=== PATIENT | female | born 1985 | race Caucasian/White ===

== ENCOUNTER 2025-04-10 15:13 | Emergency (ER) | payer BC, SELFPAY ==
--- OUTSIDE RECORDS SUMMARY | 2025-02-17 13:30 | XMS_ITS | Encounter Summary ---
Author [place] [address] Care Team Providers Care Compliance Engineer Name Role Phone Kamini Turner APRN Primary Care Provider [phone] Brayan Miles MD Unavailable [phone] Kevin Santillan MD Unavailable Jonelle Michael MD Unavailable [phone] Keyla Colorado MD Unavailable Reason for Visit * Reason Comments Medication Question Encounter Details Date Type Department Care Team (Late st Contact Info) Description 02/17/2025 2:30 PM EDT Office Visit [facility] [address] [place] [address] Kamini Turner APRN [address] [place] [address] Screening for STDs (sexually transmitted diseases) (Primary Dx); RTA (renal tubular acidosis); Type 2 diabetes mellitus without complication, without long-term current use of insulin (HCC) Social History Tobacco Use Types Packs/Day Years Used Date Smoking Tobacco: Former Cigarettes 0 11/27/1995 - 05/29/2007 Passive Smoke Exposure: Past Smokeless Tobacco: Never Tobacco Cessation:Counseling Given: Not Answered Alcohol Use Standard Drinks/Week Comments Not Currently 0 (1 standard drink = 0.6 oz pure alcohol) Used to drink occasionally but havent in over a year [facility] Utilities Answer Date Recorded In the past 12 months has [facility] [employer], or [employer] threatened to shut off services in your home? No 01/05/2024 Overall Financial Resource Strain (CARDIA) Answe r Date Recorded How hard is it for you to pa y for the very basics like food, housing, medical care, and heating? Not hard at all 01/05/2024 PHQ-2 Answer Date Recorded PHQ-2 Total Score 0 01/09/2025 [facility] - Occupational Stress Questionnaire Answer Date Recorded Do you feel stress - tense, restless, nervous, or anxious, or unable to sleep at night because your mind is troubled all the time - these days? Not at all 01/05/2024 Exercise Vital Sign Answer Date Recorde d On average, how many days pe r week do you engage in moderate to strenuous exercise (like a brisk walk)? 0 days 01/05/2024 On average, how many minutes do you engage in exercise at this level? 0 min 01/05/2024 Hunger Vital Sign Answer Date Recorded Within the past 12 months, y ou worried that your food would run out before you got the money to buy more. Never true 01/05/20 24 Within the past 12 months, t he food you bought just didn't last and you didn't have money to get more. Never true 01/05/2024 [facility]AP[facility] - Transportation Answer Date Re corded In the past 12 months, has l ack of transportation kept you from medical appointments or from getting medications? No 07/2022 In the past 12 months, has l ack of transportation kept you from meetings, work, or from getting things needed for daily living? No [facility] Transportation Answer D ate Recorded In the past 12 months, has l ack of reliable transportation kept you from medical appointments, meetings, work or from getting things needed for daily living? 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 Answer Date of Assessment Author No 08/19/2024 3:10 PM EDT Darrick Matamoros RMA * Is the person blind or does he/she have serious difficulty seeing even when wearing glasses? Answer Date of Assessment Author No 08/19/2024 3:10 PM EDT Darrick Matamoros RMA * Does this person have serious difficulty walking or climbing stairs? Answer Date of Assessment Author No 08/19/2024 3:10 PM EDT Darrick Matamoros RMA * Does this person have difficulty dressing or bathing? Answer Date of Assessment Author No 08/19/2024 3:10 PM EDT Darrick Matamoros RMA * Because of a physical, mental or emotional condition, does this person have difficulty doing errands alone such as visiting a doctor's office or shopping? Answer Date of Assessment Author No 08/19/2024 3:10 PM EDT Darrick Matamoros RMA documented as of this encounter Mental Status * Because of a physical, mental or emotional condition, does this person have serious difficulty concentrating, remembering or making decisions? Answer Entry Date Author No 08/19/2024 3:10 PM EDT Darrick Matamoros RMA documented in this encounter Progress Notes * Kamini Turner APRN - 02/17/2025 2:30 PM EDT Assessment & Plan Screening for STDs (sexually transmitted diseases) Orders: ??? CHLAMYDIA/GC; Future ??? TRICHOMONAS VAGINALIS TMA; Future ??? HIV AG/AB; Future ??? ACUTE HEPATITIS PANEL; Future ??? SYPHILIS SCREEN WITH REFLEX RPR QUANT; Future Progress Note: Vitals: 02/17/25 1437 BP: (!) 124/88 Pulse: 85 Temp: 98.1 ??F (36.7 ??C) TempSrc: Forehead SpO2: 99% Weight: 214 lb (97.1 kg) Height: 5' 2 (1.575 m) Body mass index is 39.14 kg/m??. SUBJECTIVE: Chief Complaint Patient presents with ??? Medication Question HPI: Would like std testing. States no known exposure, but wants tested. Has a little discharge, no odor or color. No sores. Review of Systems Constitutional: Negative. HENT: Negative. Respiratory: Negative. Cardiovascular: Negative. OBJECTIVE: Physical Exam Vitals and nursing note reviewed. Constitutional: Appearance: Normal appearance. HENT: Mouth/Throat: Mouth: Mucous membranes are moist. Cardiovascular: Rate and Rhythm: Normal rate and regular rhythm. Pulmonary: Effort: Pulmonary effort is normal. Skin: General: Skin is warm and dry. Neurological: Mental Status: She is alert. Psychiatric: Mood and Affect: Mood normal. documented in this encounter Plan of Treatment Upcoming Encounters Date Type Department Care Team (Late st Contact Info) Description 08/21/2025 3:00 PM EDT Office Visit [facility] Nephrology [address] [place] [address] Kaci Graham MD [address] [facility] [address] [place] [address] 10/17/2025 3:15 PM EDT Office Visit [facility] [address] [facility] [address] [place] [phone] Mike Stover MD [address] [facility] [address] [place] [address] documented as of this encounter Goals Goal Patient Goal Type Associated Problems Recent Progress Patient-Stated? Author Blood Pressure < 140/90 Blood Pressure 100/70(2024 11:31 AM EST) No Bernabe Cortez MD Maintain a healthy diet, exercise regularly and maintain an ideal body weight General No Edda Farias MA BMI (Calculated) < 30 General 40.1(04/10/20 11:31 AM EST) Kamini Hendrickson APRN Stay Tobacco Free Lifestyle No Edda Farias MA HEMOGLOBIN A1C < 7.0 Result Component 5.9( 2:57 PM EDT) No Kamini Turner APRN documented as of this encounter Procedures Procedure Name Priority Date/Time Associated Diagnosis Comments HIV AG/AB Routine 02/17/2025 3:35 PM EDT Screening for STDs (sexually transmitted diseases) TRICHOMONAS VAGINALIS TMA Routine 02/17/2025 3:35 PM EDT Screening for STDs (sexually transmitted diseases) TRICHOMONAS VAGINALIS BY TMA Routine 02/17/2025 3:35 PM EDT Screening for STDs (sexually transmitted diseases) CHLAMYDIA/GC Routine 02/17/2025 3:35 PM EDT Screening for STDs (sexually transmitted diseases) SYPHILIS SCREEN WITH REFLEX RPR QUANT Routine 02/17/2025 3:35 PM EDT Screening for STDs (sexually transmitted diseases) CHLAMYDIA/GC BY TMA Routine 02/17/2025 3 :35 PM EDT Screening for STDs (sexually transmitted diseases) ACUTE HEPATITIS PANEL Routine 02/17/2025 3:35 PM EDT Screening for STDs (sexually transmitted diseases) CBC WITH DIFF Routine 02/17/2025 3:35 PM EDT Type 2 diabetes mellitus without complication, without long-term current use of insulin (HCC) PHOSPHORUS LEVEL Routine 02/17/2025 3:35 PM EDT RTA (renal tubular acidosis) LIPID SCREEN Routine 02/17/2025 3:35 PM EDT Type 2 diabetes mellitus without complication, without long-term current use of insulin (HCC) COMPREHENSIVE METABOLIC PANEL Routine 02/17/2025 3:35 PM EDT Type 2 diabetes mellitus without complication, without long-term current use of insulin (HCC) documented in this encounter Results * PHOSPHORUS LEVEL (02/17/2025 3:35 PM EDT) Pathologist [facility] Phosphorus 3.5 2.5 - 4.5 mg/dL 02/17/2025 9:21 PM EDT [facility] [employer] Blood VENOUS BLOOD / Unknown Venipuncture / Unknown 02/17/2025 3:35 PM EDT 02/17/2025 3:35 PM EDT us Kaci Graham MD CHEMISTRY ORDERABLES Final R esult [facility] [employer] [address] [place] [address] , [place] [address] * TRICHOMONAS VAGINALIS BY TMA (02/17/2025 3:35 PM EDT) Pathologist [facility] Trichomonas vaginalis by TMA Not Detected Not Detected 02/18/2025 5:50 PM EDT [facility] [employer] Urine STRUCTURE OF URINARY TRACT PROPER / Unknown 02/17/2025 3:35 PM EDT 02/17/2025 3:35 PM EDT Narrative [facility] [employer] - 02/18/2025 5:50 PM EDT Test methodology is mill roll operator mediated amplification (TMA) using the Aptima Trichomonas vaginalis assay from [employer]. A negative result does not completely rule out a Trichomonas vaginalis infection due to potential inhibitors or levels present below the limit of detection of this assay. Results are dependent on proper collection and transport of specimen. This test is indicated for medical purposes only and should not be used for legal or forensic purposes. Kamini Turner MAINFRAME SYSTEMS PROGRAMMER MICROBIOLOGY - GENERAL OR DERABLES Final Result Performing Organization Address [facility] Co de Phone Number [facility] , [place] [address] * CHLAMYDIA/GC BY TMA (02/17/2025 3:35 PM EDT) Pathologist [facility] Chlamydia trachomatis Not Detected Not Detected 02/18/2025 5:24 PM EDT [facility], [facility] Neisseria gonorrhoeae Not Detected Not Detected 02/18/2025 5:24 PM EDT [facility], [facility] Urine STRUCTURE OF URINARY TRACT PROPER / Unknown 02/17/2025 3:35 PM EDT 02/17/2025 3:35 PM EDT Narrative [facility] [employer] [facility] - 02/18/2025 5:24 PM EDT Testing methodology is mill roll operator mediated amplification (TMA) using the Aptima Combo 2 assay from [employer]. A negative result does not completely rule out a Chlamydia trachomatis or Neisseria gonorrhoeae infection due to potential inhibitors or levels present below the limit of detection by this assay. Results are dependent on proper collection and transport of specimen. This test is indicated for medical purposes only and should not be used for legal or forensic purposes. The performance characteristics of this assay were validated by the testing laboratory. This assay is FDA cleared to test the following specimens: clinician-collected endocervical, vaginal, male urethral swab specimens, rectal swabs, and throat/pharyngeal swabs; patient collected vaginal specimens within a clinic setting; Thin Prep Specimens in [employer]; and first-stream, unpreserved male and female urine specimens. Detailed methodology is available upon request. Kamini Turner MAINFRAME SYSTEMS PROGRAMMER MICROBIOLOGY - GENERAL OR DERABLES Final Result Performing Organization Address [facility] Co de Phone Number [facility] , [place] [address] * LIPID SCREEN (02/17/2025 3:35 PM EDT) Pathologist [facility] Cholesterol 138 <200 mg/dL 02/17/2025 9:21 PM EDT [facility] [employer] Comment: < 200 Desirable 200 - 239 Borderline High >= 240 High Triglyceride 82 <150 mg/dL 02/17/2025 9:21 PM EDT [facility], [facility] Comment: < 150 Normal 150 - 199 Borderline High 200 - 499 High >= 500 Very High HDL 45 >=40 mg/dL 02/17/2025 9:21 PM EDT [facility] [employer], [facility] Comment: > 60 Optimal 40 - 60 Acceptable < 40 Low LDL Calculated 77 <100 mg/dL 02/17/2025 9:21 PM EDT [facility], [facility] Comment: < 100 Optimal 100 - 129 Near or above optimal 130 - 159 Borderline High 160 - 189 High >= 190 Very High The National Institutes of Health (NIH) equation is used for all lipid panels that report calculated LDL (LDL-C). Non-HDL-C Calculated 93 <=129 mg/dL 02/17/2025 9:21 PM EDT [facility] [employer], [facility] Comment: <130 Desirable 130-159 Above Desirable 160-189 Borderline High 190-219 High >= 220 Very High Fasting Specimen? Yes None 025 9:21 PM EDT [facility] [employer], [employer] Blood VENOUS BLOOD / Unknown Venipuncture / Unknown 02/17/2025 3:35 PM EDT 02/17/2025 3:35 PM EDT us Kamini Turner MAINFRAME SYSTEMS PROGRAMMER CHEMISTRY ORDERABLES Jackie l Result [facility], [facility] [address] [facility] [address] , [place] [address] * (ABNORMAL) COMPREHENSIVE METABOLIC PANEL (02/17/2025 3:35 PM EDT) Sodium 137 136 - 145 mmol/L 02/17/2025 9:21 PM EDT [facility], [facility] Potassium 4.0 3.5 - 5.0 mmol/L 02/17/2025 9:21 PM EDT [facility], [facility] Chloride 107 98 - 107 mmol/L 02/17/2025 9:21 PM EDT [facility], [facility] Total CO2 18(L) 22 - 29 mmol/L 02/17/2025 9:21 PM EDT [facility], [facility] Anion Gap 12 7 - 16 mmol/L 02/17/2025 9:21 PM EDT [facility], [facility] Calcium 9.6 8.6 - 10.4 mg/dL 02/17/2025 9:21 PM EDT [facility], [facility] Glucose Lvl 104(H) 70 - 99 mg/dL 02/17/2025 9:21 PM EDT [facility] BUN 16 6 - 20 mg/dL 02/17/2025 9:21 PM EDT [facility] Creatinine 0.77 0.51 - 1.30 mg/dL 02/17/2025 9:21 PM EDT [facility], [facility] Albumin 4.3 3.5 - 5.2 gm/dL 02/17/2025 9:21 PM EDT [facility], [facility] Total Protein 7.7 6.4 - 8.3 gm/dL 02/17/2025 9:21 PM EDT [facility] Bili Total 0.5 0.2 - 1.3 mg/dL 02/17/2025 9:21 PM EDT [facility] ALT 30 <=41 U/L 02/17/2025 9:21 PM EDT [facility] AST 33 <=40 U/L 02/17/2025 9:21 PM EDT [facility] Alk Phos 58 36 - 123 U/L 02/17/2025 9:21 PM EDT [facility] eGFR (CKD-EPIcr 2020) 101 >=60 mL/min/1.7 3 m2 02/17/2025 9:21 PM EDT [facility] Comment:Estimated GFR was ca lculated using the CKD-EPIcr (2020) equation refit without race. The equation is recommended by the National Kidney Foundation - [place] [employer] Nephrology Task Force. Blood VENOUS BLOOD / Unknown Venipuncture / Unknown 02/17/2025 3:35 PM EDT 02/17/2025 3:35 PM EDT us Kamini Turner APRN CHEMISTRY ORDERABLES Jackie l Result [facility] [address] [facility] , [place] [address] * (ABNORMAL) CBC WITH DIFF (02/17/2025 3:35 PM EDT) WBC 9.7 3.7 - 10.3 x10(3)/mcL 02/17/2025 8:15 PM EDT [facility] RBC 4.83 3.90 - 5.20 x10(6)/mcL 02/17/2025 8:15 PM EDT [facility] Hgb 14.7 11.2 - 15.7 g/dL 02/17/2025 8:15 PM EDT [facility] Hct 46.8(H) 34.0 - 45.0 % 02/17/2025 8:15 PM EDT [facility] MCV 96.9 80.0 - 100.0 fL 02/17/2025 8:15 PM EDT [facility] MCH 30.4 26.0 - 34.0 pg 02/17/2025 8:15 PM EDT [facility] MCHC 31.4 30.7 - 35.5 g/dL 02/17/2025 8:15 PM EDT [facility] RDW 12.3 <=14.9 % 02/17/2025 8:15 PM EDT [facility] Platelet 324 155 - 369 x10(3)/mcL 02/17/2025 8:15 PM EDT [facility] MPV 10.8 8.8 - 12.5 fL 02/17/2025 8:15 PM EDT [facility] Neut Percent 65.2 % 02/17/2025 8:15 PM EDT [facility] Comment:Neutrophils equals s egs plus bands Imm Gran% 0.3 % 02/17/2025 8:15 PM EDT [facility] Comment:Automated count of m etamyelocytes, myelocytes and promyelocytes. Lymph Percent 25.1 % 02/17/2025 8:15 PM EDT [facility] Louisa Percent 7.3 % 02/17/2025 8:15 PM EDT [facility] Eos Percent 1.5 % 02/17/2025 8:15 PM EDT [facility], [facility] Baso Percent 0.6 % 02/17/2025 8:15 PM EDT [facility], [facility] Neut # 6.3(H) 1.6 - 6.1 x10(3)/[facility] 02/17/2025 8:15 PM EDT [facility] Comment:Neutrophils equals s egs plus bands IMMGRAN# 0.0 0.0 - 0.1 x10(3)/[facility] 02/17/2025 8:15 PM EDT [facility] [employer], [facility] Comment:Automated count of m etamyelocytes, myelocytes and promyelocytes. An absolute IG <0.1 is reported as 0.0. Lymph # 2.4 1.2 - 3.9 x10(3)/[facility] 02/17/2025 8:15 PM EDT [facility], [facility] Louisa # 0.7 0.3 - 0.9 x10(3)/[facility] 02/17/2025 8:15 PM EDT [facility], [facility] Eos# 0.1 0.0 - 0.5 x10(3)/[facility] 02/17/2025 8:15 PM EDT [facility], [facility] Baso # 0.1 0.0 - 0.1 x10(3)/[facility] 02/17/2025 8:15 PM EDT [facility] Blood VENOUS BLOOD / Unknown Venipuncture / Unknown 02/17/2025 3:35 PM EDT 02/17/2025 3:35 PM EDT us Kamini Turner MAINFRAME SYSTEMS PROGRAMMER HEMATOLOGY ORDERABLES Fin al Result [facility], [facility] [address] , [place] [address] * SYPHILIS SCREEN WITH REFLEX RPR QUANT (02/17/2025 3:35 PM EDT) Trep Ab Index 0.10 <=0.99 Index Value 02/17/2025 10:59 PM EDT [facility], [facility] Comment: < 1.00 - Non-Reactive >=1.00 - Reactive NOTE: All reactive results will be reflexed to Quantitative Non-Treponemal(RPR)test. Blood VENOUS BLOOD / Unknown Venipuncture / Unknown 02/17/2025 3:35 PM EDT 02/17/2025 3:35 PM EDT Kamini Turnerdox MAINFRAME SYSTEMS PROGRAMMER CHEMISTRY ORDERABLES Jackie l Result Performing Organization Address [facility] Co de Phone Number [facility], [facility] [address] , [place] [address] * ACUTE HEPATITIS PANEL (02/17/2025 3:35 PM EDT) Hep Bs Ag Non-Reacti ve Non-React liane 02/17/2025 9:51 PM EDT [facility], [facility] Comment:HBsAg not detected. Does not exclude possibility of exposure to HBV. Hep B Core IgM Non-Reacti ve Non-React liane 02/17/2025 9:51 PM EDT [facility] Hep A IgM Non-Reacti ve Non-React liane 02/17/2025 9:51 PM EDT [facility], [facility] Hep C Ab Non-Reacti ve Non-React liane 02/17/2025 9:51 PM EDT [facility], [facility] Comment:No antibodies to HCV detected. Does not exclude possibility of exposure to HCV. Blood VENOUS BLOOD / Unknown Venipuncture / Unknown 02/17/2025 3:35 PM EDT 02/17/2025 3:35 PM EDT Narrative [facility], [facility] - 02/17/2025 9:51 PM EDT Test performed using [employer] electrochemiluminescence immunassay (ECLIA). Kamini Turnerdox MAINFRAME SYSTEMS PROGRAMMER CHEMISTRY ORDERABLES Jackie l Result Performing Organization Address [facility] Co de Phone Number [facility] [employer], [facility] [address] , [address] [place] [id number] * HIV AG/AB (02/17/2025 3:35 PM EDT) HIV Ag/AB Non-Reacti ve Non-Reacti ve 02/17/2025 9:46 PM EDT [facility] [employer] Comment:Negative for HIV-1 a ntigen and anti-HIV-1/anti-HIV-2 antibodies. Blood VENOUS BLOOD / Unknown Venipuncture / Unknown 02/17/2025 3:35 PM EDT 02/17/2025 3:35 PM EDT Narrative [facility] [employer] - 02/17/2025 9:46 PM EDT Test performed using [employer] electrochemiluminescence immunassay (ECLIA). 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 Type 2 diabetes mellitus without complication, without long-term current use of insulin (HCC) documented in this encounter Care Teams Compliance Engineer Relationship Specialty Start Date End Date Kamini Turner APRN [address] [place] [phone] PCP - General Nurse Practitioner 11/28/17 Brayan Miles MD [address] [facility] [address] [place] [address] Referring Physician Obstetrics & Gynecology 03/11/19 Kevin Santillan MD [address] [facility] [address] [place] [address] Consulting Physician Obstetrics & Gynecology-Gynecologic Oncology 03/21/19 Jonelle Michael MD [address] [facility] [address] [place] [phone] Consulting Physician Ophthalmology 03/19/20 Keyla [place] MD [address] [place] [address] Internal Medicine-Rheumatology 12/08/22 documented as of this encounter
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
--- OUTSIDE RECORDS SUMMARY | 2025-04-09 14:35 | XMS_ITS | Encounter Summary ---
Author Organization [place] [address] Care Team Providers Care Baler Operator Name Role Phone Kamini Turner APRN Primary Care Provider [phone] Brayan Miles MD Unavailable [phone] Kevin Santillan MD Unavailable Jonelle Michael MD Unavailable [phone] Keyla Colorado MD Unavailable Encounter Details Date Type Department Care Team (Latest Contact Info) Description 04/09/2025 2:35 PM EST - 04/09/2025 11:59 PM EST Hospital Encounter [facility] [address] [place] [address] Bleeding in early Discharge Disposition: Home or Self Care Social History Tobacco Use Types Packs/Day Years Used Date Smoking Tobacco: Former Cigarettes 0 11/27/1995 - 05/29/2007 Passive Smoke Exposure: Past Smokeless Tobacco: Never Alcohol Use Standard Drinks/Week Comments Not Currently 0 (1 standard drink = 0.6 oz pure alcohol) Used to drink occasionally but havent in over a year [facility] Utilities Answer Date Recorded In the past 12 months has [employer] electric, gas, oil, or water company threatened to shut off services in your home? No 01/05/2024 Overall Financial Resource Strain (CARDIA) Answe r Date Recorded How hard is it for you to pa y for the very basics like food, housing, medical care, and heating? Not hard at all 01/05/2024 PHQ-2 Answer Date Recorded PHQ-2 Total Score 0 01/09/2025 [facility] [place] of Occupat ional Health - Occupational Stress Questionnaire Answer Date Recorded [...] things needed for daily living? No 08/29/2022 [facility] IP Transportation Answer D ate Recorded In [...] on file documented as of this encounter Functional Status * Is the person deaf or does he/she have serious difficulty hearing? Answer Date of Assessment Author No 08/19/2024 3:10 PM Peyton Motta RMA * Is the person blind or does he/she have serious difficulty seeing even when wearing glasses? Answer Date of Assessment Author No 08/19/2024 3:10 PM Peyton Motta RMA * Does this person have serious difficulty walking or climbing stairs? Answer Date of Assessment Author No 08/19/2024 3:10 PM EDT Peyton Matamoros NISA * Does this person have difficulty dressing or bathing? Answer Date of Assessment Author No 08/19/2024 3:10 PM EDT Peyton Matamoros maryNISA Jauregui * Because of a physical, mental or emotional condition, does this person have difficulty doing errands alone such as visiting a doctor's office or shopping? Answer Date of Assessment Author No 08/19/2024 3:10 PM EDT Peyton Matamoros maryNISA Jauregui documented as of this encounter Mental Status * Because of a physical, mental or emotional condition, does this person have serious difficulty concentrating, remembering or making decisions? Answer Entry Date Author No 08/19/2024 3:10 PM EDT Peyton Matamoros bolivar Zunigae NISA documented in this encounter Medications at Time of Discharge ACCU-CHEK GUIDE TEST STRIPS [facility] StripIndications:Im paired glucose tolerance USE 1 STRIP BEFORE MEAL(S) AND AT BEDTIME 100 Each 5 acetaZOLAMIDE (DIAMOX) 250 mg Oral Tablet Take 375 mg by mouth 3 times daily. 4 albuterol (PROVENTIL HFA;VENTOLIN HFA) 90 mcg/actuation Inhl HFA Aerosol InhalerIndications: Mild intermittent reactive airway disease with wheezing with acute exacerbation Inhale 2 Puffs into the lungs every 4 hours as needed for Wheezing. 1 Each 2 5 albuterol-ipratropi um (DUO-NEB) 3 mg-0.5 mg(2.5 mg base)/3 mL Inhl Solution for Nebulization USE 3 ML BY NEBULIZATION AT 8 AM,12 PM, 4 PM, AND 8 PM 5 Blood-Glucose Meter [facility] KitIndications:Impa ired glucose tolerance Use before meals and at hs. Dispense insurance preference. E11.9 1 Kit 5 budesonide (PULMICORT) 0.5 mg/2 mL Inhl Suspension for NebulizationIndicat ions:Mild intermittent reactive airway disease with wheezing with acute exacerbation Take 2 mL by nebulization 2 times daily. 180 mL 5 Cholecalciferol, Vitamin D3, (VITAMIN D3) 125 mcg (5,000 unit) Oral Tablet Take 1 Tablet by mouth once a week. TAKES ON SATURDAYS ergocalciferol (DRISDOL) 1,250 mcg (50,000 unit) Oral CapsuleIndications: Vitamin D deficiency Take 1 Capsule by mouth once a week. 12 Capsule 5 gabapentin (NEURONTIN) 600 mg Oral TabletIndications:P eripheral polyneuropathy Take 1 Tablet by mouth 3 times daily. 270 Tablet 5 galcanezumab-gnlm (EMGALITY) 120 mg/mL SubQ Pen InjectorIndications :Episodic migraine Subcutaneous (Inject under the skin) One pen (120mg) every 30 days. 3 mL 5 hydrOXYzine (ATARAX) 50 mg Oral TabletIndications:P anic attack Take 1 Tablet by mouth 3 times daily as needed for Anxiety (for panic attacks). 270 Tablet 5 ibuprofen (ADVIL;MOTRIN) 800 mg Oral TabletIndications:A rthralgia, unspecified joint Take 1 Tablet by mouth every 6 hours as needed for Pain. 270 Tablet 5 Lancets (ACCU-CHEK SOFTCLIX LANCETS) Misc MiscIndications:Imp aired glucose tolerance USE 1 UNIT TO CHECK GLUCOSE BEFORE MEAL(S) AND AT BEDTIME 100 Each 5 levocetirizine (XYZAL) 5 mg Oral TabletIndications:S easonal allergic rhinitis, unspecified trigger Take 1 Tablet by mouth every evening. 100 Tablet 1 5 loratadine (CLARITIN) 10 mg Oral Tablet Take 10 mg by mouth daily. multivitamin, stress formula (ALLBEE VIT WITH C & B COMPLEX) Oral Tablet Take 1 Tablet by mouth daily. Nebulizer Accessories Misc MiscIndications:Mil d intermittent reactive airway disease with wheezing with acute exacerbation Use tubing with treatment. 10 Each 4 NURTEC ODT 75 mg Oral Tablet, Rapid DissolveIndications :Migraine without aura and without status migrainosus, not intractable TAKE 1 TABLET BY MOUTH ONCE AT ONSET OF MIGRAINE NEEDED. MAX DOSE IS 75MG/24 HOURS 8 Tablet 11 2 ondansetron (ZOFRAN-ODT) 4 mg Oral Tablet, Rapid DissolveIndications :Nausea and vomiting, unspecified vomiting type DISSOLVE 1 TABLET IN MOUTH EVERY 6 HOURS NEEDED 30 Tablet 5 pantoprazole (PROTONIX) 40 mg Oral Tablet, Delayed Release (E.C.)Indications:I neffective esophageal motility,Esophageal dysphagia Take 1 tablet by mouth twice daily 180 Tablet 2 5 polyethylene glycol (GLYCOLAX, MIRALAX) 17 gram Oral Powder in Packet Take 17 g by mouth nightly. potassium chloride (KLOR-CON M) 20 mEq Oral Tab Sust.Rel. Particle/CrystalInd ications:Fluid retention Take 2 Tablets by mouth 2 times daily. 360 Tablet 3 5 pramipexole (MIRAPEX) 1 mg Oral TabletIndications:R estless legs syndrome (RLS) Take 1 Tablet by mouth 2 times daily. 200 Tablet 1 5 semaglutide (OZEMPIC) 2 mg/dose (8 mg/3 mL) SubQ Pen InjectorIndications :Type 2 diabetes mellitus without complication, without long-term current use of insulin (HCC) Inject 2 mg under the skin once a week. 9 mL 1 5 Sodium Bicarbonate 650 mg Oral Tablet Take 1 Tablet by mouth 3 times daily. 270 Tablet 3 5 spironolactone (ALDACTONE) 50 mg Oral TabletIndications:N onintractable headache, unspecified chronicity pattern, unspecified headache type Take 1 Tablet by mouth daily. 90 Tablet 3 5 documented as of this encounter Discharge Disposition Disposition Code Departure Means Destination Home or Self Care documented in this encounter Plan of Treatment Upcoming Encounters Date Type Department Care Team (Late st Contact Info) Description 08/21/2025 3:00 PM EDT Office Visit [facility] Nephrology [facility] [address] [place] [address] Kaci Graham MD [address] [facility] [address] [place] [address] 10/17/2025 3:15 PM EDT Office Visit [facility] [address] [place] [address] Mike Stover MD [address] [facility] [address] [place] [address] documented as of this encounter Goals Goal Patient Goal Type Associated Problems Recent Progress Patient-Stated? Author Blood Pressure < 140/90 Blood Pressure 100/70(2024 11:31 AM EST) No Bernabe Cortez MD Maintain a healthy diet, exercise regularly and maintain an ideal body weight General No Edda Farias MA BMI (Calculated) < 30 General 40.1(04/10/20 11:31 AM EST) No Kamini Turner APRN Stay Tobacco Free Lifestyle No Edda Farias MA HEMOGLOBIN A1C < 7.0 Result Component 5.9( 2:57 PM EDT) No Kamini Turner APRN documented as of this encounter Procedures Procedure Name Priority Date/Time Associated Diagnosis Comments HUMAN CHORIONIC GONADOTROPIN QUANTITATIVE Routine 04/09/2025 2:51 PM EST Bleeding in early documented in this encounter Results * (ABNORMAL) HUMAN CHORIONIC GONADOTROPIN QUANTITATIVE (04/09/2025 2:51 PM EST) Hcg Quant 121(H) <5 mIU/mL 04/09/2025 8:26 PM EST PREFERRED [facility] Blood VENOUS BLOOD / Unknown Venipuncture / Unknown 04/09/2025 2:51 PM EST 04/09/2025 2:52 PM EST Narrative PREFERRED [facility] - 04/09/2025 8:26 PM EST Female (non-): 0-4.9 mIU/mL Female (postmenopausal): 0-8.1 mIU/mL Indeterminate values for (e.g., 5-25 mIU/mL) may be confirmed with a repeat test in 48-72 hours. Values in should double every 2-3 days for the first six weeks. Ingestion of nicci doses of biotin (>5 mg/day) taken within 8 hours of drawing blood sample can interfere with this immunoassay test. us Akua Reed DO CHEMISTRY ORDERABLES Fin al Result PREFERRED [facility] [address] [facility] , [address] [place], [place] [id number] documented in this encounter Visit Diagnoses Diagnosis Bleeding in early Unspecified hemorrhage in early , unspecified as to episode of care documented in this encounter Care Teams Baler Operator Relationship Specialty Start Date End Date Kamini Turner APRN [address] [place] [id number] PCP - General Nurse Practitioner 11/28/17 Brayan Miles MD [address] [facility] [address] [place] [address] Referring Physician Obstetrics & Gynecology 03/11/19 Kevin Santillan MD [address] [facility] [address] [place] [address] Consulting Physician Obstetrics & Gynecology-Gynecologic Oncology 03/21/19 Jonelle Michael MD [address] [facility] [address] [place] [address] Consulting Physician Ophthalmology 03/19/20 Keyla Colorado MD [address] [place] [address] Internal Medicine-Rheumatology 12/08/22 documented as of this encounter
--- OUTSIDE RECORDS SUMMARY | 2025-04-10 11:15 | XMS_ITS | Encounter Summary ---
Author Organization [place] [address] Care Team Providers Care Senior Chemical Engineer Name Role Phone Kamini Turner APRN Primary Care Provider [phone] Brayan Miles MD Unavailable [phone] Kevin Santillan MD Unavailable Jonelle Michael MD Unavailable [phone] Keyla Colorado MD Unavailable Reason for Referral * Consultation (Routine) - Authorization Not Needed Specialty Diagnoses / Procedures Referred By Contac t Referred To Contact Diagnoses Threatened miscarriage Positive test Vaginal bleeding Procedures OK OFFICE/OUTPATIENT NEW MODERATE MDM 45 MINUTES Kamini Turner APRN [address] [place] [address] Phone: tel: fax: Phuong Evans, DO [address] [address] Phone: tel: fax: Referral ID Status Reason Start Date Expiration Date Visits Requested Visits Authorized [id number] Authorization Not Needed 04/10/2026 99 99 Question Answer Is this for an abnormal pap? No Reason for Visit * Reason Comments Personal Problem Encounter Details Date Type Department Care Team ([facility] Contact Info) Description 04/10/2025 11:15 AM EST [facility] [address] [place] [address] Kamini Turner APRN [address] [place] [address] Threatened miscarriage (Primary Dx); Positive test; Vaginal bleeding; UTI (urinary tract infection), uncomplicated Social History Tobacco Use Types Packs/Day Years Used Date Smoking Tobacco: Former Cigarettes 0 11/27/1995 - 05/29/2007 Passive Smoke Exposure: Past Smokeless Tobacco: Never Tobacco Cessation:Counseling Given: Not Answered Alcohol Use Standard Drinks/Week Comments Not Currently 0 (1 standard drink = 0.6 oz pure alcohol) Used to drink occasionally but havent in over a year [facility] Utilities Answer Date Recorded In the [...] Date Recorded PHQ-2 Total Score 0 01/09/2025 [facility] of Occupat ional Health - Occupational Stress [...] things needed for daily living? No 08/29/2022 [facility] Transportation Answer D ate Recorded In the past 12 months, has l ack of reliable transportation kept you from medical appointments, meetings, work or from getting things needed for daily living? No 01/05/2024 Sexually Active Control Partners Comments Yes Injection, Other-see comments Male Was on control pill but neurologist stopped it katja of Comments Yes Sex and Gender Information Value Date Recorded [...] Sign Reading Time Taken Comments Blood Pressure 100/70 04/10/2025 11:31 AM EST Pulse 85 04/10/2025 11:31 AM EST Temperature 36.3 C (97.3 F) 04/10/2025 11:31 AM EST Respiratory Rate - - Oxygen Saturation 98% 04/10/2025 11:31 AM EST Inhaled Oxygen Concentration - - Weight 99.3 kg (219 lb) 04/10/2025 11:31 AM EST Height 157.5 cm (5' 2 ) 04/10/2025 11:31 AM EST Body Mass Index 40.06 04/10/2025 11:31 AM EST documented in this encounter Functional Status * Is the person deaf or does he/she have serious difficulty hearing? Answer Date of Assessment Author No 08/19/2024 3:10 PM EDPeyton Wilkinson RMA * Is the person blind or [...] 08/19/2024 3:10 PM EDT Peyton Matamoros bolivar Zunigae, NISA * Because of a physical, mental or [...] No 08/19/2024 3:10 PM EDT Peyton Matamoros marygretel Barrera, NISA documented in this encounter Ordered Prescriptions Prescription Sig Dispense Quantity Refills Last Filled Start Date End Date cephALEXin (KEFLEX) 500 mg Oral CapsuleIndications: UTI (urinary tract infection), uncomplicated Take 1 Capsule by mouth every 8 hours for 7 days. 21 Capsule 04/10/2025 documented in this encounter Progress Notes * Kamini Turner APRN - 04/10/2025 11:15 AM EST Assessment & Plan Threatened miscarriage Orders: ??? AMB REFERRAL TO [facility] Positive test Orders: ??? AMB REFERRAL TO [facility] Vaginal bleeding Orders: ??? AMB REFERRAL TO [facility] UTI (urinary tract infection), uncomplicated Orders: ??? URINE CULTURE (NO STAIN); Future ??? [facility] URINALYSIS POC ??? cephALEXin (KEFLEX) 500 mg Oral Capsule; Take 1 Capsule by mouth every 8 hours for 7 days. Due to uncertainty of rh factor, as well as pain and cramping, patient sent to ER in [place] for work up and evaluation. I cannot r/o ectopic in office, and with her hx of ectopic, this needs urgent evaluation. Referral placed to [facility] transfusion aide. Advised to hold all meds except inhaler if needed. Nothing to eat or drink until seen at ER. Progress Note: Vitals: 04/10/25 1131 BP: 100/70 Pulse: 85 Temp: 97.3 ??F (36.3 ??C) TempSrc: Forehead SpO2: 98% Weight: 219 lb (99.3 kg) Height: 5' 2 (1.575 m) Body mass index is 40.06 kg/m??. SUBJECTIVE: Chief Complaint Patient presents with ??? Personal Problem HPI: March 29 had spotting, lasted 3-4 days. Not heavy, no clots. Stopped. Started spotting with urination. Lasted off and on for a week. Yesterday morning got up and urinated blood. Took test and it was positive. Called [facility] in [place], had tubal in 2008, was concerned. Was told to get hcg level checked, but would not see her yet and told her it could be normal . Asked about her medicine, asked what medicine are you on? Despite being on epic. States told them. Was told to take tylenol for cramping, and if severe to go to hospital. Review of Systems Constitutional: Negative. HENT: Negative. Genitourinary: Positive for pelvic pain and vaginal bleeding. OBJECTIVE: Physical Exam Vitals and nursing note reviewed. Constitutional: Appearance: Normal appearance. HENT: Mouth/Throat: Mouth: Mucous membranes are moist. Cardiovascular: Rate and Rhythm: Normal rate and regular rhythm. Pulmonary: Effort: Pulmonary effort is normal. Abdominal: Palpations: Abdomen is soft. Tenderness: There is no guarding or rebound. Skin: General: Skin is warm and dry. Neurological: Mental Status: She is alert. Psychiatric: Mood and Affect: Mood normal. documented in this encounter Plan of Treatment Upcoming Encounters Date Type Department Care Team (Late st Contact Info) Description 08/21/2025 3:00 PM EDT Office Visit [facility] Nephrology [address] [place] [address] Kaci Graham MD [address] [facility] [address] [place] [address] 10/17/2025 3:15 PM EDT Office Visit [facility] [address] [facility] Anirudh [address] [place] [address] Mike Stovre MD [address] [facility] [address] [place] [phone] Pending Results Name Type Priority Associated Diagnoses Date /Time URINE CULTURE (NO STAIN) Microbiology Routine UTI (urinary tract infection), uncomplicated 04/10/2025 11:54 AM EST Scheduled Orders Name Type Priority Associated Diagnoses Orde r Schedule URINE CULTURE (NO STAIN) Microbiology Routine UTI (urinary tract infection), uncomplicated 1 Occurrences starting 04/10/2025 until 04/10/2026 Scheduled Referrals Name Type Priority Associated Diagnoses Orde r Schedule AMB REFERRAL TO [facility] Outpatient Referral Routine Threatened miscarriage Positive test Vaginal bleeding Ordered: 04/10/2025 documented as of this encounter Goals Goal [...] Procedure Name Priority Date/Time Associated Diagnosis Comments [facility]P URINALYSIS POC Routine 04/10/2025 11 :44 AM EST UTI (urinary tract infection), uncomplicated documented in this encounter Results * (ABNORMAL) [facility] URINALYSIS POC (04/10/2025 11:44 AM EST) UA Color POC Yellow Color 04/10/2025 11:48 AM EST [facility] [place] [facility] Appear POC Clear Clear 04/10/2025 11:48 AM EST [facility] [place] [facility] Gluc POC Negative Negative mg/dL 04/10/2025 11:48 AM EST [facility] [place] [facility] Bili POC Negative Negative 04/10/2025 11:48 AM EST [facility] [place] [facility]A Ketones POC Negative Negative mg/dL 04/10/2025 11:48 AM EST [facility] SG POC 1.025 1.001 - 1.035 no units 04/10/2025 11:48 AM EST [facility] Blood POC Large(A) Negative 04/10/2025 11:48 AM EST [facility] pH POC 7.0 5.0 - 8.0 pH 04/10/2025 11:48 AM EST [facility] Protein POC 30(A) Negative mg/dL 04/10/2025 11:48 AM EST [facility] Urobilinogen POC 2.0(A) 0.2, 1.0 04/10/2025 11:48 AM EST [facility] Nitrite POC Negative Negative 04/10/2025 11:48 AM EST [facility] Leuk Est POC Trace(A) Negative 11:48 AM EST [facility] Urine STRUCTURE OF URINARY TRACT PROPER / Unknown 04/10/2025 11:44 AM EST 04/10/2025 11:48 AM EST us Kamini Turner APRN POINT OF CARE TEST ORDERA BLES Final Result Performing Organization Address City/State/[facility] Co de Phone Number [facility] [address] [place] [address] documented in this encounter Visit Diagnoses Diagnosis Threatened miscarriage- Primary Threatened , unspecified as to episode of care Positive test examination or test, positive result Vaginal bleeding Other specified noninflammatory disorder of vagina UTI (urinary tract infection), uncomplicated Urinary tract infection, site not specified documented in this encounter Care Teams Senior Chemical Engineer Relationship Specialty Start Date End Date Kamini Turner APRN [address] [place] [address] PCP - General Nurse Practitioner 11/28/17 Brayan Miles MD [address] [facility] [address] [place] [address] Referring Physician Obstetrics & Gynecology 03/11/19 Kevin Santillan MD [address] [facility] [address] [place] [address] Consulting Physician Obstetrics & Gynecology-Gynecologic Oncology 03/21/19 Jonelle Michael MD [address] [facility] [address] [place] [address] Consulting Physician Ophthalmology 03/19/20 Keyla Colorado MD [address] [place] [address] Internal Medicine-Rheumatology 12/08/22 documented as of this encounter
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
--- OUTSIDE RECORDS SUMMARY | 2025-04-10 15:31 | XMS_ITS | Encounter Summary ---
Author [place] [address] Care Team Providers Care Tool Machine Setup Operator Name Role Phone Kamini Turner APRN Primary Care Provider [phone] Brayan Miles MD Unavailable [phone] Kevin Santillan MD Unavailable Jonelle Michael MD Unavailable [phone] Keyla Colorado MD Unavailable Encounter Details Date Type Department Care Team (Late st Contact Info) Description 04/03/2025 Orders Only [facility] [address] [place] [address] Kamini Turner APRN [address] [place] [address] Type 2 diabetes mellitus without complication, without long-term current use of insulin (HCC) (Primary Dx) Social History Tobacco Use Types Packs/Day Years Used Date Smoking Tobacco: Former Cigarettes 0 11/27/1995 - 05/29/2007 Passive Smoke Exposure: Past Smokeless Tobacco: Never Alcohol Use Standard Drinks/Week Comments Not Currently 0 (1 standard drink = 0.6 oz pure alcohol) Used to drink occasionally but havent in over a year [facility] Utilities Answer Date Recorded In the past 12 months has [employer] electric, gas, oil, or water [employer] threatened to shut off services in your home? No 01/05/2024 Overall Financial Resource Strain (CARDIA) Answe r Date Recorded How hard is it for you to pa y for the very basics like food, housing, medical care, and heating? Not hard at all 01/05/2024 PHQ-2 Answer Date Recorded PHQ-2 Total Score 0 01/09/2025 [facility] - Occupational Stress [...] things needed for daily living? No 08/29/2022 [facility] IP Transportation Answer D ate Recorded [...] No 08/19/2024 3:10 PM EDT Peyton Matamoros RMPeyton * Because of a physical, mental or emotional condition, does this person have difficulty doing errands alone such as visiting a doctor's office or shopping? Answer Date of Assessment Author No 08/19/2024 3:10 PM EDT Peyton Matamoros RMPeyton documented as of this encounter Mental Status * Because of a physical, mental or emotional condition, does this person have serious difficulty concentrating, remembering or making decisions? Answer Entry Date Author No 08/19/2024 3:10 PM EDT Peyton Matamoros RMPeyton documented in this encounter Ordered Prescriptions Prescription Sig Dispense Quantity Refills Last Filled Start Date End Date semaglutide (OZEMPIC) 2 mg/dose (8 mg/3 mL) SubQ Pen InjectorIndications :Type 2 diabetes mellitus without complication, without long-term current use of insulin (HCC) Inject 2 mg under the skin once a week. 9 mL 1 04/03/2025 documented in this encounter Plan of Treatment Upcoming Encounters Date Type Department Care Team (Late st Contact Info) Description 08/21/2025 3:00 PM EDT Office Visit [facility] Nephrology [address] [place] [address] Kaci Graham MD [address] [facility] [address] [place] [address] 10/17/2025 3:15 PM EDT Office Visit [facility] [address] [address] Mike Stover MD [address] [facility] [address] [place] [id number] documented as of this encounter Goals Goal [...] as of this encounter Visit Diagnoses Diagnosis Type 2 diabetes mellitus without complication, without long-term current use of insulin (HCC)- Primary documented in this encounter Discontinued Medications Medication Sig Discontinue Reason Start Date End Da te semaglutide (OZEMPIC) 1 mg/dose (4 mg/3 mL) SubQ Pen InjectorIndications: Type 2 diabetes mellitus without complication, without long-term current use of insulin (HCC) Inject 1 mg under the skin once a week. Dose adjustment 01/09/2025 04/03/2025 semaglutide 0.25 mg or 0.5 mg (2 mg/3 mL) SubQ Pen InjectorIndications: Type 2 diabetes mellitus without complication, without long-term current use of insulin (HCC) Subcutaneous (Inject under the skin) 0.25 mg once a week for 28 days, THEN 0.5 mg once a week for 28 days. Medication order 09/21/2023 11/16/2023 documented as of this encounter Care Teams Tool Machine Setup Operator Relationship Specialty Start Date End Date Kamini Turner APRN [address] [place] [address] PCP - General Nurse Practitioner 11/28/17 Brayan Miles MD [address] [facility] [address] [place] [address] Referring Physician Obstetrics & Gynecology 03/11/19 Kevin Santillan MD [address] [facility] [address] [place] [address] Consulting Physician Obstetrics & Gynecology-Gynecologic Oncology 03/21/19 Jonelle Michael MD [address] [facility] [address] [place] [address] Consulting Physician Ophthalmology 03/19/20 Keyla Colorado MD [address] [place] [address] Internal Medicine-Rheumatology 12/08/22 documented as of this encounter
--- OUTSIDE RECORDS SUMMARY | 2025-04-10 15:31 | XMS_ITS | Encounter Summary ---
Author Organization [place] [address] Care Team Providers Care Curber Name Role Phone Kamini Turner APRN Primary Care Provider [phone] Brayan Miles MD Unavailable [phone] Kevin Santillan MD Unavailable Jonelle Michael MD Unavailable [phone] Keyla Colorado MD Unavailable Reason for Visit * Reason Comments Medication Refill Encounter Details Date Type Department Care Team (Late st Contact Info) Description 03/25/2025 Refill SEP [facility] [address] [facility] [place] [address] Kamini Turner APRN [address] [place] [address] Medication Refill Social History Tobacco Use Types Packs/Day Years Used Date Smoking Tobacco: Former Cigarettes 0 11/27/1995 - 05/29/2007 Passive Smoke Exposure: Past Smokeless Tobacco: Never Alcohol Use Standard Drinks/Week Comments Not Currently 0 (1 standard drink = 0.6 oz pure alcohol) Used to drink occasionally but havent in over a year [facility] Utilities Answer Date Recorded In the past 12 months has e electric, gas, oil, or water company threatened to shut off services in your home? No 01/05/2024 Overall Financial Resource Strain (CARDIA) Answe r Date Recorded How hard is it for you to pa y for the very basics like food, housing, medical care, and heating? Not hard at all 01/05/2024 PHQ-2 Answer Date Recorded PHQ-2 Total Score 0 01/09/2025 [facility] [place] [facility] - Occupational Stress [...] things needed for daily living? No 08/29/2022 [facility] IP Transportation Answer D ate Recorded In [...] Assessment Author No 08/19/2024 3:10 PM EDT Shiloh, A shley Barrera, RMA * Is the person blind or [...] 3:10 PM EDT Peyton Matamoros RMA documented in this encounter Ordered Prescriptions Prescription Sig Dispense Quantity Refills Last Filled Start Date End Date ACCU-CHEK GUIDE TEST STRIPS Misc StripIndications:I mpaired glucose tolerance USE 1 STRIP BEFORE MEAL(S) AND AT BEDTIME 100 Each 03/25/2025 documented in this encounter Plan of Treatment Upcoming Encounters Date Type Department Care Team (Late st Contact Info) Description 08/21/2025 3:00 PM EDT Office Visit [facility] Nephrology [address] [address] [place] [address] Kaci Graham MD 0 [facility] [address] [place] [address] 10/17/2025 3:15 PM EDT Office Visit [facility] [address] [address] [place] [address] [place] [address] [place] [address] documented as of this encounter Goals Goal [...] as of this encounter Visit Diagnoses Diagnosis Impaired glucose tolerance Impaired glucose tolerance test documented in this encounter Discontinued Medications Medication Sig Discontinue Reason Start Date End Da te Blood Sugar Diagnostic (ACCU-CHEK GUIDE TEST STRIPS) Misc StripIndications:Impaire d glucose tolerance USE 1 STRIP BEFORE MEAL(S) AND AT BEDTIME 01/09/2025 03/25/2025 documented as of this encounter Care Teams Curber Relationship Specialty Start Date End Date Kamini Turner APRN [address] [place] [address] PCP - General Nurse Practitioner 11/28/17 Brayan Miles MD [address] [facility] [address] [place] [address] Referring Physician Obstetrics & Gynecology 03/11/19 Kevin Santillan MD [address] [facility] [address] [place] [address] Consulting Physician Obstetrics & Gynecology-Gynecologic Oncology 03/21/19 Jonelle Michael MD [address] [phone] Consulting Physician Ophthalmology 03/19/20 Keyla Colorado MD [address] [place] [address] Internal Medicine-Rheumatology 12/08/22 documented as of this encounter
--- OUTSIDE RECORDS SUMMARY | 2025-04-10 15:31 | XMS_ITS | Clinical Summary ---
Author Organization [facility] ([facility] Address [address] [id number] Phone Care Team Providers Care Spring Upholsterer Name Role Phone Barbara WORTHINGTON, Chuckie Unavailable Conditions or Problems Problem Name Problem Code Onset Date Status Entry Date Provider Comment Standard Description Annotate OVERWEIGHT 503170565 (SNOMED CT) Active Duyen Negron MA Overweight Medications Medication Instructions Start Date Stop Date Generic Name NDC Provider NURTEC 75 MG TBDP rimegepant [id number] Duyen Negron MA Pfizer COVID-19 Vaccine (EUA) 30 mcg/0.3 mL suspension for reconstitution covid-19 vacc,mrna([employer] )(pf) [id number] Duyen Negron MA VIIBRYD 20 MG TABS vilazodone [id number] 0 Duyen Negron MA VIIBRYD 40 MG TABS vilazodone [id number] 0 Duyen Negron MA VRAYLAR 3 MG CAPS cariprazine 9583790196 0 Duyen Negron MA PREDNISONE 20 MG TABS prednisone [id number] Duyen Negron MA PANTOPRAZOLE SODIUM 40 MG TBEC pantoprazole 12450185295 Duyen Negron MA CEFDINIR 300 MG CAPS cefdinir [id number] Duyen Negron MA HYDROXYZINE HCL 25 MG TABS hydroxyzine hcl 94272482981 Duyen hernández MA ROPINIROLE HCL 0.5 MG TABS ropinirole 74838203197 Duyen Negron MA FOLIC ACID 1 MG TABS folic acid 54936106204 Duyen Negron MA GABAPENTIN 400 MG CAPS gabapentin 49197643569 Duyen Negron MA ACETAZOLAMIDE 250 MG TABS acetazolamide 85427318752 Duyen Negron MA Medications Administered No information available. Allergies, Adverse Reactions, Alerts Allergy Name Reaction Description Start Date Severity Statu s Provider AMOXICILLIN Sarika esparza MA CIPRO Sarika Geller Jamil CHAPIN PCN Sarika Duyen Jamil CHAPIN Results No information available. Plan of Care No information available. Procedures Code Procedure Name Date Entry Date [facility]-[id number] Flu Shot Previously Received [facility]-[id number] Medications Documented Vital Signs Date Name Value Unit Description BMI (Body Mass Index) 40.05 kg/m2 Bod y Mass Index (Ratio) Height 62 [in_us] height E&M Weight Measured 219 [lb_av] weight E& M Weight Measured 219 [lb_av] weight E& M Immunizations No information available. Advance Directives No information available.
--- OUTSIDE RECORDS SUMMARY | 2025-04-10 15:31 | XMS_ITS | Clinical Summary ---
Author Organization [facility] Address [address] [place] [address] Care Team Providers Care Loan Assistant Name Role Phone Lm Turner APRN Primary Care Provider [phone] Allergies Active Allergy Reactions Criticality Noted Date Comments Aripiprazole Other (See Comments) Medium 04/11/2022 Akathesias at low dose even Brexpiprazole Other (See Comments) Low 04/11/2022 Weight gain Ciprofloxacin Nausea And Vomiting Medium 03/07/2018 Codeine Nausea And Vomiting Medium 05/04/2018 Divalproex Nausea And Vomiting Medium 05/11/2022 Lumateperone Anxiety 05/10/2023 Metformin Diarrhea 09/21/2023 Metronidazole Nausea And Vomiting Medium 05/31/2018 Penicillins Other (See Comments),Rash Medium 10/29/2013 rash Rash Phenazopyridine Other (See Comments) Low 10/29/2013 Pt doesn't rememeber Septra I.V. Other (See Comments) Low 10/29/2013 Pt doesn't remember Medications Venlafaxine 225 mg Tablet Extended Rel 24 hr (2) Take 1 Tablet by mouth daily. 02/28/20 24 Active valACYclovir (VALTREX) 1 gram tablet Take 1,000 mg by mouth 2 times daily. 10/14/19 24 Active spironolactone (ALDACTONE) 50 mg tablet Take 1 Tablet by mouth daily. 02/05/20 24 Active sodium bicarbonate 650 mg tablet Take 1 Tablet by mouth 3 times daily. 02/05/20 24 Active Ozempic 0.25 mg or 0.5 mg (2 mg/3 mL) Pen Injector INJECT 0.5 MG SUBCUTANEOUSLY ONCE A WEEK Active pramipexole (MIRAPEX) 1 mg Tablet Take 1 Tablet by mouth nightly. 09/21/19 Active potassium chloride (KLOR-CON M20) 20 mEq SR tablet Take 2 Tablets by mouth daily. 02/05/20 Active polyethylene glycol (GLYCOLAX) 17 gram packet Take 17 g by mouth. Active pantoprazole (PROTONIX) 40 mg Tablet, Delayed Release (E.C.) Take 1 Tablet by mouth daily. 09/21/19 Active ondansetron (ZOFRAN-ODT) 4 mg disintegrating tablet Dissolve 4 mg on tongue every 4 to 6 hours as needed. 09/21/19 Active OLANZapine (ZyPREXA) 10 mg Tablet Take 1 Tablet by mouth nightly. 03/05/20 Active nortriptyline (PAMELOR) 10 mg capsule TAKE 1 CAPSULE BY MOUTH EVERY DAY AT BEDTIME FOR 3 DAYS THEN 2 EVERY DAY AT BEDTIME 11/14/19 Active multivitamin, stress formula Tablet Take 1 Tablet by mouth daily. Active loratadine (CLARITIN) 10 mg tablet Take 10 mg by mouth daily. Active Levocetirizine (Xyzal) 5 mg Tablet Take 5 mg by mouth. 09/21/19 Active Albuterol-Ipratrop ium (DUONEB) 0.5 mg-3 mg(2.5 mg base)/3 mL nebulizer solution USE 1 AMPULE IN NEBULIZER EVERY 6 HOURS NEEDED FOR WHEEZING FOR SHORTNESS OF BREATH 11/17/19 Active hydrOXYzine (ATARAX) 25 mg tablet Take 25 mg by mouth 3 times daily as needed. 09/21/19 Active galcanezumab-gnlm 120 mg/mL Pen Injector 120 mg by Subcutaneous route. 09/21/19 Active gabapentin (NEURONTIN) 800 mg tablet Take 800 mg by mouth 3 times daily. Active ergocalciferol (ERGOCALCIFEROL) 1,250 mcg (50,000 unit) Capsule Take 50,000 Units by mouth once weekly. Active busPIRone (BUSPAR) 30 mg tablet Take 1 Tablet by mouth 2 times daily. 03/05/20 Active baclofen (LIORESAL) 20 mg tablet Take 20 mg by mouth 2 times daily. 02/14/20 Active Armodafinil 250 mg Tablet Take 1 Tablet by mouth daily. 01/03/20 Active Motegrity 2 mg Tablet Take 1 Tablet by mouth daily. 02/14/20 Active albuterol (VENTOLIN/PROAIR/P ROVENTIL HFA) 90 mcg/actuation HFA Aerosol Inhaler Take 2 Puffs by inhalation every 4 hours as needed. 03/27/20 Active budesonide (PULMICORT) 0.5 mg/2 mL Suspension for Nebulization Take 500 mcg by inhalation. 03/26/20 Active ibuprofen (MOTRIN) 800 mg tablet Take 800 mg by mouth every 4 to 6 hours as needed. 03/16/20 Active lidocaine (XYLOCAINE) 5 % ointment Apply topically daily. 03/21/20 Active LORazepam (ATIVAN) 1 mg tablet Take 1 mg by mouth daily as needed. 04/04/20 Active tirzepatide (Mounjaro) 5 mg/0.5 mL Pen Injector 5 mg by Subcutaneous route once weekly. 03/26/20 Active Active Problems Problem Noted Date Diagnosed Date Type 2 diabetes mellitus wit hout complication, without long-term current use of insulin 08/15/2023 Bipolar disorder with depression 04/24/2023 Overview (03/11/2024): Has tried beni, alexa, maryam, noamakote in past History of migraine headaches 06/11/2021 Family History Medical History Relation Name Comments Diabetes Brother High Blood Pressure Brother Stroke Brother Diabetes Father Diabetes Maternal Grandmother High Blood Pressure Mother Relation Name Status Comments Brother Father Maternal Grandmother Mother Social History Tobacco Use Types Packs/Day Years Used Date Smoking Tobacco: Former Cigarettes Q uit: 2007 Smokeless Tobacco: Never Tobacco Cessation:Counseling Given: Not Answered Alcohol Use Standard Drinks/Week Comments Never 0 (1 standard drink = 0.6 oz pur e alcohol) Comments No Sex and Gender Information Value Date Recorded Sex Assigned at Female 03/11/2024 9:40 AM EDT Legal Sex Female 6:36 PM EDT Gender Identity Female 03/11/2024 9:40 AM EDT Sexual Orientation Straight 03/11/2024 9: 40 AM EDT Last Filed Vital Signs Vital Sign Reading Time Taken Comments Blood Pressure - - Pulse - - Temperature - - Respiratory Rate 18 04/12/2024 10:16 AM EST Oxygen Saturation - - Inhaled Oxygen Concentration - - Weight 99.8 kg (220 lb) 04/12/2024 10:16 AM EST Height 157.5 cm (5' 2 ) 04/12/2024 10:16 AM EST Body Mass Index 40.24 04/12/2024 10:16 AM EST Plan of Treatment Health Maintenance Due Date Last Done Comments Diabetes Mellitus Foot Care (Yearly) 1987 Cervical Cancer Screening 11/14/2008 HPV Vaccine (3 - 3-dose SCDM series) 09/30/2020 07/08/2020, 05/07/2020, 11/06/2019 BMI Counseling 05/29/2024 Diabetes Mellitus Microalbum in (Yearly) 05/29/2024 Renal Monitoring 05/29/2024 04/01/2024, , 02/29/2024, Additional history exists Diabetes A1c Monitoring 07/06/2024 01/04/2024, 08/14 Lipid Monitoring 09/20/2024 09/21/2023 Diabetes Mellitus Eye Exam (Yearly) 10/08/2024 10/09/2023 COVID-19 Vaccine (3 - 2024-2 6 season) 2025 12/29/2020, 12/08/2020 Influenza Vaccination (#1) 2025 Tetanus Vaccination (Every 1 0 Years) 01/19/2031 01/19/2021 Lipid Screening Discontinued 09/21/2023 Insurance ELISHA Member Subscriber Plan / Payer (Ef fective 2021-Present) Name:LM LOPEZ Relation to Subscriber:Self Name:Lm Lopez Payer ID:[id number] (NAIC) Type:PPO Address: [address] [place] [id number] Care Teams Loan Assistant Relationship Specialty Start Date End Date Lm Turner APRN [address] [place] [address] PCP - General 03/11/24
--- OUTSIDE RECORDS SUMMARY | 2025-04-10 15:31 | XMS_ITS | Encounter Summary ---
Author Organization [place] [address] Care Team Providers Care Barge Engineer Name Role Phone Kamini Turner APRN Primary Care Provider [phone] Brayan Miles MD Unavailable [phone] Kevin Santillan MD Unavailable Jonelle Michael MD Unavailable [phone] Keyla Colorado MD Unavailable Encounter Details Date Type Department Care Team (Latest Contact Info) Description 02/20/2025 Results Follow-Up [facility] [address] [place] [address] Kamini Turner APRN [address] [place] [address] CBC WITH DIFF, COMPREHENSIVE METABOLIC PANEL, LIPID SCREEN, Additional followed-up results: 5 Social History Tobacco Use Types Packs/Day Years Used Date Smoking Tobacco: Former Cigarettes 0 11/27/1995 - 05/29/2007 Passive Smoke Exposure: Past Smokeless Tobacco: Never Alcohol Use Standard Drinks/Week Comments Not Currently 0 (1 standard drink = 0.6 oz pure alcohol) Used to drink occasionally but havent in over a year [facility] Utilities Answer Date Recorded In the past 12 months has [employer] electric, gas, oil, or water company threatened to shut off services in your home? No 01/05/2024 Overall Financial Resource Strain (CARDIA) Answe r Date Recorded How hard is it for you to pa y for the very basics like food, housing, medical care, and heating? Not hard at all 01/05/2024 PHQ-2 Answer Date Recorded PHQ-2 Total Score 0 01/09/2025 [facility] - Occupational Stress Questionnaire Answer Date Recorded [...] things needed for daily living? No 08/29/2022 [facility] IP Transportation Answer D ate Recorded In [...] 08/19/2024 3:10 PM EDT Peyton Matamoros bolivar Barrera NISA * Does this person have serious difficulty walking or climbing stairs? Answer Date of Assessment Author No 08/19/2024 3:10 PM EDT Peyton Matamoros bolivar Barrera NISA * Does this person have difficulty dressing or bathing? Answer Date of Assessment Author No 08/19/2024 3:10 PM EDT Peyton Matamoros bolivar Barrera NISA * Because of a physical, mental or emotional condition, does this person have difficulty doing errands alone such as visiting a doctor's office or shopping? Answer Date of Assessment Author No 08/19/2024 3:10 PM EDT Peyton Matamoros bolivar Barrera NISA documented as of this encounter Mental Status * Because of a physical, mental or emotional condition, does this person have serious difficulty concentrating, remembering or making decisions? Answer Entry Date Author No 08/19/2024 3:10 PM EDT Shiloh Peyton bolivar Barrera NISA documented in this encounter Plan of Treatment Upcoming Encounters Date Type Department Care Team (Late st Contact Info) Description 08/21/2025 3:00 PM EDT Office Visit [facility] Nephrology [address] [address] [place] [address] Kaci Graham MD 0 [facility] [address] [place] [address] 10/17/2025 3:15 PM EDT Office Visit [facility] [address] [facility] [address] [place] [address] Mike Stover MD [address] [facility] [address] [place] [address] documented as of this encounter Goals Goal Patient Goal Type Associated Problems Recent Progress Patient-Stated? Author Blood Pressure < 140/90 Blood Pressure 100/70(2024 11:31 AM EST) Bernabe Coronado MD Maintain a healthy diet, exercise regularly and maintain an ideal body weight General No Edda Farias MA BMI (Calculated) < 30 General 40.1(04/10/20 25 11:31 AM EST) No Kamini Turner APRN Stay Tobacco Free Lifestyle No Edda Farias MA HEMOGLOBIN A1C < 7.0 Result Component 5.9( 5 2:57 PM EDT) No Kamini Turner APRN documented as of this encounter Visit Diagnoses Not on filedocumented in this encounter Care Teams Barge Engineer Relationship Specialty Start Date End Date Kamini Turner APRN [address] [place] [phone] PCP - General Nurse Practitioner 11/28/17 [place] [address] [place] [address] [address] [place] [address] Referring Physician Obstetrics & Gynecology 03/11/19 Kevin Santillan MD [address] [place] [address] [address] [place] [address] Consulting Physician Obstetrics & Gynecology-Gynecologic Oncology 03/21/19 Jonelle Michael MD 1500 [facility] [address] [place] [address] Consulting Physician Ophthalmology 03/19/20 Keyla Colorado MD [address] [place] [address] Internal Medicine-Rheumatology 12/08/22 documented as of this encounter
--- OUTSIDE RECORDS SUMMARY | 2025-04-10 15:31 | XMS_ITS | Encounter Summary ---
Author Organization [place] [address] Care Team Providers Care Compliance Review Officer Name Role Phone Kamini Turner APRN Primary Care Provider [phone] Brayan Miles MD Unavailable [phone] Kevin Santillan MD Unavailable Jonelle Michael MD Unavailable [phone] Keyla Colorado MD Unavailable Reason for Visit * Reason Onset Date Comments Prior Authorization 04/08/2025 [place] for Ondan setron 4mg tablet Denied Encounter Details Date Type Department Care Team (Late st Contact Info) Description 04/08/2025 Telephone SEP [facility] 300 [facility] [place] [address] Kamini Turner APRN [address] [place] [address] Prior Authorization ([place] for Ondansetron 4mg tablet Denied) Social History Tobacco Use Types Packs/Day Years Used Date Smoking Tobacco: Former Cigarettes 0 11/27/1995 - 05/29/2007 Passive Smoke Exposure: Past Smokeless Tobacco: Never Alcohol Use Standard Drinks/Week Comments Not Currently 0 (1 standard drink = 0.6 oz pure alcohol) Used to drink occasionally but havent in over a year [facility] Utilities Answer Date Recorded In the past 12 months has [employer], gas, oil, or water company threatened to shut off services in your home? No 01/05/2024 Overall Financial Resource Strain (CARDIA) Answe r Date Recorded How hard is it for you to pa y for the very basics like food, housing, medical care, and heating? Not hard at all 01/05/2024 PHQ-2 Answer Date Recorded PHQ-2 Total Score 0 01/09/2025 [facility] - Occupational Stress Questionnaire Answer Date Recorded [...] things needed for daily living? No 08/29/2022 [facility] IP Transportation Answer D ate Recorded [...] EDPeyton Wilkinson RMA documented in this encounter Miscellaneous Notes * Telephone Encounter - Marcela Hutchins MA - 04/08/2025 3:30 PM EST [place] for Ondansetron 4mg tablet DENIED. Denial reason: We denied your request because we did not see what we need to approve the amount of the drug you asked for. The health plan has a limit on the amount of this drug, 48 ondansetron 4mg tablet per 30 days. We did not see why you need more that this amount (such as when you are using this drug for one of the following illnesses: for the prevention of nausea and vomiting from daily chemotherapy or radiotherapy; or for the treatment of nausea and vomiting relate to palliative care after a trial a certain other medication [dopamine receptor antagonist therapy]; or for the treatment of nausea and vomiting in [including hyperemesis gravidarum] after a trial of certain other medications [pyridoxine or pyridoxine/doxylamine and either an H1 antagonist or phenothiazine]). We cannot approve the amount requested, but you may fill up to the limit. We based this decision on your health plan'sPA clinical criteria named Ondansetron Agents Quantity Limit. PA reference #[id number] documented in this encounter Plan of Treatment Upcoming Encounters Date Type Department Care Team (Late st Contact Info) Description 08/21/2025 3:00 PM EDT Office Visit [facility] Nephrology [facility] [address] [place] [address] Kaci Graham MD [address] [facility] [address] [place] [address] 10/17/2025 3:15 PM EDT Office Visit [facility] [address] [facility] [address] [place] [address] Mike Stover MD [address] [facility] [address] [place] [address] documented as of this encounter [...] on filedocumented in this encounter Care Teams Compliance Review Officer Relationship Specialty Start Date End Date Kamini Turner APRN [address] [place] [address] PCP - General Nurse Practitioner 11/28/17 Brayan Miles MD [address] [facility] [address] [place] [address] Referring Physician Obstetrics & Gynecology 03/11/19 Kevin Santillan MD [address] [facility] [address] [place] [address] Consulting Physician Obstetrics & Gynecology-Gynecologic Oncology 03/21/19 Jonelle Michael MD 1500 [facility] 302 [place] [address] Consulting Physician Ophthalmology 03/19/20 Keyla Colorado MD [address] [place] [address] Internal Medicine-Rheumatology 12/08/22 documented as of this encounter
--- OUTSIDE RECORDS SUMMARY | 2025-04-10 15:31 | XMS_ITS | Encounter Summary ---
Author Organization [place] [address] Care Team Providers Care Cloth Finishing Range Operator Chief Name Role Phone Kamini Turner APRN Primary Care Provider [phone] Brayan Miles MD Unavailable [phone] Kevin Santillan MD Unavailable Jonelle Michael MD Unavailable [phone] Keyla Colorado MD Unavailable Reason for Visit * Reason Comments Medication Refill Encounter Details Date Type Department Care Team (Late st Contact Info) Description 03/30/2025 Refill [facility] [address] [facility] [place] [address] Kamini Turner APRN [address] [place] [address] Medication Refill Social History Tobacco Use Types Packs/Day Years Used Date Smoking Tobacco: Former Cigarettes 0 11/27/1995 - 05/29/2007 Passive Smoke Exposure: Past Smokeless Tobacco: Never Alcohol Use Standard Drinks/Week Comments Not Currently 0 (1 standard drink = 0.6 oz pure alcohol) Used to drink occasionally but havent in over a year [facility] Utilities Answer Date Recorded In [...] Date Recorded PHQ-2 Total Score 0 01/09/2025 [facility] [place] of Occupat ional [facility] - Occupational Stress Questionnaire Answer Date [...] things needed for daily living? No 08/29/2022 [facility] IP Transportation Answer D ate Recorded In [...] Assessment Author No 08/19/2024 3:10 PM EDT Phuong Matamoros RMA * Is the person blind [...] Refills Last Filled Start Date End Date ondansetron (ZOFRAN-ODT) 4 mg Oral Tablet, Rapid DissolveIndication s:Nausea and vomiting, unspecified vomiting type DISSOLVE 1 TABLET IN MOUTH EVERY 6 HOURS NEEDED 30 Tablet 03/31/2025 documented in this encounter Plan of Treatment Upcoming Encounters Date Type Department Care Team (Late st Contact Info) Description 08/21/2025 3:00 PM EDT Office Visit [facility] Nephrology [address] [place] [address] Kaci Graham MD [address] [facility] [address] [place] [address] 10/17/2025 3:15 PM EDT Office Visit [facility] Ophthalmology [place] [address] [facility] [address] [place] [phone] Mike Stover MD [address] [facility] [address] [place] [address] documented as of this encounter Goals Goal [...] as of this encounter Visit Diagnoses Diagnosis Nausea and vomiting, unspecified vomiting type documented in this encounter Discontinued Medications Medication Sig Discontinue Reason Start Date End Da te ondansetron (ZOFRAN-ODT) 4 mg Oral Tablet, Rapid DissolveIndications:Nause a and vomiting, unspecified vomiting type Take 1 Tablet by mouth every 6 hours as needed. 08/09/2024 03/31/2025 documented as of this encounter Care Teams Cloth Finishing Range Operator Chief Relationship Specialty Start Date End Date Kamini Turner APRN [address] [place] [address] PCP - General Nurse Practitioner 11/28/17 [place] [address] [place] [address] [address] [place] [address] Referring Physician Obstetrics & Gynecology 03/11/19 [place] [address] [place] [address] [address] [place] [address] Consulting Physician Obstetrics & Gynecology-Gynecologic Oncology 03/21/19 Jonelle Michael MD [address] [address] Consulting Physician Ophthalmology 03/19/20 Keyla Colorado MD [address] [facility] [address] Internal Medicine-Rheumatology 12/08/22 documented as of this encounter
--- OUTSIDE RECORDS SUMMARY | 2025-04-10 15:31 | XMS_ITS | Encounter Summary ---
Author Organization [place] [address] Care Team Providers Care Buggy Driver Name Role Phone TurnerLornaKaminiestuardo Velazquez APRN Primary Care Provider [phone] Brayan Miles MD Unavailable [phone] Kevin Santillan MD Unavailable Jonelle Michael MD Unavailable [phone] Keyla Colorado MD Unavailable Reason for Visit * Reason Onset Date Comments Threatened Miscarriage 04/09/2025 Encounter Details Date Type Department Care Team (Late st Contact Info) Description 04/09/2025 Telephone SEP [facility] [address] [place] [address] Akua Reed DO [address] [place] [address] Threatened Miscarriage Social History Tobacco Use Types Packs/Day Years Used Date Smoking Tobacco: Former Cigarettes 0 11/27/1995 - 05/29/2007 Passive Smoke Exposure: Past Smokeless Tobacco: Never Alcohol Use Standard Drinks/Week Comments Not Currently 0 (1 standard drink = 0.6 oz pure alcohol) Used to drink occasionally but havent in over a year [facility] Utilities Answer Date Recorded In the [...] Date Recorded PHQ-2 Total Score 0 01/09/2025 [facility] of Occupat ional Health - Occupational [...] things needed for daily living? No 08/29/2022 [facility] IP Transportation Answer D ate Recorded In the past 12 months, has l ack of reliable transportation kept you from medical appointments, meetings, work or from getting things needed for daily living? No 01/05/2024 Sexually Active Control Partners Comments Yes Injection, Other-see comments Male Was on control pill but neurologist stopped it ktaja of Comments No Sex and Gender Information [...] 08/19/2024 3:10 PM EDT Peyton Matamoros marygretel Barrera NISA * Does this person have serious difficulty walking or climbing stairs? Answer Date of Assessment Author No 08/19/2024 3:10 PM EDT Peyton Matamoros maryNISA Jauregui * Does this person have difficulty dressing [...] EDT Peyton Matamoros bolivar Barrera NISA documented in this encounter Miscellaneous Notes * Telephone Encounter - Prudence Marroquin RN - 04/09/2025 8:30 AM EST LMP 03/29? +UPT Pt c/o VB and mild cramping, denies heavy VB HCG levels ordered If +, pt aware to return in 48 hours for 2nd HCG level 2 HCG orders palced documented in this encounter Plan of Treatment Upcoming Encounters Date Type Department Care Team (Late st Contact Info) Description 08/21/2025 3:00 PM EDT Office Visit [facility] Nephrology [address] [place] [address] Kaci Graham MD [address] [facility] [address] [place] [address] 10/17/2025 3:15 PM EDT Office Visit [facility] Op[facility] [place] [address] [facility] [address] [place] [address] Mike Stover MD [address] [facility] [address] [place] [address] Scheduled Orders Name Type Priority Associated Diagnoses Orde r Schedule HUMAN CHORIONIC GONADOTROPIN QUANTITATIVE Lab Routine Bleeding in early Every 48 Hours for 2 Occurrences starting 04/09/2025 until 05/09/2025, 1 completed documented as of this encounter Goals Goal [...] APRN Stay Tobacco Free Lifestyle No Edda Farisa MA HEMOGLOBIN A1C < 7.0 Result Component 5.9( 2:57 PM EDT) No Kamini Turner APRN documented as of this encounter Results * (ABNORMAL) HUMAN CHORIONIC GONADOTROPIN QUANTITATIVE (04/09/2025 2:51 PM EST) Hcg Quant 121(H) <5 mIU/mL 04/09/2025 8:26 PM EST [facility] Blood VENOUS BLOOD / Unknown Venipuncture / Unknown 04/09/2025 2:51 PM EST 04/09/2025 2:52 PM EST Narrative [facility] - 04/09/2025 8:26 PM EST Female (non-): [...] DO CHEMISTRY ORDERABLES Fin al Result [facility] [address] [facility] [place] [address] documented in this encounter Visit Diagnoses Diagnosis Bleeding in early - Primary Unspecified hemorrhage in early , unspecified as to episode of care documented in this encounter Care Teams Buggy Driver Relationship Specialty Start Date End Date Kamini Turner APRN [address] [place] [phone] PCP - General Nurse Practitioner 11/28/17 Brayan Miles MD [address] [facility] [address] [place] [address] Referring Physician Obstetrics & Gynecology 03/11/19 Kevin Santillan MD [address] [facility] [address] [place] [address] Consulting Physician Obstetrics & Gynecology-Gynecologic Oncology 03/21/19 Jonelle Michael MD [address] [facility] [address] [place] [phone] Consulting Physician Ophthalmology 03/19/20 Keyla Colorado MD [address] [place] [address] Internal Medicine-Rheumatology 12/08/22 documented as of this encounter
--- OUTSIDE RECORDS SUMMARY | 2025-04-10 15:33 | XMS_ITS | Continuity of Care Document ---
Author Organization [facility] Address [address] [place] [address] Phone Care Team Providers Care Cdc Associate Name Role Phone Kamini Turner APRN Primary Care Provider [phone] Brayan Miles MD Unavailable [phone] Kevin Santillan MD Unavailable Jonelle Michael MD Unavailable [phone] Keyla Colorado MD Unavailable Encounters Date Type Department Care Team Description 04/10/20 11:15 AM EST Office Visit [facility] [address] [address] Kamini Turner APRN Threatened miscarriage (Primary Dx); Positive test; Vaginal bleeding; UTI (urinary tract infection), uncomplicated 04/09/20 2:35 PM EST - 04/09/20 11:59 PM EST Hospital Encounter [facility] [address] [address] Bleeding in early Discharge Disposition: Home or Self Care 04/09/20 Telephone [facility] [place] [address] [address] [facility] [place] [address] Akua Reed, DO Threatened Miscarriage 04/08/20 Telephone [facility] [address] [address] Kamini Turner APRN Prior Authorization (PA for Ondansetron 4mg tablet Denied) 04/03/20 25 Orders Only [facility] [address] [address] Kamini Turner APRN Type 2 diabetes mellitus without complication, without long-term current use of insulin (HCC) (Primary Dx) 03/30/20 Refill [facility] [address] [place] [address] Kamini Turner APRN Medication Refill 03/25/20 Refill [facility] [address] [address] Kamini Turner APRN Medication Refill 02/21/20 Results Follow-Up [facility] [address] [place] [address] Kamini Turner APRN CBC WITH DIFF, COMPREHENSIVE METABOLIC PANEL, LIPID SCREEN, Additional followed-up results: 5 02/21/20 3:[address] [facility] Ne[facility] Alissa [address] [place] [address] Kaci Graham MD Hypokalemia (Primary Dx); Papilledema; Type 2 diabetes mellitus without complication, without long-term current use of insulin (HCC); RTA (renal tubular acidosis); Nonintractable headache, unspecified chronicity pattern, unspecified headache type; Fluid retention 02/18/20 2:30 PM EDT Office Visit [facility] [address] [place] [address] Kamini Turner APRN Screening for STDs (sexually transmitted diseases) (Primary Dx); RTA (renal tubular acidosis); Type 2 diabetes mellitus without complication, without long-term current use of insulin (HCC) 01/10/20 25 Telephone [facility] [address] [place] [address] Kamini Turner APRN Prior Authorization (PA submitted for Emgality 120mg pen) 01/10/20 25 Refill [facility] [address] [place] [address] Kamini Turner APRN Medication Refill 01/10/20 25 2:30 PM EDT Office Visit [facility] [address] [place] [address] Kamini Turner APRN Type 2 diabetes mellitus without complication, without long-term current use of insulin (HCC) (Primary Dx); Mild intermittent reactive airway disease with wheezing with acute exacerbation; Impaired glucose tolerance; Vitamin D deficiency; Peripheral polyneuropathy; Episodic migraine; Panic attack; Arthralgia, unspecified joint; Seasonal allergic rhinitis, unspecified trigger; Restless legs syndrome (RLS) 12/29/19 25 Refill [facility] [address] [address] Kamini Turner APRN Medication Refill 12/11/19 25 Refill [facility] [address] [place] [address] Jarrod Gonsalves MD Medication Refill 12/10/19 25 Telephone [facility] [place] [phone] Kamini Turner APRN Prior Authorization (PA submitted for Ozempic 1mg pen) 11/25/19 25 Refill [facility] [address] [address] Kamini Turner APRN Medication Refill 11/14/19 25 6:42 AM EDT - 11/14/19 25 11:59 PM EDT Hospital Encounter [facility] [address] [place] [address] Tyshawn Hernandez, DPM Stress fracture of right foot, initial encounter; Pain in toe of right foot; Difficulty walking Discharge Disposition: Home or Self Care 10/17/19 25 3:00 PM EDT Office Visit [facility] [address] [phone] Mike Stover MD Type 2 diabetes mellitus without complication, without long-term current use of insulin (HCC) (Primary Dx); Floppy eyelid syndrome of both eyes; Pseudotumor; Refractive error 10/15/19 25 3:00 [address] EDT Office [address] [facility] Neph[facility] [place] [address] [place] [address] Kaci Graham MD Type 2 diabetes mellitus without complication, without long-term current use of insulin (HCC) (Primary Dx); RTA (renal tubular acidosis); Nonintractable headache, unspecified chronicity pattern, unspecified headache type; Fluid retention 10/11/19 25 2:28 PM EDT - 10/11/19 11:59 PM EDT Hospital Encounter [facility] [address] [place] [address] RTA (renal tubular acidosis) Discharge Disposition: Home or Self Care 10/11/19 25 Refill [facility] [address] [place] [address] Kamini Turner APRN Medication Refill 10/11/19 25 3:30 PM EDT Office Visit [facility] [address] [place] [address] Kamini Turner APRN Peripheral polyneuropathy 10/10/19 25 Refill [facility] [address] [place] [address] Kamini Turner APRN Medication Refill 10/02/19 25 2:28 PM EDT - 10/02/19 25 11:59 PM EDT Hospital Encounter [facility] [address] [place] [address] Avitaminosis D (Primary Dx) Discharge Disposition: Home or Self Care 09/25/19 25 Telephone [facility] [address] [place] [address] Kamini Turner APRN Prior Authorization (PA for Ozempic 1mg pen Approved) 09/20/19 Orders Only [facility] [address] [place] [address] Kamini Turner APRN Type 2 diabetes mellitus without complication, without long-term current use of insulin (HCC) (Primary Dx) 08/28/19 Telephone [facility] [address], [address]RD [place] [address] Keysha Spears LPN Prior Authorization 08/27/19 25 Refill [facility] [address] [address] Jarrod Gonsalves MD Medication Refill 08/27/19 25 Refill [facility] [address] [address] Jarrod Gonsalves MD Medication Refill 08/21/19 25 Refill [facility] [address] [place] [address] Kamini Turner APRN Medication Refill 08/20/19 Travel 08/20/19 3:15 PM EDT Office Visit [facility] [address] [place] [address] Kamini Turner APRN Diarrhea, unspecified type (Primary Dx); Right upper quadrant abdominal tenderness without rebound tenderness 08/10/19 Telephone [facility] [address] [place] [address] Kamini Turner APRN Prior Authorization (PA submitted for Ondansetron 4mg tablet Denied) 08/10/19 Travel 08/10/19 10:30 AM EDT Office Visit [facility] [address] [place] [address] Kamini Turner APRN Acute cough (Primary Dx); Viral illness; Nausea and vomiting, unspecified vomiting type 07/31/19 Telephone [facility] [address] [place] [address] Kamini Turner APRN Prior Authorization (PA submitted for AccuChek Guide test strips Denied) 07/26/19 Telephone [facility] [address] [place] [address] Kamini Turner APRN Results (Labs 07/25- Ordered by Kamini Turner APRN / Resulted by Marlena Pereyra MD // Results given ) 07/25/19 8:00 AM EST - 07/25/19 11:59 PM EST Hospital Encounter [facility] [address] [place] [address] Type 2 diabetes mellitus without complication, without long-term current use of insulin (HCC); Vitamin D deficiency Discharge Disposition: Home or Self Care 07/23/19 25 Telephone [facility] [address] [place] [address] Prudence Marroquin RN Amenorrhea 07/09/19 25 Orders Only [facility] Sleep Medicine [facility] [address] [facility] [address] [place] [address] Todd Lau APRN Obstructive sleep apnea (Primary Dx) 07/09/19 10:30 AM EST Office Visit [facility] [address] [place] [address] Kamini Turner APRN Type 2 diabetes mellitus without complication, without long-term current use of insulin (HCC) (Primary Dx); Impaired glucose tolerance; Mild intermittent reactive airway disease with wheezing with acute exacerbation; Peripheral polyneuropathy; Episodic migraine; Panic attack; Arthralgia, unspecified joint; Seasonal allergic rhinitis, unspecified trigger; Vaginal irritation; Vaginal pain; Restless legs syndrome (RLS); Dry mouth; Vitamin D deficiency 07/08/19 3:45 PM EST Office Visit [facility] [address] [facility] [address] [place] [address] Todd Lau APRN Obstructive sleep apnea (Primary Dx); Tiredness; Excessive daytime sleepiness; Major depressive disorder, recurrent episode, mild; Bipolar depression (HCC); Type 2 diabetes mellitus without complication, without long-term current use of insulin (HCC) 06/18/19 Travel 06/16/19 Refill [facility] [address] [place] [address] Kamini Turner APRN Medication Refill 06/13/19 3:45 PM EST Office Visit [facility] Neph[facility] [place]issa [address] [place] [address] Kaci Graham MD RTA (renal tubular acidosis) (Primary Dx); Fluid retention 06/06/19 11:55 AM EST - 06/06/19 11:59 PM EST Hospital Encounter [facility] [address] [facility] [place] [address] Hypokalemia Discharge Disposition: Home or Self Care 05/28/20 Telephone [facility] [address] [place] [address] Keysha Spears LPN Prior Authorization 05/28/20 Travel 05/27/20 Refill [facility] [address] [address] Kamini Turner APRN Medication Refill 05/14/20 Travel 05/14/20 7:45 AM EST Office Visit [address] [address] Kamini Turner APRN Acute bacterial sinusitis (Primary Dx); History of migraine headaches; Sinus congestion 05/13/20 24 Orders Only [facility] [address] [address] Kamini Turner APRN Type 2 diabetes mellitus without complication, without long-term current use of insulin ([facility]) 05/08/20 24 Refill [facility] [address] [place] [address] Kamini Turner APRN Medication Refill 04/30/20 24 Travel 04/12/20 24 9:05 AM EST - 04/12/20 24 11:59 PM EST Hospital Encounter [facility] [address] [place] [address] Vitamin D deficiency (Primar y Dx); Hypokalemia Discharge Disposition: Home or Self Care 04/09/20 24 Orders Only [facility] [address] [place] [address] Kamini Turner APRN Thrush 04/04/20 24 Travel 04/04/20 24 10:30 AM EST Office Visit [facility] [address] [place] [address] Kamini Turner APRN Panic attack 04/04/20 24 2:30 PM EST - 04/04/20 24 2:31 PM EST Hospital Encounter [facility] [address] [place] [address] Kamini Turner APRN Sinus congestion; Recurrent sinusitis Discharge Disposition: Home or Self Care 04/04/20 24 2:32 PM EST - 04/04/20 24 11:59 PM EST Hospital Encounter [facility] [address] [place] [address] Tyshawn Hernandez, DPM Osteoporosis with pathological fracture of ankle and foot, right, initial encounter Discharge Disposition: Home or Self Care 04/03/[address] [facility] NEPHROLOG[facility] [place] [address] [place] [address] [address] Kaci Graham MD Results 04/02/20 24 Travel 04/01/20 24 2:10 PM EST - 04/01/20 24 11:59 PM EST Hospital Encounter [facility] [address] [place] [address] Hypokalemia Discharge Disposition: Home or Self Care 04/01/20 Telephone [facility] [address] [place] [address] Kamini Turner APRN Prior Authorization (PA for Moujaro 5mg pen Approved) 04/01/20 3:00 PM EST Office Visit [address] [place] [address] Kamini Turner APRN Sinus congestion (Primary Dx); Recurrent sinusitis 03/26/20 10:30 AM EDT Office Visit [address] [place] [address] Kamini Turner APRN Type 2 diabetes mellitus without complication, without long-term current use of insulin (HCC) (Primary Dx); Mild intermittent reactive airway disease with wheezing with acute exacerbation 03/21/20 Travel 03/21/20 7:30 AM EDT Telemedicine [address] [place] [address] Kamini Turner APRN Vaginal irritation (Primary Dx); Vaginal pain; Nasal dryness 03/20/20 Telephone [facility] [address] ENTR[address], 3RD [place] [address] Jarrod Gonsalves MD Other 03/17/20 24 Refill [facility] [address] [place] [address] Kamini uTrner APRN Medication Refill 03/16/20 24 Refill [facility] [address] [place] [address] Kamini Turner APRN Medication Refill 03/15/20 [address] [place] [address] Tory Garg, Preforms Laminator New Patient 03/14/20 2:35 PM EDT - 03/14/20 11:59 PM EDT Hospital Encounter [facility] [address] [place] [address] Hypokalemia Discharge Disposition: Home or Self Care 03/11/[address] [facility] [place] [address] [facility] [address] [place] [phone] Celine Cotter RMA Results (02/29/2024) 03/05/20 Travel 03/01/20 Telephone [facility] [address] [place] [address] Jarrod Gonsalves MD Other 02/29/20 3:15 PM EDT - 02/29/20 11:59 PM EDT Hospital Encounter [facility] [address] [place] [address] Hypokalemia Discharge Disposition: Home or Self Care 02/29/20 3:00 PM EDT Office Visit [facility] [address] [place] [address] Kamini Turner APRN Sore throat (Primary Dx) 02/26/20 3:45 PM EDT Office Visit [address] [address] Jessica Steele MD Pharyngitis, unspecified etiology (Primary Dx) 02/24/20 Telephone [facility] Now [address] [place] [phone] Julia Díaz RN Patient Question 02/23/20 Travel 02/23/20 2:45 PM EDT - 02/23/20 11:59 PM EDT Hospital Encounter [facility] [address] [place] [address] Hypokalemia; Acidosis Discharge Disposition: Home or Self Care 02/22/20 1:30 PM EDT Office Visit [facility] [address] [facility] [place] [address] Kamini Turner APRN Anxiety (Primary Dx) 02/19/20 24 Orders Only [facility] [address] [place] [address] Kamini Turner APRN 02/07/20 24 11:59 PM EDT Anesthesia Event [facility] SURGERY [facility] [place] [address] Record, Megha Fritz APRN 02/06/[address] [facility] [place] [address] [facility] [address] [place] [address] Kaci Graham MD Other 02/06/20 Telephone [facility] [address] [place] [address] Akua Reed, DO Surgery (CANCELLING SURGERY/) 02/05/20 2:30 PM EDT Office Visit [facility] [address] [address] Kamini Turner APRN Pre-op examination (Primary Dx); Endometriosis; Dysmenorrhea; 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; Impaired glucose tolerance 02/05/20 3:45 PM EDT Office Visit [facility] Neph[facility] Al[place] [address] [place] [address] Kaci Graham MD Hypokalemia (Primary Dx); Type 2 diabetes mellitus without complication, without long-term current use of insulin (HCC); Acidosis; Nonintractable headache, unspecified chronicity pattern, unspecified headache type; Fluid retention 01/30/20 3:05 PM EDT - 01/30/20 11:59 PM EDT Hospital Encounter [facility] [address] [place] [address] Hypokalemia Discharge Disposition: Home or Self Care 01/26/20 10:00 AM EDT Office Visit [facility] [address] [place] [address] Kamini Turner APRN Sjogren's syndrome, with unspecified organ involvement (Primary Dx); Malaise and fatigue 01/23/20 11:30 AM EDT Telemedicine [facility] [address] [place] [address] Kamini Turner APRN COVID-19 virus infection (Primary Dx) 01/23/20 Telephone [facility] [address] [place] [address] Kamini Turner APRN Symptoms (Only Use If Pt Pushes Back On Scheduling A Visit) (headache, sore throat ) 01/22/20 Travel 01/22/20 2:00 PM EDT Office Visit [facility] [address] [place] [address] Kamini Turner APRN Thrush (Primary Dx) 01/17/20 10:00 AM EDT Office Visit [facility] Crit [address] [place] [address] Tatyana Acuna MD Encounter for surveillance of other contraceptive (Primary Dx); Medication management 01/16/20 11:20 AM EDT - 01/16/20 11:59 PM EDT Hospital Encounter [facility] [address] [place] [address] Obstructive sleep apnea; Tiredness; Excessive daytime sleepiness Discharge Disposition: Home or Self Care 01/15/20 24 Refill [facility] [address] [place] [address] Kamini Turner APRN Medication Refill 01/15/20 Telephone [facility] Sleep Medicine [facility] [address] [place] [address] [address] [place] [address] Blanche Haro MA Patient Question 01/12/20 Travel 08/15/20 24 Patient Outreach [facility] Care Managment [facility] Emily Pat[address] [place] [address] Meli Hudson, RN Care Management - Chart Review 01/11/20 24 Telephone [facility] Crit [address] [place] [address] Akua Reed, Appointment Needed 01/11/20 24 2:30 PM EDT Office Visit [facility] [address] [place] [address] Kamini Turner APRN Hospital discharge follow-up (Primary Dx); Sjogren's syndrome, with unspecified organ involvement; Small fiber neuropathy; Seasonal allergic rhinitis, unspecified trigger 01/09/20 Orders Only [facility] [address] [place] [address] Hortencia Mack, RT Spinal headache (Primary Dx) 01/09/20 24 Telephone [facility] [address] [place] [address] Kamini Turner APRN Other 01/08/20 Patient Outreach [facility] Care Managment [facility] Emily Patel [address] [place] [address] Meli Hudson, RN Hospital Follow Up 01/08/20 24 Telephone [facility] [address] [place] [address] Hortencia Mack, RT Follow-up 01/08/20 24 Telephone [facility] [address] [place] [address] Kamini Turner APRN Other 01/04/20 24 4:27 PM EDT - 01/07/20 24 11:39 AM EDT Hospital Encounter [facility] [facility] [place] [address] Mar Nava MD Vitamin D deficiency Discharge Disposition: Home or Self Care 01/05/20 24 Telephone [facility] [address] [place] [address] Kamini Turner APRN Other (std pw ) 01/04/20 Travel 01/04/20 9:00 AM EDT Office Visit [facility] [address] [place] [address] Bernabe Cortez MD Idiopathic progressive neuropathy (Primary Dx) 01/03/20 24 Orders Only [facility] [address] [address] Todd Lau APRN Primary snoring (Primary Dx); Obstructive sleep apnea 01/03/20 Travel 01/03/20 9:00 AM EDT Office Visit [facility] Sleep [facility] [address] [address] Todd Lau APRN Obstructive sleep apnea (Primary Dx); Tiredness; Class 2 severe obesity with serious comorbidity in adult, unspecified BMI, unspecified obesity type (HCC); Bipolar depression ([facility]); Mood disorder; Major depressive disorder, recurrent episode, mild; Type 2 diabetes mellitus without complication, without long-term current use of insulin ([facility]); Excessive daytime sleepiness 01/03/20 10:30 AM EDT Office Visit [facility] [address] [facility] [address] [place] [address] Tony Jackson MD Sacroiliitis (Primary Dx) 01/02/20 Travel 01/02/20 24 11:15 AM EDT Office Visit [facility] [address] [facility] [place] [address] Bernabe Cortez MD Peripheral polyneuropathy (Primary Dx) 01/01/20 6:15 PM EDT Office Visit [address] [address] Sp Juan APRN Neuropathy (Primary Dx); Numbness in both legs 01/01/20 24 Travel 01/01/20 3:00 PM EDT Office Visit [facility] [place] [address] Nate Anguiano, [facility] (generalized anxiety disorder) (Primary Dx); Mood disorder; Complex posttraumatic stress disorder 12/19/19 10:35 AM EDT - 12/19/19 11:59 PM EDT Hospital Encounter [facility] [address] [place] [address] Hypokalemia Discharge Disposition: Home or Self Care 12/19/19 Orders Only [facility] [address] [place] [address] Kamini Turner APRN Mild intermittent reactive airway disease with wheezing with acute exacerbation (Primary Dx) 12/18/19 2:45 PM EDT Office Visit [facility] [address] [place] [address] Kamini Turner APRN Right foot pain (Primary Dx); Generalized anxiety disorder 12/14/19 Telephone [facility] [address] [place] [address] Kamini Turner APRN Appointment Needed (pt has some questions / pt did not elaborate) 12/06/19 24 Telephone [facility] Sleep Medicine [address] [address] Rosic, Todd, GLUELINE WORKER Sleep Apnea (SLEEP) 12/06/19 9:00 AM EDT Telemedicine [facility] [address] [facility] [address] [place] [phone] Tony Jackson MD Sacroiliitis (Primary Dx) 12/05/19 24 Orders Only [facility] Sleep Medicine [address] [address] Rosic, Todd, GLUELINE WORKER Obstructive sleep apnea (Primary Dx) 12/05/19 12:30 PM EDT Office Visit [facility] Sleep Medicine [address] [place] [address] Todd Lau APRN Obstructive sleep apnea (Primary Dx); Tiredness; Class 2 severe obesity with serious comorbidity in adult, unspecified BMI, unspecified obesity type (HCC); Mood disorder; Bipolar depression (HCC); Type 2 diabetes mellitus without complication, without long-term current use of insulin (HCC); Major depressive disorder, recurrent episode, mild 11/24/19 2:20 PM EDT - 11/24/19 11:59 PM EDT Hospital Encounter [facility] [address] [place] [address] Hypokalemia Discharge Disposition: Home or Self Care 11/24/19 Telephone [facility] [address] [place], [place] [phone] Danya Faye, Clerical Staff Schedule Appointment 11/21/19 Travel 11/21/19 1:00 PM EDT Telemedicine [facility] [address] [place] [address] Kamini Turner APRN Dry mouth (Primary Dx) 11/18/19 10:45 AM EDT Office Visit [facility] [address] [address] Bernabe Cortez MD Type 2 diabetes mellitus without complication, without long-term current use of insulin (HCC) (Primary Dx); Nausea and vomiting, unspecified vomiting type 11/18/19 Telephone [facility] [address] [place] [address] Kamini Turner APRN Medication Management (semaglutide) 11/18/19 Nurse Triage [facility] [address] [place] [address] Marquita Buck RN 11/16/19 Travel 11/16/19 Telephone [facility] [address], 3RD [place] [address] Jarrod Gonsalves MD Constipation 11/16/19 24 Refill [facility] [address] [place] [address] Kamini Turner APRN Medication Refill 11/08/19 24 2:45 PM EDT - 11/08/19 11:59 PM EDT Hospital Encounter [facility] [address] [place] [address] Hypokalemia Discharge Disposition: Home or Self Care 11/08/19 24 2:00 PM EDT Office Visit [facility] [address] [place] [address] Cyrus Lakhani MD High ankle sprain of left lower extremity, initial encounter (Primary Dx); Acute left ankle pain 11/06/19 10:30 AM EDT Office Visit [facility] [address] [place] [address] Kamini Turner APRN Chills (Primary Dx); Sinus congestion; Nausea and vomiting, unspecified vomiting type 11/02/19 24 6:35 AM EDT - 11/02/19 24 11:59 PM EDT Hospital Encounter [address] [address] Cyrus Lakhani MD Lumbar pain; Lumbar radiculopathy; DDD (degenerative disc disease), lumbar; Right lumbar radiculopathy; Lumbar spondylosis; Radiculopathy of lumbar region Discharge Disposition: Home or Self Care 11/02/19 24 6:35 AM EDT - 11/02/19 24 11:59 PM EDT Hospital Encounter [address] [address] Cyrus Lakhani MD Lumbar pain; Lumbar radiculopathy; DDD (degenerative disc disease), lumbar; Right lumbar radiculopathy; Lumbar spondylosis; Radiculopathy of lumbar region Discharge Disposition: Home or Self Care 10/24/19 24 Telephone [facility] [address] [place] [address] Kamini Turner APRN Refill (gabapentin (NEURONTIN) 600 mg Oral Tablet 270 Tablet 0 09/21/2023 - /Sig - Route: Take 1 Tablet by mouth 3 times daily. - Oral /Sent to pharmacy as: gabapentin 600 mg tablet (NEURONTIN) /E-Prescribing Status: Receipt confirmed by pharmacy (09/21/2023 8:33 AM EDT) //) 10/20/19 24 10:15 AM EDT - 10/20/19 11:59 PM EDT Hospital Encounter [facility] [address] [facility] [place] [address] Contusion of right foot, initial encounter Discharge Disposition: Home or Self Care 10/19/19 24 Travel 10/19/[address] [address] Cyrus Lakhani MD 10/18/19 2:25 PM EDT - 10/18/19 11:59 PM EDT Hospital Encounter [facility] [address] [facility] [place] [id number] Hypokalemia Discharge Disposition: Home or Self Care 10/18/19 24 2:10 PM EDT - 10/18/19 24 2:24 PM EDT Hospital Encounter [facility] [address] [facility] [place] [address] Acute left ankle pain Discharge Disposition: Home or Self Care 10/18/19 2:00 PM EDT Office Visit [address] [address] Cyrus Lakhani MD Acute left ankle pain (Primary Dx); High ankle sprain of left lower extremity, initial encounter; Sprain of other ligament of left ankle, initial encounter 10/12/[address] [address] Cyrus Lakhani MD Other 10/11/19 24 3:10 PM EDT - 10/11/19 24 11:59 PM EDT Hospital Encounter [facility] [address] [facility] [place] [address] Benign intracranial hypertension (Primary Dx); Memory loss; Encounter for long-term (current) use of medications Discharge Disposition: Home or Self Care 10/11/19 2:30 PM EDT Office Visit [facility] Gagn[facility] [address] [place] [address] Cyrus Lakhani MD Lumbar pain (Primary Dx); Lumbar radiculopathy; DDD (degenerative disc disease), lumbar; Right lumbar radiculopathy; Lumbar spondylosis; Radiculopathy of lumbar region 10/11/19 2:40 PM EDT - 10/11/19 3:09 PM EDT Hospital Encounter [facility] [address] [place] [address] Lumbar pain Discharge Disposition: Home or Self Care 10/09/19 Telephone [facility] [address] [place] [address] Boogie Noyola, RT Schedule Appointment 10/09/19 1:30 PM EDT Office Visit [facility] [address] [facility] [address] [place] [address] Mike Stover MD Type 2 diabetes mellitus without complication, without long-term current use of insulin (HCC) (Primary Dx); Floppy eyelid syndrome of both eyes; Empty sella; Pseudotumor; MGD (meibomian gland disease), right; MGD (meibomian gland disease), left 10/08/19 Travel 10/07/19 24 10:00 AM EDT - 10/07/19 11:59 PM EDT Hospital Encounter [facility] [address] [place] [address] Hypokalemia; RTA (renal tubular acidosis) Discharge Disposition: Home or Self Care 10/06/19 Telephone [facility] [address], 3RD [place] [address] Jarrod Gonsalves MD Other (Capsules are stuck) 10/05/19 3:00 PM EDT Office [facility] Nephrology [address] [address] Kaci Graham MD Hypokalemia (Primary Dx); RTA (renal tubular acidosis) 10/04/19 24 Telephone [facility] [address] [place], [place] [id number] Cyrus Lakhani MD Other 10/04/19 10:30 AM EDT Office Visit [place] [id number] Cyrus Lakhani MD Sprain of other ligament of left ankle, initial encounter (Primary Dx); High ankle sprain of left lower extremity, initial encounter 10/03/19 3:10 PM EDT - 10/03/19 11:59 PM EDT Hospital Encounter [facility] [address] [place] [address] Injury of left ankle, initia l encounter Discharge Disposition: Home or Self Care 10/03/19 24 3:00 PM EDT Office Visit [facility] [address] [place] [address] Kamini Turner GLUELINE WORKER Injury of left ankle, initial encounter (Primary Dx) 10/02/19 24 4:24 PM EDT - 10/02/19 24 11:59 PM EDT Hospital Encounter [facility] [address] [place] [address] Kamini Turner S, GLUELINE WORKER Abdominal pain, RLQ (right lower quadrant); Right flank pain Discharge Disposition: Home or Self Care 10/02/19 24 3:45 PM EDT Office Visit [facility] [address] [place] [address] Kamini Turner S, GLUELINE WORKER Abdominal pain, RLQ (right lower quadrant) (Primary Dx); Right flank pain; UTI (urinary tract infection), uncomplicated 09/28/19 24 2:55 PM EDT - 09/28/19 24 11:59 PM EDT Hospital Encounter [facility] [address] [place] [address] Hypokalemia Discharge Disposition: Home or Self Care 09/25/19 24 3:00 PM EDT Clinical Support [facility] [address] [place] [address] Janay Hsu LPN Dysuria 09/25/19 Orders Only [facility] [address] [place] [address] Kamini Turner APRN 09/25/19 24 Telephone [facility] [address] [place] [address] Kamini Turner APRN Results (Urine culture ) 09/21/19 24 7:45 AM EDT Office Visit [facility] [address] [place] [address] Kamini Turner APRN Mild intermittent reactive airway disease with wheezing with acute exacerbation (Primary Dx); Ineffective esophageal motility; Metabolic dysfunction-associated steatotic liver disease (MASLD); Vitamin D deficiency; Mood disorder; Fibromyalgia; Bulging lumbar disc; Bilateral lumbar radiculopathy; Panic attack; Seasonal allergic rhinitis, unspecified trigger; Nausea and vomiting, unspecified vomiting type; Gastroesophageal reflux disease with esophagitis without hemorrhage; Restless legs syndrome (RLS); Type 2 diabetes mellitus without complication, without long-term current use of insulin (HCC); Nonintractable headache, unspecified chronicity pattern, unspecified headache type; Fluid retention; Psoriasis; Major depressive disorder, recurrent episode, mild; Urinary frequency; Episodic migraine 09/18/19 24 Travel 09/13/19 24 Refill [facility] [address] [place] [address] Kamini Turner APRN Medication Refill 09/12/19 24 9:54 AM EDT - 09/12/19 24 11:59 PM EDT Hospital Encounter [facility] [address] [place] [address] Hypokalemia Discharge Disposition: Home or Self Care 09/11/19 24 Refill [facility] [address] [place] [address] Kamini Turner APRN Medication Refill 09/05/19 24 2:40 PM EDT Office Visit [facility] [address] [place] [phone] Jarrod Gonsalves MD Ineffective esophageal motility (Primary Dx); Abnormal LFTs; Chronic idiopathic constipation; Metabolic dysfunction-associated steatohepatitis (MASH) 09/04/19 24 Orders Only [facility] [address] [address] Rosic, Todd, GLUELINE WORKER Obstructive sleep apnea (Primary Dx) 09/04/19 24 12:15 PM EDT Office Visit [facility] [address] [address] Rosic, Todd, GLUELINE WORKER Obstructive sleep apnea (Primary Dx); Tiredness; Morbid obesity (HCC); Mood disorder; Essential hypertension; Type 2 diabetes mellitus without complication, without long-term current use of insulin (HCC); Bipolar depression (HCC) 09/04/19 24 10:44 AM EDT - 09/04/19 24 11:59 PM EDT Hospital Encounter [facility] [address] [place] [address] Hypokalemia Discharge Disposition: Home or Self Care 09/04/19 24 11:00 AM EDT Office Visit [address] [address] Kamini Turner APRN Sinobronchitis (Primary Dx); Mild intermittent reactive airway disease with wheezing with acute exacerbation 08/31/19 24 Refill [facility] [address] [place] [address] Kamini Turner APRN Medication Refill 08/22/19 24 Telephone [facility] [address] [place] [address] Kamini Turner APRN Prior Authorization (PA for Ozempic 0.25mg pen Denied) 08/18/19 24 Telephone [facility] [address] [place] [address] Akua Reed, Surgery (SURGERY INFORMATION (HYSTERECTOMY)) 08/18/19 24 8:30 AM EDT [facility] [address] [address] Akua Reed, Endometriosis (Primary Dx); Abnormal uterine bleeding (AUB); Chronic pelvic pain in female; Severe dysmenorrhea 08/17/19 24 Telephone [facility] [address] [address] Kamini Turner APRN Prior Authorization (Semaglutide ) 08/16/19 24 Travel 08/16/19 24 Telephone [facility] [address] [place] [address] Malorie Calvillo, Clerical Staff Follow-up 08/15/19 24 Orders Only [facility] [address] [place] [address] Kamini Turner APRN Type 2 diabetes mellitus without complication, without long-term current use of insulin (HCC) (Primary Dx) 08/15/19 24 7:45 AM EDT Office Visit [facility] [address] [address] Kamini Turner APRN Tired (Primary Dx); Elevated glucose; Mood disorder; Fibromyalgia; Bulging lumbar disc; Bilateral lumbar radiculopathy; Type 2 diabetes mellitus without complication, without long-term current use of insulin (HCC) 08/14/19 24 Refill [facility] [address] [place] [address] Kamini Turner APRN Medication Refill 08/10/19 24 Travel 08/10/19 24 10:30 AM EDT Telemedicine [facility] [address] [place] [address] Kamini Turner APRN Neuropathic pain, leg (Primary Dx) 08/09/19 24 2:00 PM EDT Office Visit [facility] [address] [place] [address] Marcelo Spence MD Acute right-sided low back pain with sciatica, sciatica laterality unspecified (Primary Dx) 08/08/19 24 Orders Only [facility] [address] [place] [address] Kamini Turner APRN Arthralgia, unspecified joint 08/07/19 24 Telephone [facility] [address] [place] [address] Hortencia Mack, Follow-up 08/07/19 24 1:30 PM EDT - 08/07/19 24 11:59 PM EDT Hospital Encounter [facility] [address] [place] [address] Caitlin August MD Iron deficiency (Primary Dx); RLS (restless legs syndrome) Discharge Disposition: Home or Self Care 08/05/19 24 Refill [facility] [address] [place] [address] Kamini Turner APRN Medication Refill 08/04/19 24 8:05 AM EST - 08/04/19 24 11:59 PM EST Hospital Encounter [facility] [address] [place] [address] Tony Jackson MD Discharge Disposition: Home or Self Care 08/04/19 24 8:04 AM EST Hospital Encounter [facility] [address] [place] [address] Tony Jackson MD Low back pain potentially associated with radiculopathy Discharge Disposition: Home or Self Care 08/02/19 24 Orders Only [facility] [address] [place] [address] Hortencia Mack RT Low back pain potentially associated with radiculopathy (Primary Dx) 08/02/19 24 Telephone [facility] [place] [address] Caitlin August MD Patient Question (Question about scheduling an appointment) 08/02/19 24 9:00 AM EST Office Visit [facility] [address] [place] [address] Tony Jackson MD Low back pain potentially associated with radiculopathy (Primary Dx) 08/01/19 24 3:09 PM EST - 08/01/19 24 11:59 PM EST Hospital Encounter [facility] [address] [place] [address] Hypokalemia; Iron deficiency Discharge Disposition: Home or Self Care 08/01/19 24 2:30 PM EST Office Visit [facility] [address] [place] [address] Aliya Mg DO Abnormal uterine bleeding (Primary Dx); Vaginal itching 07/30/19 24 Refill [facility] [address] [place], [place] [phone] Jarrod Gonsalves MD Medication Refill 07/27/19 24 Travel 07/26/19 24 3:07 PM EST - 07/26/19 24 11:59 PM EST Hospital Encounter [facility] [address] [facility] [place] [address] Tatyana Acuna MD Irregular uterine bleeding Discharge Disposition: Home or Self Care 07/26/19 24 2:30 PM EST Office Visit [facility] [address] [place] [address] Tatyana Acuna MD Irregular uterine bleeding (Primary Dx); Endometriosis; Encounter for surveillance of other contraceptive; 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 07/21/19 24 9:21 AM EST - 07/21/19 24 11:59 PM EST Hospital Encounter [facility] [place] [address] Prudence Tony MD Avitaminosis D (Primary Dx); Hypokalemia Discharge Disposition: Home or Self Care 07/21/19 24 9:15 AM EST - 07/21/19 24 9:20 AM EST Hospital Encounter [place] [address] Prudence Tony MD Imaging abnormality; Right foot pain Discharge Disposition: Home or Self Care 07/19/19 24 Telephone [facility] [address] [address] Kamini Turner APRN Prior Authorization (PA submitted for AccuChek Guide strips Denied) 07/14/19 24 2:35 PM EST - 07/14/19 24 11:59 PM EST Hospital Encounter [facility] [address] [address] Hypokalemia Discharge Disposition: Home or Self Care 07/13/19 24 8:10 AM EST - 07/13/19 24 11:59 PM EST Hospital Encounter [facility] [address] [place] [address] Prudence Tony MD Discharge Disposition: Home or Self Care 07/13/19 24 8:10 AM EST - 07/13/19 24 11:59 PM EST Hospital Encounter [facility] [address] [place] [address] Prudence Tony MD Myalgia Discharge Disposition: Home or Self Care 07/11/19 24 2:13 PM EST - 07/11/19 24 11:59 PM EST Hospital Encounter [facility] [address] [place] [address] Strain of right ankle, initi al encounter Discharge Disposition: Home or Self Care 07/11/19 24 12:18 PM EST - 07/11/19 24 2:12 PM EST Hospital Encounter [facility] [address] [facility] [address] [place], [place] [id number] Emg, Guy Edg Paresthesia (Primary Dx); Neuropathy Discharge Disposition: Home or Self Care 07/10/19 24 Orders Only [facility] [address] [facility] [address] [place] [address] Prudence Tony MD Neuropathy (Primary Dx) 07/10/19 24 Orders Only [facility] [address] [place] [address] Priti Mosley RMA Tonsillitis 07/10/19 24 Orders Only [facility] [address] [place] [address] Kamini Turner APRN Abrasion of knee, unspecified laterality, initial encounter (Primary Dx) 07/07/19 11:10 AM EST - 07/07/19 11:59 PM EST Hospital Encounter [facility] [address] [place] [address] Hypokalemia; Iron deficiency Discharge Disposition: Home or Self Care 07/06/19 24 3:00 PM EST Office Visit [facility] [address] [place] [address] Kamini Turner APRN Person under investigation for COVID-19 (Primary Dx); Sinobronchitis; History of cold sores 07/05/19 24 Telephone [facility] [address], 3[address] [place] [address] Jarrod Gonsalves MD Other 07/04/19 24 Telephone [facility] [address] [place] [address] Tatyana Acuna MD Prior Authorization (IUD) 07/04/19 24 2:40 PM EST Office Visit [facility] [address] [place] [address] Jarrod Gonsalves MD Constipation, unspecified constipation type (Primary Dx); Ineffective esophageal motility; Metabolic dysfunction-associated steatotic liver disease (MASLD) 06/30/19 24 2:45 PM EST - 06/30/19 24 11:59 PM EST Hospital Encounter [facility] [address] [place] [address] Hypokalemia Discharge Disposition: Home or Self Care 06/29/19 24 Orders Only [facility] [address] [place] [address] Kamini Turner APRN Impaired glucose tolerance (Primary Dx); Restless legs syndrome (RLS) 06/27/19 24 6:56 AM EST - 06/27/19 24 11:59 PM EST Hospital Encounter [facility] [address] [place] [id number] Jarrod Gonsalves MD Nausea and vomiting, unspecified vomiting type Discharge Disposition: Home or Self Care 06/26/19 24 3:10 PM EST - 06/26/19 24 11:59 PM EST Hospital Encounter [facility] [address] [place] [address] Hypokalemia Discharge Disposition: Home or Self Care 06/26/19 24 Telephone [facility] [address], 3[address] [place] [address] Keysha Spears LPN Prior Authorization (Zofrcarter) 06/26/19 24 2:30 PM EST Office Visit [facility] Nephrology [place] [address] [place] [phone] Kaci Graham MD Hypokalemia (Primary Dx); Papilledema 06/21/19 24 8:55 AM EST - 06/21/19 24 11:59 PM EST Hospital Encounter [facility] [address] [place] [address] Screen for STD (sexually transmitted disease) Discharge Disposition: Home or Self Care 06/21/19 24 8:00 AM EST Office Visit [facility] [address] [place] [address] Tatyana Acuna MD Well female exam with routine gynecological exam (Primary Dx); Screen for STD (sexually transmitted disease); UTI symptoms; Acute cystitis without hematuria; Chronic vaginitis; Screening examination for STD (sexually transmitted disease); Counseling for HPV (human papillomavirus) vaccination; Endometriosis; Irregular uterine bleeding 06/20/19 Telephone [facility] [address] [facility] [address], 3RD [place] [address] Jarrod Gonsalves MD Results 06/20/19 Telephone [facility] [address] [place] [address] Hannah Daigle MD Results 06/20/19 Travel 06/20/19 8:43 AM EST Hospital Encounter [facility] [address] [place] [address] Hannah Daigle MD Babcock, Kirsten Lenore, PA-C Oropharyngeal dysphagia Discharge Disposition: Home or Self Care 06/20/19 8:44 AM EST - 06/20/19 11:59 PM EST Hospital Encounter [facility] [address] [place] [address] Hannah Daigle MD Oropharyngeal dysphagia Discharge Disposition: Home or Self Care 06/16/19 3:05 PM EST - 06/16/19 11:59 PM EST Hospital Encounter [facility] [address] [place] [address] Common migraine with intractable migraine (Primary Dx); Benign intracranial hypertension; Need for prophylactic chemotherapy Discharge Disposition: Home or Self Care 06/16/19 3:45 PM EST Office Visit [facility] [address] [place] [address] Kamini Turner, GLUELINE WORKER Encounter for completion of form with patient (Primary Dx); Nonintractable headache, unspecified chronicity pattern, unspecified headache type; Generalized anxiety disorder 06/16/[address] [facility] Nephrology [place] [address] [place] [address] Kaci Graham MD Medication Question (Acetazolamide 250 mg) 06/14/19 24 1:49 PM EST - 06/14/19 24 11:59 PM EST Hospital Encounter [facility] [place] [address] Myalgia; Need for prophylactic chemotherapy; Benign intracranial hypertension; Abnormal immunological finding in serum; Scapulohumeral fibrositis Discharge Disposition: Home or Self Care 06/10/19 24 Refill [facility] [address] [facility] [place] [address] Kamini Turner APRN Medication Refill 06/09/19 24 Telephone [facility] [address] [place] [address] Caitlin August MD Schedule Appointment (Move apt time) 06/08/19 24 3:00 PM EST Office Visit [facility] [address] [address] Hannah Daigle MD Oropharyngeal dysphagia (Primary Dx) 06/07/19 24 12:46 PM EST - 06/07/19 24 11:59 PM EST Hospital Encounter [facility] [address] [place] [address] Diarrhea, unspecified type Discharge Disposition: Home or Self Care 06/07/19 24 11:45 AM EST Office Visit [facility] [address] [place] [address] Clarita Perez DO Diarrhea, unspecified type (Primary Dx); Viral gastroenteritis; Nausea and vomiting, unspecified vomiting type 06/06/19 24 Telephone [facility] [address] [place] [address] Jarrod Gonsalves MD Letter for School/Work (TO RETURN TO WORK) 06/05/19 24 Telephone [facility] [place] [address] Caitlin August MD Reschedule (labs and follow up) 05/30/19 24 Telephone [facility] [address] [place] [address] Jarrod Gonsalves MD Other 05/30/19 4:30 PM EST Office Visit [facility] [address] [place] [address] Kamini Turner S GLUELINE WORKER Sore throat (Primary Dx); Tonsillitis; Viral illness 05/30/19 2:40 PM EST Office Visit [facility] [address] [place] [address] Jarrod Gonsalves MD Ineffective esophageal motility (Primary Dx); Metabolic dysfunction-associated steatotic liver disease (MASLD) 05/23/20 Orders Only [address] [place] [address] Kamini Turner S, GLUELINE WORKER Otalgia of both ears (Primary Dx) 05/19/20 Orders Only [facility] Sleep [facility] [address] [address] Rosic, Todd, GLUELINE WORKER Obstructive sleep apnea (Primary Dx) 05/19/20 3:00 PM EST Office Visit [facility] Medicine [address] [address] Rosic, Todd, GLUELINE WORKER Obstructive sleep apnea (Primary Dx); Tiredness; Morbid obesity (HCC); Mood disorder; Essential hypertension 05/18/20 3:20 PM EST - 05/18/20 11:59 PM EST Hospital Encounter [facility] [address] [place] [address] Therapeutic drug monitoring Discharge Disposition: Home or Self Care 05/18/20 Orders Only [facility] [address] [facility] [place] [address] TurnerKamini pendleton S, GLUELINE WORKER Acute cough (Primary Dx) 05/15/20 3:30 PM EST Office Visit [facility] [address] [facility] [place] [address] Kamini Turner APRN Restless legs syndrome (RLS) (Primary Dx); URI with cough and congestion; Acute bacterial sinusitis 05/10/20 4:45 PM EST Telemedicine [facility] [address] [place] [address] Bernabe Cortez MD Acute bacterial sinusitis (Primary Dx); Adverse effect of drug, initial encounter; Mood disorder 05/10/20 8:34 AM EST - 05/10/20 11:59 PM EST Hospital Encounter [facility] [address] [place] [address] Jarrod Gonsalves MD Ansari, Camron R, CRNA Preop testing (Primary Dx); Premenopausal patient; Rectal bleeding; Iron deficiency Discharge Disposition: Home or Self Care 05/10/20 9:27 AM EST Anesthesia Event [facility] [address] [place] [address] Rolf Morales FUNERAL DIRECTOR/EMBALMER/OWNER RecordMegha APRN 05/05/20 Telephone [facility] [address] ENTRANCE, 3RD [place] [address] Jarrod Gonsalves MD Results 05/03/20 Travel 05/01/20 Orders Only [facility] Cancer [facility] [address] [place] [address] Kamini Garcia RN 04/28/20 Telephone [facility] [address] ENTRANCE, 3RD [place] [address] Jarrod Gonsalves MD Reschedule 04/25/20 3:00 PM EST Office Visit [facility] [address] [place] [address] Kamini Turner APRN Nonintractable headache, unspecified chronicity pattern, unspecified headache type (Primary Dx); Tired; Myalgia; Arthralgia, unspecified joint; Mood disorder; Fibromyalgia; Bulging lumbar disc; Bilateral lumbar radiculopathy; Panic attack; Seasonal allergic rhinitis, unspecified trigger; Bipolar depression (HCC); Obesity, Class II, BMI 35-39.9; Fluid retention; Major depressive disorder, recurrent episode, mild 04/24/20 Refill [facility] [address] [address] Kamini Turner APRN Medication Refill 04/24/20 4:30 PM EST Telemedicine [facility] [address] [facility] [place] [address] Bernabe Cortez MD Bipolar depression (HCC) (Primary Dx); Acute bacterial sinusitis 04/19/20 2:34 PM EST - 04/19/20 2:36 PM EST Hospital Encounter [facility] [address] [place] [address] Hypokalemia; Tired Discharge Disposition: Home or Self Care 04/19/20 2:37 PM EST - 04/19/20 11:59 PM EST Hospital Encounter [address] [address] Iron deficiency (Primary Dx) ; RLS (restless legs syndrome) Discharge Disposition: Home or Self Care 04/17/20 Telephone [facility] [address]D ENTRANCE, 3RD [place] [address] Jarrod Gonsalves MD Results 04/14/20 Telephone SEP [address] [place] [address] Kamini Turner APRN Other 04/12/20 2:57 PM EST - 04/12/20 11:59 PM EST Hospital Encounter [address] [place] [address] Iron deficiency (Primary Dx) ; RLS (restless legs syndrome) Discharge Disposition: Home or Self Care 04/11/20 Orders Only SEP [address] [place] [address] Kamini Turner APRN Tired; Myalgia; Arthralgia, unspecified joint 04/10/20 2:35 PM EST - 04/10/20 11:59 PM EST Hospital Encounter [facility] [address] [place] [address] Intractable migraine without aura and without status migrainosus (Primary Dx); Pseudotumor cerebri; Encounter for long-term (current) use of medications Discharge Disposition: Home or Self Care 04/06/20 10:30 AM EST Office Visit [facility] [address] [place] [address] Kamini Turner APRN Tired (Primary Dx); Myalgia; Arthralgia, unspecified joint 04/06/20 3:15 PM EST - 04/06/20 11:59 PM EST Hospital Encounter [facility] [address] [place] [address] Iron deficiency (Primary Dx) ; RLS (restless legs syndrome) Discharge Disposition: Home or Self Care 04/04/20 9:20 AM EST - 04/04/20 11:59 PM EST Hospital Encounter [facility] [place] [address] Jarrod Gonsalves MD Chennubhotla, Suma, MD Rectal bleeding; Iron deficiency Discharge Disposition: Home or Self Care 03/30/20 Telephone [facility] [address] ENTRANCE, 3RD [place] [address] Keysha Spears LPN Other (ESOPHAGEAL MANOMETRY) 03/30/20 Telephone [facility] [address] [facility] [address] [place] [address] Hortencia Mack RT Follow-up 03/29/20 8:45 AM EDT Office Visit [facility] [address] [place] [address] Bernabe Cortez MD Fluid retention (Primary Dx) 03/29/20 3:02 PM EDT - 03/29/20 11:59 PM EDT Hospital Encounter [facility] Cancer Care Center [facility] [address] [place] [address] Iron deficiency (Primary Dx) ; RLS (restless legs syndrome) Discharge Disposition: Home or Self Care 03/28/20 Telephone [facility] [address] [place] [address] Brayan Davidson MD 03/28/20 3:40 PM EDT [facility] [address] [place] [address] Jarrod Gonsalves MD Rectal bleeding (Primary Dx); Iron deficiency 03/27/20 11:00 AM EDT Office Visit [facility] [address] [facility] [address] [place] [address] Macrina Iglesias, ARUN Cubital tunnel syndrome on left (Primary Dx) 03/24/20 Orders Only [facility] [address] [facility] [place] [address] Priti Mosley, NISA Mild intermittent reactive airway disease with wheezing with acute exacerbation; Vitamin D deficiency; Panic attack; Arthralgia, unspecified joint; Gastroesophageal reflux disease with esophagitis without hemorrhage; Restless legs syndrome (RLS) 03/23/20 Telephone [facility] [place] [address] Caitlin August MD Reschedule (Venofer #1 of 5 ,-Schedule #2,3,4,5 /) 03/22/20 7:31 AM EDT - 03/22/20 11:59 PM EDT Hospital Encounter [facility] LAB[facility] [place] [address] Radha Ley APRN II (idiopathic intracranial hypertension) Discharge Disposition: Home or Self Care 03/22/20 7:20 AM EDT - 03/22/20 7:30 AM EDT Hospital Encounter [facility] X[facility] [place] [address] Radha Ley, GLUELINE WORKER Alannah Marte PA-C IIH (idiopathic intracranial hypertension) Discharge Disposition: Home or Self Care 03/21/20 Telephone [facility] Neurology [facility] [address] [place] [address] Radha Ley, GLUELINE WORKER Other 03/21/20 Telephone [facility] [address] [place] [address] Kamini Turner APRN Other 03/21/20 Telephone [facility] [place] [address] Caitlin August MD Symptom Call (Leg pain in both legs started a week ago ) 03/21/20 Orders Only [facility] [address] [place] [address] Kamini Turner APRN Pain in both lower extremities (Primary Dx) 03/20/20 4:00 PM EDT Office Visit [facility] [address] [place] [address] Kamini Turner APRN Leg cramps (Primary Dx); Pain in both lower extremities 03/16/20 Orders Only [facility] [address] [place] [address] Hortencia Mack RT IIH (idiopathic intracranial hypertension) (Primary Dx) 03/15/20 Telephone [facility] [address] [place] [address] Heather Ziegler RMA Procedure (Lumbar puncture) 03/15/20 8:25 AM EDT - 03/15/20 9:30 AM EDT Surgery [facility] [address] [place] [address] Brayan Davidson MD CUBITAL TUNNEL RELEASE / NERVE TRANSPOSITION / DECOMPRESSION 03/15/20 9:10 AM EDT Anesthesia Event [facility] [address] [place] [address] Alvarez Bhatt MD Jones, Benjamin R, MD 03/15/20 7:08 AM EDT - 03/15/20 11:01 AM EDT Hospital Encounter [facility] [place] [id number] [facility] [address] [place] [address] Brayan Davidson MD Discharge Disposition: Home or Self Care 03/13/20 Telephone [facility] [address] [place] [address] Hannah Daigle MD Symptom Call 03/11/20 7:41 AM EDT - 03/11/20 11:59 PM EDT Hospital Encounter [facility] [address] [place] [id number] Radha Ley APRN IIH (idiopathic intracranial hypertension) Discharge Disposition: Home or Self Care 03/10/20 Specialty Pharmacy [facility] [address] [place] [id number] Yessy Dukes [facility] Pharmacy Initial Assessment (Emgality) 03/10/20 Orders Only [facility] [place] [address] [place] [address] [address] [place] [id number] Sp Gutiérrez MD Obstructive sleep apnea (Primary Dx) 03/10/20 Specialty Pharmacy [facility] [address] [place] [address] [place] Cortez [facility] Pharmacy Migraine Medication Management (Emgality) 03/10/20 Travel 03/10/20 8:00 AM EDT Office Visit [facility] Neurology [facility] [address] [facility] [address] [place] [address] Radha Ley APRN IIH (idiopathic intracranial hypertension) (Primary Dx) 03/09/20 1:45 PM EDT Office Visit [facility]P Sleep Medicine [facility] [address] [facility] [address] [place] [address] Sp Gutiérrez MD Excessive sleepiness (Primary Dx); Snores; CORRINE (obstructive sleep apnea) 03/09/20 Orders Only [facility] [address] [place] [address] Brayan Davidson MD Cubital tunnel syndrome on left (Primary Dx) 03/07/20 Telephone [facility] [address] [place] [address] Nidia Hung Prior Authorization (AUTH DENIED ) 03/03/20 Orders Only [facility] [address] [place], [place] [id number] Brayan Davidson MD Cubital tunnel syndrome on left (Primary Dx) 03/02/20 Travel 03/02/20 [facility]phone [facility] [address] [address] Brayan Davidson MD Schedule Appointment 03/02/20 12:45 PM EDT Telemedicine [facility] [address] [facility] [place] [address] Bernabe Cortez MD Adverse effect of drug, initial encounter (Primary Dx); Dizziness; Malaise and fatigue; Paresthesias; Balance problem; Hyperacusis of both ears; Tinnitus aurium, bilateral 03/01/20 4:00 PM EDT Office Visit [facility] [address] [address] Hannah Daigle MD Ear pain, bilateral (Primary Dx); Abnormal auditory perception, bilateral; Facial pain 02/29/20 3:00 PM EDT Office Visit [facility] [address] [facility] [place] [address] Kamini Turner APRN Sore throat (Primary Dx); Nonintractable headache, unspecified chronicity pattern, unspecified headache type; BPV (benign positional vertigo), unspecified laterality 02/29/20 [facility]phone [facility] [place] [address] [place] [address] Brayan Davidson MD Other 02/28/20 Telephone [facility] [address] [place] [address] Malorie Calvillo, Clerical Staff Insurance Question 02/25/20 Orders Only [facility] [address] [place] [address] Kamini Turner APRN Seasonal allergic rhinitis, unspecified trigger (Primary Dx) 02/24/20 3:00 PM EDT Office Visit [facility] [address] [place] [address] Kamini Turner APRN Sjogren's syndrome, with unspecified organ involvement (Primary Dx); Encounter for contraceptive management, unspecified type; Vitamin D deficiency; Sore in nose 02/24/20 8:00 AM EDT Office Visit [place] [phone] Brayan Davidson MD Cubital tunnel syndrome on left (Primary Dx); Left elbow pain 02/23/20 6:45 AM EDT - 02/23/20 7:32 AM EDT Hospital Encounter [facility] [place] [address] Cyrus Lakhani MD Encounter for long-term (current) use of medications (Primary Dx); Diagnostic skin and sensitization tests; Screening examination for venereal disease; Screening examination for poliomyelitis; Sicca, unspecified type; Scapulohumeral fibrositis; Vitamin D deficiency Discharge Disposition: Home or Self Care 02/23/20 9:00 AM EDT Clinical Support [facility] Neurology [facility] [address] [place] [address] Wendy Blum RMA Intractable migraine without aura and without status migrainosus (Primary Dx) 02/23/20 6:42 AM EDT - 02/23/20 6:44 AM EDT Hospital Encounter [place] [address] Cyrus Lakhani MD Left elbow pain; Ulnar neuropathy of left upper extremity; Cubital tunnel syndrome on left Discharge Disposition: Home or Self Care 02/23/20 7:33 AM EDT - 02/23/20 11:59 PM EDT Hospital Encounter [facility] Sleep Disorder [address] [place] [address] Uss, Ovidio Sleep Obstructive sleep apnea Discharge Disposition: Home or Self Care 02/22/20 Telephone [facility] [place] [address] [facility] [address] [place] [address] Hortencia Mack, RT Follow-up 02/22/20 Telephone [facility] Neurology [facility] [address] [place] [address] Radha Ley APRN Headache 02/22/20 1:59 PM EDT - 02/22/20 11:59 PM EDT Hospital Encounter [facility] Sleep Disorder [address] [place] [address] Uss, Ovidio Sleep Obstructive sleep apnea (Primary Dx) Discharge Disposition: Home or Self Care 02/21/20 7:01 AM EDT - 02/21/20 11:59 PM EDT Hospital Encounter [facility] [address] [place] [address] Kamini Turner APRN Acute intractable headache, unspecified headache type; Vision changes; Memory loss; Staggering Discharge Disposition: Home or Self Care 02/16/20 1:00 PM EDT Office Visit [facility] [address] [facility] [place] [phone] Marcelo Spence MD Protrusion of lumbar intervertebral disc (Primary Dx) 02/16/20 11:00 AM EDT [facility] [address] [place] [address] Cyrus Lakhani MD Left elbow pain (Primary Dx); Ulnar neuropathy of left upper extremity; Cubital tunnel syndrome on left 02/15/20 Orders Only [facility] [place] [address] [place] [address] Priti Mosley RMA Vision changes (Primary Dx); Memory loss; Acute intractable headache, unspecified headache type 02/14/20 2:30 PM EDT Office Visit [facility] [address] [place] [address] Kamini Turner APRN Acute intractable headache, unspecified headache type (Primary Dx); Vision changes; Memory loss; Staggering 02/12/20 9:00 AM EDT Clinical Support [facility] [address] [place] [address] Ally Gonzalez RMA Acute intractable headache, unspecified headache type (Primary Dx) 02/11/20 Travel 02/11/20 4:30 PM EDT Telemedicine [facility] [address] [place] [address] Kamini Turner APRN Acute intractable headache, unspecified headache type (Primary Dx); Psoriasis 02/08/20 2:56 PM EDT - 02/08/20 11:59 PM EDT Hospital Encounter [facility] [address] [place] [address] Sore throat; Myalgia; Malaise and fatigue; Nausea and vomiting, unspecified vomiting type; Diarrhea, unspecified type Discharge Disposition: Home or Self Care 02/08/20 2:45 PM EDT Telemedicine [address] [place] [address] Fartun Nicole APRN Sore throat (Primary Dx); Myalgia; Malaise and fatigue; Nausea and vomiting, unspecified vomiting type; Diarrhea, unspecified type 02/03/20 Telephone [facility] [address] [place] [address] Hortencia Mack RT Follow-up 02/03/20 Orders Only [facility] Sleep Medicine [facility] [address] [facility] [address] [place] [address] Sp Gutiérrez MD Obstructive sleep apnea (Primary Dx) 02/03/20 3:30 PM EDT Office Visit [facility] Sleep Medicine [address] [place] [address] Sp Gutiérrez MD Snores (Primary Dx); Tired; Elevated BP without diagnosis of hypertension; Obesity, Class II, BMI 35-39.9; History of migraine headaches 02/01/20 Travel 01/28/20 Telephone [facility] Cancer Care Center [address] [address] Mary Tamayo MA Schedule Appointment (Iron infusion) 01/27/20 Refill [facility] [address] [facility] [place] [address] Kamini Turner APRN Medication Refill 01/27/20 3:00 PM EDT Clinical Support [address] [place] [address] Janay Hsu LPN Hypokalemia 01/27/20 Orders Only [address] [place] [address] Joyce Milton LPN Hypokalemia (Primary Dx) 01/27/20 3:30 PM EDT Office Visit [facility] Nephrology [address] [address] Kaci Graham MD Hypokalemia (Primary Dx) 01/25/[address] [place] [address] Kamini Turner APRN Medication Management 01/20/20 Telephone [facility] [address] [place] [address] Cyrus Lakhani MD Patient Question 01/19/20 2:30 PM EDT Office Visit [facility] [address] [place] [address] Cyrus Lakhani MD Left elbow pain (Primary Dx); Ulnar neuropathy of left upper extremity 01/18/20 Telephone [facility] [place] [phone] Caitlin August MD Results 01/18/20 3:00 PM EDT Office Visit [facility] [address] [address] Bernabe Cortez MD ETD (Eustachian tube dysfunction), bilateral (Primary Dx); Elevated BP without diagnosis of hypertension 01/17/20 3:45 PM EDT - 01/17/20 11:59 [place] [address] Easy bruising; Iron deficiency; RLS (restless legs syndrome) Discharge Disposition: Home or Self Care 01/17/20 3:00 PM EDT - 01/17/20 3:44 [place] [address] Caitlin August MD Iron deficiency (Primary Dx); RLS (restless legs syndrome); Easy bruising Discharge Disposition: Home or Self Care 01/14/20 2:57 PM EDT - 01/14/20 11:59 [place] [address] Kamini Turner APRN Hypokalemia Discharge Disposition: Home or Self Care 01/14/20 2:33 PM EDT - 01/14/20 2:56 PM [place] [address] Kamini Turner APRN Protrusion of lumbar intervertebral disc Discharge Disposition: Home or Self Care 01/13/20 Telephone [facility] [address] [address] Kamini Turner APRN Paperwork/forms (EMG ) 01/13/20 Telephone [facility] Neurology [facility] [address] [place] [address] Radha Ley APRN Other (records/) 01/13/20 Telephone [facility] [address] [place] [address] Kamini Turner APRN Other (h pylori) 01/13/20 Telephone [facility] Cancer Care Center [address] [place] [address] Mary Tamayo MA Confirmation (Appt) 01/10/20 Travel 01/10/20 7:30 AM EDT - 01/10/20 11:59 PM EDT Hospital Encounter [facility] [address] [place] [address] Tyshawn Hernandez, DPM Lesion of right plantar nerve; Right foot pain; Cannot walk Discharge Disposition: Home or Self Care 01/06/20 Orders Only [facility] [address] [facility] [place] [address] Joyce Milton LPN Low iron (Primary Dx) 01/05/20 Telephone [facility] [address] [facility] [place] [address] Kamini Turner APRN Results (Lab & EMG ) 01/05/20 Travel 01/05/20 7:20 AM EDT - 01/05/20 11:59 PM EDT Hospital Encounter [facility] [address] [facility] [place] [address] Emg, Manuel Ovidio Numbness and tingling (Primary Dx) Discharge Disposition: Home or Self Care 01/04/20 3:00 PM EDT Office Visit [facility] [address] [facility] [place] [address] Kamini Turner APRN Numbness and tingling (Primary Dx); Family history of diabetes mellitus 01/03/20 12:45 PM EDT Office Visit [facility] Urgent Care [address] [address] Milena Asencio MD Pain of midfoot, right (Primary Dx) 01/03/20 3:15 PM EDT Office Visit [facility] Neurology [place] [address] [place] [address] Radha Ley APRN Intractable migraine without aura and without status migrainosus (Primary Dx); Pseudotumor 12/30/19 Orders Only [facility] [address] [place] [address] Kamini Turner APRN Major depressive disorder, recurrent episode, mild 12/24/19 Travel 12/24/19 2:30 PM EDT - 12/24/19 11:59 PM EDT Hospital Encounter [facility] [address] [place] [address] Hypokalemia Discharge Disposition: Home or Self Care 12/23/19 Telephone [facility] [address] [place] [address] Tyshawn Hernandez, BAYLEE Prior Authorization (Denied) 12/23/19 Telephone [facility] Neurology [place] [address] [place] [address] Radha Ley APRN Other (Requesting additional BW) 12/23/[address] [place] [address] Kamini Turner APRN Other 12/23/[address] [facility] Nephrology [place] [address] [facility] [address] [place] [address] Kaci Graham MD Results (GFR 72) 12/23/19 Orders Only [facility] Neurology [place] [address] [place] [address] Radha Ley APRN Therapeutic drug monitoring (Primary Dx) 12/22/19 Travel 12/22/19 2:38 PM EDT - 12/22/19 11:59 PM EDT Hospital Encounter [facility] [address] [place] [address] Therapeutic drug monitoring Discharge Disposition: Home or Self Care 12/21/19 Telephone [facility] [address] [place] [address] Kamini Turner APRN Other (Interventional radiology ) 12/21/19 Orders Only [facility] [address] [place] [address] Kmaini Turner APRN 12/16/19 Telephone [facility] [address] [place] [address] Mike Alejandro MD Patient Question 12/16/19 3:30 PM EDT Office Visit [facility] [address] [place] [address] Kamini Turner APRN Eustachian tube dysfunction, left (Primary Dx); Mood disorder; Fibromyalgia; Bulging lumbar disc; Bilateral lumbar radiculopathy 12/15/19 Abstract [facility] [address] [place] [id number] Jose A Michael, PharmD CYP2B6 intermediate metabolizer (HCC) (Primary Dx) 12/15/19 4:00 PM EDT Office Visit [facility] [address] [place] [address] Mike Alejandro MD Lumbar radiculopathy (Primary Dx); DDD (degenerative disc disease), lumbar 12/13/19 3:20 PM EDT Office Visit [email or web address] [address] [place] [phone] Keyla Colorado MD Fibromyalgia (Primary Dx); Dry mouth; Undifferentiated connective tissue disease; Encounter for long-term (current) use of high-risk medication; Raised antibody titer; 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 [address] Malrena Pereyra MD Mood disorder (Primary Dx); Major depressive disorder, recurrent episode, mild; Mood swings 11/26/19 Travel 11/26/19 9:27 AM EDT - 11/26/19 11:59 PM EDT Hospital Encounter [facility] X[facility] [address] [place] [address] Stress fracture of right piyush t, initial encounter Discharge Disposition: Home or Self Care 11/23/[address] [place] [address] Hannah Daigle MD Results 11/19/19 10:30 AM EDT Office Visit [facility] [address] [place] [address] Kamini Turner APRN Mild intermittent reactive airway disease with wheezing with acute exacerbation; Vitamin D deficiency; Mood disorder; Fibromyalgia; Bulging lumbar disc; Bilateral lumbar radiculopathy; Arthralgia, unspecified joint; Nausea 11/18/19 Telephone [address] [place] [address] Hannah Daigle MD Post-op Call 11/17/19 2:30 PM EDT Procedure visit [address] [place] [address] Hannah Daigle MD Dry mouth 11/11/19 8:16 AM EDT - 11/11/19 11:59 PM EDT Hospital Encounter [facility] [address] [place] [address] Right foot pain Discharge Disposition: Home or Self Care 11/11/19 7:45 AM EDT Office Visit [facility] [address] [place] [address] Kamini Turner APRN Right foot pain (Primary Dx); Toenail fungus 11/09/19 1:20 PM EDT - 11/09/19 11:59 PM EDT Hospital Encounter [facility] [address] [place] [address] Dori Buchanan MD Esophageal dysphagia; Right upper quadrant abdominal pain Discharge Disposition: Home or Self Care 11/05/19 3:30 PM EDT Clinical Support [facility] [address] [place] [address] Rosi Mendez RMA Low iron (Primary Dx) 10/27/19 Telephone [facility] [address] [place] [address] Kamini Turner APRN Results 10/27/19 1:40 PM EDT Office Visit [facility] [address] Hannah Daigle MD Dry mouth (Primary Dx) 10/26/19 3:00 PM EDT Clinical Support [facility] [address] [place] [address] Ronald Freedman MA Hematuria, microscopic (Primary Dx) 10/18/19 3:00 PM EDT Office Visit [facility] [address] [place] [address] Kamini Turner APRN Fibromyalgia (Primary Dx) 10/18/19 11:00 AM EDT Office Visit [facility] [address] [place] [address] Keyla Colorado MD Dry mouth (Primary Dx); Undifferentiated connective tissue disease; Encounter for long-term (current) use of high-risk medication 10/14/19 9:30 AM EDT Office Visit [facility] [address] [place] [phone] Kamini Turner APRN Nausea (Primary Dx); Iron deficiency anemia, unspecified iron deficiency anemia type 10/11/19 Travel 10/11/19 2:55 PM EDT - 10/11/19 11:59 PM EDT Hospital Encounter [facility] [address] [place] [address] Abnormal LFTs; Right upper quadrant abdominal pain Discharge Disposition: Home or Self Care 10/11/19 1:30 PM EDT Office Visit [facility] [address] [place] [address] Dori Buchanan MD Abnormal LFTs (Primary Dx); Fatty liver; Constipation, unspecified constipation type; Esophageal dysphagia; Right upper quadrant abdominal pain 10/11/19 8:00 AM EDT Office Visit [facility] [address] [place] [address] Keyla Colorado MD Fatty liver (Primary Dx); BOBBY positive; Other fatigue; Arthralgia, unspecified joint; Vitamin D deficiency 10/10/19 Abstract [email or web address] [address] [place] [address] Keyla Colorado MD 10/08/19 Telephone [facility] [place] [address] Mabel William, Clerical Staff Other 10/08/19 Telephone [facility] [address] [address] Mamta Mercado, Clerical Staff 10/08/19 7:00 PM EDT Ancillary Procedure [facility] [address] [address] Marcelo Cristobal APRN Lumbar pain 10/08/19 6:30 PM EDT Office Visit [facility] [address] [address] Marcelo Cristobal APRN Right lumbar radiculopathy (Primary Dx); Lumbar pain 10/08/19 Telephone [facility] [address] [place], [place] [id number] Mike Alejandro MD 10/07/19 3:30 PM EDT Office Visit [address] [address] Mike Alejandro MD Lumbar spondylosis (Primary Dx) 09/27/19 10:00 AM EDT Office Visit [facility] [address] [place] [address] Kamini Turner APRN Positive BOBBY (antinuclear antibody) (Primary Dx); Arthralgia, unspecified joint; Tired 09/27/19 2:45 PM EDT Office Visit [facility] [address] [place] [address] Radha Ley APRN Therapeutic drug monitoring (Primary Dx) 09/24/19 10:30 AM EDT Office Visit [facility] [address] [place] [address] Kamini Turner APRN Elevated LFTs (Primary Dx); Right sided abdominal pain; Obesity, Class II, BMI 35-39.9 09/23/19 2:00 PM EDT Office [facility] [address] [place] [address] Kaci Graham MD Hypokalemia (Primary Dx); Essential hypertension 09/21/19 7:37 AM EDT - 09/21/19 11:59 PM EDT Hospital Encounter [facility] [address] [address] Kamini Turner APRN Right upper quadrant abdominal tenderness, rebound tenderness presence not specified Discharge Disposition: Home or Self Care 09/20/19 10:00 AM EDT Office Visit [facility] [address] [place] [address] Kamini Turner APRN Dysuria (Primary Dx); Right upper quadrant abdominal tenderness, rebound tenderness presence not specified 09/15/19 Travel 09/15/19 2:35 PM EDT - 09/15/19 11:59 PM EDT Hospital Encounter [facility] [address] [place] [phone] Essential hypertension Discharge Disposition: Home or Self Care 09/14/19 Orders Only [facility] [address] [place] [address] Priti Mosley, RMA Vitamin D deficiency; Restless legs syndrome (RLS); Hypokalemia; Essential hypertension; Leg swelling 09/13/19 Orders Only [facility] [address] [place] [address] Priti Mosley, RMA Acute bronchitis, unspecified organism; Mild intermittent reactive airway disease with wheezing with acute exacerbation; Tinea corporis; Major depressive disorder, recurrent episode, mild; Panic attack; Arthralgia, unspecified joint; Gastroesophageal reflux disease with esophagitis without hemorrhage; Restless legs syndrome (RLS); Hypokalemia; Essential hypertension; Leg swelling 09/13/19 Refill [facility] [address] [place] [address] Kamini Turner APRN Medication Refill (Gabapentin, pantoprazole, mirapex ) 09/13/19 9:30 AM EDT Office Visit [facility] [address] [place] [address] Kamini Turner APRN Right upper quadrant abdominal tenderness, rebound tenderness presence not specified (Primary Dx); Acute bacterial sinusitis 09/10/[address] [facility] Nephrology [place] [address] [place] [address] Kaci Graham MD Essential hypertension (Primary Dx) 09/09/19 Telephone [place] [phone] Kyara Steele CCMA Follow-up 09/08/[address], [place] [address] Nakia Bernal MD Other (Transpiration issues, switching doctors. ) 09/07/19 10:30 AM EDT Office Visit [facility] [address] [place] [address] Kamini Turner APRN Hospital discharge follow-up (Primary Dx); Hypokalemia; Essential hypertension; Leg swelling; Yeast infection 09/06/19 3:45 PM EDT Office Visit [facility] [address] [place] [address] Mike Alejandro MD Lumbar spondylosis (Primary Dx) 09/03/19 2:15 PM EDT Telemedicine [facility] [address] [place] [address] Bernabe Cortez MD Tinea corporis (Primary Dx); Hypokalemia; Essential hypertension; Leg swelling 09/03/19 Patient Outreach [place] [address] [place] [address] Taylor Carrizales, RN Hospital Follow Up; Care Transition; CM - Medication Reconciliation 08/28/19 11:31 AM EDT - 09/02/19 3:53 PM EDT Hospital Encounter [facility] [address] [address] [place] [address] Cyrus Ferraro MD Vitamin D deficiency (Primary Dx) Discharge Disposition: Home or Self Care 08/31/19 [facility] [address] [place] [address] Mike Alejandro MD 08/30/19 Travel 08/27/19 9:39 PM EDT - 08/28/19 10:48 AM EDT [facility] [address] [place] [address] Cyrus Vera DO Conner, James C, MD Chest pain, unspecified type (Primary Dx); Hypokalemia Discharge Disposition: Still a Patient 08/27/19 Travel 08/27/19 2:30 PM EDT - 08/27/19 9:38 PM EDT Hospital Encounter [facility] [address] [place] [address] Numbness and tingling Discharge Disposition: Home or Self Care 08/23/19 2:15 PM EDT Office Visit [facility] [address] [place] [address] Kamini Turner APRN Essential hypertension (Primary Dx); Bilateral swelling of feet and ankles 08/21/19 12:45 PM EDT Office Visit [facility]gent [address] [address] Lydia Wade PA-C Elevated blood pressure reading (Primary Dx); Acute nonintractable headache, unspecified headache type 08/21/19 Telephone [facility] [address] [place] [address] Bernabe Cortez MD Advice Only (mychart message ) 08/20/19 3:30 PM EDT Clinical Support [facility] [address] [place] [address] Janay Hsu LPN Nonintractable headache, unspecified chronicity pattern, unspecified headache type (Primary Dx) 08/19/19 4:40 PM EDT - 08/19/19 11:59 PM EDT Hospital Encounter [facility] [address] [place] [address] Sp Mejias MD Worst headache of life Discharge Disposition: Home or Self Care 08/19/19 3:45 PM EDT Office Visit [facility] [address] [place] [address] Sp Mejias MD Worst headache of life (Primary Dx) 08/18/19 23 Travel 08/18/19 3:40 PM EDT - 08/18/19 4:00 PM EDT Surgery [facility] [address] [place] [address] Jarrod Gonsalves MD ESOPHAGOGASTRODUODENOSCOPY (ANESTHESIA) 08/18/19 3:05 PM EDT Anesthesia Event [facility] [address] [place] [address] Nima Gay MD Braxton-Brown, Jennifer, APRN 08/18/19 2:39 PM EDT - 08/18/19 3:53 PM EDT Hospital Encounter [facility] [address] [place] [address] Jarrod Gonsalves MD Preop testing (Primary Dx); Dysphagia, unspecified type Discharge Disposition: Home or Self Care 08/17/19 Telephone [facility] [address] [place] [address] Keysha Spears LPN Medication Reaction 08/10/19 2:40 PM EDT [facility] [address] [place] [address] Jarrod Gonsalves MD Esophageal dysphagia (Primary Dx); Fatty liver; Constipation, unspecified constipation type 08/09/19 Refill [facility] [address] [place] [address] Radha Ley APRN Medication Refill (pharmacy change ) 08/09/19 Orders Only [facility] [address] [place] [address] Ronald Freedman MA Major depressive disorder, recurrent episode, mild 08/09/19 Refill [facility] [address] [place] [address] Kamini Turner APRN Medication Refill 08/09/19 Orders Only [facility] [address] [place] [address] Ronald Freedman MA 08/06/[address] [address] Mike Alejandro MD Other (Schedule procedure) 08/06/19 [place] [address] Mike Alejandro MD Radiculopathy of lumbar region (Primary Dx); Lumbar spondylosis; DDD (degenerative disc disease), lumbar 08/03/19 3:30 PM EST Office Visit [address] [address] Mike Alejandro MD Radiculopathy of lumbar region (Primary Dx); Spasm 07/26/19 5:04 PM EST - 07/26/19 11:59 PM EST Hospital Encounter [place] [address] [place] [address] Bernabe Cortez MD Abdominal pain, RLQ (right lower quadrant) Discharge Disposition: Home or Self Care 07/26/19 4:00 PM EST Office Visit [facility] [address] [place] [address] Bernabe Cortez MD Abdominal pain, RLQ (right lower quadrant) (Primary Dx) 07/23/19 Telephone [facility] [address] [place] [address] Sp Mejias MD Other (mychart ) 07/21/19 Telephone [facility] [address] [place] [address] Malia Eng, RN Results 07/18/19 3:45 PM EST Office Visit [facility] [address] [place] [address] Kamini Turner APRN Bacterial vaginosis (Primary Dx); Yeast vaginitis; Urinary frequency 07/13/19 Travel 07/13/19 6:37 AM EST - 07/13/19 11:59 PM EST Hospital Encounter [facility] Ultrasound [address] [place] [address] Kamini Turner APRN Elevated liver function tests Discharge Disposition: Home or Self Care 07/12/[address] [address] Mike Alejandro MD Medication Refill 07/12/19 Orders Only [facility] [address] [place] [address] Kamini Turner APRN Elevated liver function tests (Primary Dx) 07/11/19 Orders Only [facility] [address] [place] [address] Kamini Turner APRN 07/11/19 8:30 AM EST Office Visit [facility] [address] [place] [address] aKmini Turner APRN Chest tightness (Primary Dx); Well adult exam; Tired; Elevated glucose; Sinobronchitis; Nausea; Other complicated headache syndrome; Elevated liver function tests 07/01/19 Travel 07/01/19 12:20 PM EST - 07/01/19 4:33 PM EST Hospital Encounter [facility] [address] [place] [phone] Allergic rhinitis, unspecifi ed seasonality, unspecified trigger; Subacute cough Discharge Disposition: Home or Self Care 07/01/19 4:43 PM EST - 07/01/19 11:59 PM EST Hospital Encounter [facility] [address] [place] [address] Florentino Rivero MD Discharge Disposition: Home or Self Care 07/01/19 11:48 AM EST - 07/01/19 12:19 PM EST Hospital Encounter [facility] [address] [place] [address] Shortness of breath Discharge Disposition: Home or Self Care 06/27/19 12:30 PM EST Office Visit [facility] [address] [place] [address] Florentino Rivero MD Shortness of breath (Primary Dx); Subacute cough; Allergic rhinitis, unspecified seasonality, unspecified trigger; Gastroesophageal reflux disease without esophagitis; Former smoker; BMI 40.0-44.9, adult ([facility]) 06/24/19 3:00 PM EST Office Visit [facility] [address] [place] [address] Bernabe Cortez MD Mild intermittent reactive airway disease with wheezing with acute exacerbation (Primary Dx); Acute bronchitis, unspecified organism 06/20/19 Travel 06/20/19 4:12 PM EST - 06/20/19 5:43 PM EST [facility] [address] [place] [address] Anh Dickinson MD Subacute cough (Primary Dx); Dyspnea, unspecified type Discharge Disposition: Home or Self Care 06/17/19 3:00 PM EST Office [address] [place] [address] Bernabe Cortez MD Mild intermittent reactive airway disease with wheezing with acute exacerbation (Primary Dx) 06/14/[address] [place] [address] Kamini Turner APRN Paperwork/forms (fmla) 06/14/19 9:45 AM EST Office Visit [address] [place] [address] Kamini Turner APRN Acute bronchitis, unspecified organism (Primary Dx); Major depressive disorder, recurrent episode, mild 06/09/19 Travel 06/09/19 10:50 AM EST - 06/09/19 12:01 PM EST [facility] [address] [place] [address] Kishor Evans MD Dyspnea, unspecified type (Primary Dx); Gastroesophageal reflux disease, unspecified whether esophagitis present Discharge Disposition: Home or Self Care 06/09/19 Telephone [facility] [address] [place] [address], [place] [address] Faraz Doty, Clerical Staff Referral (referral) 06/08/19 Orders Only [facility] [address] [place] [address] TurnerKamini APRN Vomiting, unspecified vomiting type, unspecified whether nausea present (Primary Dx); Epigastric abdominal pain 06/03/19 Refill [facility] [address] 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 [address] TurnerKamini APRN Sore throat (Primary Dx); Viral illness; Nausea and vomiting, unspecified vomiting type; Diarrhea, unspecified type; Nonintractable headache, unspecified chronicity pattern, unspecified headache type 06/02/19 3:30 [place] [address] Mike Alejandro MD Sacroiliitis (Primary Dx) 05/16/20 Travel 05/16/20 10:25 AM EST - 05/16/20 11:59 PM EST Hospital Encounter [facility] [address] [address] Therapeutic drug monitoring Discharge Disposition: Home or Self Care 05/11/20 Travel 05/11/20 2:45 PM EST Telemedicine [facility] [address] [place] [address] Bernabe Cortez MD Major depressive disorder, recurrent episode, mild (Primary Dx); Mood disorder; Bulging lumbar disc; Bilateral lumbar radiculopathy; Fibromyalgia 04/25/20 2:45 PM EST Office Visit [facility] [address] [place] [address] Radha Ley APRN Therapeutic drug monitoring (Primary Dx); IIH (idiopathic intracranial hypertension) 04/20/20 Orders Only [address] [address] Mike Alejandro MD Sacroiliitis (Primary Dx); Radiculopathy of lumbar region 04/20/20 9:15 AM EST [facility] [address] [place] [address] Mike Alejandro MD Sacroiliitis (Primary Dx) 04/12/[address] [address] Mike Alejandro MD Medication Refill; Medication Question 04/11/20 2:30 PM EST Office Visit [facility] [address] [address] Bernabe Cortez MD Mood disorder (Primary Dx); Panic attack; Chronic constipation; Gastroesophageal reflux disease with esophagitis without hemorrhage; Restless legs syndrome (RLS); Major depressive disorder, recurrent episode, mild 03/25/20 3:30 PM EDT Clinical Support [facility] [address] [address] Joyce Milton LPN UTI (urinary tract infection), uncomplicated (Primary Dx) 03/25/20 3:45 PM EDT Telemedicine [facility] [address] [place] [address] Marlena Pereyra MD UTI (urinary tract infection), uncomplicated (Primary Dx) 03/25/20 Telephone [facility] [address] [place] [address] Kamini Turner APRN Symptom Call (possible uti) 03/18/20 22 Orders Only [facility] [address] [place] [address] Kamini Turner APRN Yeast vaginitis (Primary Dx) 03/07/20 22 Orders Only [address] [place] [address] Kamini Turner APRN Acute bronchitis, unspecified organism (Primary Dx) 03/01/20 22 8:15 AM EDT Office Visit [address] [place] [address] Kamini Turner APRN Influenza B (Primary Dx); Sore throat; Acute cough 02/09/20 1:30 PM EDT Office Visit [address] [place] [address] Bernabe Cortez MD Mood disorder (Primary Dx); Weight gain, abnormal; IGT (impaired glucose tolerance); History of migraine headaches; Restless legs syndrome (RLS) 01/21/20 22 Refill [facility] [address] [place] [address] Kamini Turner APRN Medication Refill 01/19/[address] [place] [address] Kamini Turner APRN Prior Authorization (liraglutide, weight loss, 3 mg/0.5 mL (18 mg/3 mL) SubQ Pen Injector was denied) 01/19/[address] [place] [address] Kamini Turner APRN Other 01/19/[address] [place] [address] Damaris Wang [facility] Prior Authorization (Litzy BANKS) 01/19/20 10:15 AM EDT Clinical Support [facility] [address] [place] [address] Duyen Govea, CCMA Body aches; Tired 01/19/20 9:30 AM EDT Telemedicine [address] [place] [address] Kamini Turner APRN Body aches (Primary Dx); Tired; Obesity, Class III, BMI 40-49.9 (morbid obesity) (HCC) 01/16/20 8:15 AM EDT Clinical Support [address] [place] [address] Duyen Govea, CCMA Elevated glucose (Primary Dx) 12/15/[address] [place] [address] Kamini Turner APRN Medication Refill 12/11/19 9:00 AM EDT Office Visit [address] [place] [address] Kamini Turner APRN Constipation, unspecified constipation type (Primary Dx); Bulging lumbar disc; Bilateral lumbar radiculopathy; History of burning pain in leg; Fibromyalgia; Fissure of genital labia 12/03/19 22 Telephone [facility] Neurology [place] [id number] [employer] [place] [address] Radha Ley APRN Other (AVS) 12/03/19 22 10:30 AM EDT Telemedicine [facility] Neurology [place] [id number] [place] [address] Radha Ley APRN IIH (idiopathic intracranial hypertension) (Primary Dx) 11/03/19 [address] [place] [address] Kamini Turner APRN Medication Refill 10/07/19 22 Travel 10/07/19 8:55 AM EDT - 10/07/19 11:59 PM EDT Hospital Encounter [facility] [address] [place] [address] Obesity, Class II, BMI 35-39 .9 Discharge Disposition: Home or Self Care 10/06/19 2:30 PM EDT Office Visit [facility] [address] [place] [address] Kamini Turner APRN Obesity, Class II, BMI 35-39.9 (Primary Dx); Mood swings; Major depressive disorder, recurrent episode, mild; Gastroesophageal reflux disease with esophagitis without hemorrhage; Plantar fasciitis 09/25/[address] [address] Mike Aleajndro MD Other 09/17/19 22 12:45 PM EDT Telemedicine [facility] [address] [place] [address] Bernabe Cortez MD Acute bacterial sinusitis (Primary Dx) 09/08/19 22 3:00 PM EDT Office Visit [address] [id number] Mike Alejandro MD Radiculopathy of lumbar region (Primary Dx) 09/01/[address] [address] Mike Alejandro MD Other (Confirmed appointment) 09/01/[address] [address] Mike Alejandro MD Other (Schedule Lt., RFA) 08/26/19 22 Orders Only [facility] [address] [place] [address] Mike Alejandro MD Radiculopathy of lumbar region (Primary Dx); Lumbar spondylosis; DDD (degenerative disc disease), lumbar 08/25/19 Travel 08/25/19 11:15 AM EDT Office Visit [facility] [address] [place] [address] Bernabe Cortez MD Vaginal yeast infection (Primary Dx) 08/25/19 8:30 AM EDT Office Visit [address] [place] [address] Mike Alejandro MD Lumbar spondylosis (Primary Dx); Radiculopathy of lumbar region; DDD (degenerative disc disease), lumbar 08/14/19 22 Refill [facility] [address] [place] [address] Radha Ley APRN [facility] 08/06/19 8:45 AM EST Office Visit [facility] [address] [place] [address] Mike Alejandro MD Lumbar spondylosis (Primary Dx); Lumbar pain; Sacroiliitis; DDD (degenerative disc disease), lumbar 07/31/[address] [address] Mike Alejandro MD Other (Pain Increased, Scheduled) 07/23/19 10:30 AM EST Office Visit [facility] Neu[facility] [address] [place] [address] Radha Ley APRN IIH (idiopathic intracranial hypertension) (Primary Dx) 07/22/19 22 Travel 07/14/[address] [address] Mike Alejandro MD Other (FOLLOW UP CALL) 07/14/19 Orders Only [address] [address] Mike Alejandro MD Radiculopathy of lumbar region (Primary Dx) 07/13/19 22 10:00 AM EST Office Visit [address] [place] [id number] Mike Alejandro MD Lumbar pain (Primary Dx) 06/25/19 22 Refill [facility] [address] [place] [address] Kamini Turner APRN Medication Refill 06/16/19 Telephone [facility] [address] [place] [address] Kamini Turner APRN Paperwork/forms (fax fmla paperwork ) 06/11/19 Travel 06/11/19 2:00 PM EST Office Visit [address] [place] [address] Kamini Turner APRN Radiculopathy of lumbar region (Primary Dx); Panic attack; DDD (degenerative disc disease), lumbar; History of migraine headaches 06/01/[address] [address] Mike Alejandro MD Other (RESCHEDULE INJECTION) 05/31/19 2:30 PM EST Office Visit [place] [id number] [employer] [place] [address] Mike Alejandro MD Lumbar spondylosis (Primary Dx); Lumbar pain; Sacroiliitis; DDD (degenerative disc disease), lumbar; Sacroiliac joint pain 05/11/20 Travel 05/11/20 8:00 AM EST Office Visit [address] [place] [address] Kamini Turner APRN Well woman exam with routine gynecological exam (Primary Dx); Bulging lumbar disc; Bilateral lumbar radiculopathy; History of burning pain in leg; Fibromyalgia 05/04/20 8:30 AM EST Office Visit [address] [address] Mike Alejandro MD Radiculopathy of lumbar region; Lumbar pain 05/03/[address] [address] Mike Alejandro MD Other (Called to schedule VLADIMIR injection) 05/03/20 21 Orders Only [facility] [address] [place] [address] Kamini Turner APRN Restless legs syndrome (RLS) 04/28/20 [address] [address] Mike Alejandro MD Other (TO SCHEDULE INJECTION) 04/28/20 21 Orders Only [address] [address] Mike Alejandro MD Radiculopathy of lumbar region (Primary Dx); Sacroiliitis; Lumbar pain 04/26/20 21 9:15 AM EST Office Visit [address] [address] Mike Alejandro MD Radiculopathy of lumbar region (Primary Dx); DDD (degenerative disc disease), lumbar; Sacroiliitis 04/20/20 21 Orders Only [facility] [address] [place] [address] Kamini Turner APRN Restless legs syndrome (RLS) (Primary Dx) 04/19/20 21 3:45 PM EST Clinical Support [facility] [address] [place] [address] Henrik Philip RMA Leg cramps 04/19/20 21 Orders Only [facility] [address] [place] [address] Kamini Turner APRN Leg cramps (Primary Dx) 04/16/20 21 Orders Only [facility] [address] [place] [address] Kamini Turner APRN Restless legs syndrome (RLS) 04/13/20 21 Travel 04/13/20 21 8:30 AM EST Office Visit [facility] [address] [place] [address] Kamini Turner APRN Restless legs syndrome (RLS); Mood swings; Major depressive disorder, recurrent episode, mild 04/06/20 11:15 [place] [address] Mike Alejandro MD Lumbar pain (Primary Dx); Sacroiliac joint pain 03/25/20 9:35 [place] [address] Sp Keller MD Lumbar pain 03/25/20 9:15 [place] [address] Sp Keller MD Lumbar pain (Primary Dx); Sacroiliac joint pain; DDD (degenerative disc disease), cervical; Obesity, unspecified classification, unspecified obesity type, unspecified whether serious comorbidity present; SI (sacroiliac) joint dysfunction 03/15/20 Refill [facility] [address] [place] [address] Kamini Turner APRN Medication Refill 03/09/20 Telephone [facility] [address] [place] [address] Hortencia Mack, Follow-up 03/04/20 8:43 AM EDT - 03/04/20 11:59 PM EDT Hospital Encounter [facility] MRI [address] [place] [address] Bernabe Cortez MD Bulging lumbar disc; Bilateral lumbar radiculopathy Discharge Disposition: Home or Self Care 03/03/20 Travel 03/03/20 9:30 AM EDT Office Visit [facility] [address] [place] [address] Marcelo Spence MD Low back pain with sciatica, sciatica laterality unspecified, unspecified back pain laterality, unspecified chronicity (Primary Dx) 02/18/20 21 Travel 02/18/20 21 2:30 PM EDT Office Visit [facility] [address] [place] [address] Bernabe Cortez MD Bulging lumbar disc (Primary Dx); Bilateral lumbar radiculopathy 02/05/20 21 Orders Only [facility] [address] [place] [address] Kamini Turner APRN Cough (Primary Dx) 02/03/20 21 1:15 PM EDT Clinical Support [facility] [address] [place] [address] Phuong Lee RMA Sore throat (Primary Dx) 02/03/20 21 Travel 02/03/20 9:45 AM EDT Telemedicine [facility] [address] [place] [address] Kamini Turner APRN Body aches (Primary Dx); Cough; Sore throat; Acute bacterial sinusitis; Nausea 01/28/20 21 Telephone [facility] [address] [place] [address] Duyen Orozco, Clerical Staff Procedure (VLADIMIR ) 01/26/20 21 Orders Only [facility] [address] [facility] [place] [address] Prudence Marroquin RN Dysuria (Primary Dx) 01/23/20 21 Travel 01/23/20 21 5:41 PM EDT - 01/23/20 11:59 PM EDT Hospital Encounter [facility] [address] [place] [address] Urinary tract infection without hematuria, site unspecified Discharge Disposition: Home or Self Care 01/23/20 21 Telephone [facility] [address] [place] [address] Hannah, Heidi, RN Patient Question (yeast infection) 01/20/20 Travel 01/20/20 7:45 AM EDT Office Visit [facility] [address] [place] [address] Kamini Turner APRN Yeast vaginitis (Primary Dx); Need for cefpycnrdv-koltrdy-qvukjytyo (Tdap) vaccine; Restless legs syndrome (RLS) 01/13/20 9:30 AM EDT Office Visit [facility] Neurology [facility] [address] [place] [address] Radha Ley APRN Snoring (Primary Dx); Obesity with serious comorbidity, unspecified classification, unspecified obesity type 01/12/20 Travel 12/30/19 21 Refill [facility] [address] [place] [address] Kamini Turner APRN Medication Refill 12/30/19 21 Orders Only [facility] [address] [place] [address] Kamini Turner APRN 12/23/19 21 Orders Only [address] [place] [address] Kamini Turner APRN Mood swings; Major depressive disorder, recurrent episode, mild 12/11/19 Orders Only [facility] [address] [place] [address] Kamini Turner APRN Folate deficiency (Primary Dx) 12/11/19 Travel 12/11/19 9:45 AM EDT Office Visit [facility] [address] [place] [address] Kamini Turner APRN Lipid screening (Primary Dx); Generalized anxiety disorder; Nonintractable headache, unspecified chronicity pattern, unspecified headache type; Leg cramps 12/10/19 21 Telephone [facility] [place], [place] [id number] Hortencia Mack, RT Follow-up 12/04/19 Travel 12/04/19 8:15 AM EDT Office Visit [address] [place] [address] Kamini Turner APRN Midline low back pain without sciatica, unspecified chronicity (Primary Dx) 11/21/19 21 Telephone [address] [place] [address] Kamini Turner APRN Medication Management (pharmacy does not have until monday ) 11/20/19 Telephone [address] [place] [address] Damaris Wang CMA Prior Authorization (viibyrd 20 mg 1 1/2 qd needs a PA) 11/19/19 21 Telephone [address] [place] [address] Kamini Turner APRN Medication Reaction (vilazodone (VIIBRYD) 40 mg Oral Tablet) 11/13/19 21 Orders Only [address] [place] [address] Kamini Turner APRN Mood swings; Major depressive disorder, recurrent episode, mild 11/11/19 21 Orders Only [address] [place] [address] Kamini Turner APRN Seasonal allergic rhinitis, unspecified trigger (Primary Dx) 11/05/19 21 2:30 PM EDT Clinical Support [address] [place] [address] Priti Mosley RMA Acute bacterial sinusitis (Primary Dx) 11/04/[address] [place] [address] Kamini Turner APRN Advice Only (still not felling well) 10/28/19 4:30 PM EDT Telemedicine [facility] [address] [place] [address] Kamini Turner APRN Acute bacterial sinusitis (Primary Dx); Mood swings; Major depressive disorder, recurrent episode, mild; Gastroesophageal reflux disease with esophagitis without hemorrhage; Panic attack 10/28/19 Travel 10/28/19 Refill [facility] [address] [place] [address] Kamini Turner APRN Medication Refill 10/28/19 Telephone [facility] [place] [address] [place] [address] Hortencia Mack, RT Follow-up 10/23/19 Telephone [facility] [place] [address] [address] [employer] [place] [address] Radha Ley APRN Prior Authorization ([facility]) 10/22/19 Travel 10/22/19 8:30 AM EDT Office Visit [facility] [place] [address] [place] [address] Marcelo Spence MD Low back pain with sciatica, sciatica laterality unspecified, unspecified back pain laterality, unspecified chronicity (Primary Dx) 10/14/19 Telephone [facility] [place] [address] [place] [address] Hortencia Mack, RT Follow-up 10/08/19 Travel 10/08/19 21 10:30 AM EDT Office Visit [facility] [address] [place] [address] Marcelo Spence MD Acute left-sided low back pain with left-sided sciatica (Primary Dx) 10/03/19 21 2:45 PM EDT Office Visit [facility] [address] [place] [address] Bernabe Cortez MD Lumbosacral radiculopathy at L5 (Primary Dx); Lumbar radiculopathy 10/03/19 Travel 10/02/19 11:45 AM EDT Ancillary Procedure [facility] [address] [address] Pain in left foot; Difficulty walking 10/02/19 Travel 10/02/19 10:15 AM EDT Office Visit [facility] Podiatry [address] [address] Dallas Portillo DPM Pain in left foot (Primary Dx); Difficulty walking 09/23/19 Telephone [facility] [address] [facility] [place] [address] Kamini Turner APRN Letter for School/Work (needs letter statting pt is COVID negative) 09/19/19 21 Orders Only [address] [place] [address] Kamini Turner APRN Acute bacterial sinusitis (Primary Dx) 09/18/19 2:30 PM EDT Clinical Support [address] [place] [address] Luke Mosleya, RMA Cough (Primary Dx) 09/16/[address] [place] [address] Luke Mosleya, RMA Results 09/16/19 3:00 PM EDT Clinical Support [address] [place] [address] DimitriLuke kulkarnia, RMA Cough (Primary Dx) 09/16/19 21 2:45 PM EDT Telemedicine [address] [place] [address] Kamini Turner APRN Close exposure to COVID-19 virus (Primary Dx); Cough; Chest congestion 09/16/19 21 Travel 09/16/19 Telephone [facility] [address] [place] [address] Kamini Turner APRN Appointment Needed 09/09/19 Telephone [facility] [address] [place] [address] Len, August NISA Magallon Other (ins verification ) 09/09/19 10:30 AM EDT Office Visit [facility] [address] [place] [address] Sandeep Ireland MD Morbid obesity with BMI of 40.0-44.9, adult (HCC) (Primary Dx); Gastroesophageal reflux disease, unspecified whether esophagitis present; CORRINE (obstructive sleep apnea) 09/05/19 Orders Only [facility] [address] [place] [address] Kamini Turner APRN Arthralgia, unspecified joint (Primary Dx) 09/01/19 9:29 AM EDT - 09/01/19 11:59 PM EDT Hospital Encounter [facility] [address] [place] [address] Therapeutic drug monitoring Discharge Disposition: Home or Self Care 09/01/19 Travel 09/01/19 Orders Only [facility] [address] [place] [address] Kamini Turner APRN Pain of foot, unspecified laterality (Primary Dx) 08/27/19 Telephone [facility] [address] [place] [address] Jazlyn Toussaint RN Other (weight management) 08/27/19 21 Travel 08/27/19 10:30 AM EDT Office Visit [facility] [place] [id number] [place] [address] Radha Ley APRN Class 3 severe obesity with serious comorbidity and body mass index (BMI) of 40.0 to 44.9 in adult, unspecified obesity type (HCC) (Primary Dx); Therapeutic drug monitoring 08/22/19 Travel 08/22/19 8:30 AM EDT Office Visit [address] [place] [address] Kamini Turner APRN Lumbar radiculopathy 08/20/19 Travel 08/20/19 3:12 PM EDT - 08/20/19 11:59 PM EDT Hospital Encounter [facility] Physical [address] [place] [address] Pita Raymundo, PT Discharge Disposition: Home or Self Care 08/13/19 Travel 08/13/19 3:15 PM EDT - 08/13/19 11:59 PM EDT Hospital Encounter [address] [place] [address] Pita Raymundo, PT Discharge Disposition: Home or Self Care 08/06/19 4:00 PM EST Clinical Support [facility] Neurology [place] [address] [place] [address] Page Hernández MA Migraine without aura and without status migrainosus, not intractable (Primary Dx) 08/06/19 Travel 07/31/19 Telephone [facility] Physical Therapy [address] [place] [address] Pita Raymundo, PT Other 07/31/19 Travel 07/31/19 8:46 AM EST - 07/31/19 11:59 PM EST Hospital Encounter [facility] Physical [address] [place] [address] Pita Raymundo, PT Discharge Disposition: Home or Self Care 07/28/19 3:00 PM EST Office Visit [facility] [address] [address] Bernabe Cortez MD Lumbar radiculopathy (Primary Dx); Acute left-sided low back pain, unspecified whether sciatica present 07/28/19 Travel 07/20/19 Travel 07/20/19 10:00 AM EST Office Visit [facility] [address] [address] Bernabe Cortez MD Bulging of lumbar intervertebral disc (Primary Dx) 07/08/19 Travel 07/08/19 10:00 AM EST Clinical Support [facility] [address] [place] [address] Dori Brown, [facility] Need for HPV vaccination (Primary Dx) 06/24/19 Telephone [facility] Neurology [place] [address] [place] [address] Radha Ley APRN Prior Authorization ([facility]) 06/19/19 3:00 PM EST Office Visit [facility] [address] [place] [address] Kamini Turner APRN Gastroesophageal reflux disease with esophagitis without hemorrhage (Primary Dx) 06/19/19 Travel 06/11/19 11:00 AM EST Office Visit [facility] [address] [place] [address] Kamini Turner APRN Generalized anxiety disorder (Primary Dx); Hx of headache 06/11/19 Travel 05/18/20 Travel 05/18/20 11:00 AM EST Office Visit [facility] Neurology [place] [id number] Net [employer] Support Specialist [place] [address] Radha Ley APRN Migraine without aura and without status migrainosus, not intractable (Primary Dx); IIH (idiopathic intracranial hypertension) 05/07/20 Travel 05/07/20 1:50 PM EST Office Visit [facility] [address] [place] [address] Carlee Whittaker CNM HPV in female (Primary Dx); HGSIL (high grade squamous intraepithelial lesion) on Pap smear of cervix; HPV (human papilloma virus) infection 04/27/20 Telephone [facility] [address] [place] [address] Kamini Turner APRN Other 04/20/20 10:45 AM EST Office Visit [facility] [address] [place] [address] Kamini Turner APRN Mood swings (Primary Dx); Major depressive disorder, recurrent episode, mild 04/20/20 Travel 04/20/20 7:47 AM EST - 04/20/20 11:59 PM EST Hospital Encounter [address] [place] [address] Radha Ley APRN IIH (idiopathic intracranial hypertension) Discharge Disposition: Home or Self Care 04/17/20 3:45 PM EST Office Visit [address] [place] [address] Bernabe Cortez MD Left lumbar radiculopathy (Primary Dx) 04/16/20 3:00 PM EST - 04/16/20 11:59 PM EST Hospital Encounter [facility] [address] [place] [address] Manisha Lopez PA-C Acute left-sided low back pain with left-sided sciatica Discharge Disposition: Home or Self Care 04/16/20 Travel 04/16/20 12:30 PM EST Office Visit [facility] [address] [place] [address] Manisha Lopez PA-C Acute left-sided low back pain with left-sided sciatica (Primary Dx) 04/15/20 Telephone [facility] [address] [place] [address] Annie George, PABLO Other 04/09/20 Travel 04/09/20 12:30 PM EST - 04/09/20 11:59 PM EST Hospital Encounter [facility] [address] [place] [address] Rubens Wiley MD Spinal headache Discharge Disposition: Home or Self Care 04/09/20 Orders Only [facility] [place] [address] [place] [address] Annie George, PABLO Spinal headache (Primary Dx) 04/08/20 Telephone [facility] [place] [address] [place] [address] Danya Cardenas, Clerical Staff Follow-up 04/07/20 Travel 04/07/20 Telephone [facility] [address] [place] [address] Radha Ley APRN Orders 04/07/20 Orders Only [facility] [address] [place] [address] Radha Ley APRN IIH (idiopathic intracranial hypertension) (Primary Dx) 04/06/20 Travel 04/06/20 7:17 AM EST - 04/06/20 11:59 PM EST Hospital Encounter [facility] [place] [address] Radha Ley, Clarita Mason PA-C Papilledema Discharge Disposition: Home or Self Care 04/03/20 Travel 04/01/20 Telephone [facility] [place] [address] [place] [address] Malorie Calvillo, Clerical Staff Procedure (LP ) 04/01/20 Travel 04/01/20 8:20 AM EST Office Visit [facility] [address] [place] [address] Jonelle Michael MD Nonintractable headache, unspecified chronicity pattern, unspecified headache type (Primary Dx); Unspecified visual field defects 03/31/20 Telephone [facility] [address] [employer] [address] [address] Jonelle Michael MD Other 03/31/20 Telephone [facility] [address] [place] [address] Radha Ley APRN Appointment Needed (Ophthalmology) 03/30/20 Telephone [facility] [address] [place] [address] Radha Ley APRN Results (MRI Brain) 03/27/20 Travel 03/27/20 2:36 PM EDT - 03/27/20 11:59 PM EDT Hospital Encounter [facility] MRI [address] [place] [address] Radha Ley APRN Papilledema Discharge Disposition: Home or Self Care 03/23/20 Travel 03/23/20 8:30 AM EDT Office Visit [facility] [address] [address] Jonelle Michael MD Unspecified visual field defects (Primary Dx); Nonintractable headache, unspecified chronicity pattern, unspecified headache type 03/19/20 Travel 03/19/20 1:20 PM EDT Office Visit [facility] [address] [address] Jonelle Michael MD Nonintractable headache, unspecified chronicity pattern, unspecified headache type (Primary Dx); Subconjunctival hemorrhage of right eye 03/18/20 Telephone [facility] [address] [place] [address] Radha Ley APRN Prior Authorization ([facility]) 03/17/20 Telephone [facility] [address] [place] [address] Radha Ley APRN Letter for School/Work 03/17/20 2:00 PM EDT Office Visit [facility] [address] [place] [address] Kamini Turner APRN Intractable headache, unspecified chronicity pattern, unspecified headache type (Primary Dx) 03/17/20 Travel 03/17/20 10:00 AM EDT Office Visit [facility] Neurology [facility] [address] [place] [address] Rahda Ley APRN Papilledema (Primary Dx) 03/13/20 Telephone [facility] [address] [address] Kamini Turner APRN Other 03/12/20 Travel 03/12/20 1:45 PM EDT Office Visit [facility] [address] [place] [address] Kamini Turner APRN Intractable headache, unspecified chronicity pattern, unspecified headache type (Primary Dx); Moderate episode of recurrent major depressive disorder (HCC); Panic attack 02/24/20 4:15 PM EDT Office Visit [facility] [address] [place] [address] Kamini Turner APRN Injury of right foot, subsequent encounter (Primary Dx) 02/24/20 Travel 02/18/20 10:00 AM EDT - 02/18/20 11:59 PM EDT Hospital Encounter [facility] [address] [place] [address] Right foot injury, initial encounter; Right ankle injury, initial encounter Discharge Disposition: Home or Self Care 02/18/20 9:30 AM EDT Office Visit [facility] [address] [place] [address] Bernabe Cortez MD Right foot injury, initial encounter (Primary Dx); Right ankle injury, initial encounter 02/18/20 Travel 02/10/20 9:45 AM EDT Office Visit [facility] [address] [place] [address] Kamini Turner APRN Nonintractable headache, unspecified chronicity pattern, unspecified headache type (Primary Dx); Acute bacterial sinusitis; Yeast vaginitis; Well adult exam; Tired 02/10/20 Travel 02/06/20 4:15 PM EDT Office Visit [facility] [address] [place] [address] Kamini Turner APRN Other migraine without status migrainosus, not intractable (Primary Dx); Shaky 02/06/20 Travel 01/31/20 9:15 AM EDT Office Visit [facility] [address] [place] [address] Kamini Turner APRN Acute diffuse otitis externa of left ear (Primary Dx); Acute WAYNE (middle ear effusion), bilateral; Screening for STDs (sexually transmitted diseases) 01/30/20 Travel 01/09/20 Telephone [facility] [address] [place] [address] Priti Mosley [employer] Insurance Verification 01/08/[address] [place] [address] Kamini Turner APRN Other 01/01/20 3:45 PM EDT Office Visit [facility] [address] [place] [address] Bernabe Cortez MD Intractable chronic migraine without aura and without status migrainosus (Primary Dx) 01/01/20 Travel 12/31/19 Orders Only [facility] [address] [place] [address] Kamini Turner APRN Acute bacterial sinusitis (Primary Dx) 12/19/19 2:45 PM EDT Office Visit [facility] [address] [place] [address] Marlena Pereyra MD Leg cramps (Primary Dx) 12/19/19 Travel 12/06/19 Travel 12/06/19 11:25 AM EDT - 12/06/19 11:59 PM EDT Hospital Encounter [facility] [address] [place] [address] Kamini Turner APRN Chronic mixed headache syndrome Discharge Disposition: Home or Self Care 12/05/19 Travel 12/05/19 10:15 AM EDT Office Visit [facility] [address] [place] [place] [address] Kamini Turner APRN Chronic mixed headache syndrome; Migraine without aura and without status migrainosus, not intractable; Moderate episode of recurrent major depressive disorder (HCC); Mood swings 12/04/19 Travel 11/22/19 Telephone [facility] [address] [place] [address] Damaris Wang, [facility] Visit Follow Up 11/19/19 3:40 PM EDT - 11/19/19 11:59 PM EDT Hospital Encounter [facility] [address] [place] [address] Acute midline low back pain with left-sided sciatica Discharge Disposition: Home or Self Care 11/19/19 3:15 PM EDT Office Visit [facility] [address] [place] [address] Kamini Turner APRN Acute midline low back pain with left-sided sciatica (Primary Dx); Moderate episode of recurrent major depressive disorder (HCC); Mood swings 11/19/19 Travel 11/06/19 Travel 11/06/19 9:20 AM EDT Office Visit [facility]'s [address] [place] [id number] Summer Hutchins APRN Encounter for repeat Papanicolaou smear of cervix (Primary Dx); HGSIL (high grade squamous intraepithelial lesion) on Pap smear of cervix; History of cervical dysplasia; HPV in female; Need for HPV vaccination 06/13/19 10:45 AM EST Office Visit [facility] [address] [facility] [place] [address] Kamini Turner APRN Migraine without aura and without status migrainosus, not intractable (Primary Dx); Moderate episode of recurrent major depressive disorder (HCC); Mood swings; Restless legs syndrome (RLS) 04/29/20 9:26 AM EST - 04/29/20 11:59 PM EST Hospital Encounter [facility] [place] [address] Kevin Santillan MD 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 (Primary Dx) Discharge Disposition: Home or Self Care 03/25/20 9:47 AM EDT - 03/25/20 11:59 PM EDT Hospital Encounter [facility] [place] [address] Kevin Santillan MD 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 (Primary Dx) Discharge Disposition: Home or Self Care 03/19/20 7:30 AM EDT - 03/19/20 8:45 AM EDT Surgery [facility] [place] [address] Kevin Santillan MD CERVICAL CONIZATION/COLD KNIFE/BIOPSY DILATION AND CURETTAGE 03/19/20 7:26 AM EDT [facility] [place] [address] Tiffani Mae MD Merkle Serey, Jennifer L, ANDER 03/19/20 5:24 AM EDT - 03/19/20 10:25 AM EDT Hospital Encounter [facility] SAME DAY SURGERY [facility] [place] [address] Kevin Santillan MD ELLIE III with severe dysplasia; HSIL on Pap smear of cervix Discharge Disposition: Home or Self Care 03/18/20 Orders Only [facility] [address] [place] [phone] Kamini Turner APRN Moderate episode of recurrent major depressive disorder (HCC) (Primary Dx) 03/14/20 Orders Only [facility] [place] [address] Marlena Arita APRN 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 (Primary Dx) 03/14/20 9:10 AM EDT - 03/14/20 9:14 AM EDT Hospital Encounter [facility] [address] [address] Discharge Disposition: Home or Self Care 03/14/20 9:15 AM EDT - 03/14/20 4:22 PM EDT Hospital Encounter [facility] EKG [address] [place] [address] 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 Discharge Disposition: Home or Self Care 03/11/20 Social Work [facility] [address] [place] [address] [place] [address] Aundrea Mclaughlin MSW 03/11/20 10:45 AM EDT - 03/11/20 11:59 PM EDT Hospital Encounter [facility] [place] [address] Kevin Santillan MD 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 (Primary Dx); HGSIL (high grade squamous intraepithelial lesion) on Pap smear of cervix Discharge Disposition: Home or Self Care 03/08/20 19 Telephone [facility] [place] [address] Dolores Jeong RN Other 03/05/20 9:50 AM EDT Office Visit [facility]'s [address] [place] [address] Brayan Miles MD Vaginal lesion (Primary Dx) 03/04/20 Telephone [facility] [address] [place] [address] Kamini Turner APRN Other 03/01/20 Orders Only [facility] [address] [place] [address] Kamini Turner APRN HSV infection (Primary Dx) 02/29/20 9:00 AM EDT Office Visit [facility] [address] [place] [address] Kamini Turner APRN Moderate episode of recurrent major depressive disorder (HCC) (Primary Dx); Well adult exam; Tired; Lesion of labia 02/19/20 8:50 AM EDT Procedure visit [address] [place] [phone] Brayan Miles MD Procedure, test, or exam not indicated (Primary Dx); High grade squamous intraepithelial lesion (HGSIL) on cytologic smear of cervix; HPV in female; History of cervical dysplasia 02/16/20 8:15 AM EDT Office Visit [facility] [address] [place] [address] Bernabe Cortez MD Acute bronchitis, unspecified organism (Primary Dx); Pleuritic chest pain 01/15/20 11:00 AM EDT Office Visit [address] [place] [address] Kamini Turner APRN Moderate episode of recurrent major depressive disorder (HCC) (Primary Dx); Mood swings; Restless legs syndrome (RLS) 01/15/20 8:50 AM EDT Office Visit [address] [place] [address] Alannah Giron CNM High grade squamous intraepithelial lesion (HGSIL) on cytologic smear of cervix (Primary Dx) 01/12/20 Refill [facility] [address] [place] [address] Kamini Turner APRN Medication Refill 12/14/19 8:34 AM EDT - 12/14/19 11:59 PM EDT Hospital Encounter [facility] Ultrasound [address] [place] [address] Brayan Miles MD Infertility, female; History of endometriosis Discharge Disposition: Home or Self Care 11/22/19 10:20 AM EDT Office Visit [facility]urel[employer] [facility] [address] [place] [phone] Brayan Miles MD Infertility, female (Primary Dx); History of endometriosis; History of salpingectomy 09/28/19 11:30 AM EDT Office Visit [facility] [address] [place] [address] Kamini Turner APRN Obesity, Class II, BMI 35-39.9 (Primary Dx) 09/19/19 Telephone [facility] [employer] Ovidio Maciel [address] [place] [address] [place] [phone] Brayan Miles MD Results 09/12/19 8:40 AM EDT Procedure visit [facility] [employer] Susanf [address] [place] [address] [place] [phone] Brayan Miles MD Procedure, test, or exam not indicated (Primary Dx); History of cervical dysplasia; History of loop electrical excision procedure (LEEP); High grade squamous intraepithelial lesion (HGSIL) on cytologic smear of cervix 08/24/19 Telephone [facility] [employer] Susanf [address] [place] [address] Road [address] [place] [phone] Brayan Miles MD Results (pap); Visit Follow Up 08/21/19 9:20 AM EDT Office Visit [facility] Women's [address] [place] [phone] Brayan Miles MD History of loop electrical excision procedure (LEEP) (Primary Dx); History of cervical dysplasia 07/31/19 4:15 PM EST Office Visit [facility] [address] [facility] [place] [address] Sp Mejias MD Acute mastoiditis of both sides (Primary Dx); Acute bronchitis, unspecified organism 07/16/19 Telephone [facility] [address] [facility] [place] [address] Kamini Turner APRN Other 07/16/19 11:30 AM EST Office Visit [facility] [address] [facility] [place] [address] Kamini Turner APRN Restless legs syndrome (RLS) (Primary Dx); Moderate episode of recurrent major depressive disorder (HCC); Acute bacterial sinusitis 06/25/19 Telephone [facility] [address] [facility] [place] [address] Phuong Lee RMA Medication Problem 05/31/19 9:15 AM EST Office Visit [facility] [address] [facility] [place] [address] Kamini Turner APRN Restless legs syndrome (RLS) (Primary Dx); Moderate episode of recurrent major depressive disorder (HCC); Mood swings 05/17/20 Telephone [facility] [address] [place] [address] Brayan Miles MD Other 05/04/20 11:45 AM EST - 05/04/20 12:30 PM EST Surgery [facility] [address] [facility] [place] [address] Brayan Miles MD LOOP ELECTROSURGICAL EXCISION PROCEDURE (LEEP) 05/04/20 11:51 AM EST Anesthesia Event [facility] [address] [place] [address] Nima Gay MD Powell, Jeanne, APRN 05/04/20 9:38 AM EST - 05/04/20 2:03 PM EST Hospital Encounter [facility] SAME DAY SURGERY [address] [place] [address] Brayan Miles MD Preop testing (Primary Dx); HGSIL (high grade squamous intraepithelial lesion) on Pap smear of cervix; ELLIE III with severe dysplasia Discharge Disposition: Home or Self Care 04/30/20 Telephone [facility] [address] [place] [address] Kamini Turner APRN Other 04/24/20 10:00 AM EST Office Visit [facility] [address] [place] [address] Kamini Turner APRN Moderate episode of recurrent major depressive disorder (HCC); Mood swings 04/02/[address] [place] [address] Brayan Miles MD Results; Visit Follow Up; Procedure (Surgery information ) 03/26/20 8:40 AM EDT Procedure visit [facility] [address] [place] [address] Road [address] [place] [address] Brayan Miles MD Encounter for test, result unknown (Primary Dx); HGSIL (high grade squamous intraepithelial lesion) on Pap smear of cervix 03/21/20 Telephone [facility] [address] [place] [address] Brayan Miles MD Medication Problem (FLAGYL) 03/20/20 10:45 AM EDT Office Visit [facility] [address] [place] [address] Kamini Turner APRN Moderate episode of recurrent major depressive disorder (HCC) (Primary Dx); Mood swings 03/16/20 [address] [facility] [place] [address] [place] [address] Brayan Miles MD Results 03/09/20 10:30 AM EDT Office Visit [facility] [address] [place] [address] Kamini Turner APRN UTI (urinary tract infection), uncomplicated (Primary Dx); Dysuria 03/07/20 9:00 AM EDT Office Visit [facility] [place] [address] [place] [address] Brayan Miles MD Trichimoniasis (Primary Dx); History of trichomonal vaginitis; HGSIL (high grade squamous intraepithelial lesion) on Pap smear of cervix; Vaginal lesion 02/10/20 Telephone [facility] [address] [place] [address] Phuong Lee RMA Other 02/10/20 18 Orders Only [facility] [address] [place] [address] Rosi Mendez, Peyton High grade squamous intraepithelial lesion (HGSIL) on cytologic smear of cervix (Primary Dx) 02/07/20 18 Orders Only [facility] [address] [place] [address] Kamini Turner APRN Trichomonas infection (Primary Dx) 02/06/20 10:00 AM EDT Office Visit [facility] [address] [place] [address] Kamini Turner APRN Visit for gynecologic examination (Primary Dx); Possible exposure to STD 11/29/19 10:30 AM EDT Office Visit [facility] [address] [place] [address] Turner, Kamini S, GLUELINE WORKER Nail fungus (Primary Dx) 10/30/19 14 2:00 PM EDT Office Visit [facility] Kathy [address] [place] [address] Arslan Bains MD Warts (Primary Dx) 01/05/20 09 10:12 PM EDT - 01/10/20 09 4:35 PM EDT Hospital Encounter [facility] W4SE Kevin Gonzalez MD Hollis, Robert E., MD 07/10/19 09 5:35 PM EST - 07/10/19 09 9:47 PM EST Emergency [facility]ST EPIC CON UNK GRT Pedro Leonard MD 07/01/19 09 1:24 AM EST - 07/02/19 09 3:00 PM EST Hospital Encounter [facility] 3CS Gama Richmond MD 06/30/19 09 9:24 PM EST - 07/01/19 09 1:32 AM EST Emergency HST EPIC CON UNK GRT Tan Kaur DO 01/18/20 07 3:56 PM EDT - 01/18/20 07 5:13 PM EDT Emergency HST EMERGENCY FTT Generic, Historical Provider 05/16/20 06 5:48 PM EST - 05/16/20 06 6:10 PM EST Emergency HST EPIC CON UNK GRT Serge Grover MD 12/01/19 05 10:30 AM EDT - 12/01/19 05 11:48 AM EDT Emergency HST EPIC CON UNK GRT Zachary Rivera MD 12/09/19 04 8:43 PM EDT - 12/09/19 04 9:30 PM EDT Emergency HST EPIC CON UNK GRT Tyshawn Wagner MD 01/18/20 03 8:19 PM EDT - 01/18/20 03 9:35 PM EDT Emergency [facility]ST [facility] ER Zachary Solis MD 09/17/19 02 5:00 PM EDT - 09/17/19 02 5:32 PM EDT Emergency HST EPIC CON UNK GRT [place] Ordonez MD Allergies Active Allergy Reactions Criticality Noted Date Comments Septra I.V. Other (See Comments) Low 10/29/2013 Pt doesn't remember Penicillins Other (See Comments) Medium 10/29/2013 rash Amoxicillin Rash Medium 10/29/2013 Rash Phenazopyridine Other (See Comments) Low 10/29/2013 Pt doesn't rememeber Ciprofloxacin Nausea And Vomiting Medium 03/07/2018 Codeine Nausea And Vomiting Medium 05/04/2018 Metronidazole Nausea And Vomiting Medium 05/31/2018 Aripiprazole Other (See Comments) Medium 04/11/2022 Akathesias at low dose even Brexpiprazole Other (See Comments) Low 04/11/2022 Weight gain Divalproex Nausea And Vomiting Medium 05/11/2022 Lumateperone Anxiety 05/10/2023 Metformin Diarrhea 09/21/2023 Medications NURTEC ODT 75 mg Oral Tablet, Rapid DissolveIndicatio ns:Migraine without aura and without status migrainosus, not intractable TAKE 1 TABLET BY MOUTH ONCE AT ONSET OF MIGRAINE NEEDED. MAX DOSE IS 75MG/24 HOURS 8 Tablet 11 022 Active multivitamin, stress formula (ALLBEE VIT WITH C & B COMPLEX) Oral Tablet Take 1 Tablet by mouth daily. Active acetaZOLAMIDE (DIAMOX) 250 mg Oral Tablet Take 375 mg by mouth 3 times daily. 024 Active Cholecalciferol, Vitamin D3, (VITAMIN D3) 125 mcg (5,000 unit) Oral Tablet Take 1 Tablet by mouth once a week. TAKES ON SATURDAYS Active loratadine (CLARITIN) 10 mg Oral Tablet Take 10 mg by mouth daily. Active polyethylene glycol (GLYCOLAX, MIRALAX) 17 gram Oral Powder in Packet Take 17 g by mouth nightly. Active Nebulizer Accessories Misc MiscIndications:M ild intermittent reactive airway disease with wheezing with acute exacerbation Use tubing with treatment. 10 Each 1 024 Active albuterol-ipratro pium (DUO-NEB) 3 mg-0.5 mg(2.5 mg base)/3 mL Inhl Solution for Nebulization USE 3 ML BY NEBULIZATION AT 8 AM,12 PM, 4 PM, AND 8 PM 025 Active Lancets (ACCU-CHEK SOFTCLIX LANCETS) Misc MiscIndications:I mpaired glucose tolerance USE 1 UNIT TO CHECK GLUCOSE BEFORE MEAL(S) AND AT BEDTIME 100 Each 5 025 Active pantoprazole (PROTONIX) 40 mg Oral Tablet, Delayed Release (E.C.)Indications :Ineffective esophageal motility,Esophage al dysphagia Take 1 tablet by mouth twice daily 180 Tablet 2 025 Active albuterol (PROVENTIL HFA;VENTOLIN HFA) 90 mcg/actuation Inhl HFA Aerosol InhalerIndication s:Mild intermittent reactive airway disease with wheezing with acute exacerbation Inhale 2 Puffs into the lungs every 4 hours as needed for Wheezing. 1 Each 2 025 Active budesonide (PULMICORT) 0.5 mg/2 mL Inhl Suspension for NebulizationIndic ations:Mild intermittent reactive airway disease with wheezing with acute exacerbation Take 2 mL by nebulization 2 times daily. 180 mL 025 Active ergocalciferol (DRISDOL) 1,250 mcg (50,000 unit) Oral CapsuleIndication s:Vitamin D deficiency Take 1 Capsule by mouth once a week. 12 Capsule 025 Active gabapentin (NEURONTIN) 600 mg Oral TabletIndications :Peripheral polyneuropathy Take 1 Tablet by mouth 3 times daily. 270 Tablet 025 Active galcanezumab-gnlm (EMGALITY) 120 mg/mL SubQ Pen InjectorIndicatio ns:Episodic migraine Subcutaneous (Inject under the skin) One pen (120mg) every 30 days. 3 mL 025 Active hydrOXYzine (ATARAX) 50 mg Oral TabletIndications :Panic attack Take 1 Tablet by mouth 3 times daily as needed for Anxiety (for panic attacks). 270 Tablet 1 025 Active ibuprofen (ADVIL;MOTRIN) 800 mg Oral TabletIndications :Arthralgia, unspecified joint Take 1 Tablet by mouth every 6 hours as needed for Pain. 270 Tablet 025 Active levocetirizine (XYZAL) 5 mg Oral TabletIndications :Seasonal allergic rhinitis, unspecified trigger Take 1 Tablet by mouth every evening. 100 Tablet 025 Active pramipexole (MIRAPEX) 1 mg Oral TabletIndications :Restless legs syndrome (RLS) Take 1 Tablet by mouth 2 times daily. 200 Tablet 025 Active Blood-Glucose Meter Misc KitIndications:Im paired glucose tolerance Use before meals and at hs. Dispense insurance preference. E11.9 1 Kit Active Sodium Bicarbonate 650 mg Oral Tablet Take 1 Tablet by mouth 3 times daily. 270 Tablet 3 Active spironolactone (ALDACTONE) 50 mg Oral TabletIndications :Nonintractable headache, unspecified chronicity pattern, unspecified headache type Take 1 Tablet by mouth daily. 90 Tablet 3 Active potassium chloride (KLOR-CON M) 20 mEq Oral Tab Sust.Rel. Particle/CrystalI ndications:Fluid retention Take 2 Tablets by mouth 2 times daily. 360 Tablet 3 Active ACCU-CHEK GUIDE TEST STRIPS Misc StripIndications: Impaired glucose tolerance USE 1 STRIP BEFORE MEAL(S) AND AT BEDTIME 100 Each Active ondansetron (ZOFRAN-ODT) 4 mg Oral Tablet, Rapid DissolveIndicatio ns:Nausea and vomiting, unspecified vomiting type DISSOLVE 1 TABLET IN MOUTH EVERY 6 HOURS NEEDED 30 Tablet Active semaglutide (OZEMPIC) 2 mg/dose (8 mg/3 mL) SubQ Pen InjectorIndicatio ns:Type 2 diabetes mellitus without complication, without long-term current use of insulin (HCC) Inject 2 mg under the skin once a week. 9 mL 1 Active cephALEXin (KEFLEX) 500 mg Oral CapsuleIndication s:UTI (urinary tract infection), uncomplicated Take 1 Capsule by mouth every 8 hours for 7 days. 21 Capsule 025 2024 Active ondansetron (ZOFRAN-ODT) 4 mg Oral Tablet, Rapid DissolveIndicatio ns:Nausea and vomiting, unspecified vomiting type Take 1 Tablet by mouth every 6 hours as needed. 30 Tablet 025 2024 Discontinued Blood Sugar Diagnostic (ACCU-CHEK GUIDE TEST STRIPS) Misc StripIndications: Impaired glucose tolerance USE 1 STRIP BEFORE MEAL(S) AND AT BEDTIME 100 Each 1 025 2024 Discontinued semaglutide (OZEMPIC) 1 mg/dose (4 mg/3 mL) SubQ Pen InjectorIndicatio ns:Type 2 diabetes mellitus without complication, without long-term current use of insulin (HCC) Inject 1 mg under the skin once a week. 9 mL 1 025 2024 Discontinued(D ose adjustment) Active Problems Patient Care Coordination No te Formatting of this note migh t be different from the original. Albert ENTAS Controlled report completed 11/16/2022 Informed consent signed 11/16/2022 Request # [id number] Problem Noted Date Diagnosed Date Pharyngitis 02/26/2024 [...] and TIR >70% - Last A1c - - 01/04/2024 - at goal Compliance: - [...] nuclear, speckled, ssA >7, neg ssB, neg Abrams, normal C3, C4, ds DNA by crithidia negative, negative systemic sclerosis panel - lip biopsy negative for [facility] current use of systemic steroids 12/12 Overview (12/12/2022): - Discussed risks and benefits of steroids (prednisone, methylprednisolone). Risks including but not limited to cardiovascular effects (hypertension, edema), electrolyte disturbances, arrhythmias (bradycardia, atrial fibrillation), TRIAGE ASSISTANT and psychiatric behavioral reactions (apathy, irritability, psychosis), [...] (08/09/2022): Added automatically from request for surgery [id number] Bulging lumbar disc 05/11/2022 Major depressive disorder, [...] evidence of intraocular damage. Monitor. Comments Yes Resolved Problems Problem Noted Date Diagnosed Date Resolved Date Undifferentiated connective tissue disease 10/14/2022 12/12/2022 Overview (10/14/2022): - BOBBY 1:80, 1:160, nuclear, speckled, ssA >7, neg ssB, neg Abrams, normal C3, C4, ds DNA by crithidia [...] previously ordered and will obtain baseline HVF. Immunizations Immunization Administration Dates Next Due DTaP, Unspecified Formulation 12/24/1991 ,06/25/1991,11/28/1988,02/07,1987 HPV 9 Valent 07/08/2020,05/07/2020,11/06/2019 01/06/2020 Hepatitis A, Adult 02/13/2024,07/05/2023 Hepatitis B, Adolescent/High Risk Infant 12/17/1998,11/16/1998 Hepatitis B, Ped/Adol 01/01/2002 HiB, Unspecified Formulation 11/30/1989 MMR 11/16/1998,11/30/1989 Pfizer SARS-CoV-2 Vaccine 12 + Yrs (Purple Cap) 12/29/2020,12/08/2020 Polio, Unspecified Formulation 2,06/25/1991,02/08/1988,12/27 Td (Adult), Absorbed 03/26/2002 Tdap 01/19/2021 Family History Medical History Relation Name Comments High Blood Pressure Brother 1 Depression Brother 2 Tyshawn abrams Diabetes Brother 2 Tyshawn abrams High Blood Pressure Brother 2 Tyshawn abrams Diabetes Brother 5 Dallas abrams High sugar High Blood Pressure Brother 5 Dallas abrams Hypertension Brother 5 Dallas abrams Substance Abuse Brother 5 Dallas abrams motorcycle wreck Brother 5 Dallas abrams Back Problems Brother 6 Tyshawn abrams Bulging disc at L5S1 compressed on nerve Cataracts Brother 6 Tyshawn abrams Had it done anurag th eyes Depression Brother 6 Tyshawn abrams Developmental Disability Brother 6 Tyshawn abrams Diabetes Brother 6 Tyshawn abrams High Blood Pressure Brother 6 Tyshawn abrams Hypertension Brother 6 Tyshawn abrams Vascular Disease Brother 6 Tyshawn abrams Vascular n eocrosis of hip Hypertension Brother 7 Kevin hannah Hypertension Brother 8 Tyshawn Abrams Cirrhosis Father Kevin abrams Diabetes Father Kevin abrams High sugar Heart Failure Maternal Grandfather Pedro Cancer Maternal Grandmother Yee meyer Pancreo tic cancer Celiac Disease Maternal Grandmother Yee meyer Diabetes Maternal Grandmother Yee meyer Both hi gh and low sugar Heart Failure Maternal Grandmother Yee meyer Lung Cancer Maternal Grandmother Yee meyer Diabetes Maternal Uncle 1 Héctor young Diabetes Maternal Uncle 2 Roman young Great uncle Heart Failure Maternal Uncle 3 Dallas Abrams COPD Mother Aditi abrams Cataracts Mother Aditi abrams High Blood Pressure Mother Aditi abrams Hypertension Mother Aditi abrams Migraines Mother Aditi abrams Varicose Veins Mother Aditi abrams In her legs Osteoporosis Paternal Aunt Lidia Barriosry Aneurysm Paternal Grandfather Pedro Diabetes Paternal Grandfather Pedro Uncle s aid he had sugar Hypertension Paternal Grandfather Pedro Arthritis Paternal Grandmother Annie logan Cancer Paternal Grandmother Annie logan typ e unknown Celiac Disease Paternal Grandmother Annie logan Dementia Paternal Grandmother Annie logan Diabetes Paternal Grandmother Annie logan Osteoporosis Paternal Grandmother Annie logan Prostate Cancer Paternal Grandmother Annie logan Rheum Arthritis Paternal Grandmother Annie logan Heart Disease Paternal Uncle Dallas abrams Congestive h eart failure Back Problems Sister 1 Tara lonaker Spine stimula tor in back Depression Sister 1 Tara lonaker High Cholesterol Sister 1 Tara lonaker Not quiet real high but got her watching it Varicose Veins Sister 1 Tara lonaker Legs and had them on her utris chiari Sister 1 Tara lonaker lichen planus Sister 1 Tara lonaker Osteoporosis Sister 2 July Lonaker Glaucoma Neg Hx Macular Degen Neg Hx Relation Name Status Comments Brother 1 Alive Brother 2 Tyshawn abrams Alive Brother 3 Alive Brother 4 Alive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 1. Stable MRI lumbar spine. There are mildnoncompressive degenerative changes at the L4-L5 level. TPO ab- negative Thyroglob ab- negative Lyme, ANCA vasculitis, LINDA (02/18)- negative Cabot light chains, IgA, M, G, RF, DNA Ab (10/18)-negative SPEP (10/18) - alpha 1 mildly increased otherwise negative Sjogren's abs/BOBBY (10/18)- positive Vit D (09/19) normal CSF (03/20)- benign, OP 25 Impression and Plan # Worsened hypoesthesia and paresthesias # Possible Sjogren syndrome # IIH Young patient with multiple chronic conditions as above. 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 Now has had this occasional full bodyunusual sensation and now has had progressive paresthesias in astocking/glove distribution in the extremities symmetrically. She does nothave consistent, reproducible sensory deficits though. Her strength isquite variable with a possible functional component to testing. Herreflexes are also intact. I have a low suspicion of AIDP and there is no central cause of hersymptoms on imaging. Will need to rule out AIDP and other inflammatoryconditions with CSF first. However, this may represent a small fiberneuropathy and I would encourage ongoing workup for the possibility ofSjogren syndrome as previously considered. Plan: LP through IR to r/o AIDP Vit B1, HIV, Lyme, heavy metals pending per primary team Will repeat SSB/SSA and CCP Continue gabapentin 800 mg 3 times daily. Takes Baclofen PRN monthly PT/OT Continue Nortriptyline 20 mg nightly for migraine Leukocytosis workup per primary team Diamox on hold per primary due to acidosis. On aldactone for IIH. She hasno disc edema today. Follows without outside neurologist and surface grinder already. May needto consider biopsy for small fiber neuropathy if workup here unremarkable. Thank you for the opportunity to participate in the care of Kamini Watts. Please do not hesitate to call with further questions orconcerns. Dorothy Houser, GLUELINE WORKER Neurology I saw and evaluated this patient with the GLUELINE WORKER. I personally performed anddocumented the physical exam. I personally authored the assessment andplan as documented. Rodolfo White MD Neurology VITAMIN B12/ FOLIC ACID Routine 01/02/20 11:51 AM EDT Peripheral polyneuropathy CBC WITH DIFF Routine 01/02/2024 11:51 AM EDT Peripheral polyneuropathy THYROID STIMULATING HORMONE Routine 01/02/2024 11:51 AM EDT Peripheral polyneuropathy COMPREHENSIVE METABOLIC PANEL Routine 01/02/2024 11:51 AM EDT Peripheral polyneuropathy POCT GLUCOSE Routine 01/01/2024 6:27 PM EDT Numbness in both legs RENAL FUNCTION PANEL Routine 12/19/2023 10:35 AM EDT Hypokalemia RENAL FUNCTION PANEL Routine 11/24/2023 2:20 PM EDT Hypokalemia RENAL FUNCTION PANEL Routine 11/08/2023 2:47 PM EDT Hypokalemia [id number] Routine 11/06/2023 11:01 AM EDT Chills Sinus congestion Nausea and vomiting, unspecified vomiting type MRI LUMBAR SPINE WO CONTRAST Routine 11/02/2023 7:43 AM EDT Lumbar pain Lumbar radiculopathy DDD (degenerative disc disease), lumbar Right lumbar radiculopathy Lumbar spondylosis Radiculopathy of lumbar region MRI SACRUM WO CONTRAST Routine 7:42 AM EDT Lumbar pain Lumbar radiculopathy DDD (degenerative disc disease), lumbar Right lumbar radiculopathy Lumbar spondylosis Radiculopathy of lumbar region XR FOOT RIGHT AP LATERAL AND OBLIQUE Routine 10/20/2023 10:44 AM EDT Contusion of right foot, initial encounter XR ANKLE LEFT AP LATERAL AND OBLIQUE INCLUDING STANDING Routine 10/18/2023 2:36 PM EDT Acute left ankle pain RENAL FUNCTION PANEL Routine 10/18/2023 2:21 PM EDT Hypokalemia THYROGLOBULIN ANTIBODY -REF LAB Callback 10/11/2023 3:16 PM EDT Benign intracranial hypertension Memory loss Encounter for long-term (current) use of medications THYROID PEROXIDASE (TPO) ANTIBODY Callback 10/11/2023 3:16 PM EDT Benign intracranial hypertension Memory loss Encounter for long-term (current) use of medications T4, FREE (THYROXINE) Callback 10/11/2023 3:16 PM EDT Benign intracranial hypertension Memory loss Encounter for long-term (current) use of medications THYROID STIMULATING HORMONE Callback 10/11/2023 3:16 PM EDT Benign intracranial hypertension Memory loss Encounter for long-term (current) use of medications FOLATE LEVEL Callback 10/11/2023 3:16 PM EDT Benign intracranial hypertension Memory loss Encounter for long-term (current) use of medications VITAMIN B12 LEVEL Callback 10/11/2023 3:16 PM EDT Benign intracranial hypertension Memory loss Encounter for long-term (current) use of medications CBC WITH DIFF Callback 10/11/2023 3:16 PM EDT Benign intracranial hypertension Memory loss Encounter for long-term (current) use of medications BASIC METABOLIC PANEL Callback 10/11/2023 3:16 PM EDT Benign intracranial hypertension Memory loss Encounter for long-term (current) use of medications XR LUMBAR SPINE AP AND LATERAL Routine 10/11/2023 2:51 PM EDT Lumbar pain OCT, OPTIC NERVE - OU - BOTH EYES Routine 10/09/2023 3:24 PM EDT Empty sella Pseudotumor DUNBAR VISUAL FIELD - OU - BOTH EYES Routine 10/09/2023 3:22 PM EDT Empty sella Pseudotumor MAGNESIUM LEVEL Routine 10/07/2023 10:02 AM EDT Hypokalemia RTA (renal tubular acidosis) RENAL FUNCTION PANEL Routine 10/07/2023 10:02 AM EDT Hypokalemia RTA (renal tubular acidosis) XR ANKLE LEFT AP LATERAL AND OBLIQUE Routine 10/03/2023 3:26 PM EDT Injury of left ankle, initial encounter CT ABDOMEN PELVIS WO ORAL OR IV CONTRAST STAT 10/02/2023 4:34 PM EDT Abdominal pain, RLQ (right lower quadrant) Right flank pain URINE CULTURE (NO STAIN) Routine 024 3:48 PM EDT Abdominal pain, RLQ (right lower quadrant) SEP URINALYSIS POC Routine 10/02/2023 3:44 PM EDT Abdominal pain, RLQ (right lower quadrant) Right flank pain RENAL FUNCTION PANEL Routine 09/28/2023 2:57 PM EDT Hypokalemia URINE CULTURE (NO STAIN) Routine 024 3:06 PM EDT Dysuria VITAMIN D 25 HYDROXY Routine 09/21/2023 8:58 AM EDT Vitamin D deficiency LIPID SCREEN Routine 09/21/2023 8:58 AM EDT Type 2 diabetes mellitus without complication, without long-term current use of insulin (HCC) COMPREHENSIVE METABOLIC PANEL Routine 09/21/2023 8:58 AM EDT Type 2 diabetes mellitus without complication, without long-term current use of insulin (HCC) CBC WITH DIFF Routine 09/21/2023 8:58 AM EDT Type 2 diabetes mellitus without complication, without long-term current use of insulin (HCC) URINE CULTURE (NO STAIN) Routine 024 8:58 AM EDT Urinary frequency IRIS DIABETIC RETINOPATHY EXAM Routine 09/21/2023 8:44 AM EDT Type 2 diabetes mellitus without complication, without long-term current use of insulin (HCC) SEP URINALYSIS POC Routine 09/21/2023 8:21 AM EDT Urinary frequency POCT URINE ALBUMIN:CREATININE RATIO Routine 09/21/2023 8:09 AM EDT Type 2 diabetes mellitus without complication, without long-term current use of insulin (HCC) RENAL FUNCTION PANEL Routine 09/12/2023 9:53 AM EDT Hypokalemia RENAL FUNCTION PANEL Routine 09/04/2023 10:44 AM EDT Hypokalemia EBV VIRAL CAPSID ANTIBODIES Routine 08/15/2023 8:40 AM EDT Tired Elevated glucose CMV IGG/IGM Routine 08/15/2023 8:40 AM EDT Tired Elevated glucose MONONUCLEOSIS SCREEN Routine 08/15/2023 8:40 AM EDT Tired Elevated glucose COMPREHENSIVE METABOLIC PANEL Routine 08/15/2023 8:40 AM EDT Tired Elevated glucose HEMOGLOBIN A1C Routine 08/15/2023 8:40 AM EDT Tired Elevated glucose NM BONE SCAN 3 PHASE Routine 08/04/2023 11:53 AM EST Low back pain potentially associated with radiculopathy FERRITIN Routine 08/01/2023 3:10 PM EST Iron deficiency IRON+TIBC Routine 08/01/2023 3:10 PM EST Iron deficiency CBC WITH DIFF Routine 08/01/2023 3:10 PM EST Iron deficiency RENAL FUNCTION PANEL Routine 08/01/2023 3:10 PM EST Hypokalemia PATHOLOGY TISSUE REQUEST Routine 024 3:03 PM EST Abnormal uterine bleeding MOLECULAR VAGINITIS PANEL (MVP) Routine 08/01/2023 3:03 PM EST Vaginal itching POCT URINE TELCOR Routine 08/01/2023 2:51 PM EST Abnormal uterine bleeding SEP URINALYSIS POC Routine 08/01/2023 2:49 PM EST Vaginal itching US PELVIS AND TRANSVAGINAL NON OB COMPLETE Routine 07/26/2023 3:43 PM EST Irregular uterine bleeding RENAL FUNCTION PANEL Routine 07/21/2023 10:29 AM EST Hypokalemia VITAMIN D 25 HYDROXY Callback 07/21/2023 10:29 AM EST Avitaminosis D MRI FOOT RIGHT WO CONTRAST Routine 07/21/2023 10:22 AM EST Imaging abnormality Right foot pain RENAL FUNCTION PANEL Routine 07/14/2023 2:38 PM EST Hypokalemia NM BONE SCAN WHOLE BODY Routine 07/13/19 12:10 PM EST Myalgia XR FOOT RIGHT AP LATERAL AND OBLIQUE STANDING Routine 07/11/2023 2:23 PM EST Strain of right ankle, initial encounter EMG Routine 07/11/2023 Neuropathy IRON+TIBC Routine 07/07/2023 11:11 AM EST Iron deficiency RENAL FUNCTION PANEL Routine 07/07/2023 11:11 AM EST Hypokalemia [id number] Routine 07/06/2023 3:07 PM EST Person under investigation for COVID-19 RENAL FUNCTION PANEL Routine 06/30/2023 2:46 PM EST Hypokalemia NM GASTRIC EMPTYING Routine 06/27/2023 10:43 AM EST Nausea and vomiting, unspecified vomiting type RENAL FUNCTION PANEL Routine 06/26/2023 3:11 PM EST Hypokalemia HCV ANTIBODY SCREEN W/ REFLEX Routine 06/21/2023 8:56 AM EST Screen for STD (sexually transmitted disease) HEPATITIS B SURFACE ANTIGEN Routine 06/21/2023 8:56 AM EST Screen for STD (sexually transmitted disease) SYPHILIS SCREEN WITH REFLEX RPR QUANT Routine 06/21/2023 8:56 AM EST Screen for STD (sexually transmitted disease) HIV AG/AB Routine 06/21/2023 8:56 AM EST Screen for STD (sexually transmitted disease) 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 CYTOLOGY REQUEST (PAP ONLY) Routine 06/21/2023 8:54 AM EST Well female exam with routine gynecological exam [facility] 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 CYTOLOGY ORDER Routine 8:54 AM EST Well female exam with routine gynecological exam TRICHOMONAS VAGINALIS BY TMA (PAP PANEL) Routine 06/21/2023 8:54 AM EST Well female exam with routine gynecological exam GC CHLAMYDIA THIN PREP Routine 8:54 AM EST Well female exam with routine gynecological exam HPV HIGH RISK WITH REFLEX TO GENOTYPE Routine 06/21/2023 8:54 AM EST Well female exam with routine gynecological exam MOLECULAR VAGINITIS PANEL (MVP) Routine 06/21/2023 8:54 AM EST Well female exam with routine gynecological exam UTI symptoms URINE CULTURE (NO STAIN) Routine 024 8:54 AM EST UTI symptoms SEP URINALYSIS POC Routine 06/21/2023 8:22 AM EST UTI symptoms FL BARIUM SWALLOW Routine 06/20/2023 11:12 AM EST Oropharyngeal dysphagia FL MODIFIED BARIUM SWALLOW Routine 06/20/2023 10:08 AM EST Oropharyngeal dysphagia BASIC METABOLIC PANEL Routine 06/16/2023 3:13 PM EST Common migraine with intractable migraine Benign intracranial hypertension Need for prophylactic chemotherapy XR HAND BILATERAL PA LATERAL AND OBLIQUE Routine 06/14/2023 2:05 PM EST Myalgia Need for prophylactic chemotherapy Benign intracranial hypertension Abnormal immunological finding in serum Scapulohumeral fibrositis POCT SARS-COV-2 RNA SEP Routine 06/07/19 24 1:12 PM EST Diarrhea, unspecified type POCT STREP A DNA Routine 06/07/2023 1:05 PM EST Diarrhea, unspecified type COMPREHENSIVE METABOLIC PANEL Routine 06/07/2023 12:47 PM EST Diarrhea, unspecified type CBC WITH DIFF Routine 06/07/2023 12:47 PM EST Diarrhea, unspecified type POCT INFLUENZA A/B Routine 06/07/2023 12:09 PM EST Diarrhea, unspecified type POCT RAPID STREP A Routine 05/30/2023 3:29 PM EST Sore throat BASIC METABOLIC PANEL Routine 05/18/2023 3:25 PM EST Therapeutic drug monitoring POCT INFLUENZA A/B Routine 05/15/2023 3:42 PM EST URI with cough and congestion POCT LIAT SARS ANTIGEN Routine 05/15/20 3:42 PM EST URI with cough and congestion POCT RESPIRATORY SYNCYTIAL VIRUS Routine 05/15/2023 3:41 PM EST URI with cough and congestion COLONOSCOPY Routine 05/10/2023 9:45 AM EST Rectal bleeding Iron deficiency INTRAOP AIRWAY PLACEMENT Routine 9:24 AM EST POCT URINE Routine 05/10/2023 9:04 AM EST Preop testing Premenopausal patient EBV VIRAL CAPSID ANTIBODIES Routine 04/19/2023 2:33 PM EST Tired BASIC METABOLIC PANEL Routine 04/19/2023 2:33 PM EST Hypokalemia BASIC METABOLIC PANEL Callback 04/10/2023 2:39 PM EST Intractable migraine without aura and without status migrainosus Pseudotumor cerebri Encounter for long-term (current) use of medications CMV IGG/IGM Routine 04/06/2023 10:58 AM EST Tired Myalgia Arthralgia, unspecified joint COMPREHENSIVE METABOLIC PANEL Routine 04/06/2023 10:58 AM EST Tired Myalgia Arthralgia, unspecified joint CBC WITH DIFF Routine 04/06/2023 10:58 AM EST Tired Myalgia Arthralgia, unspecified joint EBV VIRAL CAPSID ANTIBODIES Routine 04/06/2023 10:58 AM EST Tired Myalgia Arthralgia, unspecified joint MONONUCLEOSIS SCREEN Routine 04/06/2023 10:58 AM EST Tired Myalgia Arthralgia, unspecified joint ESOPHAGEAL MOTILITY/MANOMETRY Routine 04/04/2023 10:39 AM EST Rectal bleeding Iron deficiency FL GUIDED LUMBAR PUNCTURE DIAGNOSTIC Routine 03/22/2023 9:07 AM EDT IIH (idiopathic intracranial hypertension) PROTEIN CEREBROSPINAL FLUID Routine 03/22/2023 8:47 AM EDT IIH (idiopathic intracranial hypertension) GLUCOSE CEREBROSPINAL FLUID Routine 03/22/2023 8:47 AM EDT IIH (idiopathic intracranial hypertension) CSF CELL COUNT WITH DIFF Routine 023 8:47 AM EDT IIH (idiopathic intracranial hypertension) MENINGITIS/ENCEPH PANEL Routine 03/22/20 8:47 AM EDT IIH (idiopathic intracranial hypertension) CSF ANALYSIS: CELL COUNT W/REFLEX, GLUCOSE AND PROTEIN Routine 03/22/2023 8:47 AM EDT IIH (idiopathic intracranial hypertension) CEREBROSPINAL FLUID CULTURE (STAIN INCLUDED) Routine 03/22/2023 8:47 AM EDT IIH (idiopathic intracranial hypertension) CBC WITH DIFF STAT 03/22/2023 7:34 AM EDT IIH (idiopathic intracranial hypertension) PT / INR STAT 03/22/2023 7:34 AM EDT IIH (idiopathic intracranial hypertension) IRON+TIBC Routine 03/20/2023 4:34 PM EDT Pain in both lower extremities COMPREHENSIVE METABOLIC PANEL Routine 03/20/2023 4:34 PM EDT Leg cramps SCANNED RHYTHM STRIPS 03/16/2023 5:12 PM EDT INTRAOP AIRWAY PLACEMENT Routine 023 9:14 AM EDT CUBITAL TUNNEL RELEASE / NERVE TRANSPOSITION / DECOMPRESSION 03/15/2023 9:10 AM EDT Cubital tunnel syndrome on left Special Needs sk POCT URINE Routine 03/15/2023 7:25 AM EDT MRI BRAIN ATTN ORBITS W CONTRAST SALLY 03/11/2023 9:06 AM EDT IIH (idiopathic intracranial hypertension) POCT LIAT SARS ANTIGEN Routine 02/29/20 3:34 PM EDT Sore throat Nonintractable headache, unspecified chronicity pattern, unspecified headache type POCT INFLUENZA A/B Routine 02/28/2023 3:33 PM EDT Sore throat Nonintractable headache, unspecified chronicity pattern, unspecified headache type POCT RAPID STREP A Routine 02/28/2023 3:27 PM EDT Sore throat POCT URINE Routine 02/23/2023 2:58 PM EDT Encounter for contraceptive management, unspecified type UNATTENDED SLEEP STUDY Routine 9:03 AM EDT Obstructive sleep apnea VITAMIN D 25 HYDROXY Routine 02/22/2023 8:05 AM EDT Vitamin D deficiency COMPLEMENT ACTIVITY, TOTAL -REF LAB Callback 02/22/2023 8:05 AM EDT Encounter for long-term (current) use of medications Diagnostic skin and sensitization tests Screening examination for venereal disease Screening examination for poliomyelitis [place], unspecified type Scapulohumeral fibrositis SERUM PROTEIN ELECTROPHORESIS WITH REFLEX Callback 02/22/2023 8:05 AM EDT Encounter for long-term (current) use of medications Diagnostic skin and sensitization tests Screening examination for venereal disease Screening examination for poliomyelitis Sic[place], unspecified type Scapulohumeral fibrositis 14-3-3 ETA PROTEIN-REF LAB Callback 02/22/2023 8:05 AM EDT Encounter for long-term (current) use of medications Diagnostic skin and sensitization tests Screening examination for venereal disease Screening examination for poliomyelitis [place]ca, unspecified type Scapulohumeral fibrositis [id number] DEHYDROGENASE -REF LAB Callback 02/22/2023 8:05 AM EDT Encounter for long-term (current) use of medications Diagnostic skin and sensitization tests Screening examination for venereal disease Screening examination for poliomyelitis Sicca, unspecified type Scapulohumeral fibrositis MISCELLANEOUS LAB Callback 02/22/2023 7:55 AM EDT Encounter for long-term (current) use of medications Diagnostic skin and sensitization tests Screening examination for venereal disease Screening examination for poliomyelitis Sicca, unspecified type Scapulohumeral fibrositis LYME ABS, IGG AND IGM BY IMMUNOBLOT-REF LAB Callback 02/22/2023 7:55 AM EDT Encounter for long-term (current) use of medications Diagnostic skin and sensitization tests Screening examination for venereal disease Screening examination for poliomyelitis Sicca, unspecified type Scapulohumeral fibrositis COMPLEMENT PANEL Callback 02/22/2023 7:55 AM EDT Encounter for long-term (current) use of medications Diagnostic skin and sensitization tests Screening examination for venereal disease Screening examination for poliomyelitis Sicca, unspecified type Scapulohumeral fibrositis ANCA VASCULITIS PROFILE - REF LAB Callback 02/22/2023 7:55 AM EDT Encounter for long-term (current) use of medications Diagnostic skin and sensitization tests Screening examination for venereal disease Screening examination for poliomyelitis Sicca, unspecified type Scapulohumeral fibrositis ANGIOTENSIN CONVERTING ENZYME -REF LAB Callback 02/22/2023 7:55 AM EDT Encounter for long-term (current) use of medications Diagnostic skin and sensitization tests Screening examination for venereal disease Screening examination for poliomyelitis [place]ca, unspecified type Scapulohumeral fibrositis MRI ELBOW LEFT WO CONTRAST Routine 02/22/2023 7:28 AM EDT Left elbow pain Ulnar neuropathy of left upper extremity Cubital tunnel syndrome on left MRI ANGIOGRAM INTRACRANIAL WO CONTRAST Routine 02/20/2023 7:44 AM EDT Acute intractable headache, unspecified headache type Vision changes Memory loss Staggering VITAMIN B12/ FOLIC ACID Routine 02/14/20 2:53 PM EDT Acute intractable headache, unspecified headache type COMPREHENSIVE METABOLIC PANEL Routine 02/13/2023 2:53 PM EDT Acute intractable headache, unspecified headache type CBC WITH DIFF Routine 02/13/2023 2:53 PM EDT Acute intractable headache, unspecified headache type IRON+TIBC Routine 02/13/2023 2:53 PM EDT Acute intractable headache, unspecified headache type STREP A DNA Routine 02/07/2023 2:55 PM EDT Sore throat Myalgia Malaise and fatigue RSV-FLU A/B Routine 02/07/2023 2:55 PM EDT Sore throat Myalgia Malaise and fatigue Nausea and vomiting, unspecified vomiting type Diarrhea, unspecified type CORONAVIRUS 2019 Routine 02/07/2023 2:55 PM EDT Sore throat Myalgia Malaise and fatigue Nausea and vomiting, unspecified vomiting type Diarrhea, unspecified type BASIC METABOLIC PANEL Routine 01/26/2023 2:44 PM EDT Hypokalemia CBC WITH DIFF Routine 01/16/2023 4:49 PM EDT Iron deficiency IRON+TIBC Routine 01/16/2023 4:49 PM EDT Iron deficiency RLS (restless legs syndrome) FERRITIN Routine 01/16/2023 4:49 PM EDT Iron deficiency RLS (restless legs syndrome) PARTIAL THROMBOPLASTIN TIME Routine 01/16/2023 4:49 PM EDT Easy bruising PT / INR Routine 01/16/2023 4:49 PM EDT Easy bruising MRI LUMBAR SPINE WO CONTRAST Routine 01/13/2023 3:29 PM EDT Protrusion of lumbar intervertebral disc URIC ACID Routine 01/13/2023 2:57 PM EDT Hypokalemia CBC Routine 01/13/2023 2:57 PM EDT Hypokalemia MAGNESIUM LEVEL Routine 01/13/2023 2:57 PM EDT Hypokalemia RENAL FUNCTION PANEL Routine 01/13/2023 2:57 PM EDT Hypokalemia MRI FOOT RIGHT W WO CONTRAST Routine 01/09/2023 9:13 AM EDT Lesion of right plantar nerve Right foot pain Cannot walk EMG Routine 01/04/2023 7:46 AM EDT Numbness and tingling HEMOGLOBIN A1C Routine 01/03/2023 3:23 PM EDT Numbness and tingling Family history of diabetes mellitus IRON+TIBC Routine 12/23/2022 2:39 PM EDT Hypokalemia VITAMIN D 25 HYDROXY Routine 12/23/2022 2:39 PM EDT Hypokalemia BASIC METABOLIC PANEL Routine 12/21/2022 2:38 PM EDT Therapeutic drug monitoring PHARMACOGENOMIC PANEL Routine 12/14/2022 5:07 PM EDT Mood disorder Major depressive disorder, recurrent episode, mild XR FOOT RIGHT AP LATERAL AND OBLIQUE Routine 11/25/2022 9:53 AM EDT Stress fracture of right foot, initial encounter PATHOLOGY TISSUE REQUEST Routine 023 3:23 PM EDT Dry mouth XR FOOT RIGHT AP LATERAL AND OBLIQUE Routine 11/10/2022 8:28 AM EDT Right foot pain ESOPHAGOGASTRODUODENOSCOP Y (EGD) Routine 11/08/2022 2:18 PM EDT Esophageal dysphagia Right upper quadrant abdominal pain TSG PATHOLOGY ORDER Routine 11/08/2022 2:17 PM EDT Esophageal dysphagia Right upper quadrant abdominal pain POCT URINE Routine 11/08/2022 1:36 PM EDT IRON+TIBC Routine 11/04/2022 2:54 PM EDT Low iron URINE CULTURE (NO STAIN) Routine 023 3:05 PM EDT Hematuria, microscopic SEP URINALYSIS POC Routine 10/25/2022 2:41 PM EDT Hematuria, microscopic QUANTIFERON(R)-TB GOLD PLUS, 1-QUEST Routine 10/17/2022 11:32 AM EDT REFLEXIVE URINE CULTURE NO CULI-QUEST Routine 10/17/2022 11:32 AM EDT IMMUNOGLOBULINS-QUEST Routine 10/17/2022 11:32 AM EDT IMMUNOFIXATION, SERUM-QUEST Routine 10/17/2022 11:32 AM EDT KAPPA/LAMBDA LIGHT CHAIN, TOTAL, SERUM-QUEST Routine 10/17/2022 11:32 AM EDT PROTEIN ELECTROPHORESIS, SERUM-QUEST Routine 10/17/2022 11:32 AM EDT PROTEIN TOTAL-QUEST Routine 10/17/2022 11:32 AM EDT PROTEIN, TOTAL WITH CREATININE, RANDOM URINE-QUEST Routine 10/17/2022 11:32 AM EDT Undifferentiated connective tissue disease CYCLIC CITULLINATED PEPTIDE (CCP) AB (IGG)-QUEST Routine 10/17/2022 11:32 AM EDT Encounter for long-term (current) use of high-risk medication RHEUMATOID FACTOR QUANTITATIVE-QUEST Routine 10/17/2022 11:32 AM EDT Encounter for long-term (current) use of high-risk medication URINALYSIS, COMPLETE WITH REFLEX TO CULTURE-QUEST Routine 10/17/2022 11:32 AM EDT Undifferentiated connective tissue disease ANTINUCLEAR ANTIBODIES (BOBBY), HEP-2 SUBSTRATE, BY IFA Routine 10/10/2022 3:03 PM EDT Abnormal LFTs IRON+TIBC Routine 10/10/2022 3:03 PM EDT Abnormal LFTs MITOCHONDRIAL M2 ANTIBODY, IGG -REF LAB Routine 10/10/2022 3:03 PM EDT Abnormal LFTs FERRITIN Routine 10/10/2022 3:03 PM EDT Abnormal LFTs F-ACTIN (SMOOTH MUSCLE) AB, IGG W/RFLX -REF LAB Routine 10/10/2022 3:03 PM EDT Abnormal LFTs CERULOPLASMIN -REF LAB Routine 3:03 PM EDT Abnormal LFTs ANTINUCLEAR ANTIBODIES (BOBBY) SCREEN BY LETTY W/ REFLEX TO IFA Routine 10/10/2022 3:03 PM EDT Abnormal LFTs [id number] -REF LAB Routine 10/10/2022 3:03 PM EDT Abnormal LFTs THYROID STIMULATING HORMONE Routine 10/10/2022 3:03 PM EDT Abnormal LFTs TISSUE TRANSGLUTAMINASE ANTIBODY, IGA -REF LAB Routine 10/10/2022 3:03 PM EDT Abnormal LFTs IGA Routine 10/10/2022 3:03 PM EDT Abnormal LFTs LIPASE LEVEL Routine 10/10/2022 3:03 PM EDT Abnormal LFTs Right upper quadrant abdominal pain AMYLASE LEVEL Routine 10/10/2022 3:03 PM EDT Abnormal LFTs Right upper quadrant abdominal pain VITAMIN D 25 HYDROXY-QUEST Routine 10/10/2022 8:20 AM EDT Vitamin D deficiency ANTINUCLEAR ANTIBODIES TITER AND PATTERN-QUEST Routine 10/10/2022 8:18 AM EDT DNA (DS) ANTIBODY, CRITHIDIA, IFA W/REFL-QUEST Routine 10/10/2022 8:18 AM EDT COMPLEMENT COMPONENT [id number] Routine 10/10/2022 8:18 AM EDT COMPLEMENT COMPONENT [id number] Routine 10/10/2022 8:18 AM EDT SYSTEMIC SCLEROSIS 12 AB PANEL-QUEST Routine 10/10/2022 8:18 AM EDT BOBBY positive Other fatigue Arthralgia, unspecified joint C REACTIVE PROTEIN-QUEST Routine 023 8:18 AM EDT Fatty liver BOBBY positive Other fatigue Arthralgia, unspecified joint SEDIMENTATION RATE AUTOMATED-QUEST Routine 10/10/2022 8:18 AM EDT Fatty liver BOBBY positive Other fatigue Arthralgia, unspecified joint CBC WITH AUTO DIFF-QUEST Routine 023 8:18 AM EDT Fatty liver BOBBY positive Other fatigue Arthralgia, unspecified joint COMPREHENSIVE METABOLIC PANEL-QUEST Routine 10/10/2022 8:18 AM EDT Fatty liver BOBBY positive Other fatigue Arthralgia, unspecified joint SJOGREN'S ANTIBODIES (SS A, SS B)-QUEST Routine 10/10/2022 8:18 AM EDT Fatty liver BOBBY positive Other fatigue Arthralgia, unspecified joint BOBBY IFA SCREEN WITH REFLEX TO TITER AND PATTERN-QUEST Routine 10/10/2022 8:18 AM EDT Fatty liver BOBBY positive Other fatigue Arthralgia, unspecified joint SM ANTIBODY-QUEST Routine 10/10/2022 8:18 AM EDT XR LUMBAR SPINE AP AND LATERAL Routine 10/07/2022 7:09 PM EDT Lumbar pain ANTINUCLEAR ANTIBODIES (BOBBY), HEP-2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 FLEXION AND EXTENSION Routine 03/25/2021 9:48 AM EDT Lumbar pain MRI LUMBAR SPINE WO CONTRAST Routine 03/04/2021 9:25 AM EDT Bulging lumbar disc Bilateral lumbar radiculopathy POCT RAPID STREP A Routine 02/02/2021 11:48 AM EDT Sore throat POCT LIAT SARS ANTIGEN Routine 02/03/20 11:48 AM EDT Body aches Cough POCT INFLUENZA A/B Routine 02/02/2021 11:47 AM EDT Body aches Cough Sore throat URINALYSIS Routine 01/22/2021 5:47 PM EDT Urinary tract infection without hematuria, site unspecified URINE CULTURE (NO STAIN) Routine 021 5:47 PM EDT Urinary tract infection without hematuria, site unspecified VITAMIN B12/ FOLIC ACID Routine 12/11/19 11:33 AM EDT Leg cramps LIPID SCREEN Routine 12/10/2020 11:33 AM EDT Lipid screening CBC WITH DIFF Routine 12/10/2020 11:33 AM EDT Generalized anxiety disorder Nonintractable headache, unspecified chronicity pattern, unspecified headache type Leg cramps COMPREHENSIVE METABOLIC PANEL Routine 12/10/2020 11:33 AM EDT Generalized anxiety disorder Nonintractable headache, unspecified chronicity pattern, unspecified headache type Leg cramps XR FOOT LEFT AP LATERAL AND OBLIQUE STANDING Routine 10/01/2020 11:55 AM EDT Pain in left foot Difficulty walking CORONAVIRUS 2019 Routine 09/17/2020 3:16 PM EDT Cough POCT LIAT SARS ANTIGEN Routine 09/18/19 3:10 PM EDT Cough POCT LIAT SARS ANTIGEN Routine 09/16/19 3:40 PM EDT Close exposure to COVID-19 virus Cough Chest congestion BASIC METABOLIC PANEL Routine 08/31/2020 9:29 AM EDT Therapeutic drug monitoring SEP URINALYSIS POC Routine 07/27/2020 3:09 PM EST Acute left-sided low back pain, unspecified whether sciatica present 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 CYTOLOGY REQUEST (PAP ONLY) Routine 05/07/2020 2:22 PM EST HGSIL (high grade squamous intraepithelial lesion) on Pap smear of cervix HPV (human papilloma virus) infection [facility] 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 CYTOLOGY ORDER Routine 0 2:22 PM EST HGSIL (high grade squamous intraepithelial lesion) on Pap smear of cervix HPV (human papilloma virus) infection HPV HIGH RISK WITH REFLEX TO GENOTYPE Routine 05/07/2020 2:22 PM EST HGSIL (high grade squamous intraepithelial lesion) on Pap smear of cervix HPV (human papilloma virus) infection MRI VENOGRAM INTRACRANIAL WO CONTRAST Routine 04/20/2020 8:32 AM EST IIH (idiopathic intracranial hypertension) MRI LUMBAR SPINE W WO CONTRAST STAT 04/16/2020 4:18 PM EST Acute left-sided low back pain with left-sided sciatica IR FLUOROSCOPY GUIDED BLOOD PATCH INJECTION Routine 04/09/2020 3:14 PM EST Spinal headache FL GUIDED LUMBAR PUNCTURE DIAGNOSTIC Routine 04/06/2020 9:08 AM EST [facility] PROTEIN CEREBROSPINAL FLUID Routine 04/06/2020 8:48 AM EST [facility] GLUCOSE CEREBROSPINAL FLUID Routine 04/06/2020 8:48 AM EST [facility] CSF CELL COUNT WITH DIFF Routine 020 8:48 AM EST [facility] MENINGITIS/ENCEPH PANEL Routine 04/06/20 20 8:48 AM EST [facility] CELL COUNT W/ DIFF CEREBROSPINAL FLUID ADDITIONAL Routine 04/06/2020 8:48 AM EST [facility] CSF ANALYSIS: CELL COUNT W/REFLEX, GLUCOSE AND PROTEIN Routine 04/06/2020 8:48 AM EST [facility] CEREBROSPINAL FLUID CULTURE (STAIN INCLUDED) Routine 04/06/2020 8:48 AM EST [facility] OCT, OPTIC NERVE - OU - BOTH EYES Routine 04/01/2020 9:09 AM EST Unspecified visual field defects MRI BRAIN W WO CONTRAST Routine 03/27/20 20 3:20 PM EDT [facility] DUNBAR VISUAL FIELD - OU - BOTH EYES Routine 03/23/2020 3:11 PM EDT Unspecified visual field defects OCT, OPTIC NERVE - OU - BOTH EYES Routine 03/19/2020 2:06 PM EDT Nonintractable headache, unspecified chronicity pattern, unspecified headache type XR ANKLE RIGHT AP LATERAL AND OBLIQUE Routine 02/18/2020 10:20 AM EDT Right ankle injury, initial encounter XR FOOT RIGHT AP LATERAL AND OBLIQUE Routine 02/18/2020 10:20 AM EDT Right foot injury, initial encounter CORONAVIRUS 2019 (COVID-19) - REF LAB Routine 02/10/2020 5:03 PM EDT Nonintractable headache, unspecified chronicity pattern, unspecified headache type VITAMIN D 25 HYDROXY Routine 02/10/2020 4:57 PM EDT Well adult exam Tired THYROID STIMULATING HORMONE Routine 02/10/2020 4:57 PM EDT Well adult exam Tired LIPID SCREEN Routine 02/10/2020 4:57 PM EDT Well adult exam Tired COMPREHENSIVE METABOLIC PANEL Routine 02/10/2020 4:57 PM EDT Well adult exam Tired CBC WITH DIFF Routine 02/10/2020 4:57 PM EDT Well adult exam Tired VITAMIN B12/ FOLIC ACID Routine 02/10/20 20 11:53 AM EDT Well adult exam Tired POCT GLUCOSE Routine 02/06/2020 4:33 PM EDT Shaky CHLAMYDIA/GC TMA-REF LAB Routine 020 9:45 AM EDT Screening for STDs (sexually transmitted diseases) ACUTE HEPATITIS PANEL Routine 01/31/2020 9:45 AM EDT Screening for STDs (sexually transmitted diseases) SYPHILIS SCREEN WITH REFLEX RPR QUANT Routine 01/31/2020 9:45 AM EDT Screening for STDs (sexually transmitted diseases) HIV AG/AB Routine 01/31/2020 9:45 AM EDT Screening for STDs (sexually transmitted diseases) TRICHOMONAS VAGINALIS BY TMA-REF LAB Routine 01/31/2020 9:45 AM EDT Screening for STDs (sexually transmitted diseases) TRICHOMONAS VAGINALIS TMA Routine 2019 9:45 AM EDT Screening for STDs (sexually transmitted diseases) CHLAMYDIA/GC Routine 01/31/2020 9:45 AM EDT Screening for STDs (sexually transmitted diseases) CREATINE KINASE Routine 12/19/2019 3:25 PM EDT Leg cramps MAGNESIUM LEVEL Routine 12/19/2019 3:25 PM EDT Leg cramps CBC Routine 12/19/2019 3:25 PM EDT Leg cramps COMPREHENSIVE METABOLIC PANEL Routine 12/19/2019 3:25 PM EDT Leg cramps CT HEAD WO CONTRAST Routine 12/06/2019 11:44 AM EDT Chronic mixed headache syndrome XR LUMBAR SPINE AP AND LATERAL Routine 11/19/2019 4:04 PM EDT Acute midline low back pain with left-sided sciatica SEP URINALYSIS POC Routine 11/19/2019 3:18 PM EDT Acute midline low back pain with left-sided sciatica 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 CYTOLOGY REQUEST (PAP ONLY) Routine 11/06/2019 10:28 AM EDT Encounter for repeat Papanicolaou smear of cervix HGSIL (high grade squamous intraepithelial lesion) on Pap smear of cervix 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 [facility] 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 CYTOLOGY ORDER Routine 0 10:28 AM EDT Encounter for repeat Papanicolaou smear of cervix HGSIL (high grade squamous intraepithelial lesion) on Pap smear of cervix 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 HPV HIGH RISK WITH REFLEX TO GENOTYPE Routine 11/06/2019 10:28 AM EDT Encounter for repeat Papanicolaou smear of cervix HGSIL (high grade squamous intraepithelial lesion) on Pap smear of cervix 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 SCANNED RHYTHM STRIPS 03/21/2019 11:58 AM EDT PATHOLOGY TISSUE REQUEST Routine 8:04 AM EDT ELLIE III with severe dysplasia HSIL on Pap smear of cervix INTRAOP AIRWAY PLACEMENT Routine 7:39 AM EDT CERVICAL CONIZATION/COLD KNIFE/BIOPSY DILATION AND CURETTAGE 03/19/2019 7:26 AM EDT ELLIE III with severe dysplasia HSIL on Pap smear of cervix Special Needs AC POCT URINE Routine 03/19/2019 6:16 AM EDT EK EKG 12 LEAD Routine 03/14/2019 9:45 AM EDT 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 CBC Routine 03/14/2019 9:15 AM EDT BASIC METABOLIC PANEL Routine 03/14/2019 9:15 AM EDT HSV DNA LESION Routine 02/28/2019 1:21 PM EDT Lesion of labia TSH REFLEX TO FT4 Routine 02/28/2019 9:51 AM EDT Moderate episode of recurrent major depressive disorder (HCC) Well adult exam Tired VITAMIN B12/ FOLIC ACID Routine 02/29/20 19 9:51 AM EDT Moderate episode of recurrent major depressive disorder (HCC) Well adult exam Tired VITAMIN D 25 HYDROXY Routine 02/28/2019 9:51 AM EDT Moderate episode of recurrent major depressive disorder (HCC) Well adult exam Tired LIPID SCREEN Routine 02/28/2019 9:51 AM EDT Moderate episode of recurrent major depressive disorder (HCC) Well adult exam Tired COMPREHENSIVE METABOLIC PANEL Routine 02/28/2019 9:51 AM EDT Moderate episode of recurrent major depressive disorder (HCC) Well adult exam Tired CBC WITH DIFF Routine 02/28/2019 9:51 AM EDT Moderate episode of recurrent major depressive disorder (HCC) Well adult exam Tired PATHOLOGY TISSUE REQUEST Routine 019 9:34 AM EDT High grade squamous intraepithelial lesion (HGSIL) on cytologic smear of cervix HPV in female POCT URINE Routine 02/18/2019 8:58 AM EDT Procedure, test, or exam not indicated 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 CYTOLOGY REQUEST (PAP ONLY) Routine 01/14/2019 9:23 AM EDT High grade squamous intraepithelial lesion (HGSIL) on cytologic smear of cervix [facility] 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 CYTOLOGY ORDER Routine 9 9:23 AM EDT High grade squamous intraepithelial lesion (HGSIL) on cytologic smear of cervix HPV GENOTYPE Routine 01/14/2019 9:23 AM EDT High grade squamous intraepithelial lesion (HGSIL) on cytologic smear of cervix HPV HIGH RISK WITH REFLEX TO GENOTYPE Routine 01/14/2019 9:23 AM EDT High grade squamous intraepithelial lesion (HGSIL) on cytologic smear of cervix US PELVIS AND TRANSVAGINAL NON OB COMPLETE Routine 12/13/2018 9:02 AM EDT Infertility, female History of endometriosis PATHOLOGY TISSUE REQUEST Routine 019 9:29 AM EDT History of cervical dysplasia History of loop electrical excision procedure (LEEP) High grade squamous intraepithelial lesion (HGSIL) on cytologic smear of cervix POCT URINE Routine 09/11/2018 8:43 AM EDT Procedure, test, or exam not indicated 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 CYTOLOGY REQUEST (PAP ONLY) Routine 08/20/2018 9:46 AM EDT History of loop electrical excision procedure (LEEP) History of cervical dysplasia [facility] 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 CYTOLOGY ORDER Routine 9 9:46 AM EDT History of loop electrical excision procedure (LEEP) History of cervical dysplasia HPV GENOTYPE Routine 08/20/2018 9:46 AM EDT History of loop electrical excision procedure (LEEP) History of cervical dysplasia HPV HIGH RISK WITH REFLEX TO GENOTYPE Routine 08/20/2018 9:46 AM EDT History of loop electrical excision procedure (LEEP) History of cervical dysplasia SCANNED RHYTHM STRIPS 05/08/2018 9:30 AM EST PATHOLOGY TISSUE REQUEST Routine 12:28 PM EST ELLIE III with severe dysplasia INTRAOP AIRWAY PLACEMENT Routine 12:17 PM EST LOOP ELECTROSURGICAL EXCISION PROCEDURE (LEEP) 05/04/2018 11:51 AM EST ELLIE III with severe dysplasia POCT URINE Routine 05/04/2018 10:05 AM EST Preop testing HGSIL (high grade squamous intraepithelial lesion) on Pap smear of cervix PATHOLOGY TISSUE REQUEST Routine 9:29 AM EDT HGSIL (high grade squamous intraepithelial lesion) on Pap smear of cervix POCT URINE Routine 03/26/2018 8:44 AM EDT Encounter for test, result unknown THYROID STIMULATING HORMONE Routine 03/20/2018 11:16 AM EDT Moderate episode of recurrent major depressive disorder (HCC) Mood swings VITAMIN B12/ FOLIC ACID Routine 03/20/20 18 11:16 AM EDT Moderate episode of recurrent major depressive disorder (HCC) Mood swings VITAMIN D 25 HYDROXY Routine 03/20/2018 11:16 AM EDT Moderate episode of recurrent major depressive disorder (HCC) Mood swings COMPREHENSIVE METABOLIC PANEL Routine 03/20/2018 11:16 AM EDT Moderate episode of recurrent major depressive disorder (HCC) Mood swings CBC WITH DIFF Routine 03/20/2018 11:16 AM EDT Moderate episode of recurrent major depressive disorder (HCC) Mood swings URINE CULTURE (NO STAIN) Routine 018 10:48 AM EDT Dysuria POCT URINALYSIS DIPSTICK Routine 018 10:46 AM EDT Dysuria VAGINAL PANEL Routine 03/07/2018 9:41 AM EDT Trichimoniasis 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 CYTOLOGY REQUEST (PAP ONLY) Routine 02/05/2018 11:54 AM EDT Visit for gynecologic examination [facility] 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 CYTOLOGY ORDER Routine 8 11:54 AM EDT Visit for gynecologic examination TRICHOMONAS VAGINALIS BY TMA Routine 02/05/2018 11:54 AM EDT Visit for gynecologic examination GC CHLAMYDIA THIN PREP Routine 8 11:54 AM EDT Visit for gynecologic examination CHLAMYDIA/GC BY TMA Routine 02/05/2018 11:54 AM EDT Possible exposure to STD CHLAMYDIA/GC Routine 02/05/2018 11:54 AM EDT Possible exposure to STD HIV AG/AB Routine 02/05/2018 11:53 AM EDT Possible exposure to STD ACUTE HEPATITIS PANEL Routine 02/05/2018 11:53 AM EDT Possible exposure to STD SYPHILIS SCREEN WITH REFLEX RPR QUANT Routine 02/05/2018 11:53 AM EDT Possible exposure to STD COMPREHENSIVE METABOLIC PANEL Routine 11/28/2017 10:43 AM EDT Nail fungus SCANNED OR REPORT 12/19/2009 12:00 AM EDT MRI LOWER EXT JOINT W/WO LT Routine 01/06/2009 12:00 AM EDT BETA HCG QUALITATIVE KIT TEST, URINE Routine 01/04/2009 10:50 PM EDT DIAG FOOT MIN 3 VIEWS LT Routine 009 12:[address] ABD/PELVIS METAL BOX MAKER Routine 07/10/2008 8:45 PM EST PN TRANSVAGINAL (PREG) Routine 9 12:23 AM EST XX CHEST PA & LATERAL Routine 11/30/2004 11:04 AM EDT Results * (ABNORMAL) SEP URINALYSIS POC (04/10/2025 11:44 AM EST) Only the most recent of12 resultswithin the time period is included. UA Color POC Yellow Color 04/10/2025 11:48 AM EST [facility] [place] [facility] Appear POC Clear Clear 04/10/2025 11:48 AM EST [facility] [place] [facility] Gluc POC Negative Negative mg/dL 04/10/2025 11:48 AM EST [facility] [place] [facility] Bili POC Negative Negative 04/10/2025 11:48 AM EST [facility] [place] [facility]A Ketones POC Negative Negative mg/dL 04/10/2025 11:48 AM EST [facility] [place] UA SG POC 1.025 1.001 - 1.035 no units 04/10/2025 11:48 AM EST [facility] [place] UA Blood POC Large(A) Negative 04/10/2025 11:48 AM EST [facility] [place] UA pH POC 7.0 5.0 - 8.0 pH 04/10/2025 11:48 AM EST [facility] [place] UA Protein POC 30(A) Negative mg/dL 04/10/2025 11:48 AM EST [facility] [place] [facility]A Urobilinogen POC 2.0(A) 0.2, 1.0 04/10/2025 11:48 AM EST [facility] UA Nitrite POC Negative Negative 04/10/2025 11:48 AM EST [facility] UA Leuk Est POC Trace(A) Negative 11:48 AM EST [facility] Urine STRUCTURE OF URINARY TRACT PROPER / Unknown 04/10/2025 11:44 AM EST 04/10/2025 11:48 AM EST Kamini Turner GLUELINE WORKER POINT OF CARE TEST ORDERA BLES Final Result Performing Organization Address [facility] Co de Phone Number [facility] [address] [place] [address] * (ABNORMAL) HUMAN CHORIONIC GONADOTROPIN QUANTITATIVE (04/09/2025 2:51 PM EST) Only the most recent of2 resultswithin the time period is included. Hcg Quant 121(H) <5 mIU/mL 04/09/2025 8:26 PM EST [facility] Blood VENOUS BLOOD / Unknown Venipuncture / Unknown 04/09/2025 2:51 PM EST 04/09/2025 2:52 PM EST Narrative [facility] - 04/09/2025 8:26 PM EST Female (non-): 0-4.9 mIU/mL Female (postmenopausal): 0-8.1 mIU/mL Indeterminate values for (e.g., 5-25 mIU/mL) may be confirmed with a repeat test in 48-72 hours. Values in should double every 2-3 days for the first six weeks. Ingestion of nicci doses of biotin (>5 mg/day) taken within 8 hours of drawing blood sample can interfere with this immunoassay test. Akua Reed DO CHEMISTRY ORDERABLES Fin al Result Performing Organization Address City/[facility]/ZIP Co de Phone Number [facility] [address] [facility] , [place] [address] * HIV AG/AB (02/17/2025 3:35 PM EDT) Only the most recent of5 resultswithin the time period is included. Pathologist [facility] HIV Ag/AB Non-Reacti ve Non-Reacti ve 02/17/2025 9:46 PM EDT [facility] Comment:Negative for HIV-1 a ntigen and anti-HIV-1/anti-HIV-2 antibodies. Blood VENOUS BLOOD / Unknown Venipuncture / Unknown 02/17/2025 3:35 PM EDT 02/17/2025 3:35 PM EDT Narrative [facility] - 02/17/2025 9:46 PM EDT Test performed using [employer] electrochemiluminescence immunassay (ECLIA). Kamini Turner APRN IMMUNOLOGY ORDERABLES Fin al Result Performing Organization Address [facility]/ZIP Co de Phone Number [facility] [address] [facility] , [place] [address] * TRICHOMONAS VAGINALIS BY TMA (02/17/2025 3:35 PM EDT) Only the most recent of2 resultswithin the time period is included. [facility] Trichomonas vaginalis by TMA Not Detected Not Detected 02/18/2025 5:50 PM EDT [facility] Urine STRUCTURE OF URINARY TRACT PROPER / Unknown 02/17/2025 3:35 PM EDT 02/17/2025 3:35 PM EDT [facility] - 02/18/2025 5:50 PM EDT Test methodology is housekeeping and laundry team leader mediated amplification (TMA) using the Aptima Trichomonas vaginalis assay from [employer]. A negative result does not completely rule out a Trichomonas vaginalis infection due to potential inhibitors or levels present below the limit of detection of this assay. Results are dependent on proper collection and transport of specimen. This test is indicated for medical purposes only and should not be used for legal or forensic purposes. Kamini Turner APRN MICROBIOLOGY - GENERAL OR DERABLES Final Result Performing Organization Address [facility]/ZIP Co de Phone Number [facility] [address] [place] [address] * SYPHILIS SCREEN WITH REFLEX RPR QUANT (02/17/2025 3:35 PM EDT) Only the most recent of4 resultswithin the time period is included. [facility] Trep Ab Index 0.10 <=0.99 Index Value 02/17/2025 10:59 PM EDT [facility] Comment: < 1.00 - Non-Reactive >=1.00 - Reactive NOTE: All reactive results will be reflexed to Quantitative Non-Treponemal(RPR)test. Blood VENOUS BLOOD / Unknown Venipuncture / Unknown 02/17/2025 3:35 PM EDT 02/17/2025 3:35 PM EDT us Kamini Turner GLUELINE WORKER CHEMISTRY ORDERABLES Jackie l Result [facility] [employer] , [place] [address] * CHLAMYDIA/GC BY TMA (02/17/2025 3:35 PM EDT) Only the most recent of2 resultswithin the time period is included. [facility] Chlamydia trachomatis Not Detected Not Detected 02/18/2025 5:24 PM EDT [facility] Neisseria gonorrhoeae Not Detected Not Detected 02/18/2025 5:24 PM EDT [facility] Urine STRUCTURE OF URINARY TRACT PROPER / Unknown 02/17/2025 3:35 PM EDT 02/17/2025 3:35 PM EDT Narrative [facility] - 02/18/2025 5:24 PM EDT Testing methodology is housekeeping and laundry team leader mediated amplification (TMA) using the Aptima Combo 2 assay from [employer]. A negative result does not completely rule [...] methodology is available upon request. Kamini Turner GLUELINE WORKER MICROBIOLOGY - GENERAL OR DERABLES Final Result Performing Organization Address [facility]/ZIP Co de Phone Number [facility] [employer], [address] , [place] [address] * ACUTE HEPATITIS PANEL (02/17/2025 3:35 PM EDT) Only the most recent of4 resultswithin the time period is included. Hep Bs Ag Non-Reacti ve Non-React liane 02/17/2025 9:51 PM EDT [facility] [employer], [facility] Comment:HBsAg not detected. Does not exclude possibility of exposure to HBV. Hep B Core IgM Non-Reacti ve Non-React liane 02/17/2025 9:51 PM EDT [facility] [employer], [facility] Hep A IgM Non-Reacti ve Non-React liane 02/17/2025 9:51 PM EDT [facility] [employer], [facility] Hep C Ab Non-Reacti ve Non-React liane 02/17/2025 9:51 PM EDT [facility] [employer], [facility] Comment:No antibodies to HCV detected. Does not exclude possibility of exposure to HCV. Blood VENOUS BLOOD / Unknown Venipuncture / Unknown 02/17/2025 3:35 PM EDT 02/17/2025 3:35 PM EDT Narrative [facility] [employer], [facility] - 02/17/2025 9:51 PM EDT Test performed using [employer] electrochemiluminescence immunassay (ECLIA). Kamini Caroline Turner GLUELINE WORKER CHEMISTRY ORDERABLES Jackie l Result Performing Organization Address [facility]/ZIP Co de Phone Number [facility] [employer], [facility] [address] [facility] , [place] [address] * (ABNORMAL) CBC WITH DIFF (02/17/2025 3:35 PM EDT) Only the most recent of26 resultswithin the time period is included. WBC 9.7 3.7 - 10.3 x10(3)/mcL 02/17/2025 [...] 8:15 PM EDT [facility] [place] Percent 7.3 % 02/17/2025 8:15 PM EDT [facility] Eos Percent 1.5 % 02/17/2025 8:15 PM EDT [facility] Baso Percent 0.6 % 02/17/2025 8:15 PM EDT [facility] [employer], [facility] Neut # 6.3(H) 1.6 - 6.1 x10(3)/[facility] 02/17/2025 8:15 PM EDT [facility] [employer], [facility] Comment:Neutrophils equals s egs plus bands IMMGRAN# 0.0 0.0 - 0.1 x10(3)/[facility] 02/17/2025 8:15 PM EDT [facility] [employer], [facility] Comment:Automated count of m etamyelocytes, myelocytes and promyelocytes. An absolute IG <0.1 is reported as 0.0. Lymph # 2.4 1.2 - 3.9 x10(3)/[facility] 02/17/2025 8:15 PM EDT [facility] [employer], [facility] [place] # 0.7 0.3 - 0.9 x10(3)/[facility] 02/17/2025 8:15 PM EDT [facility] [employer], [facility] Eos# 0.1 0.0 - 0.5 x10(3)/[facility] 02/17/2025 8:15 PM EDT [facility] [employer], [facility] Baso # 0.1 0.0 - 0.1 x10(3)/[facility] 02/17/2025 8:15 PM EDT [facility] [employer], [facility] Blood VENOUS BLOOD / Unknown Venipuncture / Unknown 02/17/2025 3:35 PM EDT 02/17/2025 3:35 PM EDT Kamini Turner APRN HEMATOLOGY ORDERABLES Fin al Result [facility] [employer], [facility] [address] [facility] , [address] [place] [id number] * PHOSPHORUS LEVEL (02/17/2025 3:35 PM EDT) Only the most recent of6 resultswithin the time period is included. Phosphorus 3.5 2.5 - 4.5 mg/dL 02/17/2025 9:21 PM EDT [facility] [employer], [facility] Blood VENOUS BLOOD / Unknown Venipuncture / Unknown 02/17/2025 3:35 PM EDT 02/17/2025 3:35 PM EDT us Kaci Graham MD CHEMISTRY ORDERABLES Final R esult Performing Organization Address City/[facility]/ZIP Co de Phone Number [facility] [address] [facility] , [place] [address] * LIPID SCREEN (02/17/2025 3:35 PM EDT) Only the most recent of7 resultswithin the time period is included. [facility] Cholesterol 138 <200 mg/dL 02/17/2025 9:21 PM EDT [facility] Comment: < 200 Desirable 200 - 239 Borderline High >= 240 High Triglyceride 82 <150 mg/dL 02/17/2025 9:21 PM EDT [facility] Comment: < 150 Normal 150 - 199 Borderline High 200 - 499 High >= 500 Very High HDL 45 >=40 mg/dL 02/17/2025 9:21 PM EDT [facility] Comment: > 60 Optimal 40 - 60 Acceptable < 40 Low LDL Calculated 77 <100 mg/dL 02/17/2025 9:21 PM EDT [facility] Comment: < 100 Optimal 100 - 129 Near or above optimal 130 - 159 Borderline High 160 - 189 High >= 190 Very High The National Institutes of Health (NIH) equation is used for all lipid panels that report calculated LDL (LDL-C). Non-HDL-C Calculated 93 <=129 mg/dL 02/17/2025 9:21 PM EDT [facility] Comment: <130 Desirable 130-159 Above Desirable 160-189 Borderline High 190-219 High >= 220 Very High Fasting Specimen? Yes None 025 9:21 PM EDT [facility] Blood VENOUS BLOOD / Unknown Venipuncture / Unknown 02/17/2025 3:35 PM EDT 02/17/2025 3:35 PM EDT us Kamini Caroline Turner APRN CHEMISTRY ORDERABLES Jackie l Result Performing Organization Address City/[facility]/ZIP Co de Phone Number [employer] 1 [facility] , [place] [address] * (ABNORMAL) COMPREHENSIVE METABOLIC PANEL (02/17/2025 3:35 PM EDT) Only the most recent of21 resultswithin the time period is included. Sodium 137 136 - 145 mmol/L 02/17/2025 9:21 PM EDT [facility] Potassium 4.0 3.5 - 5.0 mmol/L 02/17/2025 9:21 PM EDT [facility] Chloride 107 98 - 107 mmol/L 02/17/2025 9:21 PM EDT [facility] Total CO2 18(L) 22 - 29 mmol/L 02/17/2025 9:21 PM EDT [facility] Anion Gap 12 7 - 16 mmol/L 02/17/2025 9:21 PM EDT [facility] Calcium 9.6 8.6 - 10.4 mg/dL 02/17/2025 9:21 PM EDT [facility] Glucose Lvl 104(H) 70 - 99 mg/dL 02/17/2025 9:21 PM EDT [facility] BUN 16 6 - 20 mg/dL 02/17/2025 9:21 PM EDT [facility] Creatinine 0.77 0.51 - 1.30 mg/dL 02/17/2025 9:21 PM EDT [facility] Albumin 4.3 3.5 - 5.2 gm/dL 02/17/2025 9:21 PM EDT [facility] Total Protein 7.7 6.4 - 8.3 gm/dL 02/17/2025 9:21 PM EDT [facility] Bili Total 0.5 0.2 - 1.3 mg/dL 02/17/2025 9:21 PM EDT [facility] ALT 30 <=41 U/L 02/17/2025 9:21 PM EDT [facility] AST 33 <=40 U/L 02/17/2025 9:21 PM EDT [facility] Alk Phos 58 36 - 123 U/L 02/17/2025 9:21 PM EDT [facility] eGFR (CKD-EPIcr 2020) 101 >=60 mL/min/1.7 3 m2 02/17/2025 9:21 PM EDT [facility] [facility] Comment:Estimated GFR was ca lculated using the CKD-EPIcr (2020) equation refit without race. The equation is recommended by the National Kidney Foundation - [place] [employer] Nephrology Task Force. Blood VENOUS BLOOD / Unknown Venipuncture / Unknown 02/17/2025 3:35 PM EDT 02/17/2025 3:35 PM EDT us Kamini Turnerdox GLUELINE WORKER CHEMISTRY ORDERABLES Jackie l Result Performing Organization Address [facility]/ZIP Co de Phone Number [employer] [facility] 1 [facility] , [place] [address] * MICROALBUMIN/CREATININE RATIO URINE (01/09/2025 2:57 PM EDT) Urine Albumin <12.0 mg/L 01/09/2025 7:58 PM EDT [facility] [employer] [facility] Urine Creatinine 150.0 mg/dL 01/10/20 7:58 PM EDT [facility] [employer] [facility] Ur Albumin/Creat Ratio 01/09/2025 7:58 PM EDT [facility] Comment: Because the albumin level is below the level of detection in this urine specimen, the laboratory is unable to calculate a reliable albumin/creatinine ratio. Microalbuminuria is unlikely if the urine albumin concentration is less than 20- 30 mg/L in a random specimen. Urine STRUCTURE OF URINARY TRACT PROPER / Unknown 01/09/2025 2:57 PM EDT 01/09/2025 2:57 PM EDT Kamini Turnerdox GLUELINE WORKER URINE ORDERABLES Final Re sult Performing Organization Address [facility] Co de Phone Number [facility] [employer] [facility] 1 [facility] , [place] [address] [facility] 1 [place] [address] * POCT GLYCATED HEMOGLOBIN, TOTAL (01/09/2025 2:57 PM EDT) Only the most recent of3 resultswithin the time period is included. Hemoglobin A1C 5.9 4 - 6 % SEP OFFICE Lot Number [id number] SEP OFFICE Expiration Date 09/11/2026 SEP OFFICE SeriAl # SEP OFFICE 01/09/2025 2:57 PM EDT us Kamini Turner GLUELINE WORKER POINT OF CARE TEST ORDERA BLES Final Result SEP OFFICE * MRI FOOT RIGHT WO CONTRAST (11/13/2024 7:28 AM EDT) Only the most recent of2 resultswithin the time period is included. Anatomical Region Laterality Modality Foot, Toes, Calcaneus, Tarsal Joint Magnetic Resonance 11/13/2024 7:28 AM EDT Impressions 11/13/2024 10:05 AM EDT 1. Healed cuboid fracture. No clinically recent fracture. 2. Mild hallux MTP joint capsulitis with frayed/torn appearance of the hallux MTP plantar plate. 3. Mild first webspace intermetatarsal bursitis. 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 - Note: Radiology results need to be interpreted within a comprehensive clinical context. If you have questions about the radiology report, please contact the office of the ordering clinician. Narrative 11/13/2024 10:05 AM EDT MRI FOOT RIGHT WO CONTRAST 11/13/2024 7:28 AM CLINICAL HISTORY: M84.374A-Stress fracture, right foot, initial encounter for [id number]-WRY-30-CM M79.674-Pain in right toe(s)-ICD-10-CM R26.2-Difficulty in walking, not elsewhere [id number] COMPARISON: Right foot radiographs 10/20/2023; MRI 07/21/2023. TECHNIQUE: Multiplanar, multisequence MR images of the right foot were obtained without the use of contrast. FINDINGS: BONES & JOINTS: The previously noted cuboid fracture has healed. No clinically recent fracture or evidence of active osseous stress reaction edema. Alignment maintained. No worrisome replacing process. No AVN. Mild hallux MTP joint capsulitis noted. Frayed/torn appearance of the hallux MTP plantar plate. No hallux MTP cartilage defect. Other joint spaces are maintained. SOFT TISSUES: Mild first intermetatarsal bursitis. Dumbbell shaped focus in the second intermetatarsal webspace compatible with perineural scarring/Catalan's neuroma lesion. Remote sprain changes of the Lisfranc ligament again noted. No acute appearing injury or high-grade defect. Intact tibialis anterior and visualized forefoot extensor tendons. Intact visualized forefoot flexor tendons. Intact visualized peroneus longus tendon. Intrinsic musculature signals maintained. Intact plantar fascia. --- Procedure Note Callum Wu MD - 11/13/2024 MRI FOOT RIGHT WO CONTRAST 11/13/2024 7:28 AM CLINICAL HISTORY: M84.374A-Stress fracture, right foot, initial encounterfor [id number]-[id number]-29-CM M79.674-Pain in right toe(s)-ICD-10-CM R26.2-Difficulty in walking, not elsewhere [id number]-[id number] COMPARISON: Right foot radiographs 10/20/2023; MRI 07/21/2023. TECHNIQUE: Multiplanar, multisequence MR images of the right foot wereobtained without the use of contrast. FINDINGS: BONES & JOINTS: The previously noted cuboid fracture has healed. Noclinically recent fracture or evidence of active osseous stress reaction edema.Alignment maintained. No worrisome replacing process. No AVN. Mild hallux MTPjoint capsulitis noted. Frayed/torn appearance of the hallux MTP plantar plate.No hallux MTP cartilage defect. Other joint spaces are maintained. SOFT TISSUES: Mild first intermetatarsal bursitis. Dumbbell shaped focusin the second intermetatarsal webspace compatible with perineuralscarring/Catalan's neuroma lesion. Remote sprain changes of the Lisfranc ligament again noted. No acuteappearing injury or high-grade defect. Intact tibialis anterior and visualizedforefoot extensor tendons. Intact visualized forefoot flexor tendons. Intactvisualized peroneus longus tendon. Intrinsic musculature signals maintained. Intactplantar fascia. --- IMPRESSION: 1. Healed cuboid fracture. No clinically recent fracture. 2. Mild hallux MTP joint capsulitis with frayed/torn appearance of thehallux MTP plantar plate. 3. Mild first webspace intermetatarsal bursitis. Perineuralscarring/small Catalan's neuroma lesion in the second intermetatarsal webspace. - Note: Radiology results need to be interpreted within a comprehensiveclinical context. If you have questions about the radiology report, please contactthe office of the ordering clinician. Tyshawn Hernandez DPM IMG MRI ORDERABLES Final R esult * DUNBAR VISUAL FIELD - OU - BOTH EYES (10/16/2024 4:19 PM EDT) Narrative SEP OFFICE - 10/16/2024 4:19 PM EDT Patient is here for follow up imaging. Right Eye Reliability was borderline. Progression has been stable. Foveal threshold was normal. Findings include non-specific defects. Left Eye Reliability was good. Progression has been stable. Foveal threshold was normal. Findings include non-specific defects. Mike Stover MD OPHTHALMOLOGY SERVICES O RDERABLES Final Result Performing Organization Address [facility] Co de Phone Number SEP OFFICE * OCT, OPTIC NERVE - OU - BOTH EYES (10/16/2024 4:19 PM EDT) Narrative SEP OFFICE - 10/16/2024 4:19 PM EDT Patient is here for follow up imaging. Right Eye Reliability was good. Superior thickness was showing abnormal thinning. Nasal thickness was showing abnormal thinning. Inferior thickness was showing abnormal thinning. Left Eye Reliability was good. Temporal thickness was showing abnormal thinning. Nasal thickness was showing abnormal thinning. Inferior thickness was showing abnormal thinning. Mike Stover MD OPHTHALMOLOGY SERVICES O RDERABLES Final Result Performing Organization Address [facility] Co de Phone Number SEP OFFICE * (ABNORMAL) RENAL FUNCTION PANEL (10/10/2024 2:31 PM EDT) Only the most recent of23 resultswithin the time period is included. Sodium 139 136 - 145 mmol/L 10/10/2024 9:17 PM EDT [facility] Potassium 3.6 3.5 - 5.0 mmol/L 10/10/2024 9:17 PM EDT [facility] Chloride 108(H) 98 - 107 mmol/L 10/10/2024 9:17 PM EDT [facility], [facility] Total CO2 18(L) 22 - 29 mmol/L 10/10/2024 9:17 PM EDT [facility] Anion Gap 13 7 - 16 mmol/L 10/10/2024 9:17 PM EDT [facility] Calcium 10.0 8.6 - 10.4 mg/dL 10/10/2024 9:17 PM EDT [facility], [facility] Glucose Lvl 109(H) 70 - 99 mg/dL 10/10/2024 9:17 PM EDT [facility], [facility] BUN 14 6 - 20 mg/dL 10/10/2024 9:17 PM EDT [facility] Creatinine 0.89 0.51 - 1.30 mg/dL 10/10/2024 9:17 PM EDT [facility] Albumin 4.6 3.5 - 5.2 gm/dL 10/10/2024 9:17 PM EDT [facility], [facility] Phosphorus 4.3 2.5 - 4.5 mg/dL 10/10/2024 9:17 PM EDT [facility], [facility] eGFR (CKD-EPIcr 2020) 86 >=60 mL/min/1.7 3 m2 10/10/2024 9:17 PM EDT [facility] Comment:Estimated GFR was ca lculated using the CKD-EPIcr (2020) equation refit without race. The equation is recommended by the National Kidney Foundation - [place] [employer] of Nephrology Task Force. Blood VENOUS BLOOD / Unknown Venipuncture / Unknown 10/10/2024 2:31 PM EDT 10/10/2024 2:31 PM EDT us Kaci Graham MD CHEMISTRY ORDERABLES Final R esult [facility], [facility] 1 [facility] , [address] [place] [phone] * VITAMIN D 25 HYDROXY (10/01/2024 2:30 PM EDT) Only the most recent of11 resultswithin the time period is included. Pathologist [facility] Vit D 25 OH 70.2 30.0 - 150.0 ng/mL 10/01/2024 9:13 PM EDT [facility] [employer] Comment: Preferred: >= 30 ng/mL Insufficient: 21-29 ng/mL Deficient <= 20 ng/mL Possible Toxicity: >150 ng/mL Samples should not be taken from patients receiving therapy with high biotin doses (i.e. > 5 mg/day) until at least 8 hours following the last biotin administration. Blood VENOUS BLOOD / Unknown Venipuncture / Unknown 10/01/2024 2:30 PM EDT 10/01/2024 2:30 PM EDT Tyshawn Hernandez DP CHEMISTRY ORDERABLES Final Result [facility] [employer] [facility] 1 [facility] , [place] [address] * PARATHYROID HORMONE INTACT (10/01/2024 2:30 PM EDT) [facility] PTH Intact 26.50 15.00 - 65.00 pg/mL 10/01/2024 8:47 PM EDT [facility] [employer] [facility] Blood VENOUS BLOOD / Unknown Venipuncture / Unknown 10/01/2024 2:30 PM EDT 10/01/2024 2:30 PM EDT Narrative [facility] [employer] - 10/01/2024 8:47 PM EDT Intact PTH Calcium Interpretation ------- 15 - 65 8.6 - 10.2 Normal > 65 > 10.2 Primary Hyperparathyroidism < 20 > 10.2 Non-Parathyroid hypercalcemia < 15 < 8.6 Hypoparathyroidism Consider the above as guidelines only. PTH results should be interpreted in conjunction with the total or ionized calcium level. The finding of a persistently high-normal calcium accompanied by a high-normal PTH (or a low-normal calcium accompanied by a low-normal PTH) warrants further investigation. Although the PTH may itself be within normal limits, it may be inappropriately high (or low) relative to the circulating calcium level. Ingestion of nicci doses of biotin (>5 mg/day) taken within 8 hours of drawing blood sample can interfere with this immunoassay test. Tyshawn Hernandez DP CHEMISTRY ORDERABLES Final Result Performing Organization Address City/[facility]/ZIP Co de Phone Number [facility] [employer] [address] , [address] [place] [phone] * POCT CEPHEID SARS COV-2 RNA + FLU A/B + RSV (08/09/2024 11:16 AM EDT) [facility] SARS COV-2 RNA Negative Negative, Invalid SEP OFFICE INFLUENZA A Negative Negative, Invalid SEP OFFICE INFLUENZA B Negative Negative, Invalid SEP OFFICE RSV Negative Negative, Invalid SEP OFFICE Lot Number [id number] SEP OFFICE Expiration Date 02/09/2025 SEP OFFICE SeriAl # SEP OFFICE Control Line Yes YES/NO SEP OFFICE 08/09/2024 11:1 6 AM EDT Kamini Turner APRN POINT OF CARE TEST ORDERA BLES Final Result Performing Organization Address [facility] de Phone Number SEP OFFICE * (ABNORMAL) POCT URINE MICROALBUMIN (07/09/2024 11:06 AM EST) Only the most recent of2 resultswithin the time period is included. Pathologist [facility] Albumin, Ur 80 mg/L 07/09/2024 11:08 AM EST [facility] [place] Creatinine Urine 300 mg/dL 07/09/2024 11:08 AM EST [facility] [place] Albumin/Creat Ratio 30 - 300(A) <30 mg/g 07/09/2024 11:08 AM EST [facility] [place] Urine URINE SPECIMEN COLLECTION / Unknown 07/09/2024 11:06 AM EST 07/09/2024 11:08 AM EST Kamini Turner APRN POINT OF CARE TEST ORDERA ALICIA Final Result [facility] [address] [place] [id number] * DX BONE DENSITY AXIAL SKELETON (04/04/2024 3:23 PM EST) Anatomical Region Laterality Modality Dexa Scan 04/04/2024 Impressions 04/08/2024 1:04 PM EST Indication: This is a pre-menopausal patient with history of multiple fractures that requires a DXA scan Study was performed on [place] 5. Bone Density: Region BMD T-score Z-score AP Spine (L1, L3, L4) 0.997 -0.5 -0.4 Femoral Neck (Left) 0.761 -0.8 -0.6 Total Hip (Left) 1.037 0.8 0.9 Femoral Neck (Right) 0.856 0.1 0.3 Total Hip (Right) 1.012 0.6 0.7 1/3 Radius (Left) 0.685 -0.1 0.1 World Health Organization criteria for BMD interpretation classify patients as: Normal (T-score at or above -1.0), Low Bone Density (T-score between -1.0 and -2.5), or Osteoporotic (T-score at or below -2.5). T Scores are reported in Postmenopausal women and in men age 50 and older. Z-scores are reported in females prior to menopause and in males younger than age 50. 10-year Fracture Risk: FRAX not reported because: All T-scores for Spine Total, Hip Total, Femoral Neck at or above -1.0 Clinical Information Provided by Patient: Has had a low trauma fracture Has used or is currently using the following medications: Vitamin D, Chemotherapy drugs, Diuretic, Depo-medrixyprogesterone Has had or currently has the following medical conditions: Diabetes Mellitus, Back pain, Hip pain, Liver disease, Depression, SJOGREN'S SYNDR Patient maximum height was 62.0 Patient is PREMENOPAUSAL RT ANKLE FX LT FOOT FX Interpretation: --Z-scores are used for females prior to menopause.-- Bone mineral density is within expected range for age. Reported by: Dorothy Aguirre PA-C, ZAY on 04/04/2024 4:11:00 PM. Tyshawn P David DPM IMG DEXA ORDERABLES Final Result * CT SINUS WO CONTRAST (04/04/2024 2:45 PM EST) Anatomical Region Laterality Modality Head Computed Tomogra phy 04/04/2024 2:45 PM EST Impressions 04/04/2024 10:38 PM EST No acute sinus inflammatory changes. - Note: Radiology results need to be interpreted within a comprehensive clinical context. If you have questions about the radiology report, please contact the office of the ordering clinician. Narrative 04/04/2024 10:[address] SINUS WO CONTRAST 04/04/2024 2:45 PM CLINICAL HISTORY: R09.81-Nasal vxtgzpndqj-MTK-16-CM J32.9-Chronic sinusitis, [id number]-[id number]-52-CM. COMPARISON: CT brain January 04, 2024 PROCEDURE COMMENTS: Volumetric helical scanning of the paranasal sinuses. Multiplanar reconstructions at bone and soft tissue algorithm. Dose 1 : CT DLP Total : 334.37 mGycm DLP Spiral Max : 324.02 mGycm Maximum CTDI Vol : 21.57 mGy FINDINGS: Nasal cavity: There is no septal perforation. There is small left-sided septal spur with minimal leftward septal drift. Frontal sinuses: Frontal sinuses clear. Nasofrontal ducts patent. Ethmoid sinuses: Ethmoid sinuses overall clear. Maxillary sinuses: Maxillary sinuses clear. Ostiomeatal units patent. Sphenoid sinuses: Sphenoid sinuses clear. Sphenoethmoidal recesses clear. Other: Visible orbital contents unremarkable. Procedure Note Quique Swan MD - 04/04/2024 CT SINUS WO CONTRAST 04/04/2024 2:45 PM CLINICAL HISTORY: R09.81-Nasal ylxquyqdnn-JFF-83-CM J32.9-Chronic sinusitis, quzfgukpzfy-BNH-69-CM. COMPARISON: CT brain January 04, 2024 PROCEDURE COMMENTS: Volumetric helical scanning of the paranasalsinuses. Multiplanar reconstructions at bone and soft tissue algorithm. Dose 1 : CT DLP Total : 334.37 mGycm DLP Spiral Max : 324.02 mGycm Maximum CTDI Vol : 21.57 mGy FINDINGS: Nasal cavity: There is no septal perforation. There is small left-sidedseptal spur with minimal leftward septal drift. Frontal sinuses: Frontal sinuses clear. Nasofrontal ducts patent. Ethmoid sinuses: Ethmoid sinuses overall clear. Maxillary sinuses: Maxillary sinuses clear. Ostiomeatal units patent. Sphenoid sinuses: Sphenoid sinuses clear. Sphenoethmoidal recessesclear. Other: Visible orbital contents unremarkable. IMPRESSION: No acute sinus inflammatory changes. - Note: Radiology results need to be interpreted within a comprehensiveclinical context. If you have questions about the radiology report, please contactthe office of the ordering clinician. Kamini S Johnny GLUELINE WORKER IMG CT ORDERABLES Final R esult * (ABNORMAL) BASIC METABOLIC PANEL (02/29/2024 3:14 PM EDT) Only the most recent of20 resultswithin the time period is included. Sodium 140 136 - 145 mmol/L 02/29/2024 8:07 PM EDT [facility] Potassium 3.8 3.5 - 5.0 mmol/L 02/29/2024 8:07 PM EDT [facility] Chloride 110(H) 98 - 107 mmol/L 02/29/2024 8:07 PM EDT [facility] Total CO2 19(L) 22 - 29 mmol/L 02/29/2024 8:07 PM EDT [facility] Anion Gap 11 7 - 16 mmol/L 02/29/2024 8:07 PM EDT [facility] Calcium 9.2 8.6 - 10.4 mg/dL 02/29/2024 8:07 PM EDT [facility] Glucose Lvl 123(H) 70 - 99 mg/dL 02/29/2024 8:07 PM EDT [facility] BUN 7 6 - 20 mg/dL 02/29/2024 8:07 PM EDT [facility] Creatinine 0.85 0.51 - 1.30 mg/dL 02/29/2024 8:07 PM EDT [facility] eGFR (CKD-EPIcr 2020) 91 >=60 mL/min/1.7 3 m2 02/29/2024 8:07 PM EDT [facility] Comment:Estimated GFR was ca lculated using the CKD-EPIcr (2020) equation refit without race. The equation is recommended by the National Kidney Foundation - [place] [employer] of Nephrology Task Force. Blood VENOUS BLOOD / Unknown Venipuncture / Unknown 02/29/2024 3:14 PM EDT 02/29/2024 3:14 PM EDT us Kaci Graham MD CHEMISTRY ORDERABLES Final R esult Performing Organization Address City/[facility]/ZIP Co de Phone Number [facility] [employer], [place] [address] [facility], [place] [address] [facility] 1 [place] [address] * POCT EKG (02/05/2024 3:08 PM EDT) Only the most recent of2 resultswithin the time period is included. 02/05/2024 3:08 PM EDT Impressions SEP OFFICE - 02/05/2024 3:08 PM EDT Sinus tachycardia. No change from previous. us Kamini Turner APRN POINT OF CARE CARDIOLOGY Final Result Performing Organization Address [facility] Co de Phone Number SEP OFFICE * POCT URINE TELCOR (01/17/2024 10:44 AM EDT) Only the most recent of2 resultswithin the time period is included. Preg Test, Ur Negative 01/17/2024 10:50 AM EDT [facility] Urine URINE SPECIMEN COLLECTION / Unknown 01/17/2024 10:44 AM EDT 01/17/2024 10:50 AM EDT us Tatyana Acuna MD POINT OF CARE TEST ORDERA BLES Final Result Performing Organization Address City/[facility] [place] [address], [facility] [phone] * DRUGS OF ABUSE WITH REFLEX TO CONFIRMATION, URINE (01/16/2024 11:22 AM EDT) 6 AM (Heroin) Absent Cutoff 10 ng/mL 01/16/2024 5:38 PM EDT [facility] Amphetamines Absent Cutoff 500 ng/mL 01/16/2024 5:38 PM EDT [facility] Barbiturates Absent Cutoff 200 ng/mL 01/16/2024 5:38 PM EDT [facility] Benzodiazepines Absent Cutoff 200 ng/mL 01/16/2024 5:38 PM EDT [facility] Buprenorphine Absent Cutoff 5 ng/mL 01/16/2024 5:38 PM EDT [facility] Cannabinoid Metabolite Absent Cutoff 50 ng/mL 01/16/2024 5:38 PM EDT [facility] Cocaine Metabolite Absent Cutoff 150 ng/mL 01/16/2024 5:38 PM EDT [facility] Fentanyl Absent Cutoff 2 ng/mL 01/16/2024 5:38 PM EDT [facility] Methadone and Metabolite Absent Cutoff 300 ng/mL 01/16/2024 5:38 PM EDT [facility] Opiate Absent Cutoff 300 ng/mL 01/16/2024 5:38 PM EDT [facility] Oxycodone Lvl Absent Cutoff 100 ng/mL 01/16/2024 5:38 PM EDT [facility] Urine Creatinine 218.0 mg/dL 01/16/20 5:38 PM EDT [facility] [employer] Comment: Greater than 20: Consistent with valid sample Greater than 2 but less than 20: Possible dilution Less than 2: Questionable valid sample Urine URINE SPECIMEN COLLECTION / Unknown 01/16/2024 11:22 AM EDT 01/16/2024 11:22 AM EDT Narrative [employer] - 01/16/2024 5:38 PM EDT These drug classes have been qualitatively screened by immunoassay and are for medical purposes only. Results should not be used for non-medical purposes. Results reported as presumptive positive will be sent for confirmation. Due to possible factors, such as, dilute/adulterated urine, concentration of drug/metabolite being below the cut-off, or antibody specificity of test reagent, a negative result does not rule out drug use. These results are only valid for urine specimens. Any contamination with vaginal pool/amniotic fluid could cause erroneous results. us Todd Lau APRN URINE ORDERABLES Final Result Performing Organization Address City/[facility]/ZIP Co de Phone Number [facility] [employer], [place] [address] [facility], [address] [place] [phone] [facility] [address] [place] [phone] * (ABNORMAL) GLUCOSE METER POC (01/07/2024 8:08 AM EDT) Only the most recent of10 resultswithin the time period is included. Glucose Meter POC 107(H) 70 - 100 mg/dL 01/07/2024 8:10 AM EDT [facility] Sample Type Capillary 01/07/2024 8:10 AM EDT [facility] Patient Status Non-Critical Patient 01/07/2024 8:10 AM EDT [facility] Blood BLOOD SPECIMEN / Unknown 01/07/2024 8:08 AM EDT 01/07/2024 8:10 AM EDT Mar Nava MD POINT OF CARE TEST ORDERABLES Final Result Performing Organization Address [facility] Co de Phone Number [place] [phone] * (ABNORMAL) HEAVY METALS PANEL 6, URINE W/ RFLX - REF LAB (01/06/2024 1:37 PM EDT) Total Volume 1825 mL 01/11/2024 12:52 AM EDT [facility] Hrs Arnaud 24 hr 01/11/2024 12:52 AM EDT [facility] Comment: Per 24h calculations are provided to aid interpretation for collections with a duration of 24 hours and an average daily urine volume. For specimens with notable deviations in collection time or volume, ratios of analytes to a corresponding urine creatinine concentration may assist in result interpretation. U Creatinine 61 mg/dL 01/11/2024 12:52 AM EDT [facility] U24 Creat 1113 700 - 1600 mg/d 01/11/2024 12:52 AM EDT [facility] Comment: Performed By: [facility] [address] [place] [address] Tariff Compiling Clerk: Brayan Garrido MD, PhD CLIA Number: [id number] U Arsenic <10.0 0.0 - 34.9 ug/L 01/11/2024 12:52 AM EDT [facility] Comment: INTERPRETIVE INFORMATION: Arsenic, Urine w/ Reflex to Fractionated The ACGIH Biological Exposure Index (JERMAINE) for arsenic in urine is 35 ug/L. The ACGIH JERMAINE is based on the sum of inorganic and methylated species. For specimens with elevated total arsenic results, fractionation is automatically performed to determine the proportions of inorganic, methylated and organic species. This test was developed and its performance characteristics determined by [facility]. It has not been cleared or approved by the US Food and Drug Administration. This test was performed in a CLIA certified laboratory and is intended for clinical purposes. U24 Arsenic Not Applicable 0.0 - 49.9 ug/d 01/11/2024 12:52 AM EDT [facility] U Arsenic ug/g Creat Not Applicable 0.0 - 29.9 ug/g [employer]Y LICENSEE 01/11/2024 12:52 AM EDT [facility] Comment: Unable to accurately calculate the creatinine normalized result due to a low per volume result. U24 Lead Not Applicable 0.0 - 8.1 ug/d 01/11/2024 12:52 AM EDT [facility] U Lead ug/g Creat Not Applicable 0.0 - 5.0 ug/g [employer] AG[employer]Y LICENSEE 01/11/2024 12:52 AM EDT [facility] Comment: Unable to accurately calculate the creatinine normalized result due to a low per volume result. U Mercury <2.5 0.0 - 5.0 ug/L 01/11/2024 12:52 AM EDT [facility] Comment: INTERPRETIVE INFORMATION: Mercury, Urine Urinary mercury levels predominantly reflect acute or chronic elemental or inorganic mercury exposure. Urine concentrations in unexposed individuals are typically less than 10 ug/L. 24 hour urine concentrations of 30 to 100 ug/L may be associated with subclinical neuropsychiatric symptoms and tremors. Concentrations greater than 100 ug/L can be associated with overt neuropsychiatric disturbances and tremors. Urine mercury levels may be useful in monitoring chelation therapy. This test was developed and its performance characteristics determined by [facility]. It has not been cleared or approved by the US Food and Drug Administration. This test was performed in a CLIA certified laboratory and is intended for clinical purposes. U24 Mercury Not Applicable 0.0 - 20.0 ug/d 01/11/2024 12:52 AM EDT [facility] U Merc ug/g Creat Not Applicable 0.0 - 20.0 ug/g [employer]Y LICENSEE 01/11/2024 12:52 AM EDT [facility] Comment: Unable to accurately calculate the creatinine normalized result due to a low per volume result. Urine 24 H Cadmium Not Applicable 0.0 - 3.2 ug/d 01/11/2024 12:52 AM EDT [facility] Urine Cadmium per Creat Not Applicable 0.0 - 3.2 ug/g [employer]Y LICENSEE 01/11/2024 12:52 AM EDT [facility] Comment: Unable to accurately calculate the creatinine normalized result due to a low per volume result. U Cadmium <1.0 0.0 - 1.0 ug/L 01/11/2024 12:52 AM EDT [facility] Comment: INTERPRETATION INFORMATION: Cadmium, Urine Urine cadmium levels can be used to assess cadmium body burden. In chronic exposures, the kidneys are the primary target organ. Symptoms associated with cadmium toxicity vary based upon route of exposure and may include tubular proteinuria, fever, headache, dyspnea, chest pain, conjunctivitis, rhinitis, sore throat and cough. Ingestion of cadmium in high concentration may cause vomiting, diarrhea, salivation, cramps, and abdominal pain. This test was developed and its performance characteristics determined by [facility]. It has not been cleared or approved by the US Food and Drug Administration. This test was performed in a CLIA certified laboratory and is intended for clinical purposes. Urine Copper <1.0 <=3.2 ug/dL 01/11/2024 12:52 AM EDT [facility] Comment: INTERPRETIVE INFORMATION: Copper, Urine Individuals with symptomatic Jean-Paul disease usually excrete more than 100 ug copper per day. Other conditions associated with elevated urine copper include cholestatic liver disease, proteinuria, some medications, and contaminated specimens. Although random specimens may contain diagnostic information, a 24-hour collection is a more consistent indicator of urine copper. This test was developed and its performance characteristics determined by [facility]. It has not been cleared or approved by the US Food and Drug Administration. This test was performed in a CLIA certified laboratory and is intended for clinical purposes. Urine 24H Copper Not Applicable 3.0 - 45.0 ug/d 01/11/2024 12:52 AM EDT [facility] Urine Copper per Creat Not Applicable 10.0 - 45.0 ug/g [employer]Y LICENSEE 01/11/2024 12:52 AM EDT [facility] Comment: Unable to accurately calculate the creatinine normalized result due to a low per volume result. Urine Zinc <10.0(L) 15.0 - 120.0 ug/dL 01/11/2024 12:52 AM EDT [facility] Urine 24H Zinc Not Applicable 150.0 - 1200.0 ug/d 01/11/2024 12:52 AM EDT [facility] Urine Zinc per Creat Not Applicable 110.0 - 750.0 ug/g [employer]Y LICENSEE 01/11/2024 12:52 AM EDT [facility] Comment: Unable to accurately calculate the creatinine normalized result due to a low per volume result. INTERPRETIVE INFORMATION: Zinc, Urine Zinc is predominantly eliminated in the feces. Elevated urine zinc may suggest excessive zinc supplementation but should be interpreted with a corresponding serum zinc concentration. This test was developed and its performance characteristics determined by [facility]. It has not been cleared or approved by the US Food and Drug Administration. This test was performed in a CLIA certified laboratory and is intended for clinical purposes. U Lead <5.0 0.0 - 5.0 ug/L 01/11/2024 12:52 AM EDT [facility] Comment: INTERPRETIVE INFORMATION: Lead, Urine Quantification of urine excretion rates before or after chelation therapy has been used as an indicator of lead exposure. Urinary excretion of >125 mg of lead per 24 hours is usually associated with related evidence of lead toxicity. This test was developed and its performance characteristics determined by [facility]. It has not been cleared or approved by the US Food and Drug Administration. This test was performed in a CLIA certified laboratory and is intended for clinical purposes. Urine 24 HOUR URINE SPECIMEN / Unknown 01/06/2024 1:37 PM EDT 01/06/2024 1:42 PM EDT us Kamran Larsen MD URINE ORDERABLES Final Result [email or web address] [address] [place] [address] * SSB (LA) IGG (01/06/2024 9:06 AM EDT) SSB (LA) IgG (AAU/mL) 24 <=180 01/08/2024 10:46 AM EDT [facility] Blood VENOUS BLOOD / Unknown Venipuncture / Unknown 01/06/2024 9:06 AM EDT 01/06/2024 9:18 AM EDT Narrative [facility] - 01/08/2024 10:46 AM EDT Interpretive Information: <150 AAU/mL ............. Negative 150-180 AAU/mL .......... Equivocal >180 AAU/mL ............. Positive This test is a semi-quantitative LETTY for the detection of IgG antibodies to SSB in human sera. Results are reported in 'autoantibody units' (AAU/mL), which are a relative measurement of antibodies present. Tests are not traceable to an international standard, so varying platforms/methodologies should not be considered equivalent. us Rodolfo White MD IMMUNOLOGY ORDERABLES Final Resu lt [facility] [address] [facility] , [address] [place] [id number] * SSA (RO) IGG (01/06/2024 9:06 AM EDT) SSA (RO) IgG (AAU/mL) 127 <=180 AAU/mL 01/10/2024 1:10 PM EDT [facility] Blood VENOUS BLOOD / Unknown Venipuncture / Unknown 01/06/2024 9:06 AM EDT 01/06/2024 9:18 AM EDT Narrative [facility] - 01/10/2024 1:10 PM EDT Interpretive Information: <150 AAU/mL ............. Negative 150-180 AAU/mL .......... Equivocal >180 AAU/mL ............. Positive This test is a semi-quantitative LETTY for the detection of IgG antibodies to SSA in human sera. Results are reported in 'autoantibody units' (AAU/mL), which are a relative measurement of antibodies present. Tests are not traceable to an international standard, so varying platforms/methodologies should not be considered equivalent. For Equivocal results, it is recommended to re-evaluate by drawing another specimen one to three weeks later. us Rodolfo White MD IMMUNOLOGY ORDERABLES Final Resu lt [facility] [address] [facility] , [place] [address] * PROCALCITONIN (01/06/2024 9:06 AM EDT) Procalcitonin 0.06 <=0.49 ng/mL 01/06/2024 10:09 AM EDT [facility] Blood VENOUS BLOOD / Unknown Venipuncture / Unknown 01/06/2024 9:06 AM EDT 01/06/2024 9:18 AM EDT Narrative [facility] - 01/06/2024 10:09 AM EDT Procalcitonin <0.50 ng/mL: Procalcitonin levels below 0.50 ng/mL on the first day of ICU admission represent a low risk for progression to severe sepsis and/or septic shock Procalcitonin >=0.50 ng/mL and <=2.00 ng/mL: If the procalcitonin measurement is performed shortly after the systemic infection process has started (usually less than 6 hours), this value may still be low. As various non-infectious conditions are known to induce procalcitonin as well, procalcitonin levels between 0.50 ng/mL and 2.00 ng/mL should be reviewed carefully to take into account the specific clinical background and condition(s) of the patient. Procalcitonin >2.00 ng/mL: Procalcitonin levels above 2.00 ng/mL on the first day of ICU admission represent a high risk for progression to severe sepsis and/or septic shock. Kamran Larsen MD CHEMISTRY ORDERABLES Final Re sult Performing Organization Address [facility] de Phone Number [facility], [address] , [place] [address] * HEPATIC FUNCTION PANEL (01/06/2024 9:06 AM EDT) [facility] Total Protein 7.0 6.4 - 8.3 gm/dL 01/06/2024 9:55 AM EDT [facility] Albumin 4.1 3.5 - 5.2 gm/dL 01/06/2024 9:55 AM EDT [facility] Bili Direct <0.2 0.0 - 0.3 mg/dL 01/06/2024 9:55 AM EDT [facility] Bili Total 0.3 0.2 - 1.3 mg/dL 01/06/2024 9:55 AM EDT [facility] AST 22 <=40 U/L 01/06/2024 9:55 AM EDT [facility] ALT 22 <=41 U/L 01/06/2024 9:55 AM EDT [facility] Alk Phos 52 36 - 123 U/L 01/06/2024 9:55 AM EDT [facility] Blood VENOUS BLOOD / Unknown Venipuncture / Unknown 01/06/2024 9:06 AM EDT 01/06/2024 9:18 AM EDT us Kamran Larsen MD CHEMISTRY ORDERABLES Final Re sult Performing Organization Address [facility] Co de Phone Number [facility], [facility] [address] [facility] , [place] [address] * CSF CELL COUNT WITH DIFF (01/05/2024 3:30 PM EDT) Only the most recent of3 resultswithin the time period is included. Pathologist [facility] CSF Tube Num 4 number 01/05/2024 4:14 PM EDT [facility] CSF Color Colorless Colorless color 01/05/2024 4:14 PM EDT [facility] CSF Appear Clear Clear appearance 01/05/2024 4:14 PM EDT [facility] CSF RBC 0 <=0 /mcL 01/05/2024 4:14 PM EDT [facility] CSF Total Nucleated Cells 2 0 - 5 /mcL 01/05/2024 4:14 PM EDT [facility] Cerebrospinal Fluid LUMBAR PUNCTURE / Unknown 01/05/2024 3:30 PM EDT 01/05/2024 3:41 PM EDT Dorothy Houser GLUELINE WORKER BODY FLUIDS AND STOOL S ORDERABLES Final Result [facility], [facility] [address] [facility], [place] [address] * MENINGITIS/ENCEPH PANEL (01/05/2024 3:30 PM EDT) Only the most recent of3 resultswithin the time period is included. E. coli K1 Not Detected Not Detected 01/05/2024 5:43 PM EDT [facility] Haemophilus influenzae Not Detected Not Detected 01/05/2024 5:43 PM EDT [facility] Listeria monocytogenes Not Detected Not Detected 01/05/2024 5:43 PM EDT [facility] Neisseria meningitidis Not Detected Not Detected 01/05/2024 5:43 PM EDT [facility] Streptococcus agalactiae Not Detected Not Detected 01/05/2024 5:43 PM EDT [facility] Streptococcus pneumoniae Not Detected Not Detected 01/05/2024 5:43 PM EDT [facility] (CMV) Cytomegalovirus Not Detected Not Detected 01/05/2024 5:43 PM EDT [facility] Comment:The Film Array ME pa amarjit does not distinguish between latent and active CMV infection. Detection of this virus may indicate primary infection, secondary reactivation, or the presence of latent virus. Results should always be interpreted in conjunction with other clinical, laboratory and epidemiological information. (EV) Enterovirus Not Detected Not Detected 01/05/2024 5:43 PM EDT [facility] (HSV-1) Herpes simplex virus 1 Not Detected Not Detected 01/05/2024 5:43 PM EDT [facility], [facility] (HSV-2) Herpes simplex virus 2 Not Detected Not Detected 01/05/2024 5:43 PM EDT [facility], [facility] (HHV-6) Human herpesvirus 6 Not Detected Not Detected 01/05/2024 5:43 PM EDT [facility], [facility] Comment:The Film Array ME pa amarjit does not distinguish between latent and active HHV-6 infection. Detection of this virus may indicate primary infection, secondary reactivation, or the presence of latent virus. Results should always be interpreted in conjunction with other clinical, laboratory and epidemiological information. (HPeV) Human parechovirus Not Detected Not Detected 01/05/2024 5:43 PM EDT [facility], [facility] (VZV) Varicella zoster virus Not Detected Not Detected 01/05/2024 5:43 PM EDT [facility], [facility] Cryptococcus neoformans/aleks Not Detected Not Detected 01/05/2024 5:43 PM EDT [facility], [facility] Cerebrospinal Fluid LUMBAR PUNCTURE / Unknown 01/05/2024 3:30 PM EDT 01/05/2024 3:41 PM EDT Dorothy Houser APRN BODY FLUIDS AND STOOL S ORDERABLES Final Result [facility], [facility] [address] [facility] , [place] [address] * PROTEIN CEREBROSPINAL FLUID (01/05/2024 3:30 PM EDT) Only the most recent of3 resultswithin the time period is included. Protein CSF 25 15 - 45 mg/dL 01/05/2024 4:30 PM EDT [facility], [facility] Cerebrospinal Fluid LUMBAR PUNCTURE / Unknown 01/05/2024 3:30 PM EDT 01/05/2024 3:41 PM EDT Dorothy Houser APRN BODY FLUIDS AND STOOL S ORDERABLES Final Result Performing Organization Address [facility] Co de Phone Number [address] , [place] [address] * GLUCOSE CEREBROSPINAL FLUID (01/05/2024 3:30 PM EDT) Only the most recent of3 resultswithin the time period is included. Glucose CSF 63 40 - 70 mg/dL 01/05/2024 4:30 PM EDT [facility] Cerebrospinal Fluid LUMBAR PUNCTURE / Unknown 01/05/2024 3:30 PM EDT 01/05/2024 3:41 PM EDT Dorothy Houser GLUELINE WORKER BODY FLUIDS AND STOOL S ORDERABLES Final Result Performing Organization Address [facility] de Phone Number [facility] [employer] , [place] [address] * ANGIOTENSIN CONVERTING ENZYME CSF - REF LAB (01/05/2024 3:30 PM EDT) [facility] CSF 2.1 0.0 - 2.5 U/L 01/09/2024 12:03 AM EDT [email or web address] Comment: This test was developed and its performance characteristics determined by [facility]. It has not been cleared or approved by the US Food and Drug Administration. This test was performed in a CLIA certified laboratory and is intended for clinical purposes. Performed By: [facility] [address] [place] [id number] Tariff Compiling Clerk: Brayan Garrido MD, PhD CLIA Number: [id number] Cerebrospinal Fluid LUMBAR PUNCTURE / Unknown 01/05/2024 3:30 PM EDT 01/05/2024 3:41 PM EDT Dorothy Houser GLUELINE WORKER BODY FLUIDS AND STOOL S ORDERABLES Final Result Performing Organization Address [facility] Co de Phone Number [email or web address] [address] [place] [id number] * FL GUIDED LUMBAR PUNCTURE DIAGNOSTIC (01/05/2024 3:20 PM EDT) Only the most recent of3 resultswithin the time period is included. Anatomical Region Laterality Modality Radio Fluoroscop y 01/05/2024 3:20 PM EDT Impressions 01/05/2024 4:38 PM EDT Impression: Fluoroscopic-guided lumbar puncture without immediate complications. Fluoroscopy time: 0.1 minutes Number of images: 3 Manisha Lopez PA-C/ Marcelo Luciano M.D. Narrative 01/05/2024 4:38 PM EDT Lumbar puncture with fluoroscopy DATE: 01/05/2024 3:20 PM Clinical indications: -r/o AIDP PROCEDURE: 1. Procedure performed by Manisha Lopez PA-C, supervised by Marcelo Luciano M.D. 2. Informed written consent was obtained from the patient. 3. Patient was placed prone on the x-ray table with a pillow underneath the abdomen for support. The L2-L3 interspace was localized with fluoroscopy and a skin tan was made with a permanent marker. Lumbar region was prepped and draped in usual sterile fashion using all elements of maximal sterile barrier technique. A left paramedian approach was taken. Local anesthesia was achieved with 1% plain lidocaine. A 22 gauge 3.5 inch spinal needle was advanced under fluoroscopy until CSF was noted in the hub of the needle. Stylet was removed and a pressure measurement was performed in the prone position with quiet breathing. Opening pressures were 28 cm H2O. 8.5 milliliters of clear CSF was collected and sent to the laboratory for evaluation. A fluoroscopic image was obtained for our records. Stylet was replaced and needle was removed. A sterile bandage was applied. Patient tolerated the procedure well without immediate complications. 4. Post procedure instructions were reviewed with the patient and family. The patient is to force fluids and caffeine today and is to remain supine for the next 24 hours except for the bathroom privileges. Procedure Note Marcelo Luciano MD - 01/05/2024 Lumbar puncture with fluoroscopy DATE: 01/05/2024 3:20 PM Clinical indications: -r/o AIDP PROCEDURE: 1. Procedure performed by Manisha Lopez PA-C, supervised by Gilbert Muñoz 2. Informed written consent was obtained from the patient. 3. Patient was placed prone on the x-ray table with a pillow underneaththe abdomen for support. The L2-L3 interspace was localized with fluoroscopyand a skin tan was made with a permanent marker. Lumbar region was prepped anddraped in usual sterile fashion using all elements of maximal sterile barrier technique. A left paramedian approach was taken. Local anesthesia wasachieved with 1% plain lidocaine. A 22 gauge 3.5 inch spinal needle was advancedunder fluoroscopy until CSF was noted in the hub of the needle. Stylet wasremoved and a pressure measurement was performed in the prone position with quietbreathing. Opening pressures were 28 cm H2O. 8.5 milliliters of clear CSF wascollected and sent to the laboratory for evaluation. A fluoroscopic image wasobtained for our records. Stylet was replaced and needle was removed. A sterile bandagewas applied. Patient tolerated the procedure well without immediatecomplications. 4. Post procedure instructions were reviewed with the patient and family.The patient is to force fluids and caffeine today and is to remain supine forthe next 24 hours except for the bathroom privileges. IMPRESSION: Impression: Fluoroscopic-guided lumbar puncture without immediatecomplications. Fluoroscopy time: 0.1 minutes Number of images: 3 Manisha Lopez PA-C/ Marcelo Luciano M.D. Dorothy Houser GLUELINE WORKER IMG FLUOROSCOPY ORDER LADY Final Result * [id number] (01/05/2024 2:20 PM EDT) Only the most recent of3 resultswithin the time period is included. CORONAVIRUS [id number] Not Detected Not Detected 01/05/2024 3:59 PM EDT [facility] Influenza A DNA Not Detected Not Detected 01/04 3:59 PM EDT [facility] Influenza B DNA Not Detected Not Detected 01/04 3:59 PM EDT [facility] RSV DNA Not Detected Not Detected 01/05/2024 3:59 PM EDT [facility] Swab BOTH ANTERIOR NARES / Unknown 01/05/2024 2:20 PM EDT 01/05/2024 2:25 PM EDT Narrative [facility], [facility] - 01/05/2024 3:59 PM EDT This test is a real-time RT-PCR test intended for the qualitative detection of nucleic acid from the SARS-CoV-2, Influenza A/B, and RSV in upper respiratory samples collected from individuals suspected of COVID-19, Influenza A/B or RSV. Not Detected results do not preclude COVID-19, influenza virus or RSV infection or other respiratory viruses and should not be used as the sole basis for treatment or other patient management decisions. Test is performed on the [employer] GeneXpert platform under the FDA's Emergency Use Authorization (EUA). Cepheid Fact Sheet for Providers and Patients: Cepheid Fact Sheet for Providers: https://www.fda.gov/media/515876/download Cepheid Fact Sheet for Patients: https://www.fda.gov/media/654910/download Kamran Larsen MD MICROBIOLOGY - GENERAL ORDERA BLES Final Result [facility] [address] [facility] , [place] [address] * URINALYSIS REFLEX (01/05/2024 12:50 PM EDT) UA Color Colorless 01/05/2024 1:00 PM EDT [facility] UA Appear Clear Clear 01/05/2024 1:00 PM EDT [facility] UA Glucose Negative Negative mg/dL 01/05/2024 1:00 PM EDT [facility] UA Ketones Negative Negative mg/dL 01/05/2024 1:00 PM EDT [facility] UA Blood Negative Negative 01/05/2024 1:00 PM EDT [facility] UA pH 6.0 5.0 - 8.0 pH 01/05/2024 1:00 PM EDT [facility] UA Protein Negative Negative mg/dL 01/05/2024 1:00 PM EDT [facility] UA Urobilinogen Normal <=1 mg/dL 1:00 PM EDT [facility] UA Bili Negative Negative 01/05/2024 1:00 PM EDT [facility] UA Nitrite Negative Negative 01/05/2024 1:00 PM EDT [facility] [facility] UA Leuk Est Negative Negative 01/05/2024 1:00 PM EDT [facility] UA Spec Grav 1.009 1.001 - 1.035 no units 01/05/2024 1:00 PM EDT [facility] Comment:Reference range dieter d for random specimens only. Urine URINE SPECIMEN COLLECTION, CLEAN CATCH / Unknown 01/05/2024 12:50 PM EDT 01/05/2024 12:57 PM EDT Dorothy Houser APRN URINE ORDERABLES Jackie l Result Performing Organization Address [facility] Co de Phone Number [facility] [employer], [address], [place] [address] * EXTRA HUIZAR URINE CX (01/05/2024 12:50 PM EDT) Urine URINE SPECIMEN COLLECTION, CLEAN CATCH / Unknown 01/05/2024 12:50 PM EDT 01/05/2024 12:57 PM EDT Dorothy Houser APRN MICROBIOLOGY - GENERA L ORDERABLES Final Result Performing Organization Address [facility] [place] [address] * CYCLIC CITRULLINATED PEPTIDE ANTIBODY, IGG (01/05/2024 6:10 AM EDT) CCP Ab, IgG 1.5 <5.0 U/mL 01/05/2024 9:48 PM EDT [facility] Comment: Negative: < 5.0 U/mL Positive: > or = 5.0 U/mL Blood VENOUS BLOOD / Unknown Venipuncture / Unknown 01/05/2024 6:10 AM EDT 01/05/2024 6:23 AM EDT Rodolfo White MD IMMUNOLOGY ORDERABLES Final Resu lt [facility] , [place] [address] * VITAMIN B1 (THIAMINE) WHOLE BLOOD -REF LAB (01/05/2024 6:10 AM EDT) Vit B1 WB 152 70 - 180 nmol/L 01/11/2024 8:50 AM EDT [facility] Comment: INTERPRETIVE INFORMATION: Vitamin B1, Whole Blood This assay measures the concentration of thiamine diphosphate (TDP), the primary active form of vitamin B1. Approximately 90 percent of vitamin B1 present in whole blood is TDP. Thiamine and thiamine monophosphate, which comprise the remaining 10 percent, are not measured. This test was developed and its performance characteristics determined by [facility]. It has not been cleared or approved by the [place] Food and Drug Administration. This test was performed in a CLIA certified laboratory and is intended for clinical purposes. Performed By: [facility] [address] [place] [address] [employer] Compiling Clerk: Brayan Garrido MD, PhD CLIA Number: [id number] Blood VENOUS BLOOD / Unknown Venipuncture / Unknown 01/05/2024 6:10 AM EDT 01/05/2024 6:23 AM EDT us Kirti Lynn MD CHEMISTRY ORDERABLES Jackie l Result Performing Organization Address [facility]/ZIP Co de Phone Number [email or web address] [address] [place] [address] * (ABNORMAL) CREATINE KINASE (01/05/2024 6:10 AM EDT) Only the most recent of3 resultswithin the time period is included. CK 24(L) 26 - 192 U/L 01/05/2024 8:09 AM EDT [facility] Blood VENOUS BLOOD / Unknown Venipuncture / Unknown 01/05/2024 6:10 AM EDT 01/05/2024 6:24 AM EDT us Kirti Lynn MD CHEMISTRY ORDERABLES Jackie l Result [facility] [employer] [address] , [place] [address] * MRI CERVICAL SPINE W WO CONTRAST (01/04/2024 9:41 PM EDT) Anatomical Region Laterality Modality Spine, C-spine Magnetic Resonan ce 01/04/2024 9:41 PM EDT Impressions 01/04/2024 10:27 PM EDT * No evidence of abnormal cord signal or enhancement. - Note: Radiology results need to be interpreted within a comprehensive clinical context. If you have questions about the radiology report, please contact the office of the ordering clinician. 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 COMPARISON: None. PROCEDURE COMMENTS: Multiplanar multiecho MR imaging of the cervical spine. Gadolinium contrast given as recorded in Epic. FINDINGS: Moderate to severe motion degradation of the examination is noted. Allowing for the presence of significant motion degradation, there is no evidence of any abnormal cord signal. There is no evidence of abnormal cord enhancement. There is no evidence of an acute C-spine fracture. There is mild minimal shallow dorsal disc bulging at C4-C5, C5-C6, C6-C7 levels which is noncompressive. Paraspinous soft tissues are unremarkable to the extent seen. 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 COMPARISON: None. PROCEDURE COMMENTS: Multiplanar multiecho MR imaging of the cervicalspine. Gadolinium contrast given as recorded in Epic. FINDINGS: Moderate to severe motion degradation of the examination isnoted. Allowing for the presence of significant motion degradation, there is no evidence of any abnormal cord signal. There is no evidence of abnormalcord enhancement. There is no evidence of an acute C-spine fracture. There ismild minimal shallow dorsal disc bulging at C4-C5, C5-C6, C6-C7 levels whichis noncompressive. Paraspinous soft tissues are unremarkable to the extentseen. IMPRESSION: * No evidence of abnormal cord signal or enhancement. - Note: Radiology results need to be interpreted within a comprehensiveclinical context. If you have questions about the radiology report, please contactthe office of the ordering clinician. Kirti Lynn MD IMG MRI ORDERABLES Final Result * MRI BRAIN W WO CONTRAST (01/04/2024 9:36 PM EDT) Only the most recent of2 resultswithin the time period is included. Anatomical Region Laterality Modality Head Magnetic Resonan ce 01/04/2024 9:36 PM EDT Impressions 01/04/2024 10:25 PM EDT * No acute intracranial abnormality. * Partially empty sella turcica noted. - Note: Radiology results need to be interpreted within a comprehensive clinical context. If you have questions about the radiology report, please contact the office of the ordering clinician. 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 COMPARISON: Head CT January 04, 2024 PROCEDURE COMMENTS: Multiplanar multiecho MR imaging of the brain per protocol before and following IV contrast administration. Gadolinium contrast given as recorded in Epic. FINDINGS: Moderate motion degradation of the examination is noted. Midline structures normally formed. Ventricles normal. No evidence of acute stroke, mass, or hemorrhage. Diffusion imaging normal. No abnormal enhancement. Major vascular flow voids preserved, suggesting patency. Partially empty sella turcica. This can be seen as normal variation but can also be associated with pseudotumor cerebri and pituitary hypofunction. Mild sinus mucosal thickening is present. Orbital contents unremarkable. 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 COMPARISON: Head CT January 04, 2024 PROCEDURE COMMENTS: Multiplanar multiecho MR imaging of the brain perprotocol before and following IV contrast administration. Gadolinium contrast givenas recorded in Epic. FINDINGS: Moderate motion degradation of the examination is noted. Midline structures normally formed. Ventricles normal. No evidence ofacute stroke, mass, or hemorrhage. Diffusion imaging normal. No abnormal enhancement. Major vascular flow voids preserved, suggesting patency. Partially empty sella turcica. This can be seen as normal variation butcan also be associated with pseudotumor cerebri and pituitary hypofunction. Mild sinus mucosal thickening is present. Orbital contents unremarkable. IMPRESSION: * No acute intracranial abnormality. * Partially empty sella turcica noted. - Note: Radiology results need to be interpreted within a comprehensiveclinical context. If you have questions about the radiology report, please contactthe office of the ordering clinician. Mar Nava MD IMG MRI ORDERABLES Final Resu lt * CT HEAD WO CONTRAST (01/04/2024 6:07 PM EDT) Only the most recent of3 resultswithin the time period is included. Anatomical Region Laterality Modality Head Computed Tomogra phy 01/04/2024 6:07 PM EDT Impressions 01/04/2024 6:17 PM EDT No acute intracranial abnormality. - Note: Radiology results need to be interpreted within a comprehensive clinical context. If you have questions about the radiology report, please contact the office of the ordering clinician. Narrative 01/04/2024 6:[address] HEAD WO CONTRAST 01/04/2024 6:07 PM CLINICAL HISTORY: -rapidly progressive neuropathy. COMPARISON: None. PROCEDURE COMMENTS: Routine noncontrast head CT with multiplanar reconstructions. Dose 1 : CT DLP Total : 982.19 mGycm DLP Spiral Max : 979.56 mGycm Maximum CTDI Vol : 54.36 mGy FINDINGS: Ventricular size and configuration normal. No evidence of acute stroke, mass, or hemorrhage. No evidence of fracture or extra-axial collection. Partially empty sella turcica. This can be seen as normal variation but can also be associated with pseudotumor cerebri and pituitary hypofunction. Included paranasal sinuses, mastoids, and orbits unremarkable. Procedure Note Dallas Power MD - 01/04/2024 CT HEAD WO CONTRAST 01/04/2024 6:07 PM CLINICAL HISTORY: -rapidly progressive neuropathy. COMPARISON: None. PROCEDURE COMMENTS: Routine noncontrast head CT with multiplanar reconstructions. Dose 1 : CT DLP Total : 982.19 mGycm DLP Spiral Max : 979.56 mGycm Maximum CTDI Vol : 54.36 mGy FINDINGS: Ventricular size and configuration normal. No evidence of acute stroke,mass, or hemorrhage. No evidence of fracture or extra-axial collection. Partially empty sella turcica. This can be seen as normal variation butcan also be associated with pseudotumor cerebri and pituitary hypofunction. Included paranasal sinuses, mastoids, and orbits unremarkable. IMPRESSION: No acute intracranial abnormality. - Note: Radiology results need to be interpreted within a comprehensiveclinical context. If you have questions about the radiology report, please contactthe office of the ordering clinician. Mar Nava MD IMG CT ORDERABLES Final Resul t * VITAMIN B12/ FOLIC ACID (01/04/2024 5:26 PM EDT) Only the most recent of7 resultswithin the time period is included. Vitamin B12 433 232 - 1,245 pg/mL 01/04/2024 6:18 PM EDT [facility] F[facility] 9.59 >=4.80 ng/mL 01/04/2024 6:18 PM EDT [facility] Blood VENOUS BLOOD / Unknown Venipuncture / Unknown 01/04/2024 5:26 PM EDT 01/04/2024 5:30 PM EDT Narrative [facility] - 01/04/2024 6:18 PM EDT Ingestion of nicci doses of biotin (>5 mg/day) taken within 8 hours of drawing blood sample can interfere with this immunoassay test. Mar Nava MD CHEMISTRY ORDERABLES Final Re sult [facility] [address] [facility] , [place] [address] * TSH REFLEX (01/04/2024 5:26 PM EDT) Only the most recent of2 resultswithin the time period is included. TSH Reflex 0.538 0.270 - 4.200 mcIU/mL 01/04/2024 7:12 PM EDT [facility] [employer] [facility] Blood VENOUS BLOOD / Unknown Venipuncture / Unknown 01/04/2024 5:26 PM EDT 01/04/2024 5:30 PM EDT Narrative [facility] [employer] [facility] - 01/04/2024 7:12 PM EDT Ingestion of nicci doses of biotin (>5 mg/day) taken within 8 hours of drawing blood sample can interfere with this immunoassay test. Mar Nava MD CHEMISTRY ORDERABLES Final Re sult Performing Organization Address [facility] Co de Phone Number [facility] [employer] [address] , [place] [address] * PT / INR (01/04/2024 5:26 PM EDT) Only the most recent of3 resultswithin the time period is included. PT 11.0 10.5 - 13.6 second(s) 01/04/2024 5:41 PM EDT [facility] [employer] [facility] INR 0.93 0.89 - 1.16 (ratio) 01/04/2024 5:41 PM EDT [facility] [employer] [facility] Comment: Level of Therapy Indications Target INR Range Standard Dose Treatment and prophylaxis of venous 2.0 - 3.0 thrombosis, pulmonary embolism High Dose High risk patients with mechanical 2.5 - 3.5 heart valves Blood VENOUS BLOOD / Unknown Venipuncture / Unknown 01/04/2024 5:26 PM EDT 01/04/2024 5:30 PM EDT Mar Nava MD HEMATOLOGY ORDERABLES Final R esult Performing Organization Address [facility] Co de Phone Number [facility] [employer] , [place] [address] * (ABNORMAL) HEMOGLOBIN A1C (01/04/2024 5:26 PM EDT) Only the most recent of5 resultswithin the time period is included. Hgb A1C 6.0(H) 4.2 - 5.6 % 01/04/2024 6:37 PM EDT [facility] [employer] [facility] Est. Avg Glucose 126 mg/dL 01/04/2024 6:37 PM EDT [facility] Blood VENOUS BLOOD / Unknown Venipuncture / Unknown 01/04/2024 5:26 PM EDT 01/04/2024 5:30 PM EDT Narrative [facility] 01/04/2024 6:37 PM EDT REFERENCE RANGE: Normal: 4.0-5.6% Pre-diabetes: 5.7-6.4% Provisional diagnosis of diabetes: >6.4% Hgb F>10% and anything which shortens red cell survival, such as hemolytic anemia, or unstable hemoglobin variants such as HbSS, HbSC, or HbCC, will lower the HbA1c value associated with a given level of glycemic control. Kirti Lynn MD CHEMISTRY ORDERABLES Jackie l Result Performing Organization Address [facility] de Phone Number [facility] [employer] , [place] [address] [facility] [address] [place] [address] * THYROID STIMULATING HORMONE (01/02/2024 11:51 AM EDT) Only the most recent of7 resultswithin the time period is included. TSH 0.631 0.270 - 4.200 mcIU/mL 01/03/2024 2:37 AM EDT [facility] [employer] [facility] Blood VENOUS BLOOD / Unknown Venipuncture / Unknown 01/02/2024 11:51 AM EDT 01/02/2024 11:51 AM EDT Narrative [facility] [employer] [facility] - 01/03/2024 2:37 AM EDT Ingestion of nicci doses of biotin (>5 mg/day) taken within 8 hours of drawing blood sample can interfere with this immunoassay test. Bernabe Cortez MD CHEMISTRY ORDERABLES Final Re sult Performing Organization Address [facility] de Phone Number [facility] [employer] [address] , [address] [place], [place] [id number] * POCT GLUCOSE (01/01/2024 6:27 PM EDT) Only the most recent of2 resultswithin the time period is included. Glucose 82 60 - 200 MG/DL SEP OFFICE Lot Number SEP OFFICE Expiration Date SEP OFFICE SeriAl # SEP OFFICE Meter SEP OFFICE 01/01/2024 6:27 PM EDT [facility] [employer] POINT OF CARE TEST ORD ERABLES Final Result SEP OFFICE * MRI LUMBAR SPINE WO CONTRAST (11/02/2023 7:43 AM EDT) Only the most recent of3 resultswithin the time period is included. Anatomical Region Laterality Modality Spine, L-spine Magnetic Resonan ce 11/02/2023 7:43 AM EDT Impressions 11/02/2023 8:08 AM EDT 1. Stable MRI lumbar spine. There are mild noncompressive degenerative changes at the L4-L5 level. - Note: Radiology results need to be interpreted within a comprehensive clinical context. If you have questions about the radiology report, please contact the office of the ordering clinician. Narrative 11/02/2023 8:08 AM EDT MRI LUMBAR SPINE WITHOUT CONTRAST, 11/02/2023 7:43 AM CLINICAL HISTORY: M54.50-Low back pain, mszqyyeikfq-BWX-85-CM M54.16-Radiculopathy, lumbar guuduw-SPT-59-CM M51.36-Other intervertebral disc degeneration, lumbar mzqmww-LOV-00-CM M54.16-Radiculopathy, lumbar xookfi-PUN-96-CM M47.816-Spondylosis without myelopathy or radiculopathy, lumbar aejryv-CBM-06-CM M54.16-Radiculopathy, lumbar gucgif-VSA-66-CM. COMPARISON: January 13, 2023 PROCEDURE COMMENTS: Multiplanar multiecho MR imaging of the lumbar spine without contrast. FINDINGS: No acute spine fracture. Normal conus position and signal. Marrow signal: No significant marrow signal alteration or replacement. Level by level analysis: L1-L2: Unremarkable. L2-L3: Unremarkable. L3-L4: Unremarkable. L4-L5: There is disc desiccation with stable mild shallow disc bulge. There is mild facet hypertrophy. No neural encroachment. Appearance is stable from prior study. L5-S1: Unremarkable. Procedure Note Quique Swan MD - 11/02/2023 MRI LUMBAR SPINE WITHOUT CONTRAST, 11/02/2023 7:43 AM CLINICAL HISTORY: M54.50-Low back pain, lbcvnrrecvo-GTA-86-CM M54.16-Radiculopathy, lumbar pnhpjs-NGO-18-CM M51.36-Other intervertebral disc degeneration, lumbar zcyiiv-NIF-01-CM M54.16-Radiculopathy, lumbar tmpyuj-DJN-02-CM M47.816-Spondylosis without myelopathy or radiculopathy, umjoqbgoohcj-XVP-58-CM M54.16-Radiculopathy, lumbar crxyuy-QWH-53-CM. COMPARISON: January 13, 2023 PROCEDURE COMMENTS: Multiplanar multiecho MR imaging of the lumbar spinewithout contrast. FINDINGS: No acute spine fracture. Normal conus position and signal. Marrow signal: No significant marrow signal alteration or replacement. Level by level analysis: L1-L2: Unremarkable. L2-L3: Unremarkable. L3-L4: Unremarkable. L4-L5: There is disc desiccation with stable mild shallow disc bulge.There is mild facet hypertrophy. No neural encroachment. Appearance is stable fromprior study. L5-S1: Unremarkable. IMPRESSION: 1. Stable MRI lumbar spine. There are mild noncompressive degenerativechanges at the L4-L5 level. - Note: Radiology results need to be interpreted within a comprehensiveclinical context. If you have questions about the radiology report, please contactthe office of the ordering clinician. us Cyrus Lakhani MD IM MRI ORDERABLES Final Result * MRI SACRUM WO CONTRAST (11/02/2023 7:42 AM EDT) Anatomical Region Laterality Modality Spine, T-spine Magnetic Resonan ce 11/02/2023 7:42 AM EDT Impressions 11/02/2023 8:06 AM EDT 1. Normal MRI of the sacrum. - Note: Radiology results need to be interpreted within a comprehensive clinical context. If you have questions about the radiology report, please contact the office of the ordering clinician. Narrative 11/02/2023 8:06 AM EDT MRI SACRUM WO CONTRAST, 11/02/2023 7:42 AM CLINICAL HISTORY: M54.50-Low back pain, khqdtfbrkak-FWN-07-CM M54.16-Radiculopathy, lumbar qexaeb-EPD-78-CM M51.36-Other intervertebral disc degeneration, lumbar bkwnhb-XBC-30-CM M54.16-Radiculopathy, lumbar eezcet-XTJ-51-CM M47.816-Spondylosis without myelopathy or radiculopathy, lumbar vxszfv-ZAC-67-CM M54.16-Radiculopathy, lumbar wyzixq-FIX-60-CM. COMPARISON: None. PROCEDURE COMMENTS: Multiplanar, multiecho MR performed per protocol. FINDINGS: There is no bone marrow edema of the sacral ala or body. Sacroiliac joints are intact. There is no presacral edema or fluid. Intrapelvic structures are unremarkable in appearance. Procedure Note Quique Swan MD - 11/02/2023 MRI SACRUM WO CONTRAST, 11/02/2023 7:42 AM CLINICAL HISTORY: M54.50-Low back pain, klydkwwhwmc-MTJ-90-CM M54.16-Radiculopathy, lumbar jbcfnw-KJU-55-CM M51.36-Other intervertebral disc degeneration, lumbar dqpezs-FNH-25-CM M54.16-Radiculopathy, lumbar qazoxb-CKR-64-CM M47.816-Spondylosis without myelopathy or radiculopathy, nvuhjlwctmcz-QWU-77-CM M54.16-Radiculopathy, lumbar dngshk-ENM-68-CM. COMPARISON: None. PROCEDURE COMMENTS: Multiplanar, multiecho MR performed per protocol. FINDINGS: There is no bone marrow edema of the sacral ala or body. Sacroiliac jointsare intact. There is no presacral edema or fluid. Intrapelvic structures areunremarkable in appearance. IMPRESSION: 1. Normal MRI of the sacrum. - Note: Radiology results need to be interpreted within a comprehensiveclinical context. If you have questions about the radiology report, please contactthe office of the ordering clinician. Cyrus Lakhani MD IMG MRI ORDERABLES Final Result * XR FOOT RIGHT AP LATERAL AND OBLIQUE (10/20/2023 10:44 AM EDT) Only the most recent of4 resultswithin the time period is included. Anatomical Region Laterality Modality Foot Radiographic Alicia ging 10/20/2023 10:4 4 AM EDT Impressions 10/20/2023 12:45 PM EDT No acute bony abnormality of the foot. - Note: Radiology results need to be interpreted within a comprehensive clinical context. If you have questions about the radiology report, please contact the office of the ordering clinician. Narrative 10/20/2023 12:45 PM EDT XR FOOT RIGHT AP LATERAL AND OBLIQUE, 10/20/2023 10:44 AM CLINICAL HISTORY: S90.31XA-Contusion of right foot, initial uobhrzryj-ESK-19-CM COMPARISON: 07/11/2023 PROCEDURE COMMENTS: XR FOOT RIGHT AP LATERAL AND OBLIQUE FINDINGS: There is no fracture or traumatic malalignment. Joint spaces overall well-maintained for age. No periostitis. Procedure Note Annie Abreu MD - 10/20/2023 XR FOOT RIGHT AP LATERAL AND OBLIQUE, 10/20/2023 10:44 AM CLINICAL HISTORY: S90.31XA-Contusion of right foot, dvjxcupophcsugpf-FRU-83-CM COMPARISON: 07/11/2023 PROCEDURE COMMENTS: XR FOOT RIGHT AP LATERAL AND OBLIQUE FINDINGS: There is no fracture or traumatic malalignment. Joint spaces overall well-maintained for age. No periostitis. IMPRESSION: No acute bony abnormality of the foot. - Note: Radiology results need to be interpreted within a comprehensiveclinical context. If you have questions about the radiology report, please contactthe office of the ordering clinician. Tyshawn Hernandez DPM IMG DIAGNOSTIC IMAGING ORD ERABLES Final Result * XR ANKLE LEFT AP LATERAL AND OBLIQUE INCLUDING STANDING (10/18/2023 2:36 PM EDT) Anatomical Region Laterality Modality Ankle Radiographic Alicia ging 10/18/2023 2:36 PM EDT Impressions 10/18/2023 3:01 PM EDT No acute osseous abnormality of the ankle. - Note: Radiology results need to be interpreted within a comprehensive clinical context. If you have questions about the radiology report, please contact the office of the ordering clinician. Narrative 10/18/2023 3:01 PM EDT XR ANKLE LEFT AP LATERAL AND OBLIQUE INCLUDING STANDING, 10/18/2023 2:36 PM CLINICAL HISTORY: M25.572-Pain in left ankle and joints of left espt-LXT-63-CM COMPARISON: None. PROCEDURE COMMENTS: XR ANKLE LEFT AP LATERAL AND OBLIQUE INCLUDING STANDING FINDINGS: The ankle mortise is congruent and there is no fracture. There is no joint effusion. Joint spaces overall well-maintained. No periostitis. Procedure Note Yaz Pennington MD - 10/18/2023 XR ANKLE LEFT AP LATERAL AND OBLIQUE INCLUDING STANDING, 10/18/2023 2:36PM CLINICAL HISTORY: M25.572-Pain in left ankle and joints of qqrdhnft-TDI-48-CM COMPARISON: None. PROCEDURE COMMENTS: XR ANKLE LEFT AP LATERAL AND OBLIQUE INCLUDINGSTANDING FINDINGS: The ankle mortise is congruent and there is no fracture. Thereis no joint effusion. Joint spaces overall well-maintained. No periostitis. IMPRESSION: No acute osseous abnormality of the ankle. - Note: Radiology results need to be interpreted within a comprehensiveclinical context. If you have questions about the radiology report, please contactthe office of the ordering clinician. Cyrus Lakhani MD [facility] DIAGNOSTIC IMAGING O RDERABLES Final Result * THYROID PEROXIDASE (TPO) ANTIBODY (10/11/2023 3:16 PM EDT) TPO Ab <3.00 <=5.59 IU/mL 10/11/2023 10:43 PM EDT [facility] Blood VENOUS BLOOD / Unknown Venipuncture / Unknown 10/11/2023 3:16 PM EDT 10/11/2023 3:16 PM EDT Eric Lopez MD IMMUNOLOGY ORDERABLES Final R esult [facility], [place] [address] * THYROGLOBULIN ANTIBODY -REF LAB (10/11/2023 3:16 PM EDT) Thyroglob Ab <0.9 0.0 - 4.0 IU/mL 10/13/2023 2:16 AM EDT [email or web address] Comment: INTERPRETIVE INFORMATION: Thyroglobulin Antibody A value of 4.0 IU/mL or less indicates a negative result for thyroglobulin antibodies. The Thyroglobulin Antibody assay is being performed using the [employer] Access DxI method. Performed By: [facility] [address] [place] [address] Tariff Compiling Clerk: Brayan Garrido MD, PhD CLIA Number: [id number] Blood VENOUS BLOOD / Unknown Venipuncture / Unknown 10/11/2023 3:16 PM EDT 10/11/2023 3:16 PM EDT Result [facility] Eric Lopez MD IMMUNOLOGY ORDERABLES Final R [facility] Performing Organization Address [facility] Co de Phone Number [email or web address] [address] [place], [place] [phone] * T4, FREE (THYROXINE) (10/11/2023 3:16 PM EDT) Only the most recent of3 resultswithin the time period is included. Free T4 1.25 0.80 - 1.80 ng/dL 10/11/2023 10:16 PM EDT [facility] Blood VENOUS BLOOD / Unknown Venipuncture / Unknown 10/11/2023 3:16 PM EDT 10/11/2023 3:16 PM EDT Narrative [facility] - 10/11/2023 10:16 PM EDT Ingestion of nicci doses of biotin (>5 mg/day) taken within 8 hours of drawing blood sample can interfere with this immunoassay test. us Eric Lopez MD CHEMISTRY ORDERABLES Final Re sult Performing Organization Address [facility] Co de Phone Number [employer] [facility] [address] [facility] , [place] [address] * FOLATE LEVEL (10/11/2023 3:16 PM EDT) Folate 11.10 >=4.80 ng/mL 10/11/2023 8:52 PM EDT [facility] Blood VENOUS BLOOD / Unknown Venipuncture / Unknown 10/11/2023 3:16 PM EDT 10/11/2023 3:16 PM EDT Narrative [facility] - 10/11/2023 8:52 PM EDT Ingestion of nicci doses of biotin (>5 mg/day) taken within 8 hours of drawing blood sample can interfere with this immunoassay test. us Eric Lopez MD CHEMISTRY ORDERABLES Final Re sult Performing Organization Address [facility] de Phone Number [facility] DVS [employer] [facility] [address] [facility] , [place] [address] * VITAMIN B12 LEVEL (10/11/2023 3:16 PM EDT) Vitamin B12 613 232 - 1,245 pg/mL 10/11/2023 8:52 PM EDT [facility] Blood VENOUS BLOOD / Unknown Venipuncture / Unknown 10/11/2023 3:16 PM EDT 10/11/2023 3:16 PM EDT Narrative [facility] - 10/11/2023 8:52 PM EDT Ingestion of nicci doses of biotin (>5 mg/day) taken within 8 hours of drawing blood sample can interfere with this immunoassay test. us Eric Lopez MD CHEMISTRY ORDERABLES Final Re sult Performing Organization Address [facility] Co de Phone Number [facility] [employer] [facility] [address] [facility] , [place] [address] * XR LUMBAR SPINE AP AND LATERAL (10/11/2023 2:51 PM EDT) Only the most recent of3 resultswithin the time period is included. Anatomical Region Laterality Modality L-spine Radiographic Alicia ging 10/11/2023 2:51 PM EDT Impressions 10/11/2023 2:56 PM EDT Unremarkable lumbosacral spine series. - Note: Radiology results need to be interpreted within a comprehensive clinical context. If you have questions about the radiology report, please contact the office of the ordering clinician. Narrative 10/11/2023 2:56 PM EDT AP AND LATERAL LUMBAR SPINE, 10/11/2023 2:51 PM CLINICAL HISTORY: M54.50-Low back pain, [id number]-[id number] COMPARISON: Lumbar MRI 01/13/2023 PROCEDURE COMMENTS: Minimum of 3 views lumbar spine per protocol. FINDINGS: Vertebral body height and alignment anatomic. No acute fracture deformity. No destructive lesion. Intervertebral spaces relatively well maintained for age. Procedure Note Donavan Perez MD - 10/11/2023 AP AND LATERAL LUMBAR SPINE, 10/11/2023 2:51 PM CLINICAL HISTORY: M54.50-Low back pain, [id number]-[id number] COMPARISON: Lumbar MRI 01/13/2023 PROCEDURE COMMENTS: Minimum of 3 views lumbar spine per protocol. FINDINGS: Vertebral body height and alignment anatomic. No acutefracture deformity. No destructive lesion. Intervertebral spaces relatively well maintained for age. IMPRESSION: Unremarkable lumbosacral spine series. - Note: Radiology results need to be interpreted within a comprehensiveclinical context. If you have questions about the radiology report, please contactthe office of the ordering clinician. us Cyrus Lakhani MD IMG DIAGNOSTIC IMAGING O RDERABLES Final Result * OCT, OPTIC NERVE - OU - BOTH EYES (10/09/2023 3:24 PM EDT) Narrative SEP OFFICE - 10/09/2023 3:24 PM EDT Patient is here for follow up imaging. Right Eye Reliability was good. Superior thickness was showing abnormal thinning. Nasal thickness was showing abnormal thinning. Inferior thickness was showing abnormal thinning. Left Eye Reliability was good. Temporal thickness was showing abnormal thinning. Nasal thickness was showing abnormal thinning. Inferior thickness was showing abnormal thinning. Mike Stover MD OPHTHALMOLOGY SERVICES O RDERABLES Final Result Performing Organization Address [facility] de Phone Number SEP OFFICE * DUNBAR VISUAL FIELD - OU - BOTH EYES (10/09/2023 3:22 PM EDT) Narrative SEP OFFICE - 10/09/2023 3:22 PM EDT Patient is here for follow up imaging. Right Eye Reliability was borderline. Progression has been stable. Foveal threshold was normal. Findings include non-specific defects. Left Eye Reliability was good. Progression has been stable. Foveal threshold was normal. Findings include non-specific defects. Mike Stover MD OPHTHALMOLOGY SERVICES O RDERABLES Final Result Performing Organization Address [facility] Phone Number SEP OFFICE * MAGNESIUM LEVEL (10/07/2023 10:02 AM EDT) Only the most recent of10 resultswithin the time period is included. Magnesium 2.4 1.6 - 2.4 mg/dL 10/07/2023 3:24 PM EDT [facility] Blood VENOUS BLOOD / Unknown Venipuncture / Unknown 10/07/2023 10:02 AM EDT 10/07/2023 10:02 AM EDT Kaci Graham MD CHEMISTRY ORDERABLES Final R esult Performing Organization Address [facility] de Phone Number [facility] [address] [place] [address] , [place] [address] * XR ANKLE LEFT AP LATERAL AND OBLIQUE (10/03/2023 3:26 PM EDT) Anatomical Region Laterality Modality Ankle Radiographic Alicia ging 10/03/2023 3:26 PM EDT Impressions 10/03/2023 3:43 PM EDT No acute osseous findings. Narrative 10/03/2023 3:43 PM EDT XR ANKLE LEFT AP LATERAL AND OBLIQUE, 10/03/2023 3:26 PM CLINICAL HISTORY: Left ankle pain after injury. COMPARISON: None. PROCEDURE COMMENTS: Routine views per the ordered protocol. FINDINGS: There is lateral soft tissue swelling. No fracture, malalignment, or ankle joint effusion is noted. The joint spaces are maintained. Procedure Note Mark Anthony Wells MD - 10/03/2023 XR ANKLE LEFT AP LATERAL AND OBLIQUE, 10/03/2023 3:26 PM CLINICAL HISTORY: Left ankle pain after injury. COMPARISON: None. PROCEDURE COMMENTS: Routine views per the ordered protocol. FINDINGS: There is lateral soft tissue swelling. No fracture, malalignment, or anklejoint effusion is noted. The joint spaces are maintained. IMPRESSION: No acute osseous findings. Kamini Turner APRN IMG DIAGNOSTIC IMAGING OR DERABLES Final Result * CT ABDOMEN PELVIS WO ORAL OR IV CONTRAST (10/02/2023 4:34 PM EDT) Anatomical Region Laterality Modality Abdomen, Pelvis Computed Tomogra phy 10/02/2023 4:34 PM EDT Impressions 10/02/2023 4:47 PM EDT No acute abnormality of the unenhanced abdomen or pelvis. - Note: Radiology results need to be interpreted within a comprehensive clinical context. If you have questions about the radiology report, please contact the office of the ordering clinician. Narrative 10/02/2023 4:[address] ABDOMEN AND PELVIS WITHOUT IV OR ORAL CONTRAST, 10/02/2023 4:34 PM CLINICAL HISTORY: R10.31-Right lower quadrant [id number]-CM R10.9-Unspecified abdominal [id number]-CM. COMPARISON: CT abdomen/pelvis dated 07/26/2022 PROCEDURE COMMENTS: Multidetector CT examination of the abdomen and pelvis without IV or oral contrast per protocol. Multiplanar reconstructions. Dose 1 : CT DLP Total : 1181.38 mGycm DLP Spiral Max : 1176.9 mGycm Maximum CTDI Vol : 22.92 mGy SSDE : 16.9608 mGy SSDE Diameter : 43.8 cm SSDE Source : Lat FINDINGS: LOWER THORAX: Lung bases unremarkable. ABDOMEN AND PELVIS: Evaluation of the visceral organs is limited in the absence of intravenous contrast. Liver: Noncirrhotic in morphology. No focal liver lesions within the limitations of a noncontrast exam. Biliary Tree: No intra or extra-hepatic biliary ductal dilatation. The gallbladder is unremarkable. Spleen: Not enlarged. Pancreas: Unremarkable. Adrenal Glands: Unremarkable. Kidneys/Ureter: Subcentimeter low-density lesion in the upper pole the right kidney, too small to characterize but possibly a small cyst or angiomyolipoma. No hydronephrosis or hydroureter. The urinary bladder is unremarkable. Gastrointestinal Tract: Visualized bowel caliber and wall thickness are within normal limits. The appendix is normal. Lymphatics: No abdominal lymph nodes are enlarged by size criteria. Vasculature: Unremarkable Peritoneum/Retroperitoneum: No free fluid, free air, or loculated fluid collections. Abdominal Wall/Soft Tissues: Unremarkable. Osseous Structures: No acute osseous abnormalities or suspicious osseous lesions. Procedure Note Bennie Shelton DO - 10/02/2023 CT ABDOMEN AND PELVIS WITHOUT IV OR ORAL CONTRAST, 10/02/2023 4:34 PM CLINICAL HISTORY: R10.31-Right lower quadrant [id number]-CM R10.9-Unspecified abdominal [id number]-05-CM. COMPARISON: CT abdomen/pelvis dated 07/26/2022 PROCEDURE COMMENTS: Multidetector CT examination of the abdomen andpelvis without IV or oral contrast per protocol. Multiplanar reconstructions. Dose 1 : CT DLP Total : 1181.38 mGycm DLP Spiral Max : 1176.9 mGycm Maximum CTDI Vol : 22.92 mGy SSDE : 16.9608 mGy SSDE Diameter : 43.8 cm SSDE Source : Lat FINDINGS: LOWER THORAX: Lung bases unremarkable. ABDOMEN AND PELVIS: Evaluation of the visceral organs is limited in the absence ofintravenous contrast. Liver: Noncirrhotic in morphology. No focal liver lesions within the limitations of a noncontrast exam. Biliary Tree: No intra or extra-hepatic biliary ductal dilatation. The gallbladder is unremarkable. Spleen: Not enlarged. Pancreas: Unremarkable. Adrenal Glands: Unremarkable. Kidneys/Ureter: Subcentimeter low-density lesion in the upper pole theright kidney, too small to characterize but possibly a small cyst orangiomyolipoma. No hydronephrosis or hydroureter. The urinary bladder is unremarkable. Gastrointestinal Tract: Visualized bowel caliber and wall thickness arewithin normal limits. The appendix is normal. Lymphatics: No abdominal lymph nodes are enlarged by size criteria. Vasculature: Unremarkable Peritoneum/Retroperitoneum: No free fluid, free air, or loculated fluid collections. Abdominal Wall/Soft Tissues: Unremarkable. Osseous Structures: No acute osseous abnormalities or suspicious osseous lesions. IMPRESSION: No acute abnormality of the unenhanced abdomen or pelvis. - Note: Radiology results need to be interpreted within a comprehensiveclinical context. If you have questions about the radiology report, please contactthe office of the ordering clinician. Kamini Turner APRN IMG CT ORDERABLES Final R esult * (ABNORMAL) URINE CULTURE (NO STAIN) (10/02/2023 3:48 PM EDT) Only the most recent of8 resultswithin the time period is included. [facility] Culture Positive Growth(A) 10/05/2023 2:16 PM EDT PREFERRED [facility] Culture 30,000 CFU/mL Streptococcus mitis/oralis gp SUSCEPTIB ILITY RESULT 10/05/2023 2:16 PM EDT [facility] Comment:No further workup. Urine URINE SPECIMEN COLLECTION, CLEAN CATCH / Unknown 10/02/2023 3:48 PM EDT 10/02/2023 3:48 PM EDT Kamini Turner APRN MICROBIOLOGY - GENERAL OR DERABLES Final Result [facility] [address] [facility] , [place] [address] * IRIS DIABETIC RETINOPATHY EXAM (09/21/2023 8:44 AM EDT) Pathologist [facility] Retinopathy Exam Severity NORMAL [facility] Right Diabetic Retinopathy None [facility] Right Macular Edema None [facility] Right Other Retina None [facility] Right Eye Image Quality Gradable Image [facility] Left Diabetic Retinopathy None [facility] Left Macular Edema None [facility] Left Other Retina None [facility] Left Eye Image Quality Gradable Image [facility] 09/21/2023 8:44 AM EDT 09/21/2023 8:44 AM EDT Impressions [facility] - 09/22/2023 2:10 PM EDT Retinal Study Result for KAMINI ABRAMS, a 37 y/o, F (: 1985, ) presented to [facility] on 09-21-2023 for a retinal imaging study of the left and right eyes. Based on the findings of the study, the following is recommended for KAMINI ABRAMS Normal Study: Return for follow up exam in 12 months or next calendar year. Interpreting Provider's Comments: No comments provided Diagnoses Present: E119 - Type 2 diabetes mellitus without complications Right eye findings: Negative for Diabetic Retinopathy Negative for Macular Edema Left eye findings: Negative for Diabetic Retinopathy Negative for Macular Edema This result was electronically signed by Jb Galeas MD, , Taxonomy: [id number] on 09-22-2023 18:10 [facility]. NOTE: Any pathology noted on this diabetic retinal evaluation should be confirmed by an appropriate ophthalmic examination. us Kamini Velazquez Johnny GLUELINE WORKER OPHTHALMOLOGY SERVICES OR DERABLES Final Result [facility] [address] [place] [id number] * CMV IGG/IGM (08/15/2023 8:40 AM EDT) Only the most recent of2 resultswithin the time period is included. CMV IgG Negative Negative 08/17/2023 10:44 AM EDT PREFERRED LAB [facility] [facility], [place] [place] CMV IgM Negative Negative 08/17/2023 10:44 AM EDT [facility] [place] Blood VENOUS BLOOD / Unknown Venipuncture / Unknown 08/15/2023 8:40 AM EDT 08/15/2023 8:40 AM EDT Narrative [facility] [place] - 08/17/2023 10:44 AM EDT A positive test for CMV IgG indicates that a person was infected with CMV at some time during their life, but does not indicate when a person was infected. This applies for persons >/= 12 months of age when maternal antibodies are no longer present. Measurement of CMV IgG in paired samples taken 1-3 months apart can be used to diagnose primary infection. Seroconversion (first sample IgG negative, second sample IgG positive) is clear evidence for recent primary infection. The presence of CMV IgM cannot be used by itself to diagnose primary CMV infection because IgM can also be present during secondary infection (reactivation). An IgG avidity assay may be necessary to distinguish a primary CMV infection from a past infection. Various factors may cause false positive IgM results. Recommend drawing another sample in 1-3 weeks for equivocal results. us Kamini Caroline Turner GLUELINE WORKER IMMUNOLOGY ORDERABLES Fin al Result [facility] [address] [facility] , [place] [address] * EBV VIRAL CAPSID ANTIBODIES (08/15/2023 8:40 AM EDT) Only the most recent of4 resultswithin the time period is included. EB VCA IgM 30.7 unit/mL 08/15/2023 8:43 PM EDT [facility] Comment: Sample results should be interpreted as follows: <36.0 U/mL Negative Absence of detectable VCA IgM antibodies. If exposure to Zaria-Buckley virus is suspected despite a negative finding, a second sample should be collected and tested no less than one to two weeks later. 36.0 to 43.9 U/mL Equivocal The equivocal sample should be repeat tested. In case the result remains in this range after repeat testing, a second sample should be collected and tested no less than one to two weeks later. > 44.0 U/mL Positive Presence of detectable VCA IgM antibodies. Specific IgM antibodies are usually detected in patients with recent primary infections and may be found in patients with reactivated infections. Other EBV serology assays should be performed to confirm EBV-associated infectious mononucleosis. Note - The magnitude of the measured result, above the cutoff, is not indicative of the amount of antibody present. EB VCA IgG 667.0 unit/mL 08/15/2023 8:43 PM EDT [facility] Comment: Sample results should be interpreted as follows: < 18.0 U/mL Negative Absence of detectable VCA IgG antibodies. If exposure to Zaria-Buckley virus is suspected despite a negative finding, a second sample should be collected and tested no less than one to two weeks later. 18.0 to 21.9 U/mL Equivocal The equivocal sample should be repeat tested. In case the result remains in this range after repeat testing, a second sample should be collected and tested no less than one or two weeks later. > 22 U/mL Positive Presence of detectable VCA IgG antibodies. A positive result indicates current or past exposure to Zaria-Buckley virus. Note - The magnitude of the measured result, above the cutoff, is not indicative of the amount of antibody present. Blood VENOUS BLOOD / Unknown Venipuncture / Unknown 08/15/2023 8:40 AM EDT 08/15/2023 8:40 AM EDT Kamini Guajardox GLUELINE WORKER IMMUNOLOGY ORDERABLES Fin al Result Performing Organization Address [facility] Co de Phone Number [facility] [address] [place] [address] , [place] [address] * MONONUCLEOSIS SCREEN (08/15/2023 8:40 AM EDT) Only the most recent of3 resultswithin the time period is included. [facility] [place] Screen Negative Negative 08/15/2023 7:42 PM EDT [facility] Blood VENOUS BLOOD / Unknown Venipuncture / Unknown 08/15/2023 8:40 AM EDT 08/15/2023 8:40 AM EDT Kamini Velazquez Turner GLUELINE WORKER CHEMISTRY ORDERABLES Jackie l Result Performing Organization Address [facility] Co de Phone Number [employer] [facility] 1 [facility] , [place] [address] * NM BONE SCAN 3 PHASE (08/04/2023 11:53 AM EST) Anatomical Region Laterality Modality Nuclear Medicine 08/04/2023 11:5 3 AM EST Impressions 08/04/2023 9:01 PM EST Activity on all 3 phases in the cuboid present which could relate to healing of microfracture or contusion in the cuboid. There is no global increased activity elsewhere in the foot more distally to suggest RSD. Narrative 08/04/2023 9:01 PM EST NM BONE SCAN 3 PHASE 08/04/2023 11:53 AM HISTORY: Right foot pain and possible RSD. Prior MRI showing bone contusion or microfracture of the cuboid COMPARISON: 07/13/2023 bone scan and MRI from 07/01/2023 of the RIGHT foot FINDINGS: The study is performed with 30.7 mCi process engineering technician MDP The radionuclide angiographic phase shows very slight hyperemia in the RIGHT tarsal region near the cuboid. There is moderate increased blood pool activity regional to the cuboid. Intense but unchanged activity present in the lateral RIGHT mid foot regional to the cuboid. This is compatible with healing from bone contusion or microfracture. No conclusive findings of RSD Procedure Note Dallas Barron MD - 08/04/2023 NM BONE SCAN 3 PHASE 08/04/2023 11:53 AM HISTORY: Right foot pain and possible RSD. Prior MRI showing bonecontusion or microfracture of the cuboid COMPARISON: 07/13/2023 bone scan and MRI from 07/01/2023 of the RIGHT foot FINDINGS: The study is performed with 30.7 mCi process engineering technician MDP The radionuclide angiographic phase shows very slight hyperemia in theRIGHT tarsal region near the cuboid. There is moderate increased blood pool activity regional to the cuboid. Intense but unchanged activity present in the lateral RIGHT mid footregional to the cuboid. This is compatible with healing from bone contusion or microfracture. No conclusive findings of RSD IMPRESSION: Activity on all 3 phases in the cuboid present which could relate tohealing of microfracture or contusion in the cuboid. There is no global increasedactivity elsewhere in the foot more distally to suggest RSD. us Tony Jackson MD [facility] ORDERABLES Final Result * IRON+TIBC (08/01/2023 3:10 PM EST) Only the most recent of8 resultswithin the time period is included. Iron 83 30 - 160 mcg/dL 08/01/2023 8:50 PM EST [facility] Transferrin 224 200 - 360 mg/dL 08/01/2023 8:50 PM EST PREFERRED LAB [employer], [facility] Transferrin Saturation 26 20 - 50 % 08/01/2023 8:50 PM EST [facility]ED [facility] [facility], [facility] TIBC 314 250 - 400 mcg/dL 08/01/2023 8:50 PM EST [facility]REFERRED [facility] [employer] [facility] Blood VENOUS BLOOD / Unknown Venipuncture / Unknown 08/01/2023 3:10 PM EST 08/01/2023 3:10 PM EST Caitlin August MD CHEMISTRY ORDERABLES Final Re sult Performing Organization Address [facility] Co de Phone Number [facility] [employer] [address] , [place] [address] * (ABNORMAL) FERRITIN (08/01/2023 3:10 PM EST) Only the most recent of3 resultswithin the time period is included. Ferritin 233(H) 30 - 150 ng/mL 08/01/2023 8:50 PM EST [facility] [employer] [facility] Comment:The lower threshold of 30 is not statistically defined, nor internally validated. The threshold has been updated to more closely reflect a physiologic basis. Fanny Dominguez, et al. Physiologically based serum ferritin thresholds for iron deficiency in children and non- women: a [place] National Health and Nutrition Examination Surveys (NHANES) serial cross-sectional study. Lancet Haematol 202;8:e572-82. Blood VENOUS BLOOD / Unknown Venipuncture / Unknown 08/01/2023 3:10 PM EST 08/01/2023 3:10 PM EST Narrative PREFERRED [facility] [employer] [facility] - 08/01/2023 8:50 PM EST Ingestion of nicci doses of biotin (>5 mg/day) taken within 8 hours of drawing blood sample can interfere with this immunoassay test. us Caitlin August MD CHEMISTRY ORDERABLES Final Re sult Performing Organization Address City/[facility]/ZIP Co de Phone Number [facility] [employer] [facility] 1 [facility] , [place] [address] * MOLECULAR VAGINITIS PANEL (MVP) (08/01/2023 3:03 PM EST) Only the most recent of2 resultswithin the time period is included. Bacterial Vaginosis Not Detected Not Detected 08/02/2023 10:06 AM EST [facility] [employer], [facility] Comment:Normal/Balanced vagi nal microbiome. Nakaseomyces glabrata (previously Jazzmine glabrata) Not Detected Not Detected 08/02/2023 10:06 AM EST [facility]ED [facility], [facility] [employer]mine group Not Detected Not Detected 08/02/2023 10:06 AM EST [facility] Comment:C. albicans, C. trop icalis, C. parapsilosis, and/or C. dubliniensis NOT detected. [employer] krusei Not Detected Not Detected 08/02/2023 10:06 AM EST [facility] [employer], [facility] Trichomonas vaginalis Not Detected Not Detected 08/02/2023 10:06 AM EST [facility] Swab SPECIMEN FROM VAGINA / Unknown 08/01/2023 3:03 PM EST 08/01/2023 3:03 PM EST Narrative PREFERRED LAB [employer], [facility] - 08/02/2023 10:06 AM EST Test performed using the [employer] MAX Vaginal Panel, a real-time polymerase chain (PCR) molecular nucleic acid amplification test. Aliya Mg DO MICROBIOLOGY - GENERAL ORDERA BLES Final Result [facility] [employer], [facility] 1 [facility], [place] [address] * PATHOLOGY TISSUE REQUEST (08/01/2023 3:03 PM EST) Only the most recent of7 resultswithin the time period is included. CASE REPORT Surgical Pathology Case: [id number] Authorizing Provider: Aliya Mg DO Collected: 08/01/2023 1503 Ordering Location: [facility] Crit Received: 08/01/2023 1500 Pathologist: Sae Hernandez MD Specimen: Endometrium, EMB 08/03/2023 9:55 AM EST [facility] FINAL DIAGNOSIS Endometrium, curettage: Proliferative endometrium. Negative for hyperplasia and malignancy. 08/03/2023 9:55 AM EST [facility] at 0955 EST GROSS DESCRIPTION Received in formalin, in a container labeled with the patient's name, hospital number, and endometrium, EMB , is a 1.5 x 1.3 x 0.3 cm aggregate of red-brown and hemorrhagic to bobby soft tissue. The specimen is submitted entirely in A1. ZN 08/02/2023 8:00 AM 08/03/2023 9:55 AM EST [facility] MICROSCOPIC DESCRIPTION Microscopic examination is performed and the findings corroborate the diagnosis. 08/03/2023 9:55 AM EST [facility] EMBEDDED IMAGES 08/03/2023 9:55 AM EST [facility] Tissue SPECIMEN FROM ENDOMETRIUM / Unknown 08/01/2023 3:03 PM EST 08/01/2023 3:03 PM EST [facility] PATHOLOGY [place] [address] * US PELVIS AND TRANSVAGINAL NON OB COMPLETE (07/26/2023 3:43 PM EST) Only the most recent of2 resultswithin the time period is included. Anatomical Region Laterality Modality Pelvis Ultrasound 07/26/2023 3:43 PM EST Impressions 07/26/2023 4:02 PM EST Unremarkable pelvic sonogram for age. - Note: Radiology results need to be interpreted within a comprehensive clinical context. If you have questions about the radiology report, please contact the office of the ordering clinician. Narrative 07/26/2023 4:02 PM EST US PELVIS AND TRANSVAGINAL NON OB COMPLETE 07/26/2023 3:43 PM CLINICAL HISTORY: N92.6-Irregular menstruation, zcdlqezprdf-IIX-67-CM. COMPARISON: None. PROCEDURE COMMENTS: Sonographic evaluation of the pelvis per ordered protocol with customer service representative teller images and tech notes for sent for review. FINDINGS: Uterus: 6.9 x 2.7 x 3.3 cm overall size. Endometrium: 2 mm thickness. RIGHT ovary: . Normal appearance for age. LEFT ovary: . Normal appearance for age. Cul-de-sac: No abnormal fluid or mass. Doppler flow: Normal Procedure Note Deshawn Juan MD - 07/26/2023 US PELVIS AND TRANSVAGINAL NON OB COMPLETE 07/26/2023 3:43 PM CLINICAL HISTORY: N92.6-Irregular menstruation, pjwixcclasg-OEK-35-CM. COMPARISON: None. PROCEDURE COMMENTS: Sonographic evaluation of the pelvis per orderedprotocol with customer service representative teller images and tech notes for sent for review. FINDINGS: Uterus: 6.9 x 2.7 x 3.3 cm overall size. Endometrium: 2 mm thickness. RIGHT ovary: . Normal appearance for age. LEFT ovary: . Normal appearance for age. Cul-de-sac: No abnormal fluid or mass. Doppler flow: Normal IMPRESSION: Unremarkable pelvic sonogram for age. - Note: Radiology results need to be interpreted within a comprehensiveclinical context. If you have questions about the radiology report, please contactthe office of the ordering clinician. us Tatyana Acuna MD [facility] [employer] US ORDERABLES Final R esult * NM BONE SCAN WHOLE BODY (07/13/2023 12:10 PM EST) Anatomical Region Laterality Modality Nuclear Medicine 07/13/2023 12:1 0 PM EST Impressions 07/13/2023 12:29 PM EST Arthritic uptake as described with greatest involvement in the right foot. Cortical cysts plain films right foot on 07/11/2023 negative. If clinically indicated this could be further evaluated with MRI of the right foot. - Note: Radiology results need to be interpreted within a comprehensive clinical context. If you have questions about the radiology report, please contact the office of the ordering clinician. Narrative 07/13/2023 12:29 PM EST WHOLE BODY BONE SCAN, 07/13/2023 12:10 PM CLINICAL HISTORY: M79.10-Myalgia, unspecified bjub-DTY-33-CM. COMPARISON: Right foot series 07/11/2023 PROCEDURE COMMENTS: 28.3 mCi of [id number]. Whole body bone scanning per protocol. FINDINGS: Bilateral renal function. Activity in the bladder. Mild arthritic uptake seen in the shoulders, knees, right ankle and bilateral feet, right greater than left. No abnormal axial skeletal uptake. Procedure Note Donavan Perez MD - 07/13/2023 WHOLE BODY BONE SCAN, 07/13/2023 12:10 PM CLINICAL HISTORY: M79.10-Myalgia, unspecified pxsp-YDT-03-CM. COMPARISON: Right foot series 07/11/2023 PROCEDURE COMMENTS: 28.3 mCi of Pe14p-SWZ. Whole body bone scanningper protocol. FINDINGS: Bilateral renal function. Activity in the bladder. Mild arthritic uptake seen in the shoulders, knees, right ankle andbilateral feet, right greater than left. No abnormal axial skeletal uptake. IMPRESSION: Arthritic uptake as described with greatest involvement in the right foot. Cortical cysts plain films right foot on 07/11/2023 negative.If clinically indicated this could be further evaluated with MRI of the rightfoot. - Note: Radiology results need to be interpreted within a comprehensiveclinical context. If you have questions about the radiology report, please contactthe office of the ordering clinician. us Prudence Tony MD IMG NM ORDERABLES Final Resu lt * XR FOOT RIGHT AP LATERAL AND OBLIQUE STANDING (07/11/2023 2:23 PM EST) Anatomical Region Laterality Modality Foot Radiographic Alicia ging 07/11/2023 2:23 PM EST Impressions 07/11/2023 3:14 PM EST No acute bony abnormality of the foot. - Note: Radiology results need to be interpreted within a comprehensive clinical context. If you have questions about the radiology report, please contact the office of the ordering clinician. Narrative 07/11/2023 3:14 PM EST XR FOOT RIGHT AP LATERAL AND OBLIQUE STANDING, 07/11/2023 2:23 PM CLINICAL HISTORY: S96.911A-Strain of unspecified muscle and tendon at ankle and foot level, right foot, initial iqbjzwcca-JUK-25-CM COMPARISON: 11/25/2022 PROCEDURE COMMENTS: XR FOOT RIGHT AP LATERAL AND OBLIQUE STANDING FINDINGS: There is no fracture or traumatic malalignment. Joint spaces overall well-maintained for age. No periostitis. Procedure Note Donavan Perez MD - 07/11/2023 XR FOOT RIGHT AP LATERAL AND OBLIQUE STANDING, 07/11/2023 2:23 PM CLINICAL HISTORY: S96.911A-Strain of unspecified muscle and tendon atankle and foot level, right foot, initial zvvipnovz-ROY-14-CM COMPARISON: 11/25/2022 PROCEDURE COMMENTS: XR FOOT RIGHT AP LATERAL AND OBLIQUE STANDING FINDINGS: There is no fracture or traumatic malalignment. Joint spaces overall well-maintained for age. No periostitis. IMPRESSION: No acute bony abnormality of the foot. - Note: Radiology results need to be interpreted within a comprehensiveclinical context. If you have questions about the radiology report, please contactthe office of the ordering clinician. us Tyshawn Hernandez DPM IMG DIAGNOSTIC IMAGING ORD ERABLES Final Result * EMG (07/11/2023) Impressions SEP OFFICE - 07/11/2023 This is a normal study of the right upper and lower extremities without evidence of a generalized myopathy or polyneuropathy. Pascual Tovar M.D. Diplomate, [employer] Narrative SEP OFFICE - 07/11/2023 NCS Summary: Normal right median, ulnar, peroneal, and tibial motor responses. Normal right median, ulnar,median palmar, ulnar palmar, radial, sural, and superficial peroneal sensory responses. EMG Summary: Normal needle electrode examination of the right upper and lower extremities with related paraspinal muscles. Prudence Tony MD NEUROLOGY ORDERABLES Final R esult SEP OFFICE * NM GASTRIC EMPTYING (06/27/2023 10:43 AM EST) Anatomical Region Laterality Modality Nuclear Medicine 06/27/2023 10:4 3 AM EST Impressions 06/27/2023 10:48 AM EST Normal gastric emptying study. - Note: Radiology results need to be interpreted within a comprehensive clinical context. If you have questions about the radiology report, please contact the office of the ordering clinician. Narrative 06/27/2023 10:48 AM EST NM GASTRIC EMPTYING 06/27/2023 10:43 AM CLINICAL HISTORY: R11.2-Nausea with vomiting, ntxwhcvxumk-TPD-09-CM. COMPARISON: None. PROCEDURE COMMENTS: Standard scrambled egg meal per laboratory protocol. 1.0 mCi technetium-99m sulfur colloid given. Geometric mean of anterior and posterior gastric counts with gastric retention calculated at serial time points, including early dynamic imaging. FINDINGS: Initial dynamic images show normal shape and contour of gastric activity. No evidence of reflux. Gastric retention at serial time points as follows: 72 % at 1 hour (normal 30- 90%) 42 % at 2 hours (normal < 60%) 9 % at 3 hours (normal <30%) 3 % at 4 hours (normal <10%) Procedure Note Donavan Perez MD - 06/27/2023 MN GASTRIC EMPTYING 06/27/2023 10:43 AM CLINICAL HISTORY: R11.2-Nausea with vomiting, wxtkdczagst-IVP-71-CM. COMPARISON: None. PROCEDURE COMMENTS: Standard scrambled egg meal per laboratory protocol.1.0 mCi technetium-99m sulfur colloid given. Geometric mean of anterior and posterior gastric counts with gastric retention calculated at serialtime points, including early dynamic imaging. FINDINGS: Initial dynamic images show normal shape and contour of gastric activity.No evidence of reflux. Gastric retention at serial time points as follows: 72 % at 1 hour (normal 30- 90%) 42 % at 2 hours (normal < 60%) 9 % at 3 hours (normal <30%) 3 % at 4 hours (normal <10%) IMPRESSION: Normal gastric emptying study. - Note: Radiology results need to be interpreted within a comprehensiveclinical context. If you have questions about the radiology report, please contactthe office of the ordering clinician. Jarrod Gonsalves MD [facility] NM ORDERABLES Final Resu lt * HCV ANTIBODY SCREEN W/ REFLEX (06/21/2023 8:56 AM EST) Hep C Ab Non-Reactiv e Non-Reacti ve 06/21/2023 4:21 PM EST [facility] Blood VENOUS BLOOD / Unknown Venipuncture / Unknown 06/21/2023 8:56 AM EST 06/21/2023 8:56 AM EST Tatyana Acuna MD HEMATOLOGY ORDERABLES Fin al Result Performing Organization Address City/[facility]/ZIP Co de Phone Number [facility] [employer] [address] , [place] [address] * HEPATITIS B SURFACE ANTIGEN (06/21/2023 8:56 AM EST) Hep Bs Ag Non-Reactiv e Non-Reacti ve 06/21/2023 4:14 PM EST [facility] [employer] [facility] Blood VENOUS BLOOD / Unknown Venipuncture / Unknown 06/21/2023 8:56 AM EST 06/21/2023 8:56 AM EST Tatyana Acuna MD CHEMISTRY ORDERABLES Jackie l Result Performing Organization Address [facility] Co de Phone Number [facility] [employer] [employer] [address] , [place] [address] * 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 CYTOLOGY REQUEST (PAP ONLY) (06/21/2023 8:54 AM EST) Only the most recent of7 resultswithin the time period is included. CASE REPORT Gynecologic Cytology Report Case: [id number] Authorizing Provider: Tatyana Acuna MD Collected: 06/21/2023 0854 Ordering Location: [facility] Crit Received: 06/21/2023 0854 First Screen: Sammi Garza CT Rescreen: Clover Benjamin CT Specimen: LIQUID-BASED PAP - CERVICAL/ENDOCERV ICAL, Cervix, Endocervical 06/28/2023 10:16 AM [facility] PAP FINAL DIAGNOSIS Negative for intraepithelial lesion or malignancy 06/28/2023 10:16 AM [facility] at 1016 EST MICROSCOPIC DESCRIPTION Microscopic examination is performed and the findings corroborate the diagnosis. 06/28/2023 10:16 AM [facility] PAP SMEAR ADEQUACY Satisfactory for evaluation 06/28/2023 10:16 AM [facility] ENDOCERVICAL T-ZONE Transformation zone present 06/28/2023 10:16 AM [facility] EMBEDDED IMAGES 10:16 AM EST [facility] PAP DISCLAIMER The Pap Smear is a screening test that aids in the detection of cervical cancer and cancer precursors. Both false positive and false negative results can occur. The test should be used at regular intervals, and positive results should be confirmed before definitive therapy. Processed using the ThinPrep Printed Circuit Layout Taper Automated cytology screening device ([employer]). 06/28/2023 10:16 AM EST [facility] Thin Prep ENDOCERVICAL STRUCTURE / Unknown 06/21/2023 8:54 AM EST 06/21/2023 8:54 AM EST us Tatyana Acuna MD CYTOLOGY ORDERABLES Final Result [address] [id number] * TRICHOMONAS VAGINALIS BY TMA (PAP PANEL) (06/21/2023 8:54 AM EST) Only the most recent of2 resultswithin the time period is included. Trichomonas vaginalis by TMA Not Detected Not Detected 06/23/2023 5:01 AM EST [facility] Thin Prep SPECIMEN FROM UTERINE CERVIX / Unknown 06/21/2023 8:54 AM EST 06/21/2023 8:54 AM EST Narrative [facility]REFERRED [facility] - 06/23/2023 5:01 AM EST Test methodology is housekeeping and laundry team leader mediated amplification (TMA) using the Aptima Trichomonas vaginalis assay from [employer]. A negative result does not completely rule out a Trichomonas vaginalis infection due to potential inhibitors or levels present below the limit of detection of this assay. Results are dependent on proper collection and transport of specimen. This test is indicated for medical purposes only and should not be used for legal or forensic purposes. The assay has been cleared by the FDA to test the following specimens from symptomatic or asymptomatic women: clinician-collected endocervical swabs, clinician-collected vaginal swabs, and specimens collected in PreservCyt solution. Testing on first-catch male and female urine is not FDA-approved by this methodology; performance characteristics of the assay on these sample types were determined by [facility]. Tatyana Acuna MD MICROBIOLOGY - GENERAL OR DERABLES Final Result Performing Organization Address City/[facility]/ZIP Co de Phone Number [facility] [address] [facility] , [place] [address] * GC CHLAMYDIA THIN PREP (06/21/2023 8:54 AM EST) Only the most recent of3 resultswithin the time period is included. [facility] Chlamydia trachomatis Not Detected Not Detected 06/22/2023 1:28 PM EST [facility] [employer] [facility] Neisseria gonorrhoeae Not Detected Not Detected 06/22/2023 1:28 PM EST [facility] [employer] [facility] Thin Prep SPECIMEN FROM UTERINE CERVIX / Unknown 06/21/2023 8:54 AM EST 06/21/2023 8:54 AM EST Narrative [facility] [employer] [facility] - 06/22/2023 1:28 PM EST Testing methodology is housekeeping and laundry team leader mediated amplification (TMA) using the Aptima Combo 2 assay from [employer]. A negative result does not completely rule [...] specimens. Detailed methodology is available upon request. Tatyana Acuna MD MICROBIOLOGY - GENERAL OR DERABLES Final Result Performing Organization Address [facility] Co de Phone Number [facility] [facility] [address] [facility] , [place] [address] * HPV HIGH RISK WITH REFLEX TO GENOTYPE (06/21/2023 8:54 AM EST) Only the most recent of5 resultswithin the time period is included. Pathologist [facility] HPV HR Reflex Not Detected Not Detected 024 1:38 PM EST [facility]REF[facility] Thin Prep SPECIMEN FROM UTERINE CERVIX / Unknown 06/21/2023 8:54 AM EST 06/21/2023 8:54 AM EST Narrative PREFERRED [facility] - 06/22/2023 1:38 PM EST This test was performed using the FDA Approved APTIMA HPV mRNA assay which detects E6/E7 messenger RNA of High Risk HPV types (16, 18, 31, 33, 35, 39, 45, 51, 52, 56, 58, 59, 66, and 68). This assay is intended for use in women 21 years or older with ASC-US cervical cytology or women 30 years or older. This assay is not intended to substitute for regular cervical cytology screening. Detection of HPV using the APTIMA HPV Assay does not differentiate HPV types and cannot evaluate persistence of any one type. The use of this assay has not been evaluated for the management of HPV vaccinated women, women with prior ablative or excisional therapy, hysterectomy, or who are . Sensitivities may be affected by collection methods, stage of infection, and the presence of interfering substances. Results of this assay should be interpreted in conjunction with other available laboratory and clinical data. us Tatyana Acuna MD MICROBIOLOGY - GENERAL OR DERABLES Final Result [facility]REF[facility]ED [facility] [address] [place] [address] , [place] [address] * FL BARIUM SWALLOW (06/20/2023 11:12 AM EST) Anatomical Region Laterality Modality Radiographic Alicia ging Impressions 06/20/2023 10:49 AM EST Spontaneous significant gastroesophageal reflux resulting and vomiting. No evidence of reflux esophagitis or stricture. - Note: Radiology results need to be interpreted within a comprehensive clinical context. If you have questions about the radiology report, please contact the office of the ordering clinician. Narrative 06/20/2023 10:49 AM EST FL BARIUM SWALLOW, 06/20/2023 CLINICAL HISTORY: R13.12-Dysphagia, oropharyngeal ldhnk-UOJ-43-CM COMPARISON: None. PROCEDURE COMMENTS: Fluoroscopy time 1.2 minutes. 486 customer service representative teller images archived in PACS. FINDINGS: Preliminary film of the chest is unremarkable. The swallowing mechanism appears normal. No aspiration or penetration. Mild esophagus appears normal with normal motility. No constricting or obstructing lesions. Spontaneous gastroesophageal reflux demonstrated solid and vomiting. Barium coated tablet administered which passed readily through the esophagus and GE junction into the stomach. Procedure Note Donavan Perez MD - 06/20/2023 FL BARIUM SWALLOW, 06/20/2023 CLINICAL HISTORY: R13.12-Dysphagia, oropharyngeal fjvyo-CUZ-67-CM COMPARISON: None. PROCEDURE COMMENTS: Fluoroscopy time 1.2 minutes. 486 representativeimages archived in PACS. FINDINGS: Preliminary film of the chest is unremarkable. The swallowing mechanism appears normal. No aspiration or penetration. Mild esophagus appears normal with normal motility. No constricting or obstructing lesions. Spontaneous gastroesophageal reflux demonstratedsolid and vomiting. Barium coated tablet administered which passed readily through theesophagus and GE junction into the stomach. IMPRESSION: Spontaneous significant gastroesophageal reflux resulting and vomiting. No evidence of reflux esophagitis or stricture. - Note: Radiology results need to be interpreted within a comprehensiveclinical context. If you have questions about the radiology report, please contactthe office of the ordering clinician. us Hannah PLATT FLUOROSCOPY ORDERABLES Fin al Result * FL MODIFIED BARIUM SWALLOW (06/20/2023 10:08 AM EST) Narrative PACS - 06/20/2023 10:09 AM EST Modified Barium Swallow was performed in the Radiology department by Speech Pathology. No Radiologist in attendance. No charge from [facility]. Refer to Speech Pathology for further information. us Hannah PLATT FLUOROSCOPY ORDERABLES Fin al Result PACS * XR HAND BILATERAL PA LATERAL AND OBLIQUE (06/14/2023 2:05 PM EST) Anatomical Region Laterality Modality Hand Radiographic Alicia ging 06/14/2023 2:05 PM EST Impressions 06/14/2023 3:06 PM EST Minimal osteoarthritis. - Note: Radiology results need to be interpreted within a comprehensive clinical context. If you have questions about the radiology report, please contact the office of the ordering clinician. Narrative 06/14/2023 3:06 PM EST XR HAND BILATERAL PA LATERAL AND OBLIQUE, 06/14/2023 2:05 PM CLINICAL HISTORY: M79.10-Myalgia, unspecified ygcg-XOH-06-CM Z79.899-Other nursing home (current) drug avpomrc-VGZ-87-CM G93.2-Benign intracranial plniquqzdiic-CRK-50-CM R76.9-Abnormal immunological finding in serum, snmoncdtcvp-MZW-69-CM M79.5-Uuwjfogsghno-QQF-10-CM COMPARISON: None. PROCEDURE COMMENTS: Bilateral imaging per the ordered protocol. FINDINGS: Minimal degenerative changes bilateral first carpometacarpal joints. No erosions. No periostitis. No fracture. Procedure Note Abrahan Leroy MD - 06/14/2023 XR HAND BILATERAL PA LATERAL AND OBLIQUE, 06/14/2023 2:05 PM CLINICAL HISTORY: M79.10-Myalgia, unspecified upln-YGI-68-CM Z79.899-Other nursing home (current) drug sxaomet-NJE-29-CM G93.2-Benign intracranial qscfgefyocuf-HBP-31-CM R76.9-Abnormal immunological finding in serum, mlhlzztiapg-RDQ-84-CM M79.5-Qnygzxygkpjc-PVL-10-CM COMPARISON: None. PROCEDURE COMMENTS: Bilateral imaging per the ordered protocol. FINDINGS: Minimal degenerative changes bilateral first carpometacarpal joints. No erosions. No periostitis. No fracture. IMPRESSION: Minimal osteoarthritis. - Note: Radiology results need to be interpreted within a comprehensiveclinical context. If you have questions about the radiology report, please contactthe office of the ordering clinician. Prudence Tony MD [facility] DIAGNOSTIC IMAGING ORDER LADY Final Result * POCT SARS-COV-2 RNA SEP (06/07/2023 1:12 PM EST) COV19 RNA POCT Negative Negative 06/07/2023 12:24 PM EST [facility] Swab NASAL / Unknown 06/07/2023 1 :12 PM EST 06/07/2023 12:24 PM EST Narrative [facility] - 06/07/2023 12:24 PM EST The ID NOW is an isothermal nucleic acid amplification assay used to detect nucleic acid from SARS-CoV-2 viral RNA and is intended for use under FDA Emergency Use Authorization only. Negative results do not preclude SARS-CoV-2 infection and should not be used as the sole basis for patient management decisions. Negative results must be combined with clinical observations, patient history, and epidemiological information. Recommend confirmation using alternate method if a negative result is inconsistent with clinical signs and symptoms or if necessary for patient management. Stack ID NOW Provider Fact Sheet: https://www.fda.gov/media/266258/download Stack ID NOW Patient Fact Sheet: https://www.fda.gov/media/040994/download Clarita Perez DO POINT OF CARE TEST ORDERABLE S Final Result Performing Organization Address [facility]/ZIP Co de Phone Number [facility] [address] [place] [address] * POCT STREP A DNA (06/07/2023 1:05 PM EST) Pathologist [facility] Strep A DNA Negative Negative 06/07/2023 12:22 PM EST [facility] Swab SPECIMEN FROM THROAT / Unknown 06/07/2023 1:05 PM EST 06/07/2023 12:22 PM EST Clarita Ana DO POINT OF CARE TEST ORDERABLE S Final Result Performing Organization Address [facility] Co de Phone Number [facility] [address] [place] [address] * POCT INFLUENZA A/B (06/07/2023 12:09 PM EST) Only the most recent of6 resultswithin the time period is included. Influenza A Ag Neg SEP OFFICE Influenza B Ag Neg SEP OFFICE Lot Number [id number] SEP OFFICE Expiration Date 02/25/2025 SEP OFFICE Flu Blue Control Line (positive internal control) N/A SEP OFFICE Clear Background (negative internal control) N/A Yes/No SEP OFFICE 06/07/2023 12:0 9 PM EST us Clarita Perez DO POINT OF CARE TEST ORDERABLE S Final Result SEP OFFICE * POCT RAPID STREP A (05/30/2023 3:29 PM EST) Only the most recent of4 resultswithin the time period is included. Strep A Ag None Detected None Detected Pos/Neg SEP OFFICE Lot Number [id number] SEP OFFICE Expiration Date 12/23/2023 SEP OFFICE SeriAl # SEP OFFICE Control Line Yes YES/NO SEP OFFICE 05/30/2023 3:29 PM EST us Kamini Velazquez Turner GLUELINE WORKER POINT OF CARE TEST ORDERA BLES Final Result Performing Organization Address [facility] de Phone Number SEP OFFICE * POCT LIAT SARS ANTIGEN (05/15/2023 3:42 PM EST) Only the most recent of7 resultswithin the time period is included. SARS Antigen Negative Negative SEP OFFICE Lot Number [id number] SEP OFFICE Expiration Date 04/11/24 SEP OFFICE SeriAl # SEP OFFICE Control Line Yes YES/NO SEP OFFICE 05/15/2023 3:42 PM EST us Kamini Turnerdox GLUELINE WORKER POINT OF CARE TEST ORDERA BLES Final Result Performing Organization Address [facility] Co de Phone Number SEP OFFICE * POCT RESPIRATORY SYNCYTIAL VIRUS (05/15/2023 3:41 PM EST) RSV Rapid Ag negative SEP OFFICE 05/15/2023 3:41 PM EST us Kamini S Turner GLUELINE WORKER POINT OF CARE TEST ORDERA BLES Final Result Performing Organization Address City/[facility]/ZIP Co de Phone Number SEP OFFICE * COLONOSCOPY (05/10/2023 9:45 AM EST) Anatomical Region Laterality Modality Endoscopy Narrative 05/10/2023 9:47 AM EST Table formatting from the original result was not included. Findings All observed locations appeared normal. Recommendation - No findings to account for hematochezia Impression Normal. Indication Iron deficiency, Rectal bleeding Staff Staff Role Jarrod Gonsalves MD Performing Provider ABRAHAM Guadarrama CRNA, RN Mold Finisher Medications See Anesthesia Record. Preprocedure A history and physical has been performed, and patient medication allergies have been reviewed. The patient's tolerance of previous anesthesia has been reviewed. The risks and benefits of the procedure and the sedation options and risks were discussed with the patient. All questions were answered and informed consent obtained. ASA 2 - Patient with mild systemic disease Details of the Procedure The patient underwent monitored anesthesia care, which was administered by an anesthesia professional. The patient's blood pressure, heart rate, level of consciousness, oxygen, respirations, ECG and ETCO2 were monitored throughout the procedure. A digital rectal exam was performed. The scope was introduced through the anus and advanced to the terminal ileum. Retroflexion was performed in the rectum. Bowel prep was adequate. The patient experienced no blood loss. The procedure was not difficult. The patient tolerated the procedure well. There were no apparent adverse events. Patient provided education and educated on specific discharge instructions. Patient educated on medications given during the procedure and new medications for discharge. Patient verbalizes understanding of discharge education. Patient stable and awaiting transport for discharge. Events Procedure Events Event Event Time ENDO SCOPE IN TIME 05/10/2023 9:36 AM ENDO CECUM REACHED 05/10/2023 9:38 AM ENDO SCOPE OUT TIME 05/10/2023 9:44 AM Specimens No specimens collected Anesthesia Event Time In Patient In - Proc. Room 09:27 AM Patient Out - Proc. Room 09:45 AM us Jarrod Gonsalves MD ENDOSCOPY PROCEDURE ORDERABL ES Final Result * INTRAOP AIRWAY PLACEMENT (05/10/2023 9:24 AM EST) Narrative [facility] - 05/10/2023 9:24 AM EST Rolf Morales CRNA 05/10/2023 9:24 AM Intraop Airway Placement: Date/Time: 05/10/2023 9:24 AM Airway type: Nasal cannula salter us Rolf R Carmen FUNERAL DIRECTOR/EMBALMER/OWNER [place] ANESTHESIA Final Resul t Performing Organization Address [facility] de Phone Number [facility] [address] [place] [address] * POCT URINE (05/10/2023 9:04 AM EST) Only the most recent of11 resultswithin the time period is included. Preg Test, Ur Negative [facility] GR ANT NURSING Lot Number [id number] [facility] ALISSA NURSING Expiration Date 302,024 [facility] NURSING SeriAl # [facility] NURSING Control Line Yes YES/NO [facility] NURSING 05/10/2023 9:04 AM EST Megha Boone GLUELINE WORKER POINT OF CARE TEST ORDERABL ES Final Result Performing Organization Address [facility] Phone Number [facility] NURSING [address] [phone] * ESOPHAGEAL MOTILITY/MANOMETRY (04/04/2023 10:39 AM EST) Narrative [facility] - 04/04/2023 9:42 AM EST The result for this study can be found on the Media tab. Please note that the scanned report will not be available on the same day the procedure was performed. Jarrod Gonsalves MD ENDOSCOPY PROCEDURE ORDERABL ES Final Result Performing Organization Address [facility] de Phone Number [facility] [address] [place] [address] * CEREBROSPINAL FLUID CULTURE (STAIN INCLUDED) (03/22/2023 8:47 AM EDT) Only the most recent of2 resultswithin the time period is included. Culture No growth at 94 hours. 03/26/2023 8:57 AM EDT [facility] [employer], [place] Stain Cytospin gram stain shows: 03/26/2023 8:57 AM EDT [facility], [place] Stain No No WBCs seen 03/26/2023 8:57 AM EDT [facility], [facility] Stain No organisms seen 03/26/2023 8:57 AM EDT [facility], [facility] Cerebrospinal Fluid LUMBAR PUNCTURE / Unknown 03/22/2023 8:47 AM EDT 03/22/2023 9:16 AM EDT us Radha Ley APRN MICROBIOLOGY - GENERAL ORDE RABLES Final Result Performing Organization Address [facility] Co de Phone Number [facility], [address], [place] [address] * SCANNED RHYTHM STRIPS (03/16/2023 5:12 PM EDT) Only the most recent of3 resultswithin the time period is included. Anatomical Region Laterality Modality Other 03/16/2023 5:12 PM EDT us Unknown Provider IMG ECG ORDERABLES Final Result * INTRAOP AIRWAY PLACEMENT (03/15/2023 9:14 AM EDT) Narrative [facility] - 03/15/2023 9:14 AM EDT Dallas Azar CRNA 03/15/2023 9:35 AM Intraop Airway Placement: Date/Time: 03/15/2023 9:14 AM Induction type: IV Mask size: Large adult Pre-Oxygenation: Standard Mask ventilation: Easy mask ventilation Mask ventilation improved by: Emerald Technique: Video laryngoscope Laryngoscope blade: Reyes Blade size: 3 Grade view: I Airway type: ETT- cuffed Topical Anesthetic/Lubricant: None Intubation assist devices: Stylet 14fr Airway location: Oral Device size: 7mm Secured at: 22 cm Secured by: Tape Measured from: Lips Placement verified: Auscultation, End tidal CO2 and Symmetric chest wall motion Condition: Atraumatic and Unchanged Insertion attempts: 1 Title: FUNERAL DIRECTOR/EMBALMER/OWNER lidocaine 4 % ([id number]) laryngotracheal solution - Laryngotracheal 4 mL - 03/15/2023 9:14:00 AM: us Alvarez Bhatt MD [place] ANESTHESIA Final Result Performing Organization Address [facility]/ZIP Co de Phone Number [facility] [address] [place] [phone] * MRI BRAIN ATTN ORBITS W CONTRAST (03/11/2023 9:06 AM EDT) Anatomical Region Laterality Modality Magnetic Resonan ce 03/11/2023 9:06 AM EDT Impressions 03/11/2023 12:33 PM EDT Stable MRI of the brain and orbits compared to March 27, 2020. Similar partial empty sella. Normal orbital contents. Mild chronic pansinusitis. - Note: Radiology results need to be interpreted within a comprehensive clinical context. If you have questions about the radiology report, please contact the office of the ordering clinician. . Narrative 03/11/2023 12:33 PM EDT MRI BRAIN ATTN ORBITS W CONTRAST, 03/11/2023 9:06 AM CLINICAL HISTORY: G93.2-Benign intracranial sosmjqkewvzv-SCE-42-CM. COMPARISON: MRI of the brain and orbit dated March 27, 2020 PROCEDURE COMMENTS: Multiplanar, multiecho MR performed per protocol. Gadolinium contrast administered as recorded in EPIC. FINDINGS: Similar partial empty sella. Ventricles are normal size and unchanged. No abnormal signal intensity within the brain parenchyma. No midline shift or hydrocephalus. No tonsillar ectopia. No abnormal enhancement. No restricted diffusion. Symmetric orbital contents. Optic nerve sheaths are symmetric with the similar amount of CSF within the optic nerve sheaths. No abnormal enhancement including the optic nerves. Diffuse mild chronic pansinusitis, slightly more prominent than the prior study. Procedure Note Yue Faith MD - 03/11/2023 MRI BRAIN ATTN ORBITS W CONTRAST, 03/11/2023 9:06 AM CLINICAL HISTORY: G93.2-Benign intracranial ntdjyieckfqn-YQD-69-CM. COMPARISON: MRI of the brain and orbit dated March 27, 2020 PROCEDURE COMMENTS: Multiplanar, multiecho MR performed per protocol.Gadolinium contrast administered as recorded in EPIC. FINDINGS: Similar partial empty sella. Ventricles are normal size and unchanged.No abnormal signal intensity within the brain parenchyma. No midline shiftor hydrocephalus. No tonsillar ectopia. No abnormal enhancement. Norestricted diffusion. Symmetric orbital contents. Optic nerve sheaths are symmetric with thesimilar amount of CSF within the optic nerve sheaths. No abnormal enhancementincluding the optic nerves. Diffuse mild chronic pansinusitis, slightly more prominent than the priorstudy. IMPRESSION: Stable MRI of the brain and orbits compared to March 27, 2020. Similar partial empty sella. Normal orbital contents. Mild chronic pansinusitis. - Note: Radiology results need to be interpreted within a comprehensiveclinical context. If you have questions about the radiology report, please contactthe office of the ordering clinician. . Radha Ley APRN IMG MRI ORDERABLES Final Re sult * UNATTENDED SLEEP STUDY (02/22/2023 9:03 AM EDT) [facility] TUNDE SLEEP OVERALL RESULT [facility] DATE OF STUDY 02/22/2023 [facility] Study Type Adult [facility] PATIENT WEIGHT 215.0 SE LAB APNEA INDEX 2.9 SE LAB Apnea Hypopnea Index 21.7 [facility] RDI Index 21.7 [facility] Central Apnea Index 0.0 [facility] REM AHI [facility] Min O2 Saturation 88 [facility] RDI REM [facility] RDI nonREM 21.7 [facility] CPAP Device Name [facility] CPAP Pressure SE LAB IPAP Pressure [facility] EPAP Pressure [facility] Auto Pressure Support [facility] Supplemental O2 [facility] Mask Type [facility] Mask Size [facility] APAP Range [facility] Auto-IPAP Max [facility] Auto-IPAP Min [facility] Pressure Support [facility] PAP Compliance % SE LAB Compliance Days [facility] Residual AHI [facility] PAP 90-95th Percentile [facility] 02/22/2023 9:03 AM EDT Sp Gutiérrez MD SLEEP CENTER ORDERABLES Final Result [facility] [address] [place] [address] * SERUM PROTEIN ELECTROPHORESIS WITH REFLEX (02/22/2023 8:05 AM EDT) [facility] Albumin SPE 4.0 3.1 - 5.0 gm/dL 02/23/2023 1:08 PM EDT [facility] Alpha 1 Globulin 0.3 0.1 - 0.3 gm/dL 02/23/2023 1:08 PM EDT [facility] Alpha 2 Globulin 1.0 0.5 - 1.0 gm/dL 02/23/2023 1:08 PM EDT [facility] Beta Globulin 0.8 0.5 - 1.4 gm/dL 02/23/2023 1:08 PM EDT [facility] Gamma Globulin LAYLA 1.0 0.6 - 1.6 gm/dL 02/23/2023 1:08 PM EDT [facility] Total Protein 7.1 6.4 - 8.3 gm/dL 02/23/2023 1:08 PM EDT [facility] [employer], [facility] SPE/IT Interp M-protein not apparent on serum protein electrophore sis. This test has been reviewed and approved by Rico Perales MD, BAY. 02/23/2023 1:08 PM EDT [facility] Blood VENOUS BLOOD / Unknown Venipuncture / Unknown 02/22/2023 8:05 AM EDT 02/22/2023 8:05 AM EDT us Prudence Tony MD IMMUNOLOGY ORDERABLES Final Result [facility] , [place] [phone] * 14-3-3 ETA PROTEIN-REF LAB (02/22/2023 8:05 AM EDT) 14-3-3 eta Protein <0.2 <0.2 ng/mL 03/05/2023 3:03 AM EDT [facility] Comment: The 14-3-3eta protein is a marker of synovial inflammation that is released into synovial fluid and peripheral blood in rheumatoid arthritis (RA) and erosive psoriatic arthritis. One in five RF and CCP seronegative early stage RA patients is found to be positive for 14-3-3eta protein. Patients with active joint RA disease have higher values of 14-3-3eta protein than those with inactive RA or psoriasis without arthritis. 14-3-3eta protein has a 93% specificity in patients with RA. Values > or = 0.2 ng/mL are elevated and indicative of RA disease or erosive psoriatic arthritis. Values >0.50 ng/mL are associated with more aggressive RA disease and poorer outcomes. Unlike RF and CCP, 14-3-3eta protein is a therapeutically modifiable marker to monitor response to therapy. A decrease in 14-3-3eta protein in response to DMARDs (disease-modifying antirheumatic drugs) and anti-TNF (tumor necrosis factor) drugs indicates better clinical outcomes; an increase is associated with worse outcomes despite apparent clinical remission. For further information please visit: [email or web address] This test was developed and its analytical performance characteristics have been determined by [employer] [facility]. It has not been cleared or approved by FDA. This assay has been validated pursuant to the CLIA regulations and is used for clinical purposes. Performed by: [facility] [address] [id number] Rasheed Bass MD, PhD, BAY, Blood VENOUS BLOOD / Unknown Venipuncture / Unknown 02/22/2023 8:05 AM EDT 02/22/2023 8:05 AM EDT us Prudence Tony MD IMMUNOLOGY ORDERABLES Final Result [email or web address] [address] [place] [address] * [id number] DEHYDROGENASE -REF LAB (02/22/2023 8:05 AM EDT) G6PD HGB 16.1 9.9 - 16.6 U/g Hb 02/24/2023 12:08 AM EDT [email or web address] Comment: Performed By: [facility] [address] [place] [address] [employer] Comp[employer] Clerk: Brayan Garrido MD, PhD CLIA Number: [id number] Blood VENOUS BLOOD / Unknown Venipuncture / Unknown 02/22/2023 8:05 AM EDT 02/22/2023 8:05 AM EDT Prudence Tony MD HEMATOLOGY ORDERABLES Final Result Performing Organization Address [facility] de Phone Number [email or web address] [address] [place], [place] [phone] * (ABNORMAL) COMPLEMENT ACTIVITY, TOTAL -REF LAB (02/22/2023 8:05 AM EDT) [facility] CH50 92.4(H) 38.7 - 89.9 U/mL 02/23/2023 1:14 PM EDT [email or web address] Comment: High activity in total complement functional assay (CH50) indicates acute-phase response to inflammation or infection. Repeat testing after inflammation has resolved is recommended. REFERENCE INTERVAL: Complement Activity Total, (CH50) 38.6 U/mL or less ..........Low 38.7-89.9 U/mL .............Normal 90.0 U/mL or greater .......High Performed By: [facility] [address] [place] [id number] [employer]iff Comp[employer] Clerk: Brayan Garrido MD, PhD CLIA Number: [id number] Blood VENOUS BLOOD / Unknown Venipuncture / Unknown 02/22/2023 8:05 AM EDT 02/22/2023 8:05 AM EDT Prudence Tony MD CHEMISTRY ORDERABLES Final R esult Performing Organization Address [facility] de Phone Number [employer] [facility] [address] [place], [place] [phone] * ANCA VASCULITIS PROFILE - REF LAB (02/22/2023 7:55 AM EDT) [facility] Myeloperox Ab, IgG 0 0 - 19 AU/mL 02/24/2023 6:23 PM EDT [employer] Comment: INTERPRETIVE INFORMATION: Myeloperoxidase Abs, IgG 19 AU/mL or Less ......... Negative 20-25 AU/mL .............. Equivocal 26 AU/mL or Greater ...... Positive Approximately 90% of patients with a P-ANCA pattern by IFA have antibodies specific for MPO. Serine Proteinase 3, IgG 2 0 - 19 AU/mL 02/24/2023 6:23 PM EDT [employer] Comment: INTERPRETIVE INFORMATION: Serine Proteinase 3, IgG 19 AU/mL or Less ........ Negative 20-25 AU/mL ............. Equivocal 26 AU/mL or Greater ..... Positive Approximately 85% of patients with a C-ANCA pattern by IFA have antibodies specific for PR3. ANCA Titer <1:20 <1:20 02/24/2023 6:23 PM EDT [employer] ANCA Pattern None Detected None Detected 02/24/2023 6:23 PM EDT [employer] Comment: INTERPRETIVE INFORMATION: ANCA IFA Pattern Neutrophil Cytoplasmic Antibodies (C-ANCA = granular cytoplasmic staining, P-ANCA = perinuclear staining) are found in the serum of over 90 percent of patients with certain necrotizing systemic vasculitides, and usually in less than 5 percent of patients with collagen vascular disease or arthritis. Performed By: [facility] [address] [place] [address] [employer] Comp[employer] Clerk: Brayan Garrido MD, PhD CLIA Number: [id number] Blood VENOUS BLOOD / Unknown Venipuncture / Unknown 02/22/2023 7:55 AM EDT 02/22/2023 8:05 AM EDT Prudence Tony MD IMMUNOLOGY ORDERABLES Final Result [email or web address] [address] [place] [address] * LYME ABS, IGG AND IGM BY IMMUNOBLOT-REF LAB (02/22/2023 7:55 AM EDT) Pathologist [facility] B. burgdorferi IgG Immunoblot Negative Negative 02/23/2023 1:44 PM EDT [email or web address] Comment: Band(s) present: 93, 66 kDa (Insufficient number of bands for positive result) INTERPRETIVE INFORMATION: B. burgdorferi IgG Immunoblot For this assay, a positive result is reported when any 5 or more of the following 10 bands are present: 18, 23, 28, 30, 39, 41, 45, 58, 66, or 93 kDa. All other banding patterns are reported as negative. B. burgdorferi IgM Immunoblot Negative Negative 02/23/2023 1:44 PM EDT [email or web address] Comment: Band(s) present: NONE (Insufficient number of bands for positive result) INTERPRETIVE INFORMATION: B. burgdorferi Antibody IgM Immunoblot For this assay, a positive result is reported when any 2 or more of the following bands are present: 23, 39, or 41 kDa. All other banding patterns are reported as negative. Performed By: [facility] [address] [place] [address] [employer]iff Compiling Clerk: Brayan Garrido MD, PhD CLIA Number: [id number] Blood VENOUS BLOOD / Unknown Venipuncture / Unknown 02/22/2023 7:55 AM EDT 02/22/2023 8:05 AM EDT Prudence Tony MD IMMUNOLOGY ORDERABLES Final Result [email or web address] [address] [place] [address] * MISCELLANEOUS LAB (02/22/2023 7:55 AM EDT) [facility] COMMENT See Scanned Image 03/06/2023 4:27 PM EDT [facility] Blood UPPER LIMB STRUCTURE / Unknown Venipuncture / Unknown 02/22/2023 7:55 AM EDT 02/22/2023 8:05 AM EDT Prudence Tony MD HEMATOLOGY ORDERABLES Final Result EXTERNAL LAB See Scanned Report [facility] [address] [place] [id number] * COMPLEMENT PANEL (02/22/2023 7:55 AM EDT) [facility] C3 Complement 160 90 - 180 mg/dL 02/22/2023 12:07 PM EDT [facility] C4 Complement 24 10 - 40 mg/dL 02/22/2023 12:07 PM EDT [facility] [employer] Blood VENOUS BLOOD / Unknown Venipuncture / Unknown 02/22/2023 7:55 AM EDT 02/22/2023 8:05 AM EDT us Prudence Tony MD IMMUNOLOGY ORDERABLES Final Result [facility] [employer] [address] [facility] , [place] [address] * ANGIOTENSIN CONVERTING ENZYME -REF LAB (02/22/2023 7:55 AM EDT) Only the most recent of2 resultswithin the time period is included. LINDA 30 16 - 85 U/L 02/23/2023 11:32 AM EDT [email or web address] Comment: Performed By: [facility] [address] [place] [address] [employer]iff Compiling Clerk: Brayan Garrido MD, PhD CLIA Number: [id number] Blood VENOUS BLOOD / Unknown Venipuncture / Unknown 02/22/2023 7:55 AM EDT 02/22/2023 8:05 AM EDT us Prudence Tony MD CHEMISTRY ORDERABLES Final R esult Performing Organization Address City/[facility]/ZIP Co de Phone Number [email or web address] [address] [place] [address] * MRI ELBOW LEFT WO CONTRAST (02/22/2023 7:28 AM EDT) Anatomical Region Laterality Modality Elbow Magnetic Resonan ce 02/22/2023 7:28 AM EDT Impressions 02/22/2023 8:11 AM EDT 1. No evidence of ulnar nerve compression at the elbow. 2. Mild peritendinous edema of the distal biceps and brachialis tendons without a high-grade tear. 3. No acute osseous or ligamentous injury. Narrative 02/22/2023 8:11 AM EDT MRI ELBOW LEFT WO CONTRAST 02/22/2023 7:28 AM CLINICAL HISTORY: M25.522-Pain in left mgfhn-YAJ-52-CM G56.22-Lesion of ulnar nerve, left upper aywj-CCW-83-CM G56.22-Lesion of ulnar nerve, left upper zuyi-ERW-97-CM COMPARISON: Left elbow radiograph 01/09/2023. TECHNIQUE: Multiplanar, multisequence MR images were obtained of the elbow without contrast. FINDINGS: BONES/JOINTS: There is no fracture, contusion, malalignment, or joint effusion. The cartilage is intact. TENDONS: There is mild peritendinous edema of the distal biceps and brachialis tendons without a high-grade tear. The common flexor, common extensor, and triceps tendons are intact. LIGAMENTS: The ulnar collateral, radial collateral, and lateral ulnar collateral ligaments are intact. OTHER: No ulnar nerve compression is evident. There is a well-defined circumferential fat plane throughout the visualized course of the nerve. No soft tissue mass or fluid collection noted. Procedure Note Mark Anthony Wells MD - 02/22/2023 MRI ELBOW LEFT WO CONTRAST 02/22/2023 7:28 AM CLINICAL HISTORY: M25.522-Pain in left vrkjo-KFI-35-CM G56.22-Lesion of ulnar nerve, left upper fxqy-TUP-06-CM G56.22-Lesion of ulnar nerve, left upper wgji-XVC-12-CM COMPARISON: Left elbow radiograph 01/09/2023. TECHNIQUE: Multiplanar, multisequence MR images were obtained of theelbow without contrast. FINDINGS: BONES/JOINTS: There is no fracture, contusion, malalignment, or jointeffusion. The cartilage is intact. TENDONS: There is mild peritendinous edema of the distal biceps andbrachialis tendons without a high-grade tear. The common flexor, common extensor,and triceps tendons are intact. LIGAMENTS: The ulnar collateral, radial collateral, and lateral ulnarcollateral ligaments are intact. OTHER: No ulnar nerve compression is evident. There is a well-defined circumferential fat plane throughout the visualized course of the nerve.No soft tissue mass or fluid collection noted. IMPRESSION: 1. No evidence of ulnar nerve compression at the elbow. 2. Mild peritendinous edema of the distal biceps and brachialis tendonswithout a high-grade tear. 3. No acute osseous or ligamentous injury. us Cyrus Lakhani MD IMG MRI ORDERABLES Final Result * MRI ANGIOGRAM INTRACRANIAL WO CONTRAST (02/20/2023 7:44 AM EDT) Anatomical Region Laterality Modality Head Magnetic Resonan ce 02/20/2023 7:44 AM EDT Impressions 02/20/2023 11:07 AM EDT Unremarkable intracranial MRA. No visible aneurysm or central branch occlusion. - Note: Radiology results need to be interpreted within a comprehensive clinical context. If you have questions about the radiology report, please contact the office of the ordering clinician. Narrative 02/20/2023 11:07 AM EDT MRI ANGIOGRAM INTRACRANIAL WO CONTRAST 02/20/2023 7:44 AM CLINICAL HISTORY: R51.9-Headache, bvhcmfqfxcy-ATP-49-CM H53.9-Unspecified visual ybqohybvizu-RTO-87-CM R41.3-Other pjfxing-BTE-03-CM R26.0-Ataxic avnd-RME-19-CM. COMPARISON: MR venogram April 20, 2020 and MRI brain March 27, 2020. PROCEDURE COMMENTS: 3-D pfth-dy-ckrhnm MR angiography of the vessels of the [place] of [place]. Source images and multiplanar MIPS reviewed. FINDINGS: Anterior circulation: Visible portions of the carotid arteries patent bilaterally. ABBI and MCA branching pattern unremarkable. No evidence of aneurysm or central branch occlusion. Posterior circulation: Visible portions of the vertebrobasilar system patent bilaterally. No evidence of aneurysm or central branch occlusion. Cerebellar and STONE MILL OPERATOR branching pattern within normal limits. Additional findings: No significant additional finding. Note: With MRA, thrombosed aneurysms may be inapparent and degrees of stenosis may be overestimated. Procedure Note Quique Swan MD - 02/20/2023 MRI ANGIOGRAM INTRACRANIAL WO CONTRAST 02/20/2023 7:44 AM CLINICAL HISTORY: R51.9-Headache, wgdurozhqrp-TDF-30-CM H53.9-Unspecified visual bttobrdemdc-SHE-59-CM R41.3-Other zizqqur-RDA-79-CM R26.0-Ataxic grvp-ORQ-34-CM. COMPARISON: MR venogram April 20, 2020 and MRI brain February. PROCEDURE COMMENTS: 3-D lcmg-tv-nypzer MR angiography of the vessels ofthe [place] of [place]. Source images and multiplanar MIPS reviewed. FINDINGS: Anterior circulation: Visible portions of the carotid arteries patent bilaterally. ABBI and MCA branching pattern unremarkable. No evidence ofaneurysm or central branch occlusion. Posterior circulation: Visible portions of the vertebrobasilar systempatent bilaterally. No evidence of aneurysm or central branch occlusion.Cerebellar and STONE MILL OPERATOR branching pattern within normal limits. Additional findings: No significant additional finding. Note: With MRA, thrombosed aneurysms may be inapparent and degrees ofstenosis may be overestimated. IMPRESSION: Unremarkable intracranial MRA. No visible aneurysm or central branch occlusion. - Note: Radiology results need to be interpreted within a comprehensiveclinical context. If you have questions about the radiology report, please contactthe office of the ordering clinician. Kamini Velazquez Johnny WRIGHT IM MRI ORDERABLES Final Result * CORONAVIRUS 2019 (02/07/2023 2:55 PM EDT) Only the most recent of4 resultswithin the time period is included. [facility] CORONAVIRUS [id number] Not Detected Not Detected 02/07/2023 3:21 PM EDT [facility] Comment: This test is a real-time RT-PCR test intended for the qualitative detection of nucleic acid from the SARS-CoV-2 in upper respiratory samples collected from individuals suspected of COVID-19. Not Detected results do not preclude COVID-19 or other respiratory viruses and should not be used as the sole basis for treatment or other patient management decisions. SHAI Fact Sheet for Providers and Patients: SHAI Fact Sheet for Providers: https://www.fda.gov/media/793405/download SHAI Fact Sheet for Patients: https://www.fda.gov/media/829865/download Test is performed on the [employer] platform under the FDA's Emergency Use Authorization (EUA). Performed at [facility] [address] [place] [address] CLIA [id number] Swab BOTH ANTERIOR NARES / Unknown 02/07/2023 2:55 PM EDT 02/07/2023 2:55 PM EDT Fartun Iqbal APRN MICROBIOLOGY - GENERAL O RDERABLES Final Result Performing Organization Address [facility] de Phone Number [facility] [address] [place] [address] * RSV-FLU A/B (02/07/2023 2:55 PM EDT) Pathologist [facility] Influenza A DNA Not Detected Not Detected 02/07/2023 3:37 PM EDT [facility] Influenza B DNA Not Detected Not Detected 02/07/2023 3:37 PM EDT [facility] RSV DNA Not Detected Not Detected 02/07/2023 3:37 PM EDT [facility] Swab SPECIMEN FROM NASOPHARYNGEAL STRUCTURE / Unknown 02/07/2023 2:55 PM EDT 02/07/2023 2:55 PM EDT Narrative [facility] - 02/07/2023 3:37 PM EDT This assay is a qualitative multiplex real-time reverse transcriptase polymerase chain reaction (RT-PCR) test for detection of Influenza A, Influenza B and Respiratory Syncytial virus (RSV). Negative results do not preclude influenza virus or RSV infection or other respiratory viruses and should not be used as the sole basis for treatment or other patient management decisions. Fartun Iqbal APRN MICROBIOLOGY - GENERAL O RDERABLES Final Result Performing Organization Address [facility] de Phone Number [facility] [address] [place] [address] * STREP A DNA (02/07/2023 2:55 PM EDT) [facility] Strep A DNA Not Detected Not Detected 02/07/2023 3:16 PM EDT [facility] Comment:Not Detected results do not preclude Streptococcus pyogenes infection and should not be used for the sole basis for treatment or other patient management decisions. A result of Not Detected does not rule out the presence of Group A Streptococcus DNA in concentrations below the level of detection of the assay. Swab SPECIMEN FROM THROAT / Unknown 02/07/2023 2:55 PM EDT 02/07/2023 2:55 PM EDT Narrative [facility] - 02/07/2023 3:16 PM EDT The [facility] SHAI Strep A assay utilizes nucleic acid purification and polymerase chain reaction (PCR) technology to detect Streptococcus pyogenes by targeting a segment of the Streptococcus pyogenes genome. Fartun Iqbal APRN MICROBIOLOGY - GENERAL O RDERABLES Final Result Performing Organization Address [facility] de Phone Number [facility] [address] [place] [address] * PARTIAL THROMBOPLASTIN TIME (01/16/2023 4:49 PM EDT) Pathologist [facility] PTT 33.3 27.9 - 38.7 second(s) 01/16/2023 5:40 PM EDT [facility] Comment: Therapeutic range for unfractionated heparin: 50.1 - 98.7 seconds Therapeutic range for direct thrombin inhibitors: Argatroban is 1.5 to 3 times the aPTT baseline. Lepirudin is 1.5 to 2 times the aPTT baseline. The aPTT should not exceed 100 seconds. The dosage of Argatroban should be decreased in patients with hepatic impairment. The dosage of Lepirudin should be decreased in renal insufficiency. Blood VENOUS BLOOD / Unknown Venipuncture / Unknown 01/16/2023 4:49 PM EDT 01/16/2023 5:10 PM EDT Caitlin August MD HEMATOLOGY ORDERABLES Final R esult Performing Organization Address [facility] de Phone Number [facility] [address] [place] [address] * (ABNORMAL) CBC (01/13/2023 2:57 PM EDT) Only the most recent of6 resultswithin the time period is included. WBC 12.1(H) 3.7 - 10.3 x10(3)/mcL 01/13/2023 7:52 PM EDT [facility] RBC 5.22(H) 3.90 - 5.20 x10(6)/mcL 01/13/2023 7:52 PM EDT [facility] Hgb 15.4 11.2 - 15.7 g/dL 01/13/2023 7:52 PM EDT [facility] Hct 48.0(H) 34.0 - 45.0 % 01/13/2023 7:52 PM EDT [facility] MCV 92.0 80.0 - 100.0 fL 01/13/2023 7:52 PM EDT [facility] MCH 29.5 26.0 - 34.0 pg 01/13/2023 7:52 PM EDT [facility] MCHC 32.1 30.7 - 35.5 g/dL 01/13/2023 7:52 PM EDT [facility] RDW 14.9 <=14.9 % 01/13/2023 7:52 PM EDT [facility] Platelet 335 155 - 369 x10(3)/mcL 01/13/2023 7:52 PM EDT [facility] MPV 10.6 8.8 - 12.5 fL 01/13/2023 7:52 PM EDT [facility] Blood VENOUS BLOOD / Unknown Venipuncture / Unknown 01/13/2023 2:57 PM EDT 01/13/2023 2:57 PM EDT us Kaci Graham MD HEMATOLOGY ORDERABLES Final Result [facility] [address] [facility] , [place] [address] * (ABNORMAL) URIC ACID (01/13/2023 2:57 PM EDT) Only the most recent of2 resultswithin the time period is included. Uric Acid 6.2(H) 2.4 - 5.7 mg/dL 01/13/2023 7:46 PM EDT [facility] Blood VENOUS BLOOD / Unknown Venipuncture / Unknown 01/13/2023 2:57 PM EDT 01/13/2023 2:57 PM EDT us Kaci Graham MD CHEMISTRY ORDERABLES Final R esult [facility] [address] [facility] , [place] [address] * MRI FOOT RIGHT W WO CONTRAST (01/09/2023 9:13 AM EDT) Anatomical Region Laterality Modality Foot, Toes, Calcaneus, Tarsal Joint Magnetic Resonance 01/09/2023 9:13 AM EDT Impressions 01/09/2023 9:34 AM EDT 1. Subacute to late subacute incomplete stress fracture at the base of the second metatarsal as described. 2. Intermediate grade sprain of the central fibers of the Lisfranc ligament complex without full-thickness tear. - Note: Radiology results need to be interpreted within a comprehensive clinical context. If you have questions about the radiology report, please contact the office of the ordering clinician. . Narrative 01/09/2023 9:34 AM EDT MRI FOOT RIGHT W WO CONTRAST, 01/09/2023 9:13 AM CLINICAL HISTORY: G57.61-Lesion of plantar nerve, right lower gonp-OKC-25-CM M79.671-Pain in right gxfg-LXF-48-CM R26.2-Difficulty in walking, not elsewhere aenlhqfdhd-JIH-56-CM. COMPARISON: November 25, 2022. PROCEDURE COMMENTS: Multiplanar, multiecho MR performed per protocol. Gadolinium contrast administered as recorded in EPIC. FINDINGS: OSSEOUS STRUCTURES AND ARTICULATIONS: There is an incomplete stress fracture at the base of the second metatarsal, incomplete trabecular fracture line seen on the sagittal T1 sequence, series 3, image 13 for instance. Associated moderate marrow edema at the base of the second metatarsal with marrow edema extending into the proximal to mid shaft. Localized callus formation along the plantar aspect of the second metatarsal base compatible with subacute to late subacute injury. No additional fracture or marrow replacing process. 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 No erosive disease. Joint spaces and alignment are otherwise maintained. MUSCLES, TENDONS, LIGAMENTS: The central fibers of the Lisfranc ligament complex appear edematous, slightly attenuated distally compatible with intermediate grade sprain. No full thickness tear is identified. Dorsal and volar component appear intact. Imaged plantar fascia is intact. No evidence of myotendinous injury. OTHER: There is no Catalan's neuroma. Mild second intermetatarsal space bursitis. No soft tissue mass or fluid collection. Procedure Note Frankie Lombardi MD - 01/09/2023 MRI FOOT RIGHT W WO CONTRAST, 01/09/2023 9:13 AM CLINICAL HISTORY: G57.61-Lesion of plantar nerve, right suyjpfbvp-SES-97-CM M79.671-Pain in right tmsm-HEB-41-CM R26.2-Difficulty in walking, not elsewhere mluyfnxrgm-LBZ-78-CM. COMPARISON: November 25, 2022. PROCEDURE COMMENTS: Multiplanar, multiecho MR performed per protocol.Gadolinium contrast administered as recorded in EPIC. FINDINGS: OSSEOUS STRUCTURES AND ARTICULATIONS: There is an incomplete stressfracture at the base of the second metatarsal, incomplete trabecular fracture lineseen on the sagittal T1 sequence, series 3, image 13 for instance. Associatedmoderate marrow edema at the base of the second metatarsal with marrow edemaextending into the proximal to mid shaft. Localized callus formation along theplantar aspect of the second metatarsal base compatible with subacute to latesubacute injury. No additional fracture or marrow replacing process. 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 No erosive disease. Joint spacesand alignment are otherwise maintained. MUSCLES, TENDONS, LIGAMENTS: The central fibers of the Lisfranc ligamentcomplex appear edematous, slightly attenuated distally compatible withintermediate grade sprain. No full thickness tear is identified. Dorsal and volarcomponent appear intact. Imaged plantar fascia is intact. No evidence of myotendinous injury. OTHER: There is no Catalan's neuroma. Mild second intermetatarsal spacebursitis. No soft tissue mass or fluid collection. IMPRESSION: 1. Subacute to late subacute incomplete stress fracture at the base ofthe second metatarsal as described. 2. Intermediate grade sprain of the central fibers of the Lisfrancligament complex without full-thickness tear. - Note: Radiology results need to be interpreted within a comprehensiveclinical context. If you have questions about the radiology report, please contactthe office of the ordering clinician. . us Tyshawn Hernandez DPM IMG MRI ORDERABLES Final R esult * (ABNORMAL) EMG (01/04/2023 7:46 AM EDT) Impressions [facility] - 01/04/2023 7:46 AM EDT Abnormal electrodiagnostic study There is EMG evidence of a moderate left ulnar neuropathy at the elbow. -There is evidence of active denervation and reinnervation changes in the hypothenar muscle. Gama Jackson MD -Board Certified Physical Medicine and Rehabilitation Narrative [facility] - 01/04/2023 7:46 AM EDT Nerve conduction studies were performed on the left upper extremity. The left median motor and antidromic sensory studies were normal. The left ulnar motor study showed normal amplitude with slowing of conduction velocity greatest about the elbow. The left ulnar antidromic sensory study showed normal amplitude but slowing across the elbow. The left radial sensory study was normal. Concentric needle examination performed on the left upper extremity. There was evidence of long-duration high amplitude polyphasic motor potentials in the left ADM. The first dorsal interossei was normal as was other muscles examined in the left upper extremity. See scanned table for details. Kamini Turner APRN NEUROLOGY ORDERABLES Edit ed Result - Final [facility] [address] [place] [address] * PHARMACOGENOMIC PANEL (12/14/2022 5:07 PM EDT) Saliva 12/14/2022 5:07 PM EDT Narrative [facility] - 12/14/2022 5:07 PM EDT You have patient [facility] Analyse(s) to review Marlena Pereyra MD ONE[facility] - ORDERABLES Final Result [facility] * ESOPHAGOGASTRODUODENOSCOPY (EGD) (11/08/2022 2:18 PM EDT) Anatomical Region Laterality Modality Endoscopy Narrative 11/08/2022 2:20 PM EDT Table formatting from the original result was not included. Findings The duodenum appeared normal. The stomach appeared normal. Performed random biopsy using biopsy forceps to rule out H. pylori. The esophagus appeared normal. Performed random biopsy using biopsy forceps to rule out eosinophilic esophagitis. Dilated in the esophagus with Savary-Susan dilator using guidewire from 51 Fr starting size Recommendation Await pathology results Okay to resume all home medications. Follow up with me in clinic Await further work up with Tie In Hand Indication Esophageal dysphagia, Right upper quadrant abdominal pain Staff Staff Role Renetta Vergara, RN Nurse Kamini Bustos, FUNERAL DIRECTOR/EMBALMER/OWNER FUNERAL DIRECTOR/EMBALMER/OWNER Dori Buchanan MD Performing Provider Medications See Anesthesia Record. Preprocedure A history and physical has been performed, and patient medication allergies have been reviewed. The patient's tolerance of previous anesthesia has been reviewed. The risks and benefits of the procedure and the sedation options and risks were discussed with the patient. All questions were answered and informed consent obtained. ASA 2 - Patient with mild systemic disease Details of the Procedure The patient underwent monitored anesthesia care, which was administered by an anesthesia professional. The patient's blood pressure, heart rate, level of consciousness, oxygen, respirations, ECG and ETCO2 were monitored throughout the procedure. The scope was introduced through the mouth and advanced to the third part of the duodenum. Retroflexion was performed in the cardia. The patient experienced no blood loss. The procedure was not difficult. The patient tolerated the procedure well. There were no apparent adverse events. Patient provided education and educated on specific discharge instructions. Patient educated on medications given during the procedure and new medications for discharge. Patient verbalizes understanding of discharge education. Patient stable and awaiting transport for discharge. Events Procedure Events Event Event Time ENDO SCOPE IN TIME 11/08/2022 2:12 PM ENDO SCOPE OUT TIME 11/08/2022 2:17 PM Specimens ID Type Source Tests Collected by Time 1 : r/o HP Tissue Gastric TSG PATHOLOGY ORDER Dori Buchanan MD 11/08/2022 1417 2 : r/o EE Tissue Esophagus TSG PATHOLOGY ORDER Dori Buchanan MD 11/08/2022 1418 Dori Buchanan MD ENDOSCOPY PROCEDURE ORDERABLES Final Result * TSG PATHOLOGY ORDER (11/08/2022 2:17 PM EDT) Tissue GASTRIC / Unknown 11/08/2022 2:17 PM EDT Tissue specimen (specimen) ESOPHAGEAL STRUCTURE / Unknown 11/08/2022 2:18 PM EDT Impressions [facility] - 11/08/2022 7:00 PM EDT A. Stomach, Whole Stomach: Biopsy BENIGN GASTRIC MUCOSA WITH MILD NON-SPECIFIC REACTIVE CHANGES NEGATIVE FOR EVIDENCE OF H PYLORI GASTRITIS NEGATIVE FOR INTESTINAL METAPLASIA, DYSPLASIA, OR MALIGNANCY Sections show benign gastric mucosa with mild non-specific reactive changes. There is no evidence of intestinal metaplasia with a PAS/AB stain. There is no evidence of dysplasia or malignancy. There is no evidence of H pylori with a special stain. B. Esophagus, Whole Esophagus: Biopsy BENIGN ESOPHAGEAL MUCOSA WITH NO SIGNIFICANT ABNORMALITY NEGATIVE FOR INTESTINAL METAPLASIA, DYSPLASIA, OR MALIGNANCY Sections show benign esophageal mucosa with no significant abnormality. There is no evidence of intestinal metaplasia (negative with a PAS/AB stain), dysplasia, or malignancy. Narrative [facility] 11/08/2022 7:00 PM EDT Pathologist: Zachary Coombs MD us Dori Buchanan MD [employer] - ORDERABLES Final R esult [place] [address] [place] [address], [facility] * KAPPA/LAMBDA LIGHT CHAIN, TOTAL, SERUM-QUEST (10/17/2022 11:32 AM EDT) [place] 240 176 - 443 mg/dL [facility], Lambda 173 91 - 240 mg/dL [facility], [place]/Lambda Ratio 1.39 1.29 - 2.55 [facility], Comment: This assay provides a measurement of the total kappa and the total lambda light chains, ie., the amount of free (unattached) light chain in circulation and the amount of light chain linked to heavy chain in intact immunoglobulin molecules. Assays for serum free light chain only, kappa and lambda with ratio, may be more useful in evaluating and managing light chain gammopathies including those associated with myeloma, lymphoproliferative disorders, and amyloidosis. 10/17/2022 11:3 2 AM EDT 10/17/2022 11:32 AM EDT Keyla Colorado MD [facility]-CHEMISTRY ORDERABLES Final Result Performing Organization Address [facility]/ZIP Co de Phone Number [facility], [address] [place] [address] * (ABNORMAL) PROTEIN ELECTROPHORESIS, SERUM-QUEST (10/17/2022 11:32 AM EDT) ALBUMIN (SPE) 4.0 3.8 - 4.8 g/dL [facility], ALPHA 1 GLOBULIN 0.4(H) 0.2 - 0.3 g/dL [facility]/N [facility], ALPHA 2 GLOBULIN 0.9 0.5 - 0.9 g/dL [facility], Beta 1 Globulin 0.5 0.4 - 0.6 g/dL [facility], Beta 2 Globulin 0.4 0.2 - 0.5 g/dL [facility], GAMMA GLOBULIN 1.2 0.8 - 1.7 g/dL [facility], Interpretation SEE NOTE [facility], Comment:Alpha-1 globulin inc rease noted. 10/17/2022 11:3 2 AM EDT 10/17/2022 11:32 AM EDT Keyla Colorado MD [facility]-CHEMISTRY ORDERABLES Final Result Performing Organization Address City/[facility]/ZIP Co de Phone Number [facility], [address] [place] [address] * IMMUNOGLOBULINS-QUEST (10/17/2022 11:32 AM EDT) IgA 163 47 - 310 mg/dL [facility], IgG 1,214 600 - 1,640 mg/dL [facility], IgM 124 50 - 300 mg/dL [facility], 10/17/2022 11:3 2 AM EDT 10/17/2022 11:32 AM EDT Keyla Colorado MD [facility]-IMMUNOLOGY ORDERABLES Jackie l Result Performing Organization Address [facility]/ZIP Co de Phone Number [facility], [address] [place] [address] * IMMUNOFIXATION, SERUM-QUEST (10/17/2022 11:32 AM EDT) Pathologist [facility] Immunofixation Result, Serum SEE NOTE [facility], Comment:No monoclonal protei ns detected by immunofixation studies. 10/17/2022 11:3 2 AM EDT 10/17/2022 11:32 AM EDT Keyla Colorado MD [facility]-IMMUNOLOGY ORDERABLES Jackie l Result Performing Organization Address [facility] Co de Phone Number [facility], [address] [place] [address] * (ABNORMAL) URINALYSIS, COMPLETE WITH REFLEX TO CULTURE-QUEST (10/17/2022 11:32 AM EDT) Color YELLOW YELLOW [facility] Appearance TURBID(A) CLEAR [facility] UA Spec Grav 1.015 1.001 - 1.035 [facility] pH, Urine 8.0 5.0 - 8.0 [facility] Glucose, Urine NEGATIVE NEGATIVE [facility] UA Bili NEGATIVE NEGATIVE [facility] UA Ketones NEGATIVE NEGATIVE [facility]A Blood NEGATIVE NEGATIVE [facility] Urine Protein NEGATIVE NEGATIVE [facility] UA Nitrite NEGATIVE NEGATIVE [facility] Leuk Est NEGATIVE NEGATIVE [facility] UA WBC 0-5 < OR = 5 /HPF [facility] UA RBC NONE SEEN < OR = 2 /HPF [facility] Squam Epithel, UA 6-10(A) < OR = 5 /HPF [facility] UA Bacteria FEW(A) NONE SEEN /HPF [facility] Hyaline Casts, UA NONE SEEN NONE SEEN /LPF [facility] 10/17/2022 11:3 2 AM EDT 10/17/2022 11:32 AM EDT Keyla Colorado MD [facility]-MICROBIOLOGY ORDERABLES Fi nal Result Performing Organization Address City/[facility]/ZIP Co de Phone Number [facility] [address] [place] [address] * RHEUMATOID FACTOR QUANTITATIVE-QUEST (10/17/2022 11:32 AM EDT) Rheumatoid Factor <14 <14 IU/mL [facility] 10/17/2022 11:3 2 AM EDT 10/17/2022 11:32 AM EDT Keyla Colorado MD [facility]-IMMUNOLOGY ORDERABLES Jackie l Result Performing Organization Address [facility] Co de Phone Number [facility] [address] [place] [address] * PROTEIN, TOTAL WITH CREATININE, RANDOM URINE-QUEST (10/17/2022 11:32 AM EDT) Creatinine, Random U 83 20 - 275 mg/dL [facility] Protein/Creat Ratio 84 24 - 184 mg/g creat [facility] Protein/Creatin ine Ratio 0.084 0.024 - 0.184 mg/mg creat [facility] Urine Protein 7 5 - 24 mg/dL [facility] 10/17/2022 11:3 2 AM EDT 10/17/2022 11:32 AM EDT Keyla Colorado MD [facility]-URINE ORDERABLES Final Res ult Performing Organization Address [facility]/ZIP Co de Phone Number [facility] [address] [facility] [place] [address] * PROTEIN TOTAL-QUEST (10/17/2022 11:32 AM EDT) Protein, Total 7.4 6.1 - 8.1 g/dL [facility], 10/17/2022 11:3 2 AM EDT 10/17/2022 11:32 AM EDT Keyla Colorado MD [facility]-CHEMISTRY ORDERABLES Final Result Performing Organization Address [facility] Co de Phone Number [facility], [address] [facility] [place] [address] * CYCLIC CITULLINATED PEPTIDE (CCP) AB (IGG)-QUEST (10/17/2022 11:32 AM EDT) CCP IgG Antibodies <16 UNITS [facility] Comment: Reference Range Negative: <20 Weak Positive: 20-39 Moderate Positive: 40-59 Strong Positive: >59 10/17/2022 11:3 2 AM EDT 10/17/2022 11:32 AM EDT Keyla Colorado MD [facility]-IMMUNOLOGY ORDERABLES Jackie l Result Performing Organization Address City/[facility]/ZIP Co de Phone Number QUEST [facility] [address] [facility] [place] [address] * QUANTIFERON(R)-TB GOLD PLUS, 1-QUEST (10/17/2022 11:32 AM EDT) QUANTIFERON(R)-T B GOLD PLUS, 1 TUBE NEGATIVE NEGATIVE [facility] Comment: Negative test result. M. tuberculosis complex infection unlikely. NIL 0.02 IU/mL [facility] Mitogen 6.29 IU/mL [facility] TB1-NIL 0.00 IU/mL [facility] TB2-NIL 0.00 IU/mL [facility] Comment: The Nil tube value reflects the background interferon gamma immune response of the patient's blood sample. This value has been subtracted from the patient's displayed TB and Mitogen results. Lower than expected results with the Mitogen tube prevent false-negative Quantiferon readings by detecting a patient with a potential immune suppressive condition and/or suboptimal pre-analytical specimen handling. The TB1 Antigen tube is coated with the M. tuberculosis-specific antigens designed to elicit responses from TB antigen primed CD4+ helper T-lymphocytes. The TB2 Antigen tube is coated with the M. tuberculosis-specific antigens designed to elicit responses from TB antigen primed CD4+ helper and CD8+ cytotoxic T-lymphocytes. For additional information, please refer to https://education.[email or web address][employer]an [email or web address].com/faq/WWX719 (This link is being provided for informational/ educational purposes only.) 10/17/2022 11:3 2 AM EDT 10/17/2022 11:32 AM EDT Keyla Colorado MD [facility]-IMMUNOLOGY ORDERABLES Jackie l Result QUEST [facility] [address] [place] [address] * REFLEXIVE URINE CULTURE NO CULI-QUEST (10/17/2022 11:32 AM EDT) Pathologist [facility] Reflexive Urine Culture [facility] Comment:NO CULTURE INDICATED 10/17/2022 11:3 2 AM EDT 10/17/2022 11:32 AM EDT Keyla Colorado MD [facility]ST-URINE ORDERABLES Final Res ult QUEST [facility] [address] [place] [address] * (ABNORMAL) BOBBY SCREEN BY IFA (10/10/2022 3:03 PM EDT) Only the most recent of2 resultswithin the time period is included. BOBBY Titer 1:160(A) <1:80 10/12/2022 2:33 PM EDT [facility] Comment:A titer of 1:80 is t he reference interval for detection in the indirect immunofluorescence assay, representing the titer with optimized sensitivity/specificity in healthy and affected populations. Note that titers < 1:80 do not necessarily rule out systemic autoimmune rheumatic diseases. BOBBY Pattern Speckled 10/12/2022 2:33 PM EDT [facility] Blood VENOUS BLOOD / Unknown Venipuncture / Unknown 10/10/2022 3:03 PM EDT 10/10/2022 3:03 PM EDT us Dori Buchanan MD IMMUNOLOGY ORDERABLES Final Re sult [facility] [address] [facility] , [place] [address] * F-ACTIN (SMOOTH MUSCLE) AB, IGG W/RFLX -REF LAB (10/10/2022 3:03 PM EDT) F Actin IgG 9 0 - 19 Units 10/12/2022 10:23 AM EDT [facility] Comment: If F-Actin (Smooth Muscle) Antibody, IgG is negative, the Smooth Muscle Antibody titer by IFA is not performed. REFERENCE INTERVAL: F-Actin (Smooth Muscle) Antibody, IgG by LETTY 19 Units or less ....... Negative 20 - 30 Units .......... Weak Positive-Suggest repeat testing in two to three weeks with fresh specimen. 31 Units or greater..... Positive-Suggestive of autoimmune hepatitis type 1 or chronic active hepatitis. F-actin IgG antibodies have been shown to have increased sensitivity for autoimmune hepatitis (AIH) but lower specificity than smooth muscle antibodies (SMA). F-actin IgG antibodies can also be seen in SMA-negative disease controls (non-AIH), especially in patients with primary biliary cirrhosis and chronic hepatitis C infections. Some patients with AIH may be SMA-positive but negative for F-actin IgG. Consider testing for SMA by IFA if suspicion for AIH is strong. Performed By: [facility] [address] [place] [address] [employer] Comp[employer] Clerk: Brayan Garrido MD, PhD Blood VENOUS BLOOD / Unknown Venipuncture / Unknown 10/10/2022 3:03 PM EDT 10/10/2022 3:03 PM EDT Dori Buchanan MD IMMUNOLOGY ORDERABLES Final Re sult Performing Organization Address [facility] Co de Phone Number [email or web address] [address] [place] [address] * HYVAY-2-FVROBGACQYI -REF LAB (10/10/2022 3:03 PM EDT) Pathologist [facility] Zosam-2-Girkfbjcc in 128 90 - 200 mg/dL 10/12/2022 9:04 AM EDT [email or web address] Comment: To convert to umol/L, multiply mg/dL by 0.185 Performed By: [facility] [address] [place] [address] [employer]iff Compiling Clerk: Brayan Garrido MD, PhD Blood VENOUS BLOOD / Unknown Venipuncture / Unknown 10/10/2022 3:03 PM EDT 10/10/2022 3:03 PM EDT Dori Buchanan MD CHEMISTRY ORDERABLES Final Res ult Performing Organization Address [facility] Co de Phone Number [email or web address] [address] [place] [address] * MITOCHONDRIAL M2 ANTIBODY, IGG -REF LAB (10/10/2022 3:03 PM EDT) Only the most recent of2 resultswithin the time period is included. Mitochon Ab IgG 5.9 0.0 - 24.9 Units 10/12/2022 10:23 AM EDT [email or web address] Comment: REFERENCE INTERVAL: Mitochondrial (M2) Antibody, IgG 20.0 Units or less ......... Negative 20.1 - 24.9 Units........... Equivocal 25.0 Units or greater....... Positive Anti-mitochondrial antibodies (AMA) are thought to be present in 90-95% of patients with primary biliary cholangitis (PBC). However, the frequency of detected antibodies may be cohort or assay dependent, as lower sensitivities have been reported. Not all PBC patients are positive for AMA; some patients may be positive for SP100 and/or GP210 antibodies. A negative result does not rule out PBC. Performed By: [facility] [address] [place] [address] [employer]iff Compiling Clerk: Brayan Garrido MD, PhD Blood VENOUS BLOOD / Unknown Venipuncture / Unknown 10/10/2022 3:03 PM EDT 10/10/2022 3:03 PM EDT us Dori Buchanan MD IMMUNOLOGY ORDERABLES Final Re sult [email or web address] [address] [place] [address] * TISSUE TRANSGLUTAMINASE ANTIBODY, IGA -REF LAB (10/10/2022 3:03 PM EDT) TTG IgA <2 0 - 3 U/mL 10/12/2022 10:09 AM EDT [email or web address] Comment: INTERPRETIVE INFORMATION: Tissue Transglutaminase (tTG) Antibody, IgA 3 U/mL or less: Negative 4-10 U/mL: Weak Positive 11 U/mL or greater: Positive Presence of the tissue transglutaminase (tTG) IgA antibody is associated with glutensensitive enteropathies such as celiac disease and dermatitis herpetiformis. tTG IgA antibody concentrations greater than 40 U/mL usually correlate with results of duodenal biopsies consistent with a diagnosis of celiac disease. For antibody concentrations greater or equal to 4 U/mL but less than or equal to 40 U/mL, additional testing for endomysial (AMIRA) IgA concentrations may improve the positive predictive value for disease. Performed By: [facility] [address] [place] [id number] Tariff Compiling Clerk: Brayan Garrido MD, PhD Blood VENOUS BLOOD / Unknown Venipuncture / Unknown 10/10/2022 3:03 PM EDT 10/10/2022 3:03 PM EDT Dori Buchanan MD IMMUNOLOGY ORDERABLES Final Re sult Performing Organization Address [facility] de Phone Number [employer] [facility] [address] [place] [phone] * CERULOPLASMIN -REF LAB (10/10/2022 3:03 PM EDT) Pathologist [facility] Ceruloplasmin 20 16 - 45 mg/dL 10/12/2022 10:37 AM EDT [email or web address] Comment: REFERENCE INTERVAL: Ceruloplasmin Access complete set of age- and/or gender-specific reference intervals for this test in the [employer] Laboratory Test Directory (AIS). Performed By: [facility] [address] [place], [place] [id number] [employer]iff Compiling Clerk: Brayan Garrido MD, PhD Blood VENOUS BLOOD / Unknown Venipuncture / Unknown 10/10/2022 3:03 PM EDT 10/10/2022 3:03 PM EDT Dori Buchanan MD CHEMISTRY ORDERABLES Final Res ult Performing Organization Address [facility] Co de Phone Number [employer] [facility] [address] [place] [address] * (ABNORMAL) ANTINUCLEAR ANTIBODY SCREEN (10/10/2022 3:03 PM EDT) Only the most recent of2 resultswithin the time period is included. Pathologist [facility] BOBBY, IgG Positive (A) Negative 10/12/2022 2:33 PM EDT [facility] Comment:BOBBY samples are scre ened using automated enzyme immunoassay. All samples that screen positive are then tested by the indirect immunofluorescence method. Blood VENOUS BLOOD / Unknown Venipuncture / Unknown 10/10/2022 3:03 PM EDT 10/10/2022 3:03 PM EDT Dori Buchanan MD IMMUNOLOGY ORDERABLES Final Re sult Performing Organization Address [facility]/ZIP Co de Phone Number [facility] [employer] [facility] [address] [facility] , [place] [address] * LIPASE LEVEL (10/10/2022 3:03 PM EDT) Lipase Lvl 49 13 - 60 U/L 10/10/2022 8:13 PM EDT [facility] Blood VENOUS BLOOD / Unknown Venipuncture / Unknown 10/10/2022 3:03 PM EDT 10/10/2022 3:03 PM EDT Dori Buchanan MD CHEMISTRY ORDERABLES Final Res ult Performing Organization Address [facility] Co de Phone Number [facility] [employer] [facility] [address] [facility] , [place] [phone] * IGA (10/10/2022 3:03 PM EDT) IgA 155 70 - 400 mg/dL 10/10/2022 8:13 PM EDT [facility] Blood VENOUS BLOOD / Unknown Venipuncture / Unknown 10/10/2022 3:03 PM EDT 10/10/2022 3:03 PM EDT Dori Buchanan MD IMMUNOLOGY ORDERABLES Final Re sult Performing Organization Address [facility]/ZIP Co de Phone Number [facility] [employer] [employer] [facility] [address] [facility] , [place] [address] * AMYLASE LEVEL (10/10/2022 3:03 PM EDT) Amylase Lvl 63 28 - 100 U/L 10/10/2022 8:13 PM EDT [facility] Blood VENOUS BLOOD / Unknown Venipuncture / Unknown 10/10/2022 3:03 PM EDT 10/10/2022 3:03 PM EDT us Dori Buchanan MD CHEMISTRY ORDERABLES Final Res ult [facility] [address] [facility], [place] [address] * VITAMIN D 25 HYDROXY-QUEST (10/10/2022 8:20 AM EDT) VIT D 25 OH 51 30 - 100 ng/mL [facility] Comment: Vitamin D Status 25-OH Vitamin D: Deficiency: <20 ng/mL Insufficiency: 20 - 29 ng/mL Optimal: > or = 30 ng/mL For 25-OH Vitamin D testing on patients on D2-supplementation and patients for whom quantitation of D2 and D3 fractions is required, the QuestAssureD(TM) 25-OH VIT D, (D2,D3), LC/MS/MS is recommended: order code [id number] (patients >2yrs). See Note 1 Note 1 For additional information, please refer to http://education.[employer]/faq/VAT257 (This link is being provided for informational/ educational purposes only.) 10/10/2022 8:20 AM EDT 10/10/2022 8:20 AM EDT Keyla Colorado MD [facility]ST-CHEMISTRY ORDERABLES Final Result Performing Organization Address City/[facility]/ZIP Co de Phone Number QUEST [facility] [address] [place] [address] * SYSTEMIC SCLEROSIS 12 AB PANEL-QUEST (10/10/2022 8:18 AM EDT) SCL 70 <11 <11 SI [facility], CENP A <11 <11 SI [facility], CENP B <11 <11 SI [facility], RP11 <11 <11 SI [facility], RP155 <11 <11 SI [facility]/N [facility], U1 SNRNP COUPON CLERK A <11 <11 SI [facility]/N [facility], U1 SNRNP COUPON CLERK C <11 <11 SI [facility]/N [facility], U1 SNRNP COUPON CLERK 70KD <11 <11 SI [facility], FIBRILLARIN <11 <11 SI [facility]/N [facility], Th-To Ab <11 <11 SI [facility]/N [facility], PM/SCL 100 <11 <11 SI [facility]/N [facility], PM/SCL 75 <11 <11 SI [facility]/N [facility], Comment: The [place] [employer] (ACR) considers anti-Scl-70 (also known as anti-topoisomerase I), anti-centromere and/or anti-RNA polymerase III antibodies part of the classification criteria for Systemic Sclerosis(SSc) given that the antibodies are present in 30%-60% of patients with SSc. Centromere protein B (CENP B) antibody positivity is found in 64-95% of patients with a limited form of cutaneous systemic sclerosis i.e. CREST syndrome. The addition of centromere protein A (CENP A) antibody to CENP B antibody improves specificity for diagnosis of SSc. Patients presenting with diffuse cutaneous systemic sclerosis (dcSSc) and features of CREST may have both centromere (A & B) antibodies and Scl-70 antibodies. RNA polymerase III antibodies target RNAP III epitopes 11 (RP11) and 155 (RP155). Anti-RP11 antibody occurs in about 10% of scleroderma patients and anti-RP155 antibodies in about 8%. Dqvl-G1-pkPYH antibodies are associated with SSc and inflammatory myopathy overlap syndromes. Three major components of U1-snRNP are tested: U1-snRNP COUPON CLERK A, U1-snRNP COUPON CLERK C, U1-snRNP MDW71tg. The presence of U1-snRNP antibodies occur in 14% and 26% of Caucasians and Americans, respectively, in [place]. Anti-fibrillarin (anti-U3RNP) antibodies are specific for SSc, but are mutually exclusive from Scl-70, CENP, and RNAP III antibodies. Anti-U3RNP antibodies are detected in 4-10% of SSc patients, and when present are associated with dcSSc and frequently visceral renal and cardiac involvement. Fibrillarin antibodies are found more frequently in -[place] patients and when seen in this population, the antibodies are associated with severe pulmonary disease, pulmonary hypertension, severe small bowel involvement, and a poorer prognosis. Anti-Th/To antibodies are present in 1-13% of SSc patients, and are rarely found in other autoimmune diseases. Anti-Th/To antibodies are primarily associated with localized cutaneous systemic sclerosis (lcSSc). Anti-Th/To antibodies are also associated with pericarditis, interstitial lung disease and a high frequency of intrinsic pulmonary hypertension, and hence, a poorer prognosis. Autoantibodies to PM/Scl, the human exosome complex, are found in 4-11% of patients with SSc. PM/Scl antibodies have also been observed in polymyositis/SSc overlap syndromes and other autoimmune diseases. The majority of anti-PM/Scl reactivity is directed to one of two proteins: PM/Rob105 and/or PM/Scl75. More information can be found at https://[email or web address]/testcenter/testguide.action ?dc=CF-SystScler This test was developed and its analytical performance characteristics have been determined by [facility]. It has not been cleared or approved by FDA. This assay has been validated pursuant to the CLIA regulations and is used for clinical purposes. 10/10/2022 8:18 AM EDT 10/10/2022 8:19 AM EDT us Keyla Colorado MD [facility]-IMMUNOLOGY ORDERABLES Jackie l Result [employer], [address] [place] [address] * DNA (DS) ANTIBODY, CRITHIDIA, IFA W/REFL-QUEST (10/10/2022 8:18 AM EDT) DNA AB (DS) Crithidia,IFA NEGATIVE NEGATIVE [facility] 10/10/2022 8:18 AM EDT 10/10/2022 8:19 AM EDT Keyla Colorado MD [facility]-IMMUNOLOGY ORDERABLES Jackie l Result Performing Organization Address City/[facility]/ZIP Co de Phone Number QUEST [facility] [address] [place] [address] * SM ANTIBODY-QUEST (10/10/2022 8:18 AM EDT) SM Antibody <1.0 NEG <1.0 NEG AI [facility] 10/10/2022 8:18 AM EDT 10/10/2022 8:19 AM EDT Keyla Colorado MD [facility]ST-MICROBIOLOGY ORDERABLES Fi nal Result Performing Organization Address [facility] Co de Phone Number QUEST [facility] [address] [place] [address] * (ABNORMAL) ANTINUCLEAR ANTIBODIES TITER AND PATTERN-QUEST (10/10/2022 8:18 AM EDT) BOBBY Titer 1 1:80(H) titer [facility] Comment: A low level BOBBY titer may be present in pre-clinical autoimmune diseases and normal individuals. Reference Range <1:40 Negative 1:40-1:80 Low Antibody Level >1:80 Elevated Antibody Level BOBBY Pattern 1 Nuclear, Speckled( A) [facility] Comment: Speckled pattern is associated with mixed connective tissue disease (MCTD), systemic lupus erythematosus (SLE), Sjogren's syndrome, dermatomyositis, and systemic sclerosis/polymyositis overlap. AC-2,4,5,29: Speckled International Consensus on BOBBY Patterns (https://doi.org/10.1515/zwov-9505-6381) 10/10/2022 8:18 AM EDT 10/10/2022 8:19 AM EDT Keyla Colorado MD [facility]-IMMUNOLOGY ORDERABLES Jackie l Result QUEST [facility] [address] [place] [address] * (ABNORMAL) SJOGREN'S ANTIBODIES (SS A, SS B)-QUEST (10/10/2022 8:18 AM EDT) SJOGREN'S ANTIBODY (SS-A) 7.1 POS(A) <1.0 NEG AI [facility] SJOGREN'S ANTIBODY (SS-B) <1.0 NEG <1.0 NEG AI [facility] 10/10/2022 8:18 AM EDT 10/10/2022 8:19 AM EDT Keyla Colorado MD [facility]-IMMUNOLOGY ORDERABLES Jackie l Result Performing Organization Address City/[facility]/ZIP Co de Phone Number QUEST [facility] [address] [place] [address] * SEDIMENTATION RATE AUTOMATED-QUEST (10/10/2022 8:18 AM EDT) Sed Rate 2 < OR = 20 mm/h [facility] 10/10/2022 8:18 AM EDT 10/10/2022 8:19 AM EDT Keyla Colorado MD [facility]ST-HEMATOLOGY ORDERABLES Jackie l Result QUEST [facility] [address] [place] [address] * C REACTIVE PROTEIN-QUEST (10/10/2022 8:18 AM EDT) CRP 0.7 <8.0 mg/L [facility] 10/10/2022 8:18 AM EDT 10/10/2022 8:19 AM EDT Keyla Colorado MD QUEST-CHEMISTRY ORDERABLES Final Result [facility]ST [facility] [address] [facility] [place] [address] * (ABNORMAL) COMPREHENSIVE METABOLIC PANEL-[employer] (10/10/2022 8:18 AM EDT) Glucose 88 65 - 99 mg/dL [facility] Comment: Fasting reference interval BUN 15 7 - 25 mg/dL [facility] Creatinine 0.91 0.50 - 0.97 mg/dL [employer] [facility] EGFR 85 > OR = 60 mL/min/1. 73m2 [facility] Comment: The eGFR is based on the CKD-EPI 2020 equation. To calculate the new eGFR from a previous Creatinine or Cystatin C result, go to https://www.kidney.org/professionals/ kdoqi/gfr%5Fcalculator BUN/Creatinine Ratio NOT APPLICABLE 6 - 22 (calc) [facility] Sodium 140 135 - 146 mmol/L [facility] Potassium 4.4 3.5 - 5.3 mmol/L [facility] Chloride 104 98 - 110 mmol/L [facility] CO2 25 20 - 32 mmol/L [facility] Calcium 9.8 8.6 - 10.2 mg/dL [facility] Protein, Total 7.2 6.1 - 8.1 g/dL [facility] Albumin 4.2 3.6 - 5.1 g/dL [facility] Globulin 3.0 1.9 - 3.7 g/dL (calc) [facility] Albumin/Globul in Ratio 1.4 1.0 - 2.5 (calc) [facility] Total Bilirubin 0.3 0.2 - 1.2 mg/dL [facility] Alk Phos 49 31 - 125 U/L [facility] AST 29 10 - 30 U/L [facility] ALT 35(H) 6 - 29 U/L [facility] 10/10/2022 8:18 AM EDT 10/10/2022 8:19 AM EDT Keyla Colorado MD [facility]ST-CHEMISTRY ORDERABLES Final Result Performing Organization Address City/[facility]/ZIP Co de Phone Number QUEST [facility] [address] [place] [address] * COMPLEMENT COMPONENT [id number] (10/10/2022 8:18 AM EDT) Complement Component C4C 20 15 - 57 mg/dL [facility] 10/10/2022 8:18 AM EDT 10/10/2022 8:19 AM EDT Keyla Colorado MD [facility]ST-IMMUNOLOGY ORDERABLES Jackie l Result Performing Organization Address City/[facility] Co de Phone Number QUEST [facility] [address] [place] [address] * COMPLEMENT COMPONENT [id number] (10/10/2022 8:18 AM EDT) COMPLEMENT COMPONENT C3C 140 83 - 193 mg/dL [facility] 10/10/2022 8:18 AM EDT 10/10/2022 8:19 AM EDT Keyla Colorado MD [facility]ST-IMMUNOLOGY ORDERABLES Jackie l Result Performing Organization Address [facility] Co de Phone Number QUEST [facility] [address] [place] [address] * (ABNORMAL) CBC WITH AUTO DIFF-QUEST (10/10/2022 8:18 AM EDT) WBC 14.3(H) 3.8 - 10.8 Thousand/u L [facility] RBC 5.01 3.80 - 5.10 Million/uL [facility] Hemoglobin 14.3 11.7 - 15.5 g/dL [facility] Hematocrit 44.3 35.0 - 45.0 % [facility] MCV 88.4 80.0 - 100.0 fL [facility] MCH 28.5 27.0 - 33.0 pg [facility] MCHC 32.3 32.0 - 36.0 g/dL [facility] RDW 14.3 11.0 - 15.0 % [facility] Platelets 368 140 - 400 Thousand/u L [facility] MPV 10.9 7.5 - 12.5 fL [facility] Neut# 9,467(H) 1,500 - 7,800 cells/uL [facility] Lymph# 3,861 850 - 3,900 cells/uL [facility] Monocytes(Absol tonie) 887 200 - 950 cells/uL [facility] Eos 14(L) 15 - 500 cells/uL [facility] Baso# 72 0 - 200 cells/uL [facility] Neut Percent 66.2 % [facility] Lymph Percent 27.0 % [facility] Monocytes 6.2 % [facility] Eos Percent 0.1 % [facility] Baso Percent 0.5 % [facility] 10/10/2022 8:18 AM EDT 10/10/2022 8:19 AM EDT Keyla Colorado MD QUEST-HEMATOLOGY ORDERABLES Jackie l Result [facility] [address] [place] [address] * (ABNORMAL) BOBBY IFA SCREEN WITH REFLEX TO TITER AND PATTERN-[employer] (10/10/2022 8:18 AM EDT) BOBBY Screen POSITIVE( A) NEGATIVE [facility] Comment: BOBBY IFA is a first line screen for detecting the presence of up to approximately 150 autoantibodies in various autoimmune diseases. A positive BOBBY IFA result is suggestive of autoimmune disease and reflexes to titer and pattern. Further laboratory testing may be considered if clinically indicated. For additional information, please refer to http://education.CGTrader/faq/AIY153 (This link is being provided for informational/ educational purposes only.) 10/10/2022 8:18 AM EDT 10/10/2022 8:19 AM EDT us Keyla Colorado MD [facility]ST-IMMUNOLOGY ORDERABLES Jackie l Result QUEST [facility] [address] [place] [address] * NM HEPATOBILIARY W GBEF (09/20/2022 10:17 AM EDT) Anatomical Region Laterality Modality Nuclear Medicine 09/20/2022 10:1 7 AM EDT Impressions 09/20/2022 10:37 AM EDT Normal hepatobiliary scan with a normal gallbladder ejection fraction. - Note: Radiology results need to be interpreted within a comprehensive clinical context. If you have questions about the radiology report, please contact the office of the ordering clinician. Narrative 09/20/2022 10:37 AM EDT NM HEPATOBILIARY WITH GBEF, 09/20/2022 10:17 AM CLINICAL HISTORY: R10.811-Right upper quadrant abdominal statrapawq-[id number]. COMPARISON: 7 07/13/[address] 07/26/2022 PROCEDURE COMMENTS: Routine sequential planar hepatobiliary imaging using administration of technetium 99m Choletec as recorded in EPIC. Ejection fraction estimated after CCK administered as recorded in EPIC. FINDINGS: Immediate images of the liver are normal. Normal demonstration of activity within the biliary tree, gallbladder, and small bowel. The EF is 88%. Normal is 35% or greater. Procedure Note Donavan Perez MD - 09/20/2022 NM HEPATOBILIARY WITH GBEF, 09/20/2022 10:17 AM CLINICAL HISTORY: R10.811-Right upper quadrant fvhueuhrxjjehbzpoaf-TEY-00-CM. COMPARISON: 7 07/13/[address] 07/26/2022 PROCEDURE COMMENTS: Routine sequential planar hepatobiliary imagingusing administration of technetium 99m Choletec as recorded in EPIC. Ejection fraction estimated after CCK administered as recorded in EPIC. FINDINGS: Immediate images of the liver are normal. Normal demonstration ofactivity within the biliary tree, gallbladder, and small bowel. The EF is 88%. Normal is 35% or greater. IMPRESSION: Normal hepatobiliary scan with a normal gallbladder ejection fraction. - Note: Radiology results need to be interpreted within a comprehensiveclinical context. If you have questions about the radiology report, please contactthe office of the ordering clinician. us Kamini Turner GLUELINE WORKER IMG NM ORDERABLES Final R esult * ECG AND WAVEFORMS - TELEMETRY (09/01/2022 7:01 AM EDT) Only the most recent of13 resultswithin the time period is included. ECG INTERPRET Sinus Bradycardia [facility] 09/01/2022 7:01 AM EDT Narrative [facility] - 09/01/2022 10:15 AM EDT JN/HICUITY ROUTINE RHYTHM CHANGE OK 0.14 QRS 0.09 RR 1.10 QT 0.43 QTc 0.41 See Clinical Report link for waveform capture us Unknown Provider POINT OF CARE CARDIOLOGY Final Result Performing Organization Address [facility]/ZIP Co de Phone Number [facility] [address] [place] [address] * UREA NITROGEN LEVEL URINE (08/30/2022 2:49 PM EDT) Urine Urea 300.9 mg/dL 08/30/2022 8:39 PM EDT [facility] Urine URINE SPECIMEN COLLECTION / Unknown 08/30/2022 2:49 PM EDT 08/30/2022 5:04 PM EDT us Nakia Bernal MD URINE ORDERABLES Final Res ult [facility] [address] [facility], [place] [address] * SODIUM LEVEL URINE (08/30/2022 2:49 PM EDT) Urine Sodium 17 mmol/L 08/30/2022 10:21 PM EDT [facility] Urine URINE SPECIMEN COLLECTION / Unknown 08/30/2022 2:49 PM EDT 08/30/2022 5:04 PM EDT us Nakia Bernal MD URINE ORDERABLES Final Res ult Performing Organization Address City/[facility]/ZIP Co de Phone Number [facility] Athletic Standard [facility] [address] [facility] , [place] [address] * POTASSIUM LEVEL URINE (08/30/2022 2:49 PM EDT) Urine Potassium 56.7 mmol/L 8:39 PM EDT [facility] [employer] Urine URINE SPECIMEN COLLECTION / Unknown 08/30/2022 2:49 PM EDT 08/30/2022 5:04 PM EDT us Nakia Bernal MD URINE ORDERABLES Final Res ult Performing Organization Address [facility] Co de Phone Number [facility] [address] [facility] , [place] [address] * CREATININE LEVEL URINE (08/30/2022 2:49 PM EDT) Urine Creatinine 39.4 mg/dL 08/30/2022 8:41 PM EDT [facility] [employer] Urine URINE SPECIMEN COLLECTION / Unknown 08/30/2022 2:49 PM EDT 08/30/2022 5:04 PM EDT us Nakia Bernal MD URINE ORDERABLES Final Res ult Performing Organization Address City/[facility]/ZIP Co de Phone Number [facility] [address] [facility] , [place] [address] * CHLORIDE, URINE - REF LAB (08/30/2022 2:49 PM EDT) Total Volume Random mL 09/02/2022 2:35 PM EDT [facility] Hrs Arnaud Random hr 09/02/2022 2:35 PM EDT [facility] Comment: Per 24h calculations are provided to aid interpretation for collections with a duration of 24 hours and an average daily urine volume. For specimens with notable deviations in collection time or volume, ratios of analytes to a corresponding urine creatinine concentration may assist in result interpretation. U Creatinine 38 mg/dL 09/02/2022 2:35 PM EDT [facility] U24 Creat Not Applicable 700 - 1600 mg/d 09/02/2022 2:35 PM EDT [facility] U Chloride 41 mmol/L 09/02/2022 2:35 PM EDT [facility] U24 Chloride Not Applicable 140 - 250 mmol/d 09/02/2022 2:35 PM EDT [facility] Comment: Performed By: [facility] [address] [place] [address] Tariff Compiling Clerk: Brayan Garrido MD, PhD Urine URINE SPECIMEN COLLECTION / Unknown 08/30/2022 2:49 PM EDT 08/30/2022 5:05 PM EDT us Nakia Bernal MD URINE ORDERABLES Final Res ult [email or web address] [address] [place] [address] * (ABNORMAL) URINALYSIS (08/30/2022 2:49 PM EDT) Only the most recent of2 resultswithin the time period is included. UA Color Red 08/30/2022 5:30 PM EDT [facility] UA Appear Clear Clear 08/30/2022 5:30 PM EDT [facility] UA Glucose >=1000(A) Negative mg/dL 08/30/2022 5:30 PM EDT [facility] UA Ketones Negative Negative mg/dL 08/30/2022 5:30 PM EDT [facility] UA Blood Large(A) Negative 08/30/2022 5:30 PM EDT [facility] UA pH 7.0 5.0 - 8.0 pH 08/30/2022 5:30 PM EDT [facility] UA Protein Trace(A) Negative mg/dL 08/30/2022 5:30 PM EDT [facility] UA Urobilinogen 0.2 <=1 mg/dL 5:30 PM EDT [facility] UA Bili Negative Negative 08/30/2022 5:30 PM EDT [facility] UA Nitrite Negative Negative 08/30/2022 5:30 PM EDT [facility] UA Leuk Est Trace(A) Negative 08/30/2022 5:30 PM EDT [facility] UA Spec Grav 1.010 1.001 - 1.035 no units 08/30/2022 5:30 PM EDT [facility] Comment:Reference range dieter d for random specimens only. UA WBC 5(H) 0 - 4 /HPF 08/30/2022 5:30 PM EDT [facility] UA RBC >100(H) 0 - 3 /HPF 08/30/2022 5:30 PM EDT [facility] UA Squam Epi 2+ /LPF 08/30/2022 5:30 PM EDT [facility] UA Mucus 1+ /LPF 08/30/2022 5:30 PM EDT [facility] UA Bacteria Trace(A) Negative /HPF 08/30/2022 5:30 PM EDT [facility] Urine URINE SPECIMEN COLLECTION, CLEAN CATCH / Unknown 08/30/2022 2:49 PM EDT 08/30/2022 5:04 PM EDT us Ezequiel Everett DO URINE ORDERABLES Fin al Result [facility] [address] [place] [address] * (ABNORMAL) BLOOD GAS, VENOUS (08/30/2022 1:52 PM EDT) Only the most recent of2 resultswithin the time period is included. pH Venous 7.28(L) 7.32 - 7.42 pH 08/30/2022 2:14 PM EDT [facility] pCO2 Venous 38(L) 41 - 51 mmHg 08/30/2022 2:14 PM EDT [facility] pO2 Venous 31 25 - 40 mmHg 08/30/2022 2:14 PM EDT [facility] Comment:Interpret with cauti on. Not recommended to evaluate patient's oxygenation status. Base Excess Schuyler -8.5 mmol/L 2:14 PM EDT [facility] Hco3 Venous 17.6(L) 24.0 - 28.0 mmol/L 08/30/2022 2:14 PM EDT [facility] CO2 Total Schuyler 17(L) 25 - 29 mmol/L 08/30/2022 2:14 PM EDT [facility] O2 Sat. Venous 58.8 40.0 - 70.0 % 08/30/2022 2:14 PM EDT [facility] Blood VENOUS BLOOD / Unknown Venipuncture / Unknown 08/30/2022 1:52 PM EDT 08/30/2022 2:11 PM EDT [facility] CHEMISTRY ORDERABLES Final Result Performing Organization Address [facility] de Phone Number [facility] [address] [place] [address] * BETA-HYDROXYBUTYRIC ACID (08/30/2022 1:49 PM EDT) BHB 0.10 0.00 - 0.30 mmol/L 08/30/2022 2:40 PM EDT [facility] Blood VENOUS BLOOD / Unknown Venipuncture / Unknown 08/30/2022 1:49 PM EDT 08/30/2022 2:11 PM EDT Ezequiel Everett DO CHEMISTRY ORDERABLES Final Result Performing Organization Address [facility] de Phone Number [facility] [address] [place] [address] [phone] * LACTIC ACID (08/30/2022 12:59 PM EDT) Only the most recent of2 resultswithin the time period is included. Lactic Acid 1.9 0.5 - 1.9 mmol/L 08/30/2022 1:26 PM EDT [facility] Blood VENOUS BLOOD / Unknown Venipuncture / Unknown 08/30/2022 12:59 PM EDT 08/30/2022 1:11 PM EDT Ezequiel Everett DO CHEMISTRY ORDERABLES Final Result [facility] [address] [facility] [place]jas [address] * XR CHEST AP PORTABLE (08/29/2022 6:02 PM EDT) Only the most recent of3 resultswithin the time period is included. Anatomical Region Laterality Modality Chest Radiographic Alicia ging 08/29/2022 6:02 PM EDT Impressions 08/29/2022 6:17 PM EDT No acute finding. - Note: Radiology results need to be interpreted within a comprehensive clinical context. If you have questions about the radiology report, please contact the office of the ordering clinician. Narrative 08/29/2022 6:17 PM EDT XR CHEST AP PORTABLE, 08/29/2022 6:02 PM CLINICAL HISTORY: -shortness of breath, wheezing COMPARISON: 08/26/2022 PROCEDURE COMMENTS: AP portable technique. FINDINGS: Support devices: No visible support devices. Heart and mediastinal contours within normal limits for technique. No active failure, pneumonia, or visible effusion. No visible pneumothorax. Procedure Note Amrik Donaldson MD - 08/29/2022 XR CHEST AP PORTABLE, 08/29/2022 6:02 PM CLINICAL HISTORY: -shortness of breath, wheezing COMPARISON: 08/26/2022 PROCEDURE COMMENTS: AP portable technique. FINDINGS: Support devices: No visible support devices. Heart and mediastinal contours within normal limits for technique. Noactive failure, pneumonia, or visible effusion. No visible pneumothorax. IMPRESSION: No acute finding. - Note: Radiology results need to be interpreted within a comprehensiveclinical context. If you have questions about the radiology report, please contactthe office of the ordering clinician. Ezequiel Everett DO IMG DIAGNOSTIC IMAGI NG ORDERABLES Final Result * EC ECHOCARDIOGRAM COMPLETE W DOPPLER AND COLOR FLOW MAPPING (08/29/2022 12:36 PM EDT) LV DIASTOLIC PLAX 3.86 cm PYRAMIS Ejection Fraction 60-65% PYRAMIS MITRAL REGURGITATION no PYRAMIS AORTIC STENOSIS no PYRAMIS Anatomical Region Laterality Modality Electrocardiogra phy 08/29/2022 11:5 3 AM EDT Impressions 08/29/2022 3:09 PM EDT Conclusions * Left ventricular chamber dimension is normal. * Left ventricular function is normal with an estimated ejection fraction of 60-65%. * Left ventricular segmental wall motion is normal. * The left ventricular diastolic function is normal. * Right ventricular systolic function is normal. * Unable to estimate pulmonary arterial systolic pressure due to lack of tricuspid regurgitation jet. Narrative Procedure Note Dio Cho MD - 08/29/2022 IMPRESSION Conclusions * Left ventricular chamber dimension is normal. * Left ventricular function is normal with an estimated ejectionfraction of 60-65%. * Left ventricular segmental wall motion is normal. * The left ventricular diastolic function is normal. * Right ventricular systolic function is normal. * Unable to estimate pulmonary arterial systolic pressure due to lackof tricuspid regurgitation jet. Nate Wright MD IMG ECHO ORDERABLES Final Re sult * SCANNED RADIOLOGY REPORT (08/29/2022 12:27 PM EDT) Anatomical Region Laterality Modality Other 08/29/2022 12:2 7 PM EDT Unknown Provider IMG DIAGNOSTIC IMAGING ORDERABL ES Final Result * NM MYOCARDIAL PERFUSION SPECT STRESS AND REST (08/29/2022 9:11 AM EDT) Anatomical Region Laterality Modality Nuclear Medicine 08/29/2022 7:52 AM EDT Impressions 08/29/2022 2:25 PM EDT Conclusions * No definite reversible perfusion defect. * Ejection fraction is normal. Narrative Procedure Note Dio Cho MD - 08/29/2022 IMPRESSION Conclusions * No definite reversible perfusion defect. * Ejection fraction is normal. us Nate Wright MD IMG NM CARDIAC ORDERABLES Fi nal Result * ST STRESS TEST EXERCISE (08/29/2022 8:54 AM EDT) Anatomical Region Laterality Modality Cardiac Stress T esting 08/29/2022 8:20 AM EDT Impressions 08/29/2022 11:[address] [facility] Test Date: 2022-08-29 Pat Name: KAMINI ABRAMS Department: DEPID Room: [facility] Gender: Female General Helper: HENRIK Walker : 1985 Requested By: NATE WRIGHT Order Number: [id number] Reading MD: Dio Cho MD Interpretive Statements Stress Test Exercise Ordering Diagnosis: Resting HR: 85 Peak HR: 169 Resting B/P: 128/80 Peak B/P: 164/97 1. METS achieved: 4.5 2. Walked 3:30 minutes on Full Jovi Protocol 3. Target HR achieved 4. Termination of test due to: fatigue, dyspnea 5. Symptoms: sharp chest pain 5/10 at rest, 8/10 with stress and worse with inspiration, 5/10 end of recovery 6. Nuclear Imaging reported separately. Physician Interpretation Resting ECG:NSR Arrhythmias: Blood Pressure Response: Exercise Capacity: Conclusion: Normal EKG response Electronically Signed On 08-29-2022 11:51:56 EDT by Dio Cho MD Narrative Procedure Note Dio Cho MD - 08/29/[address] [facility] Test Date: 2022-08-29 Pat Name: KAMINI ABRAMS Department: DEPID Room: [id number] Gender: Female General Helper: HENRIK Walker : 1985 Requested By: NATE WRIGHT Order Number: [id number] Reading MD: Dio Cho MD Interpretive Statements Stress Test Exercise Ordering Diagnosis: Resting HR: 85 Peak HR: 169 Resting B/P: 128/80 Peak B/P: 164/97 1. METS achieved: 4.5 2. Walked 3:30 minutes on Full Jovi Protocol 3. Target HR achieved 4. Termination of test due to: fatigue, dyspnea 5. Symptoms: sharp chest pain 5/10 at rest, 8/10 with stress and worsewith inspiration, 5/10 end of recovery 6. Nuclear Imaging reported separately. PhysicianInterpretation Resting ECG:NSR Arrhythmias: Blood Pressure Response: Exercise Capacity: Conclusion: Normal EKG response Electronically Signed On 08-29-2022 11:51:56 EDT by Dio Cho MD us Nate Wright MD IMG STRESS ORDERABLES Final Result * SCANNED EKG (08/29/2022 8:52 AM EDT) Anatomical Region Laterality Modality Other 08/29/2022 8:52 AM EDT us Unknown Provider IMG ECG ORDERABLES Final Result * TROPONIN-T HIGH SENSITIVITY BASELINE W/ REFLEX (08/28/2022 9:34 AM EDT) Only the most recent of3 resultswithin the time period is included. uj-kWvsilxlz-O <6 <14 ng/L 08/28/2022 9:48 AM EDT [facility] Comment:See the website belo w for rule out NM care pathway, conditions other than AMI that can cause elevated hs cTnT, and comparison of values from the 4th and 5th generation Ana tests. https://[email or web address].org/topic/clinical-answers/gnt-19644280/cpm-203 70923 Blood VENOUS BLOOD / Unknown Venipuncture / Unknown 08/28/2022 9:34 AM EDT 08/28/2022 9:34 AM EDT Narrative [facility] - 08/28/2022 9:48 AM EDT Ingestion of nicci doses of biotin (>5 mg/day) taken within 8 hours of drawing blood sample can interfere with this immunoassay test. Ezequiel Everett DO CHEMISTRY ORDERABLES Final Result [facility] [address] [place] [address] * EK EKG 12 LEAD (08/28/2022 9:14 AM EDT) Only the most recent of4 resultswithin the time period is included. Anatomical Region Laterality Modality Electrocardiogra phy 08/28/2022 9:21 AM EDT Impressions 08/29/2022 8:05 AM EDT [facility]: [facility] Pat Name: KAMINI ABRAMS Department: DEPID Room: [id number] Gender: Female General Helper: Cy : 1985 Requested By: EZEQUIEL Velazquez Order Number: [id number] Reading MD: Dio Cho MD Measurements Intervals Catarina Rate: 72 P: -1 OK: 133 QRS: 6 QRSD: 85 T: -2 QT: 416 QTc: 456 Interpretive Statements SINUS RHYTHM Non specific ST-T abnormality. Electronically Signed On 08-29-2022 8:05:53 EDT by Dio Cho MD Narrative Procedure Note Dio Cho MD - 08/29/[address] [facility] Test Date: 2022-08-28 Pat Name: KAMINI ABRAMS Department: DEPID Room: [id number] Gender: Female General Helper: Cy : 1985 Requested By: PK Velazquez Order Number: [id number] Reading MD: Dio Cho MD Measurements Intervals Catarina Rate: 72 P: -1 OK: 133 QRS: 6 QRSD: 85 T: -2 QT: 416 QTc: 456 Interpretive Statements SINUS RHYTHM Non specific ST-T abnormality. Electronically Signed On 08-29-2022 8:05:53 EDT by Dio Cho MD Ezequiel Everett DO IMG ECG ORDERABLES F inal Result * D-DIMER (08/28/2022 9:06 AM EDT) D-Dimer 244 <=500 ng/mL FEU 08/28/2022 9:49 AM EDT [facility] Comment:This is an automated latex enhanced immunoassay for the quantitative determination of D-Dimer that may be used, in conjunction with a clinical pretest probability assessment, to exclude venous thromboembolism in patients suspected of deep venous thrombosis (DVT) and pulmonary embolism (PE). The cutoff for exclusion of DVT and PE is 500 ng/mL Fibrinogen Equivalent Units (FEU). Elevated D-Dimer levels may be associated with PE, DVT, disseminated intravascular coagulation, recent surgery, recent bleeding, , malignancy, and inflammation. Blood VENOUS BLOOD / Unknown Venipuncture / Unknown 08/28/2022 9:06 AM EDT 08/28/2022 9:32 AM EDT Ezequiel Everett DO HEMATOLOGY ORDERABLE S Final Result [facility] [address] [place] [address] * TROPONIN-T HIGH SENSITIVITY 2HR (08/27/2022 4:45 PM EDT) Only the most recent of2 resultswithin the time period is included. bv-qCizyvdof-W 2HR <6 <14 ng/L 08/27/2022 5:42 PM EDT [facility] Comment:See the website frantz egan for rule out NM care pathway, conditions other than AMI that can cause elevated hs cTnT, and comparison of values from the 4th and 5th generation Ana tests. https://askmayoexpert.[email or web address].org/topic/clinical-answers/gnt-90704577/cpm-203 57352 hs-cTnT 2Hr Delta from Baseline 08/27/2022 5:42 PM EDT [facility] Comment:Unable to calculate, result is outside instrument's measuring range. Blood VENOUS BLOOD / Unknown Venipuncture / Unknown 08/27/2022 4:45 PM EDT 08/27/2022 5:17 PM EDT Narrative [facility] - 08/27/2022 5:42 PM EDT Ingestion of nicci doses of biotin (>5 mg/day) taken within 8 hours of drawing blood sample can interfere with this immunoassay test. Ezequiel Everett DO CHEMISTRY ORDERABLES Final Result Performing Organization Address [facility]/ZIP Co de Phone Number [facility] [address] [place] [address] * GMED EGD (08/17/2022 3:40 PM EDT) 08/17/2022 3:40 PM EDT Impressions [facility] - 08/17/2022 3:24 PM EDT Normal esophagus. Normal stomach. Normal duodenum. Plan: - Follow up in the office This section is an excerpt of the full report. Jarrod Gonsalves MD GI PROCEDURE ORDERABLES Jackie l Result Performing Organization Address City/[facility]/ZIP Co de Phone Number [facility] [address] [place] [address] * INTRAOP AIRWAY PLACEMENT (08/17/2022 3:08 PM EDT) Narrative [facility] - 08/17/2022 3:08 PM EDT Nima Gay MD 08/17/2022 3:09 PM Intraop Airway Placement: Date/Time: 08/17/2022 3:08 PM Airway type: Nasal cannula salter us Nima Gay MD [place] [address] * CT ABDOMEN PELVIS W CONTRAST (07/26/2022 6:51 PM EST) Anatomical Region Laterality Modality Abdomen, Chest, Pelvis, Hip Comp uted Tomography 07/26/2022 6:51 PM EST Impressions 07/26/2022 6:57 PM EST No acute abnormality of the abdomen or pelvis. Mild hepatic steatosis. - Note: Radiology results need to be interpreted within a comprehensive clinical context. If you have questions about the radiology report, please contact the office of the ordering clinician. Narrative 07/26/2022 6:[address] ABDOMEN AND PELVIS WITH CONTRAST, 07/26/2022 6:51 PM CLINICAL HISTORY: R10.31-Right lower quadrant [id number]-[id number]-[id number]-CM. COMPARISON: 07/13/2012. PROCEDURE COMMENTS: Multi-detector CT of the abdomen and pelvis with multiplanar reformatting. Isovue 370 IV contrast given along with radiodense GI contrast as recorded in EPIC. Dose 1 : CT DLP Total : 1183.2 mGycm DLP Spiral Max : 1183.2 mGycm Maximum CTDI Vol : 23.2 mGy SSDE : 22.04 mGy SSDE Diameter : 37 cm SSDE Source : [email or web address] FINDINGS: LOWER THORAX: Lung bases unremarkable. ABDOMEN AND PELVIS: Mild hepatic steatosis. No focal hepatic, splenic, pancreatic lesion. No biliary dilation. Gallbladder is unremarkable. There is no renal mass identified. No hydronephrosis. No ureteral calculus. No dilated loops of bowel. No acutely inflamed loops of bowel. The appendix is normal. No adenopathy. No ascites. Pelvic organs unremarkable for age. No acute osseous abnormality. Procedure Note Malick Monge MD - 07/26/2022 CT ABDOMEN AND PELVIS WITH CONTRAST, 07/26/2022 6:51 PM CLINICAL HISTORY: R10.31-Right lower quadrant [id number]-[id number]-09-CM. COMPARISON: 07/13/2012. PROCEDURE COMMENTS: Multi-detector CT of the abdomen and pelvis with multiplanar reformatting. Isovue 370 IV contrast given along withradiodense GI contrast as recorded in EPIC. Dose 1 : CT DLP Total : 1183.2 mGycm DLP Spiral Max : 1183.2 mGycm Maximum CTDI Vol : 23.2 mGy SSDE : 22.04 mGy SSDE Diameter : 37 cm SSDE Source : [email or web address] FINDINGS: LOWER THORAX: Lung bases unremarkable. ABDOMEN AND PELVIS: Mild hepatic steatosis. No focal hepatic, splenic, pancreatic lesion. No biliary dilation. Gallbladder is unremarkable. There is no renal mass identified. No hydronephrosis. No ureteralcalculus. No dilated loops of bowel. No acutely inflamed loops of bowel. Theappendix is normal. No adenopathy. No ascites. Pelvic organs unremarkable for age. No acute osseous abnormality. IMPRESSION: No acute abnormality of the abdomen or pelvis. Mild hepatic steatosis. - Note: Radiology results need to be interpreted within a comprehensiveclinical context. If you have questions about the radiology report, please contactthe office of the ordering clinician. us Bernabe Cortez MD IMG CT ORDERABLES Final Resul t * US RIGHT UPPER QUADRANT (07/13/2022 7:01 AM EST) Anatomical Region Laterality Modality Abdomen Ultrasound 07/13/2022 7:01 AM EST Impressions 07/13/2022 7:45 AM EST Fatty liver. Otherwise unremarkable. - - Narrative 07/13/2022 7:45 AM EST US RIGHT UPPER QUADRANT, 07/13/2022 7:01 AM CLINICAL HISTORY: R79.89-Other specified abnormal findings of blood [id number]-48-CM. COMPARISON: None. PROCEDURE COMMENTS: Ultrasound examination of the right upper quadrant performed by the technologist. Sent to PACS along with tech notes for radiologist review. FINDINGS: Gallbladder: Normal. Don's sign: Negative. Liver: Echogenic consistent with fatty infiltration. No mass. Common bile duct: Measures 5 mm. (Normal is 6mm or less. If there has been cholecystectomy, normal is 10mm or less.) Pancreas: Poorly visualized. Other: Right kidney non-hydronephrotic. Procedure Note Malick Monge MD - 07/13/2022 US RIGHT UPPER QUADRANT, 07/13/2022 7:01 AM CLINICAL HISTORY: R79.89-Other specified abnormal findings of blood ymzesyxmk-NAX-02-CM. COMPARISON: None. PROCEDURE COMMENTS: Ultrasound examination of the right upper quadrantperformed by the technologist. Sent to PACS along with tech notes for radiologistreview. FINDINGS: Gallbladder: Normal. Don's sign: Negative. Liver: Echogenic consistent with fatty infiltration. No mass. Common bile duct: Measures 5 mm. (Normal is 6mm or less. If there hasbeen cholecystectomy, normal is 10mm or less.) Pancreas: Poorly visualized. Other: Right kidney non-hydronephrotic. IMPRESSION: Fatty liver. Otherwise unremarkable. - - us Kamini Turner APRN IMG US ORDERABLES Final R esult * CT CHEST HIGH RESOLUTION WO CONTRAST (07/01/2022 4:50 PM EST) Anatomical Region Laterality Modality Chest Computed Tomogra phy 07/01/2022 4:50 PM EST Impressions 07/01/2022 5:38 PM EST No pattern of significant interstitial fibrosis or acute cardiopulmonary process. - Note: Radiology results need to be interpreted within a comprehensive clinical context. If you have questions about the radiology report, please contact the office of the ordering clinician. Narrative 07/01/2022 5:[address] CHEST HIGH-RESOLUTION WITHOUT CONTRAST, 07/01/2022 4:50 PM CLINICAL HISTORY: R06.02-Shortness of inglgh-WPY-22-CM R05.2-Subacute vyxat-LAY-39-CM. COMPARISON: None. PROCEDURE COMMENTS: High-resolution CT chest per protocol. Multiplanar reconstructions. Automatic exposure control utilized for dose reduction. FINDINGS: No mediastinal or hilar mass lesion. Lung volumes within normal limits. No significant reticulation. No traction bronchiectasis or honeycombing. No generalized nodularity or pulmonary cyst formation. No groundglass opacities away from areas of fibrosis. No evidence of acute consolidation or air-trapping. Mediastinal and visceral pleura unremarkable. Tracheobronchial tree patent. Coronary artery calcification: Mild. Incidental: Visible abdominal viscera are unremarkable. Procedure Note Quique Swan MD - 07/01/2022 CT CHEST HIGH-RESOLUTION WITHOUT CONTRAST, 07/01/2022 4:50 PM CLINICAL HISTORY: R06.02-Shortness of buiytk-SBU-93-CM R05.2-Subacute pcjmf-JKN-01-CM. COMPARISON: None. PROCEDURE COMMENTS: High-resolution CT chest per protocol. Multiplanar reconstructions. Automatic exposure control utilized for dose reduction. FINDINGS: No mediastinal or hilar mass lesion. Lung volumes within normal limits. No significant reticulation. Notraction bronchiectasis or honeycombing. No generalized nodularity or pulmonarycyst formation. No groundglass opacities away from areas of fibrosis. Noevidence of acute consolidation or air-trapping. Mediastinal and visceral pleura unremarkable. Tracheobronchial treepatent. Coronary artery calcification: Mild. Incidental: Visible abdominal viscera are unremarkable. IMPRESSION: No pattern of significant interstitial fibrosis or acute cardiopulmonary process. - Note: Radiology results need to be interpreted within a comprehensiveclinical context. If you have questions about the radiology report, please contactthe office of the ordering clinician. Florentino Rivero MD [facility] CT ORDERABLES Final Result * RAST - REF LAB (07/01/2022 12:30 PM EST) Immcap Score See Note 07/03/2022 11:16 AM EST [email or web address] Comment: REFERENCE INTERVAL: Allergen, Interpretation Less than 0.10 kU/L......Class 0.....No significant level detected 0.10-0.34 kU/L...........Class 0/1...Clinical relevance undetermined 0.35-0.70 kU/L...........Class 1.....Low 0.71-3.50 kU/L...........Class 2.....Moderate 3.51-17.50 kU/L..........Class 3.....High 17.51-50.00 kU/L.........Class 4.....Very High 50.01-100.00 kU/L........Class 5.....Very High Greater than 100.00kU/L..Class 6.....Very High Allergen results of 0.10-0.34 kU/L are intended for specialist use as the clinical relevance is undetermined. Even though increasing ranges are reflective of increasing concentrations of allergen-specific IgE, these concentrations may not correlate with the degree of clinical response or skin testing results when challenged with a specific allergen. The correlation of allergy laboratory results with clinical history and in vivo reactivity to specific allergens is essential. A negative test may not rule out clinical allergy or even anaphylaxis. Performed By: [facility] [address] [place], [place] [id number] [employer]iff Compiling Clerk: Brayan Garrido MD, PhD Blood VENOUS BLOOD / Unknown 07/01/2022 12:30 PM EST 07/01/2022 12:30 PM EST us Florentino Rivero MD IMMUNOLOGY ORDERABLES F inal Result [email or web address] [address] [place], [place] [id number] * HYPERSENSITIVITY PNEUMONITIS II - REF LAB (07/01/2022 12:30 PM EST) A. flavus Ab, preciiptin None Detected None Detected 07/07/2022 5:02 AM EST [facility] A. fumigatus 2 Ab, precipitin None Detected None Detected 07/07/2022 5:02 AM EST [facility] A. fumigatus 3 Ab, precipitin None Detected None Detected 07/07/2022 5:02 AM EST [facility] S. viridis Ab, precipitin None Detected None Detected 07/07/2022 5:02 AM EST [facility] T. candidus Ab, preciipitin None Detected None Detected 07/07/2022 5:02 AM EST [facility] Comment: Testing includes antibodies directed at Aspergillus flavus, Aspergillus fumigatus #2, Aspergillus fumigatus #3, Saccharomonospora viridis, and Thermoactinomyces candidus. Performed By: [facility] [address] [place] [address] [employer]iff Compiling Clerk: Brayan Garrido MD, PhD Blood VENOUS BLOOD / Unknown 07/01/2022 12:30 PM EST 07/01/2022 12:30 PM EST Florentino Rivero MD CHEMISTRY ORDERABLES Fi nal Result [email or web address] [address] [place] [address] * HYPERSENSITIVITY PNEUMONITIS I - REF LAB (07/01/2022 12:30 PM EST) A. fumigatus 1 Ab, precipitin None Detected None Detected 07/07/2022 5:02 AM EST [facility] A. fumigatus 6 Ab, precipitin None Detected None Detected 07/07/2022 5:02 AM EST [facility] A. pullulans Ab, precipitin None Detected None Detected 07/07/2022 5:02 AM EST [facility] Aurora Serum Ab, precipitin None Detected None Detected 07/07/2022 5:02 AM EST [facility] M. faeni Ab, preciptitin None Detected None Detected 07/07/2022 5:02 AM EST [facility] T. vulgaris 1 Ab, precipitin See Note None Detected 07/07/2022 5:02 AM EST [facility] Comment: Testing includes antibodies directed at Aureobasidium pullulans, Aspergillus fumigatus #1, Aspergillus fumigatus #6, Micropolyspora faeni, Aurora Serum and Thermoactinomyces vulgaris #1. Thermoactinomyces vulgaris #1 testing not performed due to unsatisfactory reagent performance. A credit will be issued for this component. Performed By: [facility] [address] [place] [address] Tariff Compiling Clerk: Brayan Garrido MD, PhD Blood VENOUS BLOOD / Unknown 07/01/2022 12:30 PM EST 07/01/2022 12:30 PM EST us Florentino Rivero MD CHEMISTRY ORDERABLES Fi nal Result [facility] [address] [place] [id number] * ALLERGEN, REGION 5 RESPIRATORY PANEL-REF LAB (07/01/2022 12:30 PM EST) Common Ragweed <0.10 <=0.34 kU/L 07/03/2022 11:06 AM EST [facility] CockroachGerman <0.10 <=0.34 kU/L 07/03/2022 11:06 AM EST [facility] Minco Tree <0.10 <=0.34 kU/L 07/03/2022 11:06 AM EST [facility] Ethel Tree <0.10 <=0.34 kU/L 07/03/2022 11:06 AM EST [facility] Pecan Tree <0.10 <=0.34 kU/L 07/03/2022 11:06 AM EST [facility] Mouse Epi <0.10 <=0.34 kU/L 07/03/2022 11:06 AM EST [facility] M. racemosus <0.10 <=0.34 kU/L 07/03/2022 11:06 AM EST [facility] White [place] Tree <0.10 <=0.34 kU/L 07/03/2022 11:06 AM EST [facility] Dog Dander <0.10 <=0.34 kU/L 07/03/2022 11:06 AM EST [facility] Sheep Teton <0.10 <=0.34 kU/L 07/03/2022 11:06 AM EST [facility] Comment: Performed By: [facility] [address] [place] [address] Tariff Compiling Clerk: Brayan Garrido MD, PhD IgE 2 <=214 kU/L 07/03/2022 11:06 AM EST [facility] Comment: REFERENCE INTERVAL: Immunoglobulin E, Serum Access complete set of age- and/or gender-specific reference intervals for this test in the [facility] Test Directory ([email or web address]). Alternaria alt <0.10 <=0.34 kU/L 07/03/2022 11:06 AM EST [facility] Trenton/Maple <0.10 <=0.34 kU/L 07/03/2022 11:06 AM EST [facility] Cat Epi/Dander <0.10 <=0.34 kU/L 07/03/2022 11:06 AM EST [facility] Mountain [place] Tree <0.10 <=0.34 kU/L 07/03/2022 11:06 AM EST [facility] Mapleton Tree <0.10 <=0.34 kU/L 07/03/2022 11:06 AM EST [facility] Pigweed <0.10 <=0.34 kU/L 07/03/2022 11:06 AM EST [facility] Palestinian Thistle <0.10 <=0.34 kU/L 07/03/2022 11:06 AM EST [facility] Aureliano Grass <0.10 <=0.34 kU/L 07/03/2022 11:06 AM EST [facility] Allergen, Fungi/Mold, Hormodendrum IgE <0.10 <=0.34 kU/L 07/03/2022 11:06 AM EST [facility] Elm Tree <0.10 <=0.34 kU/L 07/03/2022 11:06 AM EST [facility] [place] Tree <0.10 <=0.34 kU/L 07/03/2022 11:06 AM EST [facility] Poca <0.10 <=0.34 kU/L 07/03/2022 11:06 AM EST [facility] Allergen, Fungi/Mold, A. fumigatus IgE <0.10 <=0.34 kU/L 07/03/2022 11:06 AM EST [facility] D pteronyssinus <0.10 <=0.34 kU/L 07/03/2022 11:06 AM EST [facility] D farinae <0.10 <=0.34 kU/L 07/03/2022 11:06 AM EST [facility] Berm[place] Grass <0.10 <=0.34 kU/L 07/03/2022 11:06 AM EST [facility] White Andrea Tree <0.10 <=0.34 kU/L 07/03/2022 11:06 AM EST [facility] P.Notatum <0.10 <=0.34 kU/L 07/03/2022 11:06 AM EST [facility] Blood VENOUS BLOOD / Unknown 07/01/2022 12:30 PM EST 07/01/2022 12:30 PM EST Florentino Rivero MD IMMUNOLOGY ORDERABLES F inal Result [facility] [address] [place] [address] * IGG (07/01/2022 12:30 PM EST) Pathologist [facility] IgG 1,160 700 - 1,600 mg/dL 07/01/2022 5:59 PM EST [facility] Blood VENOUS BLOOD / Unknown 07/01/2022 12:30 PM EST 07/01/2022 12:30 PM EST Florentino Rivero MD IMMUNOLOGY ORDERABLES F inal Result [facility] [address] [place] [address] , [place] [address] * (ABNORMAL) PULMONARY FUNCTION TEST (07/01/2022 11:35 AM EST) FVC_PRE 3.09 2.80 - 4.23 L 07/01/2022 12:50 PM EST [facility] FVC_REF 3.50 07/01/2022 12:50 PM EST [facility] FVC_LLN 2.80 07/01/2022 12:50 PM EST [facility] FVC_Pre%REF 88 % 07/01/2022 12:50 PM EST [facility] FEV1_PRE 2.57 2.35 - 3.50 L 07/01/2022 12:50 PM EST [facility] FEV1_REF 2.93 07/01/2022 12:50 PM EST [facility] FEV1_LLN 2.35 07/01/2022 12:50 PM EST [facility] FEV1_Pre%REF 88 % 07/01/2022 12:50 PM EST [facility] FEV1/FVC_PRE 83.06 72.69 - 93.16 % 07/01/2022 12:50 PM EST [facility] FEV1/FVC_REF 84 07/01/2022 12:50 PM EST [facility] FEV1/FVC_LLN 73 07/01/2022 12:50 PM EST [facility] FEV1/FVC_Pre%R EF 99 % 07/01/2022 12:50 PM EST [facility] ZAN36-76%_PRE 2.97 2.05 - 4.68 L/s 07/01/2022 12:50 PM EST [facility] SRL93-37%_REF 3.25 07/01/2022 12:50 PM EST [facility] MHJ22-16%_LLN 2.05 07/01/2022 12:50 PM EST [facility] OSR32-37%_Pre% REF 91 % 07/01/2022 12:50 PM EST [facility] PEF_PRE 5.52 5.10 - 8.32 L/s 07/01/2022 12:50 PM EST [facility] PEF_REF 6.71 07/01/2022 12:50 PM EST [facility] PEF_LLN 5.10 07/01/2022 12:50 PM EST [facility] PEF_Pre%REF 82 % 07/01/2022 12:50 PM EST [facility] DLCO_SB_PRE 17.97 16.13 - 27.18 ml/(min*mm Hg) 07/01/2022 12:50 PM EST [facility] DLCOSingleBrea th_REF 20.7 07/01/2022 12:50 PM EST [facility] DLCOSingleBrea th_LLN 16.1 07/01/2022 12:50 PM EST [facility] DLCOSingleBrea th_Pre%REF 87 % 07/01/2022 12:50 PM EST [facility] VA_SB_PRE 3.96 3.69 - 5.51 L 07/01/2022 12:50 PM EST [facility] VASingleBreath _REF 4.52 07/01/2022 12:50 PM EST [facility] VASingleBreath _LLN 3.69 07/01/2022 12:50 PM EST [facility] VASingleBreath _Pre%REF 88 % 07/01/2022 12:50 PM EST [facility] DL/VA_PRE 4.53 3.64 - 5.78 ml/(min*mm Hg*L) 07/01/2022 12:50 PM EST [facility] DLCO/VA_REF 4.64 07/01/2022 12:50 PM EST [facility] DLCO/VA_LLN 3.64 07/01/2022 12:50 PM EST [facility] DLCO/VA_Pre%RE F 98 % 07/01/2022 12:50 PM EST [facility] IVC_SB_PRE 3.24 2.80 - 4.23 L 07/01/2022 12:50 PM EST [facility] Hb_PRE 12.60 g(Hb)/dL 07/01/2022 12:50 PM EST [facility] IC_PRE 2.72(H) 2.08 - 2.08 L 07/01/2022 12:50 PM EST [facility] IC_REF 2.08 07/01/2022 12:50 PM EST [facility] IC_LLN 2.08 07/01/2022 12:50 PM EST [facility] IC_Pre%REF 131 % 07/01/2022 12:50 PM EST [facility] ERV_PRE 0.37(L) 1.17 - 1.17 L 07/01/2022 12:50 PM EST [facility] ERV_REF 1.17 07/01/2022 12:50 PM EST [facility] ERV_LLN 1.17 07/01/2022 12:50 PM EST [facility] ERV_Pre%REF 31 % 07/01/2022 12:50 PM EST [facility] RV_PRE 0.99 0.82 - 1.97 L 07/01/2022 12:50 PM EST [facility] RV_REF 1.39 07/01/2022 12:50 PM EST [facility] RV_LLN 0.82 07/01/2022 12:50 PM EST [facility] RV_Pre%REF 71 % 07/01/2022 12:50 PM EST [facility] RV%TLC_PRE 24.18 20.93 - 40.11 % 07/01/2022 12:50 PM EST [facility] RV%TLC_REF 31 07/01/2022 12:50 PM EST [facility] RV%TLC_LLN 21 07/01/2022 12:50 PM EST [facility] RV%TLC_Pre%REF 79 % 07/01/2022 12:50 PM EST [facility] FRCpl_PRE 1.35(L) 1.74 - 3.38 L 07/01/2022 12:50 PM EST [facility] FRCpleth_REF 2.56 07/01/2022 12:50 PM EST [facility] FRCpleth_LLN 1.74 07/01/2022 12:50 PM EST [facility] FRCpleth_Pre%R EF 53 % 07/01/2022 12:50 PM EST [facility] TLC_PRE 4.08 3.62 - 5.59 L 07/01/2022 12:50 PM EST [facility] TLC_REF 4.60 07/01/2022 12:50 PM EST [facility] TLC_LLN 3.62 07/01/2022 12:50 PM EST [facility] TLC_Pre%REF 89 % 07/01/2022 12:50 PM EST [facility] 07/01/2022 11:3 5 AM EST Impressions [facility] - 07/01/2022 12:50 PM EST Normal pulmonary function testing. This data was interpreted based upon the 2005 ATS/ERS Task Force Position Statement: Interpretative Strategies for Lung Function Tests. Read & Interpreted By: Arslan Rivas MD Pulmonary & Critical Care Medicine us Florentino Rivero MD PFT ORDERABLES Final R esult [facility] [address] [place] [address] * XR LUMBAR SPINE AP LATERAL FLEXION AND EXTENSION (03/25/2021 9:48 AM EDT) Narrative Tadeo Pryor - 03/25/2021 9:48 AM EDT Please see physician's note from office encounter for x-ray imaging result Sp Keller MD IMG DIAGNOSTIC IMAGING OR DERABLES Final Result * XR FOOT LEFT AP LATERAL AND OBLIQUE STANDING (10/01/2020 11:55 AM EDT) Anatomical Region Laterality Modality Foot Radiographic Alicia ging 10/01/2020 11:5 5 AM EDT Impressions 10/01/2020 12:34 PM EDT No acute bony abnormality of the foot. - Note: Radiology results need to be interpreted within a comprehensive clinical context. If you have questions about the radiology report, please contact the office of the ordering clinician. Narrative 10/01/2020 12:34 PM EDT XR FOOT LEFT AP LATERAL AND OBLIQUE STANDING, 10/01/2020 11:55 AM CLINICAL HISTORY: M79.672-Pain in left sefp-UNM-45-CM R26.2-Difficulty in walking, not elsewhere [id number]-FDS-61-CM COMPARISON: None. PROCEDURE COMMENTS: XR FOOT LEFT AP LATERAL AND OBLIQUE STANDING FINDINGS: There is no fracture or traumatic malalignment. Joint spaces overall well-maintained for age. No periostitis. Procedure Note Donavan Perez MD - 10/01/2020 XR FOOT LEFT AP LATERAL AND OBLIQUE STANDING, 10/01/2020 11:55 AM CLINICAL HISTORY: M79.672-Pain in left mdop-CZD-56-CM R26.2-Difficulty in walking, not elsewhere [id number]-OMQ-75-CM COMPARISON: None. PROCEDURE COMMENTS: XR FOOT LEFT AP LATERAL AND OBLIQUE STANDING FINDINGS: There is no fracture or traumatic malalignment. Joint spaces overall well-maintained for age. No periostitis. IMPRESSION: No acute bony abnormality of the foot. - Note: Radiology results need to be interpreted within a comprehensiveclinical context. If you have questions about the radiology report, please contactthe office of the ordering clinician. Dallas Portillo DPM IMG DIAGNOSTIC IMAGING ORDERA BLES Final Result * MRI VENOGRAM INTRACRANIAL WO CONTRAST (04/20/2020 8:32 AM EST) Anatomical Region Laterality Modality Magnetic Resonan ce 04/20/2020 8:32 AM EST Impressions 04/20/2020 11:29 AM EST No significant abnormality identified. - Narrative 04/20/2020 11:29 AM EST [facility]AN[facility] MR VENOGRAPHY, 04/20/2020 8:32 AM CLINICAL HISTORY: G93.2-Benign intracranial gqonhvfywrdc-BCY-62-CM COMPARISON: MR brain 03/27/2020 PROCEDURE COMMENTS: Routine intracranial MR venography. Source images and multiplanar reconstructions reviewed including 3-D MIPS. FINDINGS: Superior sagittal sinus: No evidence of flow-limiting stenosis or thrombotic occlusion. Internal cerebral veins, vein of Rey, and straight sinus: No evidence of flow-limiting stenosis or thrombotic occlusion. Transverse sinuses: No evidence of flow-limiting stenosis or thrombotic occlusion. Sigmoid sinuses and jugular bulbs: No evidence of flow-limiting stenosis or thrombotic occlusion. Comment: Flow asymmetry is consistent with normal anatomic variation. Expected filling defects from arachnoid granulations noted. Procedure Note Quique Ortiz MD - 04/20/2020 CRANIAL MR VENOGRAPHY, 04/20/2020 8:32 AM CLINICAL HISTORY: G93.2-Benign intracranial qfiazavzxrze-ODU-02-CM COMPARISON: MR brain 03/27/2020 PROCEDURE COMMENTS: Routine intracranial MR venography. Source imagesand multiplanar reconstructions reviewed including 3-D MIPS. FINDINGS: Superior sagittal sinus: No evidence of flow-limiting stenosis orthrombotic occlusion. Internal cerebral veins, vein of Rey, and straight sinus: No evidenceof flow-limiting stenosis or thrombotic occlusion. Transverse sinuses: No evidence of flow-limiting stenosis or thrombotic occlusion. Sigmoid sinuses and jugular bulbs: No evidence of flow-limiting stenosisor thrombotic occlusion. Comment: Flow asymmetry is consistent with normal anatomic variation.Expected filling defects from arachnoid granulations noted. IMPRESSION: No significant abnormality identified. - us Radha Ley [employer]UELINE WORKER IMG MRI ORDERABLES Final Re sult * MRI LUMBAR SPINE W WO CONTRAST (04/16/2020 4:18 PM EST) Anatomical Region Laterality Modality Spine, L-spine Magnetic Resonan ce 04/16/2020 4:18 PM EST Impressions 04/16/2020 4:29 PM EST 1. No epidural fluid collection/hematoma. No high-grade canal or foraminal stenosis. No acute abnormality. 2. Shallow left paracentral disc protrusion at the L4-5 level, mildly effacing the thecal sac. No evidence of neural compression. - Narrative 04/16/2020 4:29 PM EST MRI LUMBAR SPINE WITH AND WITHOUT CONTRAST, 04/16/2020 4:18 PM CLINICAL HISTORY: M54.42-Lumbago with sciatica, left auxv-JIM-04-CM. Status post blood patch injection 1 week ago. COMPARISON: None. PROCEDURE COMMENTS: Multiplanar multiecho MR imaging of the lumbar spine with and without gadolinium. 20 mL Multihance given. FINDINGS: There is no fracture. No marrow edema or marrow replacing process. No abnormal enhancement following the administration of contrast. The conus terminates at L1-2. Distal cord is normal. Imaged paravertebral soft tissues are normal. There is no epidural mass lesion or collection. Level by level analysis: L1-L2: No canal or foraminal narrowing. L2-L3: No canal or foraminal narrowing. L3-L4: No canal or foraminal narrowing. L4-L5: There is a shallow left paracentral disc protrusion mildly indenting the thecal sac without discrete neural compression. No foraminal stenosis. L5-S1: No canal or foraminal narrowing. Procedure Note Frankie Lombardi MD - 04/16/2020 MRI LUMBAR SPINE WITH AND WITHOUT CONTRAST, 04/16/2020 4:18 PM CLINICAL HISTORY: M54.42-Lumbago with sciatica, left lkdr-SWT-10-CM.Status post blood patch injection 1 week ago. COMPARISON: None. PROCEDURE COMMENTS: Multiplanar multiecho MR imaging of the lumbar spinewith and without gadolinium. 20 mL Multihance given. FINDINGS: There is no fracture. No marrow edema or marrow replacing process. Noabnormal enhancement following the administration of contrast. The conus terminatesat L1-2. Distal cord is normal. Imaged paravertebral soft tissues arenormal. There is no epidural mass lesion or collection. Level by level analysis: L1-L2: No canal or foraminal narrowing. L2-L3: No canal or foraminal narrowing. L3-L4: No canal or foraminal narrowing. L4-L5: There is a shallow left paracentral disc protrusion mildlyindenting the thecal sac without discrete neural compression. No foraminal stenosis. L5-S1: No canal or foraminal narrowing. IMPRESSION: 1. No epidural fluid collection/hematoma. No high-grade canal orforaminal stenosis. No acute abnormality. 2. Shallow left paracentral disc protrusion at the L4-5 level, mildlyeffacing the thecal sac. No evidence of neural compression. - us Manisha Lopez PA-C IMG MRI ORDERABLES Final Result * IR FLUOROSCOPY GUIDED BLOOD PATCH INJECTION (04/09/2020 3:14 PM EST) Anatomical Region Laterality Modality Interventional R adiology 04/09/2020 3:14 PM EST Impressions 04/09/2020 4:09 PM EST 1. Technically successful fluoroscopic guided epidural blood patch. Narrative 04/09/2020 4:09 PM EST IR FLUOROSCOPY GUIDED BLOOD PATCH INJECTION 04/09/2020 3:14 PM HISTORY: G97.1-Other reaction to spinal and lumbar [id number]-[id number]-CM PROCEDURE: Informed written consent was obtained. The back was prepped and draped in sterile fashion. Skin assessment 1% lidocaine. Under fluoroscopic guidance, a Touhy needle was advanced to the level of the epidural space. Performed at the L3-L4 level on the LEFT. In the site of prior access. Using loss of resistance technique and fluoroscopic guidance, the epidural space was accessed. 3 cc of contrast was injected in the epidural space. This was followed by injection of 10 cc of the patient's . The needle was then removed. Sterile dressing was applied site. Procedure Note Rubens Wiley MD - 04/09/2020 IR FLUOROSCOPY GUIDED BLOOD PATCH INJECTION 04/09/2020 3:14 PM HISTORY: G97.1-Other reaction to spinal and lumbar [id number]-UVY-28-CM PROCEDURE: Informed written consent was obtained. The back was prepped and drapedin sterile fashion. Skin assessment 1% lidocaine. Under fluoroscopicguidance, a Touhy needle was advanced to the level of the epidural space. Performedat the L3-L4 level on the LEFT. In the site of prior access. Using loss ofresistance technique and fluoroscopic guidance, the epidural space was accessed. 3cc of contrast was injected in the epidural space. This was followed byinjection of 10 cc of the patient's . The needle was then removed. Sterile dressingwas applied site. IMPRESSION: 1. Technically successful fluoroscopic guided epidural blood patch. Result [facility] Rubens Wiley MD IMG IR ORDERABLES Final Result * (ABNORMAL) CELL COUNT W/ DIFF CEREBROSPINAL FLUID ADDITIONAL (04/06/2020 8:48 AM EST) Tube Num CSF 4 04/06/2020 10:36 AM EST [facility]REFERRED [facility] Color CSF Colorless Colorless 04/06/2020 10:36 AM EST [facility] Appear CSF Clear Clear 04/06/2020 10:36 AM EST [facility] RBC CSF 2(H) <=0 /mcL 04/06/2020 10:36 AM EST [facility] Total Nucleated Cells CSF 2 0 - 5 /mcL 04/06/2020 10:36 AM EST [facility] Cerebrospinal Fluid DRAINAGE FLUID SPECIMEN / Unknown 04/06/2020 8:48 AM EST 04/06/2020 9:15 AM EST Result [facility] Radha Ley APRN BODY FLUIDS AND STOOLS RICHARDSONAmy CARIAS Final Result [facility] [address] [place] [address] , [place] [address] * OCT, OPTIC NERVE - OU - BOTH EYES (04/01/2020 9:09 AM EST) Narrative SEP OFFICE - 04/01/2020 9:09 AM EST Patient is here for baseline imaging. Right Eye Reliability was good. Superior thickness was showing abnormal thinning. Nasal thickness was showing abnormal thinning. Inferior thickness was showing abnormal thinning. Left Eye Reliability was good. Temporal thickness was showing abnormal thinning. Nasal thickness was showing abnormal thinning. Inferior thickness was showing abnormal thinning. Result [facility] Jonelle Michael MD OPHTHALMOLOGY SERVICES ORDERAB LES Final Result Performing Organization Address [facility] Phone Number SEP OFFICE * DUNBAR VISUAL FIELD - OU - BOTH EYES (03/23/2020 3:11 PM EDT) [facility] OFFICE - 03/23/2020 3:11 PM EDT Patient is here for baseline imaging. Right Eye Reliability was borderline. Progression has no prior data. Foveal threshold was normal. Findings include non-specific defects. Left Eye Reliability was good. Progression has no prior data. Foveal threshold was normal. Findings include non-specific defects. Jonelle Michael MD OPHTHALMOLOGY SERVICES ORDERAB LES Final Result Performing Organization Address [facility] Phone Number SEP OFFICE * OCT, OPTIC NERVE - OU - BOTH EYES (03/19/2020 2:06 PM EDT) Narrative [facility] - 03/19/2020 2:06 PM EDT Patient is here for baseline imaging. Right Eye Reliability was good. Superior thickness was showing abnormal thinning. Nasal thickness was showing abnormal thinning. Inferior thickness was showing abnormal thinning. Left Eye Reliability was good. Temporal thickness was showing abnormal thinning. Nasal thickness was showing abnormal thinning. Inferior thickness was showing abnormal thinning. Jonelle Michael MD OPHTHALMOLOGY SERVICES ORDERAB LES Final Result Performing Organization Address [facility] Phone Number SEP OFFICE * XR ANKLE RIGHT AP LATERAL AND OBLIQUE (02/18/2020 10:20 AM EDT) Anatomical Region Laterality Modality Ankle Radiographic Alicia ging 02/18/2020 10:2 0 AM EDT Impressions 02/18/2020 1:46 PM EDT No significant osseous, joint or soft tissue abnormality is seen. Narrative 02/18/2020 1:46 PM EDT XR ANKLE RIGHT AP LATERAL AND OBLIQUE, 02/18/2020 10:20 AM CLINICAL HISTORY: S99.911A-Unspecified injury of right ankle, initial [id number]-JLF-[id number]-CM PROCEDURE COMMENTS: Routine views per protocol. Procedure Note Griffin Oshea MD - 02/18/2020 XR ANKLE RIGHT AP LATERAL AND OBLIQUE, 02/18/2020 10:20 AM CLINICAL HISTORY: S99.911A-Unspecified injury of right ankle, initial [id number]-LIT-16-CM PROCEDURE COMMENTS: Routine views per protocol. IMPRESSION: No significant osseous, joint or soft tissue abnormality is seen. Bernabe Cortez MD IMG DIAGNOSTIC IMAGING ORDERA BLES Final Result * CORONAVIRUS 2019 (COVID-19) - REF LAB (02/10/2020 5:03 PM EDT) CORONAVIRUS [id number] Not Detected 02/12/2020 9:56 PM EDT [employer] Comment: INTERPRETIVE INFORMATION: SARS-CoV-2 (COVID-19) by BRENDA This test should be ordered for the detection of the 2019 novel coronavirus SARS-CoV-2 in individuals who meet SARS-CoV-2 clinical and/or epidemiological criteria. The Coronavirus SARS-CoV-2 (COVID-19) by nucleic acid amplification test is for in vitro diagnostic use under the FDA Emergency Use Authorization (EUA) for US laboratories certified under CLIA to perform high complexity tests. This test has not been FDA cleared or approved. In compliance with this authorization, please visit [email or web address] for more information and to access the applicable information sheets. Not Detected results do not rule out the presence of PCR inhibitors in the patient specimen or assay specific nucleic acid in concentrations below the level of detection by the assay. Detected results are indicative of the presence of SARS-CoV-2 RNA. Due to the complexity of nucleic acid amplification methodologies, there may be a risk of false positive results. Clinical correlation with patient history and other diagnostic information is necessary to determine patient infection status. Reliable results are dependent on adequate specimen collection, transport, storage, and handling. Performed by [facility], [address] [place] [id number] [email or web address], Stacia Colorado MD, Lab. Director Coronavirus SAMARIA Source Nasal Swab 02/12/2020 9:56 PM EDT [facility] , [facility] Swab NASAL STRUCTURE / Unknown 02/10/2020 5:03 PM EDT 02/10/2020 5:03 PM EDT Kamini Turner GLUELINE WORKER LAB SEND OUT ORDERABLES F inal Result Performing Organization Address [facility] Co de Phone Number [employer] [facility] [address] [place], [place] [id number] * TRICHOMONAS VAGINALIS BY TMA-REF LAB (01/31/2020 9:45 AM EDT) [facility] Media Type Urine 020 12:01 AM EDT [employer] Specimen Source Urine 0 12:01 AM EDT [employer] Trichomonas vaginalis by TMA Negative Negative 02/03/2020 12:01 AM EDT [employer] Comment: Test developed and characteristics determined by [facility]. See Compliance Statement B: [email or web address] Interpretive Information: Trichomonas vaginalis by TMA A negative result does not completely rule out infection with T. vaginalis. Results should be interpreted in conjunction with other clinical data. This test has not been validated for use with self-collected vaginal swab specimens from patients. Performance of this test on vaginal swab specimens from women has not been evaluated. This test is intended for medical purposes only and is not valid for the evaluation of suspected sexual abuse or for other forensic purposes. Performed By: [facility] [address] [place] [id number] [employer] Comp[employer] Clerk: Stacia Colorado MD Urine STRUCTURE OF URINARY TRACT PROPER / Unknown 01/31/2020 9:45 AM EDT 01/31/2020 9:45 AM EDT Kamini Turner APRN MICROBIOLOGY - GENERAL OR DERABLES Final Result Performing Organization Address [facility]/ZIP Co de Phone Number [employer] [facility] [address] [place], [place] [id number] * CHLAMYDIA/GC TMA-REF LAB (01/31/2020 9:45 AM EDT) APTIMA Media Type Urine 02/03/2020 12:59 AM EDT [email or web address] Specimen Source Urine 0 12:59 AM EDT [facility] C. trachomatis by TMA Negative Negative 02/03/2020 12:59 AM EDT [facility] Comment: INTERPRETIVE INFORMATION: C. trachomatis by TMA This test is intended for medical purposes only and is not valid for the evaluation of suspected sexual abuse or for other forensic purposes. In certain contexts, culture may be required to meet applicable laws and regulations for diagnosis of C. trachomatis and N. gonorrhoeae infections. Per 2014 CDC recommendations, this test does not include confirmation of positive results by an alternative nucleic acid target. N. gonorrhoeae by TMA Negative Negative 02/03/2020 12:59 AM EDT [facility] Comment: INTERPRETIVE INFORMATION: N. gonorrhoeae by TMA This test is intended for medical purposes only and is not valid for the evaluation of suspected sexual abuse or for other forensic purposes. In certain contexts, culture may be required to meet applicable laws and regulations for diagnosis of C. trachomatis and N. gonorrhoeae infections. Per 2014 CDC recommendations, this test does not include confirmation of positive results by an alternative nucleic acid target. Performed by [facility], [address] [place] [address] [email or web address], Stacia Colorado MD, Lab. Director Urine 01/31/2020 9:45 AM EDT 01/31/2020 9:45 AM EDT us Kamini Turner GLUELINE WORKER MICROBIOLOGY - GENERAL OR DERABLES Final Result [email or web address] [address] [place] [address] * INTRAOP AIRWAY PLACEMENT (03/19/2019 7:39 AM EDT) Narrative [facility] - 03/19/2019 7:39 AM EDT Cristina Arce CRNA 03/19/2019 7:40 AM Intraop Airway Placement: Date/Time: 03/19/2019 7:35 AM Induction type: IV Airway type: LMA Topical Anesthetic/Lubricant: Lubricant jelly Device size: 4 Secured by: Tape Measured from: Lips Placement verified: Auscultation and End tidal CO2 Condition: Atraumatic and Unchanged Insertion attempts: 1 Attempt 1 by: Brittny Title: FUNERAL DIRECTOR/EMBALMER/OWNER us Tiffani Mae MD [place] ANESTHESIA Final Result [facility] [address] [place] [id number] * HSV DNA LESION (02/28/2019 1:21 PM EDT) HSV 1 Not Detected Not Detected 03/01/2019 10:07 AM EDT [facility]REF[facility] HSV 2 Not Detected Not Detected 03/01/2019 10:07 AM EDT [facility] Swab 02/28/2019 1:21 PM EDT 02/28/2019 1:21 PM EDT Narrative [facility] - 03/01/2019 10:07 AM EDT Testing methodology is nucleic acid amplification and probe detection of HSV 1 and 2. A negative result does not exclude the presence of virus below the limit of detection by this assay. Results should be interpreted in conjunction with the patient s medical history, clinical symptoms and the results of other diagnostic tests. Kamini Turner APRN MICROBIOLOGY - GENERAL OR DERABLES Final Result [facility], [facility] [address] [facility], [place] [address] * (ABNORMAL) HPV GENOTYPE (01/14/2019 9:23 AM EDT) Only the most recent of2 resultswithin the time period is included. HPV 16 Detected(A) Not Detected 01/19/2019 4:18 AM EDT [facility] HPV 18/45 Not Detected Not Detected 01/19/2019 4:18 AM EDT [facility] Thin Prep SPECIMEN FROM UTERINE CERVIX / Unknown 01/14/2019 9:23 AM EDT 01/14/2019 9:23 AM EDT Narrative [facility] - 01/19/2019 4:18 AM EDT This test was performed using the FDA Approved APTIMA HPV Genotyping Assay which detects E6/E7 messenger RNA of the High Risk HPV strains 16, 18 and 45 only. It is intended for use in women 21 years or older with ASC-US cervical cytology and women 30 years or older with previous positive High Risk HPV results. This assay may not be used as a stand-alone test. This assay is not intended to substitute for regular cervical cytology screening. Sensitivities may be affected by collection methods, stage of infection, and the presence of interfering substances. Results of this assay should be interpreted in conjunction with other available laboratory and clinical data. Alannah Giron [facility] MICROBIOLOGY - GENERAL GIANFRANCO CARIAS Final Result Performing Organization Address City/[facility]/ZIP Co de Phone Number [facility] Athletic Standard [facility] [address] [facility], [place] [address] * INTRAOP AIRWAY PLACEMENT (05/04/2018 12:17 PM EST) Narrative [facility] - 05/04/2018 12:17 PM EST Carroll Sharpe CRNA 05/04/2018 12:18 PM Intraop Airway Placement: Date/Time: 05/04/2018 12:00 PM Induction type: IV Mask size: Standard adult Pre-Oxygenation: Standard Mask ventilation: Not attempted Airway type: LMA Topical Anesthetic/Lubricant: Lubricant jelly Airway location: Oral Placement verified: Auscultation, End tidal CO2 and Symmetric chest wall motion Condition: Atraumatic and Unchanged Insertion attempts: 1 Title: FUNERAL DIRECTOR/EMBALMER/OWNER Procedure Note Carroll Sharpe CRNA - 05/04/2018 12:17 PM EST Intraop Airway Placement: Date/Time: 05/04/2018 12:00 PM Induction type: IV Mask size: Standard adult Pre-Oxygenation: Standard Mask ventilation: Not attempted Airway type: LMA Topical Anesthetic/Lubricant: Lubricant jelly Airway location: Oral Placement verified: Auscultation, End tidal CO2 and Symmetric chestwall motion Condition: Atraumatic and Unchanged Insertion attempts: 1 Title: FUNERAL DIRECTOR/EMBALMER/OWNER Nima Gay MD [place] ANESTHESIA Edited Performing Organization Address City/[facility]/ZIP Co de Phone Number [facility] [address] [place] [phone] * (ABNORMAL) POCT URINALYSIS DIPSTICK (03/09/2018 10:46 AM EDT) Color, UA light yellow CLEAR,YEL LOW,ORANG E,RUST SEP OFFICE Clarity, UA cloudy CLEAR,CURTIS UDY SEP OFFICE Glucose, UA neg G/DL% SEP OFFICE Bilirubin, UA neg POS/NEG SEP OFFICE Ketones, UA neg POS/NEG SEP coating operator Grav, UA 1.010 1.001 - 1.035 G/DL SEP OFFICE Blood, UA neg POS/NEG SEP OFFICE pH, UA 6.0 5.0 - 8 SEP OFFICE Protein, UA neg POS/NEG SEP OFFICE Urobilinogen, UA neg 0.2 - 1.0 MG/DL SEP OFFICE Leukocytes, UA 3+ POS/NEG SEP OFFICE Nitrite, UA pos POS/NEG SEP OFFICE UA Appear POC SEP OFFICE Lot Number [id number] SEP OFFICE Expiration Date 10/08/2018 SEP OFFICE SeriAl # SEP OFFICE Urine 03/09/2018 10:4 6 AM EDT Kamini Turner APRN POINT OF CARE TEST ORDERA BLES Final Result Performing Organization Address [facility] de Phone Number [facility] * (ABNORMAL) VAGINAL PANEL (03/07/2018 9:41 AM EDT) Jazzmine Species DNA probe Negative Negative 03/09/2018 10:01 AM EDT [facility] [email or web address] Comment: Performed by [facility], [address] [place] [id number] [email or web address], Mika Braxton MD, Lab. Director Gardnerella Vaginalis DNAprobe Positive(A) Negative 03/09/2018 10:01 AM EDT [facility] Trichomonas Vaginalis DNA probe Negative Negative 03/09/2018 10:01 AM EDT [facility] Comment: INTERPRETIVE DATA: Vaginal Pathogen Panel by DNA Probe All test results should be correlated with clinical history. Swab SPECIMEN FROM VAGINA / Unknown 03/07/2018 9:41 AM EDT 03/07/2018 9:41 AM EDT Brayan Miles MD MICROBIOLOGY - GENERAL ORDERABL ES Final Result Performing Organization Address [facility] de Phone Number [email or web address] [address] [place] [phone] * SCANNED OR REPORT (12/19/2009 12:00 AM EDT) Narrative 12/19/2009 8:20 PM EDT Ordered by an unspecified provider. Transcriptions Unknown, U - 12/18/2009 7:17 PM EDT us U Unknown PROCEDURE/MINOR SURGICAL ORDERAB LES Final Result * MR LOWER EXT JOINT W/WO LT MRI (01/06/2009 12:00 AM EDT) Anatomical Region Laterality Modality Other 01/06/2009 01/06/2009 Narrative 01/06/2009 12:00 AM EDT Name: RICHARD Horn : 1985 VERIFIED [facility] Reason: EVIDENCE OF OSTEOMYELITIS Dict.Staff: LIEN PEREZ III [id number] Verified By: DONAVAN PEREZ Hugo: 01/08/09 2:46 pm Exams: MRI-LOWER EXT JOINT W/WO LT MRI OF THE LEFT FOOT WITH CONTRAST, 01-07-09: TECHNICAL FACTORS: 13 ml of Magnevist was administered intravenously. FINDINGS: There is diffuse edema in the subcutaneous soft tissues of the dorsum of the foot and ankle. This is relatively extensive, however, there are no focal well defined subcutaneous fluid collections consistent with drainable abscess. This is consistent with intense cellulitis overlying the dorsum of the foot. In addition there are no focal areas of abnormal bone marrow edema suspect for osteomyelitis. There is a tiny focus of abnormal signal measuring approximately 3 to 4 mm in the dorsal soft tissues of the foot which is very superficial and may represent something on the patient's skin surface. The diffuse edema is confined to the subcutaneous soft tissues with no obvious muscular edema or evidence of tenosynovitis. IMPRESSION: Intense edema involving the dorsal soft tissues of the foot. No underlying osteomyelitis or subcutaneous abscess identified. Small 4 mm defect or skin abnormality in the dorsum of the foot laterally. Clinical correlation recommended. CHRIS/talia DICTATED 01-08-09 @ 9:46 AM end of result Procedure Note Unknown, U - 09/11/2009 Name: RICHARD Horn : 1985 VERIFIED [facility] Reason: EVIDENCE OF OSTEOMYELITIS Dict.Staff: LIEN PEREZ III [id number] Verified By: DONAVAN PEREZ Hugo: 01/08/09 2:46 pm Exams: MRI-LOWER EXT JOINT W/WO LT MRI OF THE LEFT FOOT WITH CONTRAST, 01-07-09: TECHNICAL FACTORS: 13 ml of Magnevist was administered intravenously. FINDINGS: There is diffuse edema in the subcutaneous soft tissues of the dorsum of the foot and ankle. This is relatively extensive, however, there are no focal well defined subcutaneous fluid collections consistent with drainable abscess. This is consistent with intense cellulitis overlying the dorsum of the foot. In addition there are no focal areas of abnormal bone marrow edema suspect for osteomyelitis. There is a tiny focus of abnormal signal measuring approximately 3 to 4 mm in the dorsal soft tissues of the foot which is very superficial and may represent something on the patient's skin surface. The diffuse edema is confined to the subcutaneous soft tissues with no obvious muscular edema or evidence of tenosynovitis. IMPRESSION: Intense edema involving the dorsal soft tissues of the foot. No underlying osteomyelitis or subcutaneous abscess identified. Small 4 mm defect or skin abnormality in the dorsum of the foot laterally. Clinical correlation recommended. CHRIS/talia DICTATED 01-08-09 @ 9:46 AM end of result us U Unknown IM SE LW RAD HISTORICAL Final Result * BETA HUMAN CHORIONIC GONADOTROPIN QUALITATIVE (01/04/2009 10:50 PM EDT) Beta hCG Qual Negative Negative [facility] VENOUS BLOOD / Unknown 01/04/2009 10:50 PM EDT 01/04/2009 10:58 PM EDT Narrative [facility] - 01/04/2009 11:30 PM EDT AKA:BETA HCG QUALITATIVE: us Kevin Subramanian MD CHEMISTRY ORDERABLES Final Re sult [facility] [address] [facility] [place] [address] [facility] * XR FOOT MIN 3 VIEWS LT (01/04/2009 12:00 AM EDT) Anatomical Region Laterality Modality Other 01/04/2009 01/04/2009 Narrative 01/04/2009 12:00 AM EDT Name: RICHARD Horn : 1985 VERIFIED [facility] Reason: foot pain Dict.Staff: DESHAWN JUAN [id number] Verified By: GRIFFIN OSHEA Hugo: 01/05/09 1:03 pm Exams: DIAG-FOOT MIN 3-VIEWS LT THREE VIEW LEFT FOOT: 01-04-09 Compare: None. History: Foot pain and swelling. IMPRESSION: Diffuse soft tissue swelling. No acute fracture. No radiopaque foreign body. YOUNG:ps Dictated 01-05-09 @ 7:40 end of result Procedure Note Unknown, U - 09/11/2009 Name: RICHARD Horn : 1985 VERIFIED [facility] Reason: foot pain Dict.Staff: DESHAWN JUAN [id number] Verified By: GRIFFIN OSHEA Hugo: 01/05/09 1:03 pm Exams: DIAG-FOOT MIN 3-VIEWS LT THREE VIEW LEFT FOOT: 01-04-09 Compare: None. History: Foot pain and swelling. IMPRESSION: Diffuse soft tissue swelling. No acute fracture. No radiopaque foreign body. YOUNG:ps Dictated 01-05-09 @ 7:40 end of result us U Unknown IMG [facility] RAD HISTORICAL Final Result * CT ABD/PELVIS METAL BOX MAKER GC (07/10/2008 8:45 PM EST) Anatomical Region Laterality Modality Other 07/10/2008 8:45 PM EST Narrative 07/10/2008 9:[address] abdomen and pelvis with contrast, 07/10/2008 Comparison- None History- Abdominal pain Contrast- 95 ml Optiray-320 IV contrast Findings- CT abdomen- Lung bases clear. Abdominal organs unremarkable. CT pelvis- Appendix not definitely identified, but there are no secondary signs of appendicitis. Small amount of pelvic free fluid, may be physiologic or may be related to recent surgery. Per the patient, she has had recent surgery for tubal . No pelvic abscess. No bowel obstruction. There is a fluid and air collection in the left anterior abdominal wall subcutaneous fat, measuring 3.0 x 1.6 cm. There are also a few adjacent bubbles of air within the subcutaneous fat. Bones unremarkable. Impression- 1. No acute intra-abdominal abnormality. 2. Fluid and air in the left anterior abdominal wall subcutaneous fat. These findings may be normal postoperative findings. A small subcutaneous abscess, while less likely, is also a consideration. Findings called to the emergency room physician at the time of dictation. Fork Lift Mechanic- TONEY Mazariegos- DESHAWN JUAN M.D. Released Date Time- 07/11/08 0229 Procedure Note Deshawn Juan - 08/06/2009 CT abdomen and pelvis with contrast, 07/10/2008 Comparison- None History- Abdominal pain Contrast- 95 ml Optiray-320 IV contrast Findings- CT abdomen- Lung bases clear. Abdominal organs unremarkable. CT pelvis- Appendix not definitely identified, but there are no secondary signs of appendicitis. Small amount of pelvic free fluid, may be physiologic or may be related to recent surgery. Per the patient, she has had recent surgery for tubal . No pelvic abscess. No bowel obstruction. There is a fluid and air collection in the left anterior abdominal wall subcutaneous fat, measuring 3.0 x 1.6 cm. There are also a few adjacent bubbles of air within the subcutaneous fat. Bones unremarkable. Impression- 1. No acute intra-abdominal abnormality. 2. Fluid and air in the left anterior abdominal wall subcutaneous fat. These findings may be normal postoperative findings. A small subcutaneous abscess, while less likely, is also a consideration. Findings called to the emergency room physician at the time of dictation. Fork Lift Mechanic- TONEY PRAJAPATI M.D. Released Date Time- 07/11/08 0229 Pedro Leonard MD [facility] HISTORICAL Final Result * PN TRANSVAGINAL (PREG) (07/01/2008 12:23 AM EST) Anatomical Region Laterality Modality Other 07/01/2008 12:2 3 AM EST Narrative 07/01/2008 11:36 AM EST [facility] ULTRASOUND EXAMINATION REPORT KAMINI ABRAMS OB Exam, 07/01/2008 Exam Information Patient Name- KAMINI ABRAMS - 1985 Age- 22 yrs Ref Phys- MARLEN HARRISON [facility] Exam Date- 07/01/2008 Procedure- TRANSVAGINAL ULTRASOUND [facility]- 1 OBHx- [G-(1)] F Trm-() Pre-() Ab-I-() Ab-S-() Ect-() Multi-() Kimberly-() MEASUREMENTS [cm, wks] COMPUTATIONS Selected [place] CRL- 2.91 9w5d GA- 9w5d Method- Fetus [Average] JARROD- 01/29/2009 INDICATIONS FOR SONOGRAPHY Abdominal pain/Cramping. Rule out Ectopic . COMMENTS OPENING COMMENTS The patient is unsure of her LMP. Early OB The right ovary appears normal. There is no free fluid in the pelvis. No intrauterine is identified sonographically at this time. The endometrial lining appears thickened measuring 2.9 cm. The left ovary is seen. Posterior to the left ovary, in the adnexa, a 9 5/7 week ectopic is visualized. The pole measures 2.9 cm. There is cardiac activity. A yolk sac is seen. Dr. Wren called the findings to the Emergency Department. Electronically Signed and Authenticated By- Leobardo Miguel M.D. Handle Lathe Operator- Anum Lr RDMS Thank You For This Referral Fork Lift Mechanic- ROSI Cardenas Physician- LEOBARDO MIGUEL MD Released Date Time- 07/01/08 1137 Procedure Note Leobardo Miguel - 08/06/2009 [facility] ULTRASOUND EXAMINATION REPORT KAMINI ABRAMS OB Exam, 07/01/2008 Exam Information Patient Name- KAMINI ABRAMS - 1985 Age- 22 yrs Ref Phys- MARLEN HARRISON [facility] Exam Date- 07/01/2008 Procedure- TRANSVAGINAL ULTRASOUND [facility]ality- 1 OBHx- [G-(1)] F Trm-() Pre-() Ab-I-() Ab-S-() Ect-() Multi-() Kimberly-() MEASUREMENTS [cm, wks] COMPUTATIONS Selected [place] CRL- 2.91 9w5d GA- 9w5d Method- Fetus [Average] JARROD- 01/29/2009 INDICATIONS FOR SONOGRAPHY Abdominal pain/Cramping. Rule out Ectopic . COMMENTS OPENING COMMENTS The patient is unsure of her LMP. Early OB The right ovary appears normal. There is no free fluid in the pelvis. No intrauterine is identified sonographically at this time. The endometrial lining appears thickened measuring 2.9 cm. The left ovary is seen. Posterior to the left ovary, in the adnexa, a 9 5/7 week ectopic is visualized. The pole measures 2.9 cm. There is cardiac activity. A yolk sac is seen. Dr. Wren called the findings to the Emergency Department. Electronically Signed and Authenticated By- Leobardo Miguel M.D. Handle Lathe Operator- Anum Lr RDMS Thank You For This Referral Fork Lift Mechanic- ROSI Cardenas Physician- LEOBARDO MIGUEL MD Released Date Time- 07/01/08 1137 us Tan Kaur DO [facility] Fin al Result * XR CHEST PA & LATERAL (11/30/2004 11:04 AM EDT) Anatomical Region Laterality Modality Other 11/30/2004 11:0 4 AM EDT Narrative 11/30/2004 11:16 AM EDT RM8 PA and lateral chest, 11/30/2004- Comparisons- None. Indication- 19-year-old female with right side sharp pains. Findings- Heart size and mediastinum are normal. Lungs are clear. No pleural effusions. No pneumothoraces. No intraperitoneal free air below below the diaphragm. Thoracolumbar junction has mild rotary curvature with convexity towards the left. Impression- No acute cardiopulmonary disease. [employer]- ALANNAH Cardenas Radiologist- DUYEN BRITO MD. Released Date Time- 11/30/04 1116 Procedure Note Duyen Brito - 08/04/2009 RM8 PA and lateral chest, 11/30/2004- Comparisons- None. Indication- 19-year-old female with right side sharp pains. Findings- Heart size and mediastinum are normal. Lungs are clear. No pleural effusions. No pneumothoraces. No intraperitoneal free air below below the diaphragm. Thoracolumbar junction has mild rotary curvature with convexity towards the left. Impression- No acute cardiopulmonary disease. [employer] L[employer] Mechanic- ALANNAH Cardenas Radiologist- DUYEN BRITO MD. Released Date Time- 11/30/04 1116 Zachary Rivera MD 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 02/09/2018 Trichimoniasis Trichomoniasis, unspecified 03/07/2018 History of trichomonal vaginitis Personal history of other genital system and obstetric disorders 03/07/2018 HGSIL (high grade squamous intraepithelial lesion) on Pap smear of cervix 03/07/2018 Vaginal lesion Other specified noninflammatory disorder of vagina 03/07/2018 UTI (urinary tract infection), uncomplicated Urinary tract infection, site not specified 03/09/2018 Dysuria 03/09/2018 BV (bacterial vaginosis) Vaginitis and vulvovaginitis, unspecified 03/16/2018 Moderate episode of recurrent major depressive disorder (HCC) 03/20/2018 Mood swings Other specified episodic mood disorder 03/20/2018 Encounter for test, result unknown 03/26/2018 HGSIL (high grade squamous intraepithelial lesion) on Pap smear of cervix 03/26/2018 Moderate episode of recurrent major depressive disorder (HCC) 04/24/2018 Mood swings Other specified episodic mood disorder 04/24/2018 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 05/04/2018 Preop testing Preoperative examination, unspecified 05/04/2018 HGSIL (high grade squamous intraepithelial lesion) on Pap smear of cervix 05/04/2018 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 05/04/2018 Moderate episode of recurrent major depressive disorder (HCC) 05/31/2018 Mood swings Other specified episodic mood disorder 05/31/2018 Restless legs syndrome (RLS) 05/31/2018 Acute bacterial sinusitis Acute sinusitis, unspecified 07/16/2018 Moderate episode of recurrent major depressive disorder (HCC) 07/16/2018 Acute bacterial sinusitis Acute sinusitis, unspecified 07/16/2018 Restless legs syndrome (RLS) 07/16/2018 Acute mastoiditis of both sides 07/30/2018 Acute bronchitis, unspecified organism 07/30/2018 History of loop electrical excision procedure (LEEP) 08/20/2018 History of cervical dysplasia Personal history of cervical dysplasia 08/20/2018 Procedure, test, or exam not indicated Procedure not carried out for other reasons 09/11/2018 History of cervical dysplasia Personal history of cervical dysplasia 09/11/2018 History of loop electrical excision procedure (LEEP) 09/11/2018 High grade squamous intraepithelial lesion (HGSIL) on cytologic smear of cervix 09/11/2018 Obesity, Class II, BMI 35-39.9 Obesity, unspecified 09/27/2018 Infertility, female Female infertility of unspecified origin 11/21/2018 History of endometriosis Personal history of other genital system and obstetric disorders 11/21/2018 History of salpingectomy 11/21/2018 Infertility, female Female infertility of unspecified origin 12/13/2018 History of endometriosis Personal history of other genital system and obstetric disorders 12/13/2018 Moderate episode of recurrent major depressive disorder (HCC) 01/11/2019 Mood swings Other specified episodic mood disorder 01/11/2019 Restless legs syndrome (RLS) 01/11/2019 Moderate episode of recurrent major depressive disorder (HCC) 01/14/2019 Mood swings Other specified episodic mood disorder 01/14/2019 Restless legs syndrome (RLS) 01/14/2019 High grade squamous intraepithelial lesion (HGSIL) on cytologic smear of cervix 01/14/2019 Acute bronchitis, unspecified organism 02/15/2019 Pleuritic chest pain Painful respiration 02/15/2019 Procedure, test, or exam not indicated Procedure not carried out for other reasons 02/18/2019 High grade squamous intraepithelial lesion (HGSIL) on cytologic smear of cervix 02/18/2019 HPV in female Human papillomavirus in conditions classified elsewhere and of unspecified site 02/18/2019 History of cervical dysplasia Personal history of cervical dysplasia 02/18/2019 Moderate episode of recurrent major depressive disorder (HCC) 02/28/2019 Well adult exam Routine general medical examination at a health care facility 02/28/2019 Tired Other malaise and fatigue 02/28/2019 Lesion of labia Other specified noninflammatory disorder of vulva and perineum 02/28/2019 HSV infection Herpes simplex without mention of complication 03/01/2019 Vaginal lesion Other specified noninflammatory disorder of vagina 03/05/2019 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 Carcinoma in situ of cervix uteri 03/11/2019 HGSIL (high grade squamous intraepithelial lesion) on Pap smear of cervix 03/11/2019 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 Carcinoma in situ of cervix uteri 03/14/2019 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 Carcinoma in situ of cervix uteri 03/14/2019 Moderate episode of recurrent major depressive disorder (HCC) 03/18/2019 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 03/19/2019 HSIL on Pap smear of cervix 03/19/2019 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 03/19/2019 HSIL on Pap smear of cervix 03/19/2019 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 Carcinoma in situ of cervix uteri 03/25/2019 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 Carcinoma in situ of cervix uteri 04/29/2019 Moderate episode of recurrent major depressive disorder (HCC) 06/13/2019 Mood swings Other specified episodic mood disorder 06/13/2019 Restless legs syndrome (RLS) 06/13/2019 Migraine without aura and without status migrainosus, not intractable Migraine without aura, without mention of intractable migraine without mention of status migrainosus 06/13/2019 Encounter for repeat Papanicolaou smear of cervix 11/06/2019 HGSIL (high grade squamous intraepithelial lesion) on Pap smear of cervix 11/06/2019 History of cervical dysplasia Personal history of cervical dysplasia 11/06/2019 HPV in female Human papillomavirus in conditions classified elsewhere and of unspecified site 11/06/2019 Need for HPV vaccination Need for prophylactic vaccination and inoculation against other viral diseases 11/06/2019 Acute midline low back pain with left-sided sciatica 11/19/2019 Acute midline low back pain with left-sided sciatica 11/19/2019 Moderate episode of recurrent major depressive disorder (HCC) 11/19/2019 Mood swings Other specified episodic mood disorder 11/19/2019 Chronic mixed headache syndrome Other headache syndromes 12/05/2019 Migraine without aura and without status migrainosus, not intractable Migraine without aura, without mention of intractable migraine without mention of status migrainosus 12/05/2019 Moderate episode of recurrent major depressive disorder (HCC) 12/05/2019 Mood swings Other specified episodic mood disorder 12/05/2019 Chronic mixed headache syndrome Other headache syndromes 12/06/2019 Leg cramps Cramp of limb 12/19/2019 Acute bacterial sinusitis Acute sinusitis, unspecified 12/31/2019 Intractable chronic migraine without aura and without status migrainosus Chronic migraine without aura, with intractable migraine, so stated, without mention of status migrainosus 01/01/2020 Acute diffuse otitis externa of left ear 01/31/2020 Acute WAYNE (middle ear effusion), bilateral 01/31/2020 Screening for STDs (sexually transmitted diseases) Screening examination for venereal disease 01/31/2020 Other migraine without status migrainosus, not intractable 02/06/2020 Shaky Abnormal involuntary movements 02/06/2020 Nonintractable headache, unspecified chronicity pattern, unspecified headache type 02/10/2020 Acute bacterial sinusitis Acute sinusitis, unspecified 02/10/2020 Yeast vaginitis Candidiasis of vulva and vagina 02/10/2020 Well adult exam Routine general medical examination at a health care facility 02/10/2020 Tired Other malaise and fatigue 02/10/2020 Right foot injury, initial encounter 02/18/2020 Right ankle injury, initial encounter 02/18/2020 Right foot injury, initial encounter 02/18/2020 Right ankle injury, initial encounter 02/18/2020 Injury of right foot, subsequent encounter 02/24/2020 Moderate episode of recurrent major depressive disorder (HCC) 03/12/2020 Intractable headache, unspecified chronicity pattern, unspecified headache type 03/12/2020 Panic attack Panic disorder without agoraphobia 03/12/2020 Other migraine without status migrainosus, intractable 03/13/2020 Intractable headache, unspecified chronicity pattern, unspecified headache type 03/17/2020 Papilledema Papilloedema, unspecified 03/17/2020 Nonintractable headache, unspecified chronicity pattern, unspecified headache type 03/19/2020 Subconjunctival hemorrhage of right eye 03/19/2020 Unspecified visual field defects 03/23/2020 Nonintractable headache, unspecified chronicity pattern, unspecified headache type 03/23/2020 Papilledema Papilloedema, unspecified 03/27/2020 Nonintractable headache, unspecified chronicity pattern, unspecified headache type 04/01/2020 Unspecified visual field defects 04/01/2020 Papilledema Papilloedema, unspecified 04/06/2020 IIH (idiopathic intracranial hypertension) Benign intracranial hypertension 04/07/2020 IIH (idiopathic intracranial hypertension) Benign intracranial hypertension 04/07/2020 Spinal headache Reaction to spinal or lumbar puncture 04/09/2020 Spinal headache Reaction to spinal or lumbar puncture 04/09/2020 Acute left-sided low back pain with left-sided sciatica 04/16/2020 Acute left-sided low back pain with left-sided sciatica 04/16/2020 Left lumbar radiculopathy Thoracic or lumbosacral neuritis or radiculitis, unspecified 04/17/2020 Mood swings Other specified episodic mood disorder 04/20/2020 Major depressive disorder, recurrent episode, mild 04/20/2020 IIH (idiopathic intracranial hypertension) Benign intracranial hypertension 04/20/2020 HPV in female Human papillomavirus in conditions classified elsewhere and of unspecified site 05/07/2020 HGSIL (high grade squamous intraepithelial lesion) on Pap smear of cervix 05/07/2020 HPV (human papilloma virus) infection Human papillomavirus in conditions classified elsewhere and of unspecified site 05/07/2020 Migraine without aura and without status migrainosus, not intractable Migraine without aura, without mention of intractable migraine without mention of status migrainosus 05/18/2020 IIH (idiopathic intracranial hypertension) Benign intracranial hypertension 05/18/2020 Generalized anxiety disorder 06/11/2020 Hx of headache Personal history of other specified diseases 06/11/2020 Gastroesophageal reflux disease with esophagitis without hemorrhage 06/19/2020 Migraine without aura and without status migrainosus, not intractable Migraine without aura, without mention of intractable migraine without mention of status migrainosus 06/24/2020 Need for HPV vaccination Need for prophylactic vaccination and inoculation against other viral diseases 07/08/2020 Bulging of lumbar intervertebral disc 07/20/2020 Lumbar radiculopathy Thoracic or lumbosacral neuritis or radiculitis, unspecified 07/27/2020 Acute left-sided low back pain, unspecified whether sciatica present 07/27/2020 Migraine without aura and without status migrainosus, not intractable Migraine without aura, without mention of intractable migraine without mention of status migrainosus 08/05/2020 Lumbar radiculopathy Thoracic or lumbosacral neuritis or radiculitis, unspecified 08/21/2020 Class 3 severe obesity with serious comorbidity and body mass index (BMI) of 40.0 to 44.9 in adult, unspecified obesity type (HCC) 08/26/2020 Therapeutic drug monitoring Encounter for therapeutic drug monitoring 08/26/2020 Therapeutic drug monitoring Encounter for therapeutic drug monitoring 08/31/2020 Pain of foot, unspecified laterality 08/31/2020 Arthralgia, unspecified joint 09/04/2020 Morbid obesity with BMI of 40.0-44.9, adult (HCC) 09/08/2020 Gastroesophageal reflux disease, unspecified whether esophagitis present 09/08/2020 CORRINE (obstructive sleep apnea) Obstructive sleep apnea (adult) (pediatric) 09/08/2020 Cough 09/15/2020 Close exposure to COVID-19 virus 09/15/2020 Cough 09/15/2020 Chest congestion Other symptoms involving respiratory system and chest 09/15/2020 Cough 09/17/2020 Acute bacterial sinusitis Acute sinusitis, unspecified 09/18/2020 Pain in left foot Pain in limb 10/01/2020 Difficulty walking Difficulty in walking 10/01/2020 Pain in left foot Pain in limb 10/01/2020 Difficulty walking Difficulty in walking 10/01/2020 Lumbosacral radiculopathy at L5 Thoracic or lumbosacral neuritis or radiculitis, unspecified 10/02/2020 Lumbar radiculopathy Thoracic or lumbosacral neuritis or radiculitis, unspecified 10/02/2020 Acute left-sided low back pain with left-sided sciatica 10/07/2020 Low back pain with sciatica, sciatica laterality unspecified, unspecified back pain laterality, unspecified chronicity 10/21/2020 Acute bacterial sinusitis Acute sinusitis, unspecified 10/27/2020 Mood swings Other specified episodic mood disorder 10/27/2020 Major depressive disorder, recurrent episode, mild 10/27/2020 Gastroesophageal reflux disease with esophagitis without hemorrhage 10/27/2020 Panic attack Panic disorder without agoraphobia 10/27/2020 Panic attack Panic disorder without agoraphobia 10/27/2020 Mood swings Other specified episodic mood disorder 10/27/2020 Major depressive disorder, recurrent episode, mild 10/27/2020 Gastroesophageal reflux disease with esophagitis without hemorrhage 10/27/2020 Acute bacterial sinusitis Acute sinusitis, unspecified 11/04/2020 Seasonal allergic rhinitis, unspecified trigger 11/10/2020 Mood swings Other specified episodic mood disorder 11/12/2020 Major depressive disorder, recurrent episode, mild 11/12/2020 Mood swings Other specified episodic mood disorder 11/18/2020 Major depressive disorder, recurrent episode, mild 11/18/2020 Midline low back pain without sciatica, unspecified chronicity 12/03/2020 Folate deficiency Other B-complex deficiencies 12/10/2020 Lipid screening Screening for lipoid disorders 12/10/2020 Generalized anxiety disorder 12/10/2020 Nonintractable headache, unspecified chronicity pattern, unspecified headache type 12/10/2020 Leg cramps Cramp of limb 12/10/2020 Mood swings Other specified episodic mood disorder 12/22/2020 Major depressive disorder, recurrent episode, mild 12/22/2020 Gastroesophageal reflux disease with esophagitis without hemorrhage 12/29/2020 Snoring Other dyspnea and respiratory abnormality 01/12/2021 Obesity with serious comorbidity, unspecified classification, unspecified obesity type 01/12/2021 Need for [id number] (Tdap) vaccine Need for prophylactic vaccination with combined [id number] (DTP) vaccine 01/19/2021 Yeast vaginitis Candidiasis of vulva and vagina 01/19/2021 Restless legs syndrome (RLS) 01/19/2021 Urinary tract infection without hematuria, site unspecified 01/22/2021 Urinary tract infection without hematuria, site unspecified 01/22/2021 Dysuria 01/25/2021 Sore throat Acute pharyngitis 02/02/2021 Body aches Generalized pain 02/02/2021 Cough 02/02/2021 Sore throat Acute pharyngitis 02/02/2021 Acute bacterial sinusitis Acute sinusitis, unspecified 02/02/2021 Nausea Nausea alone 02/02/2021 Cough 02/04/2021 Bulging lumbar disc Displacement of lumbar intervertebral disc without myelopathy 02/17/2021 Bilateral lumbar radiculopathy 02/17/2021 Low back pain with sciatica, sciatica laterality unspecified, unspecified back pain laterality, unspecified chronicity 03/03/2021 Bulging lumbar disc Displacement of lumbar intervertebral disc without myelopathy 03/04/2021 Bilateral lumbar radiculopathy 03/04/2021 Mood swings Other specified episodic mood disorder 03/15/2021 Major depressive disorder, recurrent episode, mild 03/15/2021 Lumbar pain Lumbago 03/25/2021 Lumbar pain Lumbago 03/25/2021 Sacroiliac joint pain Disorders of sacrum 03/25/2021 DDD (degenerative disc disease), cervical Degeneration of cervical intervertebral disc 03/25/2021 Obesity, unspecified classification, unspecified obesity type, unspecified whether serious comorbidity present 03/25/2021 SI (sacroiliac) joint dysfunction Disorders of sacrum 03/25/2021 Lumbar pain Lumbago 04/06/2021 Sacroiliac joint pain Disorders of sacrum 04/06/2021 Restless legs syndrome (RLS) 04/13/2021 Mood swings Other specified episodic mood disorder 04/13/2021 Major depressive disorder, recurrent episode, mild 04/13/2021 Restless legs syndrome (RLS) 04/16/2021 Leg cramps Cramp of limb 04/19/2021 Leg cramps Cramp of limb 04/19/2021 Restless legs syndrome (RLS) 04/20/2021 Radiculopathy of lumbar region Thoracic or lumbosacral neuritis or radiculitis, unspecified 04/26/2021 DDD (degenerative disc disease), lumbar Degeneration of lumbar or lumbosacral intervertebral disc 04/26/2021 Sacroiliitis Sacroiliitis, not elsewhere classified 04/26/2021 Radiculopathy of lumbar region Thoracic or lumbosacral neuritis or radiculitis, unspecified 04/28/2021 Radiculopathy of lumbar region Thoracic or lumbosacral neuritis or radiculitis, unspecified 04/28/2021 Sacroiliitis Sacroiliitis, not elsewhere classified 04/28/2021 Lumbar pain Lumbago 04/28/2021 Radiculopathy of lumbar region Thoracic or lumbosacral neuritis or radiculitis, unspecified 05/03/2021 Restless legs syndrome (RLS) 05/03/2021 Radiculopathy of lumbar region Thoracic or lumbosacral neuritis or radiculitis, unspecified 05/04/2021 Lumbar pain Lumbago 05/04/2021 Well woman exam with routine gynecological exam Routine gynecological examination 05/11/2021 Bulging lumbar disc Displacement of lumbar intervertebral disc without myelopathy 05/11/2021 Bilateral lumbar radiculopathy 05/11/2021 History of burning pain in leg Personal history of other specified diseases 05/11/2021 Fibromyalgia Mylagia and myositis, unspecified 05/11/2021 Lumbar pain Lumbago 05/31/2021 Sacroiliitis Sacroiliitis, not elsewhere classified 05/31/2021 DDD (degenerative disc disease), lumbar Degeneration of lumbar or lumbosacral intervertebral disc 05/31/2021 Sacroiliac joint pain Disorders of sacrum 05/31/2021 Lumbar spondylosis Lumbosacral spondylosis without myelopathy 05/31/2021 Lumbar pain Lumbago 06/01/2021 Panic attack Panic disorder without agoraphobia 06/11/2021 Radiculopathy of lumbar region Thoracic or lumbosacral neuritis or radiculitis, unspecified 06/11/2021 DDD (degenerative disc disease), lumbar Degeneration of lumbar or lumbosacral intervertebral disc 06/11/2021 History of migraine headaches Personal history of other disorders of nervous system and sense organs 06/11/2021 Gastroesophageal reflux disease with esophagitis without hemorrhage 06/25/2021 Lumbar pain Lumbago 07/13/2021 Radiculopathy of lumbar region Thoracic or lumbosacral neuritis or radiculitis, unspecified 07/14/2021 Radiculopathy of lumbar region Thoracic or lumbosacral neuritis or radiculitis, unspecified 07/14/2021 IIH (idiopathic intracranial hypertension) Benign intracranial hypertension 07/23/2021 Lumbar spondylosis Lumbosacral spondylosis without myelopathy 08/05/2021 Lumbar pain Lumbago 08/05/2021 Sacroiliitis Sacroiliitis, not elsewhere classified 08/05/2021 DDD (degenerative disc disease), lumbar Degeneration of lumbar or lumbosacral intervertebral disc 08/05/2021 Migraine without aura and without status migrainosus, not intractable Migraine without aura, without mention of intractable migraine without mention of status migrainosus 08/13/2021 Vaginal yeast infection Candidiasis of vulva and vagina 08/24/2021 Radiculopathy of lumbar region Thoracic or lumbosacral neuritis or radiculitis, unspecified 08/24/2021 DDD (degenerative disc disease), lumbar Degeneration of lumbar or lumbosacral intervertebral disc 08/24/2021 Lumbar spondylosis Lumbosacral spondylosis without myelopathy 08/24/2021 Radiculopathy of lumbar region Thoracic or lumbosacral neuritis or radiculitis, unspecified 08/25/2021 Lumbar spondylosis Lumbosacral spondylosis without myelopathy 08/25/2021 DDD (degenerative disc disease), lumbar Degeneration of lumbar or lumbosacral intervertebral disc 08/25/2021 Radiculopathy of lumbar region Thoracic or lumbosacral neuritis or radiculitis, unspecified 09/07/2021 Acute bacterial sinusitis Acute sinusitis, unspecified 09/16/2021 Obesity, Class II, BMI 35-39.9 Obesity, unspecified 10/05/2021 Mood swings Other specified episodic mood disorder 10/05/2021 Major depressive disorder, recurrent episode, mild 10/05/2021 Gastroesophageal reflux disease with esophagitis without hemorrhage 10/05/2021 Plantar fasciitis Plantar fascial fibromatosis 10/05/2021 Obesity, Class II, BMI 35-39.9 Obesity, unspecified 10/06/2021 Restless legs syndrome (RLS) 11/02/2021 IIH (idiopathic intracranial hypertension) Benign intracranial hypertension 12/02/2021 Bulging lumbar disc Displacement of lumbar intervertebral disc without myelopathy 12/10/2021 Bilateral lumbar radiculopathy 12/10/2021 History of burning pain in leg Personal history of other specified diseases 12/10/2021 Fibromyalgia Mylagia and myositis, unspecified 12/10/2021 Constipation, unspecified constipation type 12/10/2021 Fissure of genital labia Other specified noninflammatory disorder of vulva and perineum 12/10/2021 Obesity, Class II, BMI 35-39.9 Obesity, unspecified 12/14/2021 Elevated glucose Other abnormal glucose 01/15/2022 Body aches Generalized pain 01/18/2022 Tired Other malaise and fatigue 01/18/2022 Body aches Generalized pain 01/18/2022 Tired Other malaise and fatigue 01/18/2022 Obesity, Class III, BMI 40-49.9 (morbid obesity) (HCC) Morbid obesity 01/18/2022 Obesity, Class II, BMI 35-39.9 Obesity, unspecified 01/20/2022 Mood disorder Unspecified episodic mood disorder 02/08/2022 Weight gain, abnormal Abnormal weight gain 02/08/2022 IGT (impaired glucose tolerance) Impaired glucose tolerance test 02/08/2022 History of migraine headaches Personal history of other disorders of nervous system and sense organs 02/08/2022 Restless legs syndrome (RLS) 02/08/2022 Sore throat Acute pharyngitis 03/01/2022 Influenza B Influenza with other respiratory manifestations 03/01/2022 Acute cough 03/01/2022 Acute bronchitis, unspecified organism 03/07/2022 Yeast vaginitis Candidiasis of vulva and vagina 03/18/2022 UTI (urinary tract infection), uncomplicated Urinary tract infection, site not specified 03/25/2022 UTI (urinary tract infection), uncomplicated Urinary tract infection, site not specified 03/25/2022 Panic attack Panic disorder without agoraphobia 04/11/2022 Chronic constipation Unspecified constipation 04/11/2022 Gastroesophageal reflux disease with esophagitis without hemorrhage 04/11/2022 Restless legs syndrome (RLS) 04/11/2022 Major depressive disorder, recurrent episode, mild 04/11/2022 Mood disorder Unspecified episodic mood disorder 04/11/2022 Sacroiliitis Sacroiliitis, not elsewhere classified 04/20/2022 Radiculopathy of lumbar region Thoracic or lumbosacral neuritis or radiculitis, unspecified 04/20/2022 Sacroiliitis Sacroiliitis, not elsewhere classified 04/20/2022 Therapeutic drug monitoring Encounter for therapeutic drug monitoring 04/25/2022 IIH (idiopathic intracranial hypertension) Benign intracranial hypertension 04/25/2022 Mood disorder Unspecified episodic mood disorder 05/11/2022 Bulging lumbar disc Displacement of lumbar intervertebral disc without myelopathy 05/11/2022 Bilateral lumbar radiculopathy 05/11/2022 Fibromyalgia Mylagia and myositis, unspecified 05/11/2022 Major depressive disorder, recurrent episode, mild 05/11/2022 Therapeutic drug monitoring Encounter for therapeutic drug monitoring 05/16/2022 Sore throat Acute pharyngitis 06/02/2022 Viral illness Unspecified viral infection, in conditions classified elsewhere and of unspecified site 06/02/2022 Nausea and vomiting, unspecified vomiting type 06/02/2022 Diarrhea, unspecified type 06/02/2022 Nonintractable headache, unspecified chronicity pattern, unspecified headache type 06/02/2022 Sacroiliitis Sacroiliitis, not elsewhere classified 06/02/2022 Arthralgia, unspecified joint 06/03/2022 Vomiting, unspecified vomiting type, unspecified whether nausea present 06/08/2022 Epigastric abdominal pain Abdominal pain, epigastric 06/08/2022 Dyspnea, unspecified type 06/09/2022 Gastroesophageal reflux disease, unspecified whether esophagitis present 06/09/2022 Acute bronchitis, unspecified organism 06/14/2022 Major depressive disorder, recurrent episode, mild 06/14/2022 Mild intermittent reactive airway disease with wheezing with acute exacerbation 06/17/2022 Subacute cough Cough 06/20/2022 Dyspnea, unspecified type 06/20/2022 Mild intermittent reactive airway disease with wheezing with acute exacerbation 06/24/2022 Acute bronchitis, unspecified organism 06/24/2022 Shortness of breath 06/27/2022 Subacute cough Cough 06/27/2022 Allergic rhinitis, unspecified seasonality, unspecified trigger 06/27/2022 Gastroesophageal reflux disease without esophagitis Esophageal reflux 06/27/2022 Former smoker Personal history of tobacco use, presenting hazards to health 06/27/2022 BMI 40.0-44.9, adult ([facility]) Body Mass Index 40.0-44.9, adult 06/27/2022 Allergic rhinitis, unspecified seasonality, unspecified trigger 07/01/2022 Subacute cough Cough 07/01/2022 Shortness of breath 07/01/2022 Chest tightness Other chest pain 07/11/2022 Well adult exam Routine general medical examination at a health care facility 07/11/2022 Tired Other malaise and fatigue 07/11/2022 Elevated glucose Other abnormal glucose 07/11/2022 Sinobronchitis Unspecified sinusitis (chronic) 07/11/2022 Nausea Nausea alone 07/11/2022 Other complicated headache syndrome 07/11/2022 Elevated liver function tests Other abnormal blood chemistry 07/11/2022 Elevated liver function tests Other abnormal blood chemistry 07/12/2022 Elevated liver function tests Other abnormal blood chemistry 07/13/2022 Bacterial vaginosis Vaginitis and vulvovaginitis, unspecified 07/18/2022 Yeast vaginitis Candidiasis of vulva and vagina 07/18/2022 Urinary frequency 07/18/2022 Abdominal pain, RLQ (right lower quadrant) Abdominal pain, right lower quadrant 07/26/2022 Abdominal pain, RLQ (right lower quadrant) Abdominal pain, right lower quadrant 07/26/2022 Radiculopathy of lumbar region Thoracic or lumbosacral neuritis or radiculitis, unspecified 08/02/2022 Spasm Abnormal involuntary movements 08/02/2022 Radiculopathy of lumbar region Thoracic or lumbosacral neuritis or radiculitis, unspecified 08/05/2022 Lumbar spondylosis Lumbosacral spondylosis without myelopathy 08/05/2022 DDD (degenerative disc disease), lumbar Degeneration of lumbar or lumbosacral intervertebral disc 08/05/2022 Major depressive disorder, recurrent episode, mild 08/08/2022 Arthralgia, unspecified joint 08/08/2022 Esophageal dysphagia Dysphagia, pharyngoesophageal phase 08/09/2022 Fatty liver Other chronic nonalcoholic liver disease 08/09/2022 Constipation, unspecified constipation type 08/09/2022 Constipation, unspecified constipation type 08/16/2022 Dysphagia, unspecified type 08/17/2022 Preop testing Preoperative examination, unspecified 08/17/2022 Dysphagia, unspecified type 08/17/2022 Worst headache of life Headache 08/18/2022 Worst headache of life Headache 08/18/2022 Nonintractable headache, unspecified chronicity pattern, unspecified headache type 08/19/2022 Elevated blood pressure reading Elevated blood pressure reading without diagnosis of hypertension 08/20/2022 Acute nonintractable headache, unspecified headache type 08/20/2022 Essential hypertension Unspecified essential hypertension 08/22/2022 Bilateral swelling of feet and ankles 08/22/2022 Numbness and tingling Disturbance of skin sensation 08/26/2022 Chest pain, unspecified type 08/26/2022 Hypokalemia Hypopotassemia 08/26/2022 Vitamin D deficiency Unspecified vitamin D deficiency 08/27/2022 Tinea corporis Dermatophytosis of the body 09/02/2022 Hypokalemia Hypopotassemia 09/02/2022 Essential hypertension Unspecified essential hypertension 09/02/2022 Leg swelling Swelling of limb 09/02/2022 Lumbar spondylosis Lumbosacral spondylosis without myelopathy 09/05/2022 Hospital discharge follow-up Other follow-up examination 09/06/2022 Hypokalemia Hypopotassemia 09/06/2022 Essential hypertension Unspecified essential hypertension 09/06/2022 Leg swelling Swelling of limb 09/06/2022 Yeast infection Other and unspecified mycoses 09/06/2022 Lumbar spondylosis Lumbosacral spondylosis without myelopathy 09/08/2022 Essential hypertension Unspecified essential hypertension 09/09/2022 Acute bronchitis, unspecified organism 09/12/2022 Mild intermittent reactive airway disease with wheezing with acute exacerbation 09/12/2022 Tinea corporis Dermatophytosis of the body 09/12/2022 Major depressive disorder, recurrent episode, mild 09/12/2022 Panic attack Panic disorder without agoraphobia 09/12/2022 Arthralgia, unspecified joint 09/12/2022 Gastroesophageal reflux disease with esophagitis without hemorrhage 09/12/2022 Restless legs syndrome (RLS) 09/12/2022 Hypokalemia Hypopotassemia 09/12/2022 Essential hypertension Unspecified essential hypertension 09/12/2022 Leg swelling Swelling of limb 09/12/2022 Gastroesophageal reflux disease with esophagitis without hemorrhage 09/12/2022 Right upper quadrant abdominal tenderness, rebound tenderness presence not specified 09/12/2022 Acute bacterial sinusitis Acute sinusitis, unspecified 09/12/2022 Vitamin D deficiency Unspecified vitamin D deficiency 09/13/2022 Restless legs syndrome (RLS) 09/13/2022 Hypokalemia Hypopotassemia 09/13/2022 Essential hypertension Unspecified essential hypertension 09/13/2022 Leg swelling Swelling of limb 09/13/2022 Essential hypertension Unspecified essential hypertension 09/14/2022 Dysuria 09/19/2022 Right upper quadrant abdominal tenderness, rebound tenderness presence not specified 09/19/2022 Right upper quadrant abdominal tenderness, rebound tenderness presence not specified 09/20/2022 Hypokalemia Hypopotassemia 09/22/2022 Essential hypertension Unspecified essential hypertension 09/22/2022 Elevated LFTs Other abnormal blood chemistry 09/23/2022 Right sided abdominal pain Abdominal pain, unspecified site 09/23/2022 Obesity, Class II, BMI 35-39.9 Obesity, unspecified 09/23/2022 Positive BOBBY (antinuclear antibody) Other and unspecified nonspecific immunological findings 09/26/2022 Arthralgia, unspecified joint 09/26/2022 Tired Other malaise and fatigue 09/26/2022 Therapeutic drug monitoring Encounter for therapeutic drug monitoring 09/26/2022 Lumbar spondylosis Lumbosacral spondylosis without myelopathy 10/06/2022 Lumbar pain Lumbago 10/07/2022 Lumbar pain Lumbago 10/07/2022 Right lumbar radiculopathy Thoracic or lumbosacral neuritis or radiculitis, unspecified 10/07/2022 Abnormal LFTs Other abnormal blood chemistry 10/10/2022 Right upper quadrant abdominal pain Abdominal pain, right upper quadrant 10/10/2022 Abnormal LFTs Other abnormal blood chemistry 10/10/2022 Fatty liver Other chronic nonalcoholic liver disease 10/10/2022 Constipation, unspecified constipation type 10/10/2022 Esophageal dysphagia Dysphagia, pharyngoesophageal phase 10/10/2022 Right upper quadrant abdominal pain Abdominal pain, right upper quadrant 10/10/2022 Fatty liver Other chronic nonalcoholic liver disease 10/10/2022 BOBBY positive Other and unspecified nonspecific immunological findings 10/10/2022 Other fatigue 10/10/2022 Arthralgia, unspecified joint 10/10/2022 Vitamin D deficiency Unspecified vitamin D deficiency 10/10/2022 Nausea Nausea alone 10/13/2022 Iron deficiency anemia, unspecified iron deficiency anemia type 10/13/2022 Fibromyalgia Mylagia and myositis, unspecified 10/17/2022 Undifferentiated connective tissue disease Unspecified diffuse connective tissue disease 10/17/2022 Dry mouth Disturbance of salivary secretion 10/17/2022 Encounter for long-term (current) use of high-risk medication Encounter for long-term (current) use of other medications 10/17/2022 Hematuria, microscopic Microscopic hematuria 10/25/2022 Dry mouth Disturbance of salivary secretion 10/26/2022 Low iron Iron deficiency anemia, unspecified 11/04/2022 Esophageal dysphagia Dysphagia, pharyngoesophageal phase 11/08/2022 Right upper quadrant abdominal pain Abdominal pain, right upper quadrant 11/08/2022 Right foot pain Pain in limb 11/10/2022 Right foot pain Pain in limb 11/10/2022 Toenail fungus Dermatophytosis of nail 11/10/2022 Dry mouth Disturbance of salivary secretion 11/16/2022 Mild intermittent reactive airway disease with wheezing with acute exacerbation 11/18/2022 Vitamin D deficiency Unspecified vitamin D deficiency 11/18/2022 Mood disorder Unspecified episodic mood disorder 11/18/2022 Fibromyalgia Mylagia and myositis, unspecified 11/18/2022 Bulging lumbar disc Displacement of lumbar intervertebral disc without myelopathy 11/18/2022 Bilateral lumbar radiculopathy 11/18/2022 Arthralgia, unspecified joint 11/18/2022 Nausea Nausea alone 11/18/2022 Stress fracture of right foot, initial encounter 11/25/2022 Mood disorder Unspecified episodic mood disorder 11/30/2022 Major depressive disorder, recurrent episode, mild 11/30/2022 Mood swings Other specified episodic mood disorder 11/30/2022 Major depressive disorder, recurrent episode, mild 12/09/2022 Obesity, Class II, BMI 35-39.9 Obesity, unspecified 12/09/2022 Fear of weight gain Other disorder of eating of nonorganic origin 12/09/2022 Fibromyalgia Mylagia and myositis, unspecified 12/12/2022 Dry mouth Disturbance of salivary secretion 12/12/2022 Undifferentiated connective tissue disease Unspecified diffuse connective tissue disease 12/12/2022 Encounter for long-term (current) use of high-risk medication Encounter for long-term (current) use of other medications 12/12/2022 Raised antibody titer Other and unspecified nonspecific immunological findings 12/12/2022 [employer] current use of systemic steroids Encounter for long-term (current) use of steroids 12/12/2022 CYP2B6 intermediate metabolizer (HCC) 12/14/2022 Lumbar radiculopathy Thoracic or lumbosacral neuritis or radiculitis, unspecified 12/14/2022 DDD (degenerative disc disease), lumbar Degeneration of lumbar or lumbosacral intervertebral disc 12/14/2022 Mood disorder Unspecified episodic mood disorder 12/15/2022 Fibromyalgia Mylagia and myositis, unspecified 12/15/2022 Bulging lumbar disc Displacement of lumbar intervertebral disc without myelopathy 12/15/2022 Bilateral lumbar radiculopathy 12/15/2022 Eustachian tube dysfunction, left 12/15/2022 Therapeutic drug monitoring Encounter for therapeutic drug monitoring 12/21/2022 Hypokalemia Hypopotassemia 12/22/2022 Therapeutic drug monitoring Encounter for therapeutic drug monitoring 12/22/2022 Hypokalemia Hypopotassemia 12/23/2022 Major depressive disorder, recurrent episode, mild 12/29/2022 Pain of midfoot, right 01/02/2023 Intractable migraine without aura and without status migrainosus Migraine without aura, with intractable migraine, so stated, without mention of status migrainosus 01/02/2023 Pseudotumor 01/02/2023 Numbness and tingling Disturbance of skin sensation 01/03/2023 Family history of diabetes mellitus 01/03/2023 Numbness and tingling Disturbance of skin sensation 01/04/2023 Low iron Iron deficiency anemia, unspecified 01/05/2023 Lesion of right plantar nerve Lesion of plantar nerve 01/09/2023 Right foot pain Pain in limb 01/09/2023 Cannot walk Difficulty in walking 01/09/2023 Hypokalemia Hypopotassemia 01/13/2023 Protrusion of lumbar intervertebral disc 01/13/2023 Easy bruising Other symptoms involving skin and integumentary tissues 01/16/2023 Iron deficiency Other disorders of iron metabolism 01/16/2023 RLS (restless legs syndrome) Restless legs syndrome (RLS) 01/16/2023 Iron deficiency Other disorders of iron metabolism 01/16/2023 RLS (restless legs syndrome) Restless legs syndrome (RLS) 01/16/2023 Easy bruising Other symptoms involving skin and integumentary tissues 01/16/2023 ETD (Eustachian tube dysfunction), bilateral 01/17/2023 Elevated BP without diagnosis of hypertension 01/17/2023 Left elbow pain Pain in joint, upper arm 01/18/2023 Ulnar neuropathy of left upper extremity Lesion of ulnar nerve 01/18/2023 Left elbow pain Pain in joint, upper arm 01/19/2023 Ulnar neuropathy of left upper extremity Lesion of ulnar nerve 01/19/2023 Cubital tunnel syndrome on left Lesion of ulnar nerve 01/19/2023 Major depressive disorder, recurrent episode, mild 01/26/2023 Hypokalemia Hypopotassemia 01/26/2023 Hypokalemia Hypopotassemia 01/26/2023 Hypokalemia Hypopotassemia 01/26/2023 Obstructive sleep apnea Obstructive sleep apnea (adult) (pediatric) 02/02/2023 Snores Other dyspnea and respiratory abnormality 02/02/2023 Tired Other malaise and fatigue 02/02/2023 Elevated BP without diagnosis of hypertension 02/02/2023 Obesity, Class II, BMI 35-39.9 Obesity, unspecified 02/02/2023 History of migraine headaches Personal history of other disorders of nervous system and sense organs 02/02/2023 Sore throat Acute pharyngitis 02/07/2023 Myalgia Mylagia and myositis, unspecified 02/07/2023 Malaise and fatigue Other malaise and fatigue 02/07/2023 Nausea and vomiting, unspecified vomiting type 02/07/2023 Diarrhea, unspecified type 02/07/2023 Sore throat Acute pharyngitis 02/07/2023 Myalgia Mylagia and myositis, unspecified 02/07/2023 Malaise and fatigue Other malaise and fatigue 02/07/2023 Nausea and vomiting, unspecified vomiting type 02/07/2023 Diarrhea, unspecified type 02/07/2023 Acute intractable headache, unspecified headache type 02/10/2023 Psoriasis Other psoriasis 02/10/2023 Acute intractable headache, unspecified headache type 02/11/2023 Acute intractable headache, unspecified headache type 02/13/2023 Vision changes Unspecified visual disturbance 02/13/2023 Memory loss 02/13/2023 Staggering Abnormality of gait 02/13/2023 Vision changes Unspecified visual disturbance 02/14/2023 Memory loss 02/14/2023 Acute intractable headache, unspecified headache type 02/14/2023 Protrusion of lumbar intervertebral disc 02/15/2023 Left elbow pain Pain in joint, upper arm 02/15/2023 Ulnar neuropathy of left upper extremity Lesion of ulnar nerve 02/15/2023 Cubital tunnel syndrome on left Lesion of ulnar nerve 02/15/2023 Acute intractable headache, unspecified headache type 02/20/2023 Vision changes Unspecified visual disturbance 02/20/2023 Memory loss 02/20/2023 Staggering Abnormality of gait 02/20/2023 Obstructive sleep apnea Obstructive sleep apnea (adult) (pediatric) 02/21/2023 Encounter for long-term (current) use of medications Encounter for long-term (current) use of other medications 02/22/2023 Diagnostic skin and sensitization tests 02/22/2023 Screening examination for venereal disease 02/22/2023 Screening examination for poliomyelitis 02/22/2023 Sicca, unspecified type 02/22/2023 Scapulohumeral fibrositis Other affections of shoulder region, not elsewhere classified 02/22/2023 Vitamin D deficiency Unspecified vitamin D deficiency 02/22/2023 Intractable migraine without aura and without status migrainosus Migraine without aura, with intractable migraine, so stated, without mention of status migrainosus 02/22/2023 Left elbow pain Pain in joint, upper arm 02/22/2023 Ulnar neuropathy of left upper extremity Lesion of ulnar nerve 02/22/2023 Cubital tunnel syndrome on left Lesion of ulnar nerve 02/22/2023 Obstructive sleep apnea Obstructive sleep apnea (adult) (pediatric) 02/22/2023 Sjogren's syndrome, with unspecified organ involvement 02/23/2023 Encounter for contraceptive management, unspecified type 02/23/2023 Vitamin D deficiency Unspecified vitamin D deficiency 02/23/2023 Sore in nose Other diseases of nasal cavity and sinuses 02/23/2023 Left elbow pain Pain in joint, upper arm 02/23/2023 Cubital tunnel syndrome on left Lesion of ulnar nerve 02/23/2023 Seasonal allergic rhinitis, unspecified trigger 02/24/2023 Sore throat Acute pharyngitis 02/28/2023 Nonintractable headache, unspecified chronicity pattern, unspecified headache type 02/28/2023 BPV (benign positional vertigo), unspecified laterality 02/28/2023 Ear pain, bilateral 03/01/2023 Abnormal auditory perception, bilateral 03/01/2023 Facial pain Headache 03/01/2023 Adverse effect of drug, initial encounter 03/02/2023 Dizziness Dizziness and giddiness 03/02/2023 Malaise and fatigue Other malaise and fatigue 03/02/2023 Paresthesias Disturbance of skin sensation 03/02/2023 Balance problem Other symptoms involving nervous and musculoskeletal systems 03/02/2023 Hyperacusis of both ears Hyperacusis 03/02/2023 Tinnitus aurium, bilateral 03/02/2023 Cubital tunnel syndrome on left Lesion of ulnar nerve 03/03/2023 Excessive sleepiness Hypersomnia, unspecified 03/09/2023 Snores Other dyspnea and respiratory abnormality 03/09/2023 CORRINE (obstructive sleep apnea) Obstructive sleep apnea (adult) (pediatric) 03/09/2023 Cubital tunnel syndrome on left Lesion of ulnar nerve 03/09/2023 Obstructive sleep apnea Obstructive sleep apnea (adult) (pediatric) 03/10/2023 IIH (idiopathic intracranial hypertension) Benign intracranial hypertension 03/10/2023 IIH (idiopathic intracranial hypertension) Benign intracranial hypertension 03/11/2023 Cubital tunnel syndrome on left Lesion of ulnar nerve 03/15/2023 IIH (idiopathic intracranial hypertension) Benign intracranial hypertension 03/16/2023 Leg cramps Cramp of limb 03/20/2023 Pain in both lower extremities 03/20/2023 Pain in both lower extremities 03/21/2023 IIH (idiopathic intracranial hypertension) Benign intracranial hypertension 03/22/2023 IIH (idiopathic intracranial hypertension) Benign intracranial hypertension 03/22/2023 Mild intermittent reactive airway disease with wheezing with acute exacerbation 03/24/2023 Vitamin D deficiency Unspecified vitamin D deficiency 03/24/2023 Panic attack Panic disorder without agoraphobia 03/24/2023 Arthralgia, unspecified joint 03/24/2023 Gastroesophageal reflux disease with esophagitis without hemorrhage 03/24/2023 Restless legs syndrome (RLS) 03/24/2023 Cubital tunnel syndrome on left Lesion of ulnar nerve 03/27/2023 Rectal bleeding Hemorrhage of rectum and anus 03/28/2023 Iron deficiency Other disorders of iron metabolism 03/28/2023 Fluid retention Other fluid overload 03/29/2023 Iron deficiency Other disorders of iron metabolism 03/29/2023 RLS (restless legs syndrome) Restless legs syndrome (RLS) 03/29/2023 Rectal bleeding Hemorrhage of rectum and anus 04/04/2023 Iron deficiency Other disorders of iron metabolism 04/04/2023 Tired Other malaise and fatigue 04/06/2023 Myalgia Mylagia and myositis, unspecified 04/06/2023 Arthralgia, unspecified joint 04/06/2023 Iron deficiency Other disorders of iron metabolism 04/06/2023 RLS (restless legs syndrome) Restless legs syndrome (RLS) 04/06/2023 Intractable migraine without aura and without status migrainosus Migraine without aura, with intractable migraine, so stated, without mention of status migrainosus 04/10/2023 Pseudotumor cerebri Benign intracranial hypertension 04/10/2023 Encounter for long-term (current) use of medications Encounter for long-term (current) use of other medications 04/10/2023 Tired Other malaise and fatigue 04/11/2023 Myalgia Mylagia and myositis, unspecified 04/11/2023 Arthralgia, unspecified joint 04/11/2023 Iron deficiency Other disorders of iron metabolism 04/12/2023 RLS (restless legs syndrome) Restless legs syndrome (RLS) 04/12/2023 Hypokalemia Hypopotassemia 04/14/2023 Tired Other malaise and fatigue 04/14/2023 Hypokalemia Hypopotassemia 04/19/2023 Tired Other malaise and fatigue 04/19/2023 Iron deficiency Other disorders of iron metabolism 04/19/2023 RLS (restless legs syndrome) Restless legs syndrome (RLS) 04/19/2023 Mood disorder Unspecified episodic mood disorder 04/24/2023 Fibromyalgia Mylagia and myositis, unspecified 04/24/2023 Bulging lumbar disc Displacement of lumbar intervertebral disc without myelopathy 04/24/2023 Bilateral lumbar radiculopathy 04/24/2023 Acute bacterial sinusitis Acute sinusitis, unspecified 04/24/2023 Bipolar depression (HCC) Bipolar I disorder, most recent episode (or current) depressed, unspecified 04/24/2023 Tired Other malaise and fatigue 04/25/2023 Myalgia Mylagia and myositis, unspecified 04/25/2023 Arthralgia, unspecified joint 04/25/2023 Mood disorder Unspecified episodic mood disorder 04/25/2023 Fibromyalgia Mylagia and myositis, unspecified 04/25/2023 Bulging lumbar disc Displacement of lumbar intervertebral disc without myelopathy 04/25/2023 Bilateral lumbar radiculopathy 04/25/2023 Panic attack Panic disorder without agoraphobia 04/25/2023 Seasonal allergic rhinitis, unspecified trigger 04/25/2023 Bipolar depression (HCC) Bipolar I disorder, most recent episode (or current) depressed, unspecified 04/25/2023 Obesity, Class II, BMI 35-39.9 Obesity, unspecified 04/25/2023 Fluid retention Other fluid overload 04/25/2023 Major depressive disorder, recurrent episode, mild 04/25/2023 Nonintractable headache, unspecified chronicity pattern, unspecified headache type 04/25/2023 Acute bacterial sinusitis Acute sinusitis, unspecified 05/10/2023 Adverse effect of drug, initial encounter 05/10/2023 Mood disorder Unspecified episodic mood disorder 05/10/2023 Preop testing Preoperative examination, unspecified 05/10/2023 Premenopausal patient Symptomatic menopausal or female climacteric states 05/10/2023 Rectal bleeding Hemorrhage of rectum and anus 05/10/2023 Iron deficiency Other disorders of iron metabolism 05/10/2023 Restless legs syndrome (RLS) 05/15/2023 URI with cough and congestion 05/15/2023 Acute bacterial sinusitis Acute sinusitis, unspecified 05/15/2023 Therapeutic drug monitoring Encounter for therapeutic drug monitoring 05/18/2023 Acute cough 05/18/2023 Obstructive sleep apnea Obstructive sleep apnea (adult) (pediatric) 05/19/2023 Obstructive sleep apnea Obstructive sleep apnea (adult) (pediatric) 05/19/2023 Tiredness Other malaise and fatigue 05/19/2023 Morbid obesity (HCC) Morbid obesity 05/19/2023 Mood disorder Unspecified episodic mood disorder 05/19/2023 Essential hypertension Unspecified essential hypertension 05/19/2023 Otalgia of both ears Otalgia, unspecified 05/23/2023 Ineffective esophageal motility 05/30/2023 Metabolic dysfunction-associated steatotic liver disease (MASLD) 05/30/2023 Sore throat Acute pharyngitis 05/30/2023 Tonsillitis Acute tonsillitis 05/30/2023 Viral illness Unspecified viral infection, in conditions classified elsewhere and of unspecified site 05/30/2023 Ineffective esophageal motility 05/30/2023 Metabolic dysfunction-associated steatotic liver disease (MASLD) 05/30/2023 Diarrhea, unspecified type 06/07/2023 Diarrhea, unspecified type 06/07/2023 Viral gastroenteritis Intestinal infection due to other organism, not elsewhere classified 06/07/2023 Nausea and vomiting, unspecified vomiting type 06/07/2023 Oropharyngeal dysphagia Dysphagia, oropharyngeal phase 06/08/2023 Psoriasis Other psoriasis 06/10/2023 Myalgia Mylagia and myositis, unspecified 06/14/2023 Need for prophylactic chemotherapy Need for other prophylactic chemotherapy 06/14/2023 Benign intracranial hypertension 06/14/2023 Abnormal immunological finding in serum Other nonspecific findings on examination of blood 06/14/2023 Scapulohumeral fibrositis Other affections of shoulder region, not elsewhere classified 06/14/2023 Common migraine with intractable migraine Migraine without aura, with intractable migraine, so stated, without mention of status migrainosus 06/16/2023 Benign intracranial hypertension 06/16/2023 Need for prophylactic chemotherapy Need for other prophylactic chemotherapy 06/16/2023 Encounter for completion of form with patient 06/16/2023 Nonintractable headache, unspecified chronicity pattern, unspecified headache type 06/16/2023 Generalized anxiety disorder 06/16/2023 Nausea and vomiting, unspecified vomiting type 06/20/2023 Viral illness Unspecified viral infection, in conditions classified elsewhere and of unspecified site 06/20/2023 Oropharyngeal dysphagia Dysphagia, oropharyngeal phase 06/20/2023 Oropharyngeal dysphagia Dysphagia, oropharyngeal phase 06/20/2023 Screen for STD (sexually transmitted disease) Screening examination for venereal disease 06/21/2023 Well female exam with routine gynecological exam Routine gynecological examination 06/21/2023 Screen for STD (sexually transmitted disease) Screening examination for venereal disease 06/21/2023 UTI symptoms 06/21/2023 Acute cystitis without hematuria Acute cystitis 06/21/2023 Chronic vaginitis Vaginitis and vulvovaginitis, unspecified 06/21/2023 Screening examination for STD (sexually transmitted disease) Screening examination for venereal disease 06/21/2023 Counseling for HPV (human papillomavirus) vaccination Other specified counseling 06/21/2023 Endometriosis Endometriosis, site unspecified 06/21/2023 Irregular uterine bleeding Irregular menstrual cycle 06/21/2023 Hypokalemia Hypopotassemia 06/26/2023 Hypokalemia Hypopotassemia 06/26/2023 Papilledema Papilloedema, unspecified 06/26/2023 Nausea and vomiting, unspecified vomiting type 06/27/2023 Restless legs syndrome (RLS) 06/29/2023 Impaired glucose tolerance Impaired glucose tolerance test 06/29/2023 Hypokalemia Hypopotassemia 06/30/2023 Ineffective esophageal motility 07/04/2023 Metabolic dysfunction-associated steatotic liver disease (MASLD) 07/04/2023 Constipation, unspecified constipation type 07/04/2023 Person under investigation for COVID-19 07/06/2023 Sinobronchitis Unspecified sinusitis (chronic) 07/06/2023 History of cold sores Personal history of other infectious and parasitic disease 07/06/2023 Hypokalemia Hypopotassemia 07/07/2023 Iron deficiency Other disorders of iron metabolism 07/07/2023 Neuropathy Mononeuritis of unspecified site 07/10/2023 Tonsillitis Acute tonsillitis 07/10/2023 Abrasion of knee, unspecified laterality, initial encounter 07/10/2023 Strain of right ankle, initial encounter 07/11/2023 Neuropathy Mononeuritis of unspecified site 07/11/2023 Paresthesia Disturbance of skin sensation 07/11/2023 Myalgia Mylagia and myositis, unspecified 07/13/2023 Hypokalemia Hypopotassemia 07/14/2023 Avitaminosis D Unspecified vitamin D deficiency 07/21/2023 Hypokalemia Hypopotassemia 07/21/2023 Imaging abnormality Other nonspecific (abnormal) findings on radiological and other examinations of body structure 07/21/2023 Right foot pain Pain in limb 07/21/2023 Irregular uterine bleeding Irregular menstrual cycle 07/26/2023 Irregular uterine bleeding Irregular menstrual cycle 07/26/2023 Endometriosis Endometriosis, site unspecified 07/26/2023 Encounter for surveillance of other contraceptive 07/26/2023 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 Carcinoma in situ of cervix uteri 07/26/2023 Ineffective esophageal motility 07/30/2023 Metabolic dysfunction-associated steatotic liver disease (MASLD) 07/30/2023 Hypokalemia Hypopotassemia 08/01/2023 Iron deficiency Other disorders of iron metabolism 08/01/2023 Vaginal itching Pruritus of genital organs 08/01/2023 Abnormal uterine bleeding Unspecified disorder of menstruation and other abnormal bleeding from female genital tract 08/01/2023 Low back pain potentially associated with radiculopathy 08/02/2023 Low back pain potentially associated with radiculopathy 08/02/2023 Low back pain potentially associated with radiculopathy 08/04/2023 Restless legs syndrome (RLS) 08/05/2023 Iron deficiency Other disorders of iron metabolism 08/07/2023 RLS (restless legs syndrome) Restless legs syndrome (RLS) 08/07/2023 Arthralgia, unspecified joint 08/08/2023 Acute right-sided low back pain with sciatica, sciatica laterality unspecified 08/09/2023 Neuropathic pain, leg Mononeuritis of lower limb, unspecified 08/10/2023 Mood disorder Unspecified episodic mood disorder 08/14/2023 Fibromyalgia Mylagia and myositis, unspecified 08/14/2023 Bulging lumbar disc Displacement of lumbar intervertebral disc without myelopathy 08/14/2023 Bilateral lumbar radiculopathy 08/14/2023 Type 2 diabetes mellitus without complication, without long-term current use of insulin (HCC) 08/15/2023 Tired Other malaise and fatigue 08/15/2023 Elevated glucose Other abnormal glucose 08/15/2023 Mood disorder Unspecified episodic mood disorder 08/15/2023 Fibromyalgia Mylagia and myositis, unspecified 08/15/2023 Bulging lumbar disc Displacement of lumbar intervertebral disc without myelopathy 08/15/2023 Bilateral lumbar radiculopathy 08/15/2023 Type 2 diabetes mellitus without complication, without long-term current use of insulin (HCC) 08/15/2023 Endometriosis Endometriosis, site unspecified 08/18/2023 Abnormal uterine bleeding (AUB) 08/18/2023 Chronic pelvic pain in female Unspecified symptom associated with female genital organs 08/18/2023 Severe dysmenorrhea 08/18/2023 Endometriosis Endometriosis, site unspecified 08/18/2023 Abnormal uterine bleeding (AUB) 08/18/2023 Chronic pelvic pain in female Unspecified symptom associated with female genital organs 08/18/2023 Severe dysmenorrhea 08/18/2023 Vitamin D deficiency Unspecified vitamin D deficiency 08/31/2023 Obstructive sleep apnea Obstructive sleep apnea (adult) (pediatric) 09/04/2023 Obstructive sleep apnea Obstructive sleep apnea (adult) (pediatric) 09/04/2023 Tiredness Other malaise and fatigue 09/04/2023 Morbid obesity (HCC) Morbid obesity 09/04/2023 Mood disorder Unspecified episodic mood disorder 09/04/2023 Essential hypertension Unspecified essential hypertension 09/04/2023 Type 2 diabetes mellitus without complication, without long-term current use of insulin ([facility]) 09/04/2023 Bipolar depression ([facility]) Bipolar I disorder, most recent episode (or current) depressed, unspecified 09/04/2023 Hypokalemia Hypopotassemia 09/04/2023 Sinobronchitis Unspecified sinusitis (chronic) 09/04/2023 Mild intermittent reactive airway disease with wheezing with acute exacerbation 09/04/2023 Ineffective esophageal motility 09/05/2023 Abnormal LFTs Other abnormal blood chemistry 09/05/2023 Chronic idiopathic constipation Unspecified constipation 09/05/2023 Metabolic dysfunction-associated steatohepatitis (MASH) 09/05/2023 Impaired glucose tolerance Impaired glucose tolerance test 09/11/2023 Hypokalemia Hypopotassemia 09/12/2023 Gastroesophageal reflux disease with esophagitis without hemorrhage 09/13/2023 Mild intermittent reactive airway disease with wheezing with acute exacerbation 09/21/2023 Ineffective esophageal motility 09/21/2023 Metabolic dysfunction-associated steatotic liver disease (MASLD) 09/21/2023 Vitamin D deficiency Unspecified vitamin D deficiency 09/21/2023 Mood disorder Unspecified episodic mood disorder 09/21/2023 Fibromyalgia Mylagia and myositis, unspecified 09/21/2023 Bulging lumbar disc Displacement of lumbar intervertebral disc without myelopathy 09/21/2023 Bilateral lumbar radiculopathy 09/21/2023 Panic attack Panic disorder without agoraphobia 09/21/2023 Seasonal allergic rhinitis, unspecified trigger 09/21/2023 Nausea and vomiting, unspecified vomiting type 09/21/2023 Gastroesophageal reflux disease with esophagitis without hemorrhage 09/21/2023 Restless legs syndrome (RLS) 09/21/2023 Type 2 diabetes mellitus without complication, without long-term current use of insulin (HCC) 09/21/2023 Nonintractable headache, unspecified chronicity pattern, unspecified headache type 09/21/2023 Fluid retention Other fluid overload 09/21/2023 Psoriasis Other psoriasis 09/21/2023 Major depressive disorder, recurrent episode, mild 09/21/2023 Urinary frequency 09/21/2023 Episodic migraine 09/21/2023 Dysuria 09/25/2023 Dysuria 09/25/2023 Hypokalemia Hypopotassemia 09/28/2023 Abdominal pain, RLQ (right lower quadrant) Abdominal pain, right lower quadrant 10/02/2023 Right flank pain Abdominal pain, unspecified site 10/02/2023 Abdominal pain, RLQ (right lower quadrant) Abdominal pain, right lower quadrant 10/02/2023 Right flank pain Abdominal pain, unspecified site 10/02/2023 UTI (urinary tract infection), uncomplicated Urinary tract infection, site not specified 10/02/2023 Injury of left ankle, initial encounter 10/03/2023 Injury of left ankle, initial encounter 10/03/2023 Sprain of other ligament of left ankle, initial encounter 10/04/2023 High ankle sprain of left lower extremity, initial encounter 10/04/2023 Hypokalemia Hypopotassemia 10/05/2023 RTA (renal tubular acidosis) Other specified disorders resulting from impaired renal function 10/05/2023 Hypokalemia Hypopotassemia 10/07/2023 RTA (renal tubular acidosis) Other specified disorders resulting from impaired renal function 10/07/2023 Type 2 diabetes mellitus without complication, without long-term current use of insulin (HCC) 10/09/2023 Floppy eyelid syndrome of both eyes 10/09/2023 Empty sella Other disorders of the pituitary and other syndromes of diencephalohypophyseal origin 10/09/2023 Pseudotumor 10/09/2023 MGD (meibomian gland disease), right 10/09/2023 MGD (meibomian gland disease), left 10/09/2023 Benign intracranial hypertension 10/11/2023 Memory loss 10/11/2023 Encounter for long-term (current) use of medications Encounter for long-term (current) use of other medications 10/11/2023 Lumbar pain Lumbago 10/11/2023 Lumbar radiculopathy Thoracic or lumbosacral neuritis or radiculitis, unspecified 10/11/2023 DDD (degenerative disc disease), lumbar Degeneration of lumbar or lumbosacral intervertebral disc 10/11/2023 Right lumbar radiculopathy Thoracic or lumbosacral neuritis or radiculitis, unspecified 10/11/2023 Lumbar spondylosis Lumbosacral spondylosis without myelopathy 10/11/2023 Radiculopathy of lumbar region Thoracic or lumbosacral neuritis or radiculitis, unspecified 10/11/2023 Lumbar pain Lumbago 10/11/2023 Hypokalemia Hypopotassemia 10/18/2023 Acute left ankle pain 10/18/2023 Acute left ankle pain 10/18/2023 High ankle sprain of left lower extremity, initial encounter 10/18/2023 Sprain of other ligament of left ankle, initial encounter 10/18/2023 Contusion of right foot, initial encounter 10/20/2023 Mood disorder Unspecified episodic mood disorder 10/24/2023 Fibromyalgia Mylagia and myositis, unspecified 10/24/2023 Bulging lumbar disc Displacement of lumbar intervertebral disc without myelopathy 10/24/2023 Bilateral lumbar radiculopathy 10/24/2023 Lumbar pain Lumbago 11/02/2023 Lumbar radiculopathy Thoracic or lumbosacral neuritis or radiculitis, unspecified 11/02/2023 DDD (degenerative disc disease), lumbar Degeneration of lumbar or lumbosacral intervertebral disc 11/02/2023 Right lumbar radiculopathy Thoracic or lumbosacral neuritis or radiculitis, unspecified 11/02/2023 Lumbar spondylosis Lumbosacral spondylosis without myelopathy 11/02/2023 Radiculopathy of lumbar region Thoracic or lumbosacral neuritis or radiculitis, unspecified 11/02/2023 Lumbar pain Lumbago 11/02/2023 Lumbar radiculopathy Thoracic or lumbosacral neuritis or radiculitis, unspecified 11/02/2023 DDD (degenerative disc disease), lumbar Degeneration of lumbar or lumbosacral intervertebral disc 11/02/2023 Right lumbar radiculopathy Thoracic or lumbosacral neuritis or radiculitis, unspecified 11/02/2023 Lumbar spondylosis Lumbosacral spondylosis without myelopathy 11/02/2023 Radiculopathy of lumbar region Thoracic or lumbosacral neuritis or radiculitis, unspecified 11/02/2023 Chills Chills (without fever) 11/06/2023 Sinus congestion Other diseases of nasal cavity and sinuses 11/06/2023 Nausea and vomiting, unspecified vomiting type 11/06/2023 Hypokalemia Hypopotassemia 11/08/2023 High ankle sprain of left lower extremity, initial encounter 11/08/2023 Acute left ankle pain 11/08/2023 Mild intermittent reactive airway disease with wheezing with acute exacerbation 11/16/2023 Type 2 diabetes mellitus without complication, without long-term current use of insulin ([facility]) 11/18/2023 Nausea and vomiting, unspecified vomiting type 11/18/2023 Dry mouth Disturbance of salivary secretion 11/21/2023 Hypokalemia Hypopotassemia 11/24/2023 Obstructive sleep apnea Obstructive sleep apnea (adult) (pediatric) 12/05/2023 Obstructive sleep apnea Obstructive sleep apnea (adult) (pediatric) 12/05/2023 Tiredness Other malaise and fatigue 12/05/2023 Class 2 severe obesity with serious comorbidity in adult, unspecified BMI, unspecified obesity type 12/05/2023 Mood disorder Unspecified episodic mood disorder 12/05/2023 Bipolar depression (HCC) Bipolar I disorder, most recent episode (or current) depressed, unspecified 12/05/2023 Type 2 diabetes mellitus without complication, without long-term current use of insulin ([facility]) 12/05/2023 Major depressive disorder, recurrent episode, mild 12/05/2023 Sacroiliitis Sacroiliitis, not elsewhere classified 12/06/2023 Right foot pain Pain in limb 12/18/2023 Generalized anxiety disorder 12/18/2023 Hypokalemia Hypopotassemia 12/19/2023 Mild intermittent reactive airway disease with wheezing with acute exacerbation 12/19/2023 Numbness in both legs Disturbance of skin sensation 01/01/2024 Neuropathy Mononeuritis of unspecified site 01/01/2024 AYSE (generalized anxiety disorder) Generalized anxiety disorder 01/01/2024 Mood disorder Unspecified episodic mood disorder 01/01/2024 Complex posttraumatic stress disorder 01/01/2024 Peripheral polyneuropathy Unspecified hereditary and idiopathic peripheral neuropathy 01/02/2024 Primary snoring Other dyspnea and respiratory abnormality 01/03/2024 Obstructive sleep apnea Obstructive sleep apnea (adult) (pediatric) 01/03/2024 Obstructive sleep apnea Obstructive sleep apnea (adult) (pediatric) 01/03/2024 Tiredness Other malaise and fatigue 01/03/2024 Class 2 severe obesity with serious comorbidity in adult, unspecified BMI, unspecified obesity type 01/03/2024 Bipolar depression (HCC) Bipolar I disorder, most recent episode (or current) depressed, unspecified 01/03/2024 Mood disorder Unspecified episodic mood disorder 01/03/2024 Major depressive disorder, recurrent episode, mild 01/03/2024 Type 2 diabetes mellitus without complication, without long-term current use of insulin (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) 01/15/2024 Obstructive sleep apnea Obstructive sleep apnea (adult) (pediatric) 01/16/2024 Tiredness Other malaise and fatigue 01/16/2024 Excessive daytime sleepiness 01/16/2024 Encounter for surveillance of other contraceptive 01/17/2024 Medication management Encounter for other specified aftercare 01/17/2024 Thrush Candidiasis of mouth 01/22/2024 COVID-19 virus infection 01/23/2024 Sjogren's syndrome, with unspecified organ involvement 01/26/2024 Malaise and fatigue Other malaise and fatigue 01/26/2024 Hypokalemia Hypopotassemia 01/30/2024 Pre-op examination Preoperative examination, unspecified 02/05/2024 Endometriosis Endometriosis, site unspecified 02/05/2024 Dysmenorrhea 02/05/2024 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 Carcinoma in situ of cervix uteri 02/05/2024 Impaired glucose tolerance Impaired glucose tolerance test 02/05/2024 Hypokalemia Hypopotassemia 02/05/2024 Type 2 diabetes mellitus without complication, without long-term current use of insulin ([facility]) 02/05/2024 Acidosis 02/05/2024 Nonintractable headache, unspecified chronicity pattern, unspecified headache type 02/05/2024 Fluid retention Other fluid overload 02/05/2024 Hypokalemia Hypopotassemia 02/06/2024 Anxiety Anxiety state, unspecified 02/22/2024 Hypokalemia Hypopotassemia 02/23/2024 Acidosis 02/23/2024 Pharyngitis, unspecified etiology 02/26/2024 Hypokalemia Hypopotassemia 02/29/2024 Sore throat Acute pharyngitis 02/29/2024 Hypokalemia Hypopotassemia 03/14/2024 Arthralgia, unspecified joint 03/16/2024 Nausea and vomiting, unspecified vomiting type 03/16/2024 Ineffective esophageal motility 03/20/2024 Esophageal dysphagia Dysphagia, pharyngoesophageal phase 03/20/2024 Vaginal irritation Unspecified noninflammatory disorder of vagina 03/21/2024 Vaginal pain Unspecified symptom associated with female genital organs 03/21/2024 Nasal dryness Other diseases of nasal cavity and sinuses 03/21/2024 Type 2 diabetes mellitus without complication, without long-term current use of insulin ([facility]) 03/26/2024 Mild intermittent reactive airway disease with wheezing with acute exacerbation 03/26/2024 Hypokalemia Hypopotassemia 04/01/2024 Sinus congestion Other diseases of nasal cavity and sinuses 04/01/2024 Recurrent sinusitis Unspecified sinusitis (chronic) 04/01/2024 Panic attack Panic disorder without agoraphobia 04/04/2024 Sinus congestion Other diseases of nasal cavity and sinuses 04/04/2024 Recurrent sinusitis Unspecified sinusitis (chronic) 04/04/2024 Osteoporosis with pathological fracture of ankle and foot, right, initial encounter 04/04/2024 Thrush Candidiasis of mouth 04/09/2024 Vitamin D deficiency Unspecified vitamin D deficiency 04/12/2024 Hypokalemia Hypopotassemia 04/12/2024 Seasonal allergic rhinitis, unspecified trigger 05/08/2024 Type 2 diabetes mellitus without complication, without long-term current use of insulin ([facility]) 05/13/2024 Acute bacterial sinusitis Acute sinusitis, unspecified 05/14/2024 History of migraine headaches Personal history of other disorders of nervous system and sense organs 05/14/2024 Sinus congestion Other diseases of nasal cavity and sinuses 05/14/2024 Impaired glucose tolerance Impaired glucose tolerance test 05/27/2024 Hypokalemia Hypopotassemia 06/06/2024 RTA (renal tubular acidosis) Other specified disorders resulting from impaired renal function 06/13/2024 Fluid retention Other fluid overload 06/13/2024 Impaired glucose tolerance Impaired glucose tolerance test 06/16/2024 Obstructive sleep apnea Obstructive sleep apnea (adult) (pediatric) 07/08/2024 Tiredness Other malaise and fatigue 07/08/2024 Excessive daytime sleepiness 07/08/2024 Major depressive disorder, recurrent episode, mild 07/08/2024 Bipolar depression ([facility]) Bipolar I disorder, most recent episode (or current) depressed, unspecified 07/08/2024 Type 2 diabetes mellitus without complication, without long-term current use of insulin ([facility]) 07/08/2024 Obstructive sleep apnea Obstructive sleep apnea (adult) (pediatric) 07/09/2024 Type 2 diabetes mellitus without complication, without long-term current use of insulin ([facility]) 07/09/2024 Impaired glucose tolerance Impaired glucose tolerance test 07/09/2024 Mild intermittent reactive airway disease with wheezing with acute exacerbation 07/09/2024 Peripheral polyneuropathy Unspecified hereditary and idiopathic peripheral neuropathy 07/09/2024 Episodic migraine 07/09/2024 Panic attack Panic disorder without agoraphobia 07/09/2024 Arthralgia, unspecified joint 07/09/2024 Seasonal allergic rhinitis, unspecified trigger 07/09/2024 Vaginal irritation Unspecified noninflammatory disorder of vagina 07/09/2024 Vaginal pain Unspecified symptom associated with female genital organs 07/09/2024 Restless legs syndrome (RLS) 07/09/2024 Dry mouth Disturbance of salivary secretion 07/09/2024 Vitamin D deficiency Unspecified vitamin D deficiency 07/09/2024 Type 2 diabetes mellitus without complication, without long-term current use of insulin ([facility]) 07/25/2024 Vitamin D deficiency Unspecified vitamin D deficiency 07/25/2024 Acute cough 08/09/2024 Viral illness Unspecified viral infection, in conditions classified elsewhere and of unspecified site 08/09/2024 Nausea and vomiting, unspecified vomiting type 08/09/2024 Diarrhea, unspecified type 08/19/2024 Right upper quadrant abdominal tenderness without rebound tenderness 08/19/2024 Impaired glucose tolerance Impaired glucose tolerance test 08/20/2024 Constipation, unspecified constipation type 08/26/2024 Constipation, unspecified constipation type 08/26/2024 Ineffective esophageal motility 08/26/2024 Esophageal dysphagia Dysphagia, pharyngoesophageal phase 08/26/2024 Type 2 diabetes mellitus without complication, without long-term current use of insulin ([facility]) 09/19/2024 Avitaminosis D Unspecified vitamin D deficiency 10/01/2024 Impaired glucose tolerance Impaired glucose tolerance test 10/09/2024 RTA (renal tubular acidosis) Other specified disorders resulting from impaired renal function 10/10/2024 Peripheral polyneuropathy Unspecified hereditary and idiopathic peripheral neuropathy 10/10/2024 Type 2 diabetes mellitus without complication, without long-term current use of insulin ([facility]) 10/14/2024 RTA (renal tubular acidosis) Other specified disorders resulting from impaired renal function 10/14/2024 Nonintractable headache, unspecified chronicity pattern, unspecified headache type 10/14/2024 Fluid retention Other fluid overload 10/14/2024 Type 2 diabetes mellitus without complication, without long-term current use of insulin (HCC) 10/16/2024 Floppy eyelid syndrome of both eyes 10/16/2024 Pseudotumor 10/16/2024 Refractive error Unspecified disorder of refraction and accommodation 10/16/2024 Stress fracture of right foot, initial encounter 11/13/2024 Pain in toe of right foot Pain in limb 11/13/2024 Difficulty walking Difficulty in walking 11/13/2024 Impaired glucose tolerance Impaired glucose tolerance test 11/24/2024 Ineffective esophageal motility 12/10/2024 Esophageal dysphagia Dysphagia, pharyngoesophageal phase 12/10/2024 Restless legs syndrome (RLS) 12/28/2024 Type 2 diabetes mellitus without complication, without long-term current use of insulin (HCC) 01/09/2025 Type 2 diabetes mellitus without complication, without long-term current use of insulin (HCC) 01/09/2025 Mild intermittent reactive airway disease with wheezing with acute exacerbation 01/09/2025 Impaired glucose tolerance Impaired glucose tolerance test 01/09/2025 Vitamin D deficiency Unspecified vitamin D deficiency 01/09/2025 Peripheral polyneuropathy Unspecified hereditary and idiopathic peripheral neuropathy 01/09/2025 Episodic migraine 01/09/2025 Panic attack Panic disorder without agoraphobia 01/09/2025 Arthralgia, unspecified joint 01/09/2025 Seasonal allergic rhinitis, unspecified trigger 01/09/2025 Restless legs syndrome (RLS) 01/09/2025 Screening for STDs (sexually transmitted diseases) Screening examination for venereal disease 02/17/2025 RTA (renal tubular acidosis) Other specified disorders resulting from impaired renal function 02/17/2025 Type 2 diabetes mellitus without complication, without long-term current use of insulin (HCC) 02/17/2025 Hypokalemia Hypopotassemia 02/20/2025 Papilledema Papilloedema, unspecified 02/20/2025 Type 2 diabetes mellitus without complication, without long-term current use of insulin (HCC) 02/20/2025 RTA (renal tubular acidosis) Other specified disorders resulting from impaired renal function 02/20/2025 Nonintractable headache, unspecified chronicity pattern, unspecified headache type 02/20/2025 Fluid retention Other fluid overload 02/20/2025 Impaired glucose tolerance Impaired glucose tolerance test 03/25/2025 Nausea and vomiting, unspecified vomiting type 03/30/2025 Type 2 diabetes mellitus without complication, without long-term current use of insulin ([facility]) 04/03/2025 Bleeding in early Unspecified hemorrhage in early , unspecified as to episode of care 04/09/2025 Bleeding in early Unspecified hemorrhage in early , unspecified as to episode of care 04/09/2025 Threatened miscarriage Threatened , unspecified as to episode of care 04/10/2025 Positive test examination or test, positive result 04/10/2025 Vaginal bleeding Other specified noninflammatory disorder of vagina 04/10/2025 UTI (urinary tract infection), uncomplicated Urinary tract infection, site not specified 04/10/2025 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 Carcinoma in situ of cervix uteri 05/04/2018 HGSIL on cytologic smear of cervix 03/19/2019 History of cervical dysplasia Personal history of cervical dysplasia 03/19/2019 Dysphagia Dysphagia, unspecified 08/17/2022 Chest pain, unspecified type 08/26/2022 Chest pain, precordial Precordial pain 08/27/2022 Hypokalemia Hypopotassemia 08/27/2022 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 Carcinoma in situ of cervix uteri 08/27/2022 Fibromyalgia Mylagia and myositis, unspecified 08/27/2022 Gastroesophageal reflux disease with esophagitis without hemorrhage 08/27/2022 Major depressive disorder, recurrent episode, mild 08/27/2022 Restless legs syndrome (RLS) 08/27/2022 Mood disorder Unspecified episodic mood disorder 08/27/2022 Asthma exacerbation Unspecified asthma, with exacerbation 08/27/2022 Cubital tunnel syndrome on left Lesion of ulnar nerve 03/15/2023 Idiopathic progressive neuropathy Idiopathic progressive polyneuropathy 01/04/2024 Mood disorder Unspecified episodic mood disorder 01/04/2024 Type 2 diabetes mellitus without complication, without long-term current use of insulin ([facility]) 01/04/2024 Fibromyalgia Mylagia and myositis, unspecified 01/04/2024 History of migraine headaches Personal history of other disorders of nervous system and sense organs 01/04/2024 Restless legs syndrome (RLS) 01/04/2024 Gastroesophageal reflux disease with esophagitis without hemorrhage 01/04/2024 Chronic constipation Unspecified constipation 01/04/2024 Peripheral polyneuropathy Unspecified hereditary and idiopathic peripheral neuropathy 01/04/2024 Goals Goal Patient Goal Type Associated Problems [...] 2:57 PM EDT) No Kamini Turner APRN Care Teams Cdc Associate Relationship Specialty Start Date End Date Kamini Turner APRN [address] [place] [id number] PCP - General Nurse Practitioner 11/28/17 [place] [address] [place] [address] [address] [place] [address] Referring Physician Obstetrics & Gynecology 03/11/19 Kevin Santillan MD [address] [place] [address] [address] [place] [address] Consulting Physician Obstetrics & Gynecology-Gynecologic Oncology 03/21/19 Jonelle Michael MD [address] [phone] Consulting Physician Ophthalmology 03/19/20 Keyla Colorado MD [address] [place] [address] Internal Medicine-Rheumatology 12/08/22
--- OUTSIDE RECORDS SUMMARY | 2025-04-10 15:34 | XMS_ITS ---
Author Organization Unknown ENCOUNTERS Encounter Performer Location Date Diagnosis Diagnosis Status Pre Admit [place] [address] [place] [address] [id number] Emergency [place] [address] [place] [address] [id number] *Note: Encounters from your own facility or health system may be excluded. Allergies, Adverse Reactions, Alerts Allergen Type Severity Identification Date Medications Name Date Quantity Days Supplied GPI Number
[2025-04-10 15:37] VITALS: BP 126/78; PULSE 84; RESP 16; TEMP 36.7; O2SAT 100; BMI 40.0
--- NOTE | 2025-04-10 15:42 | US_ITS ---
PROCEDURE INFORMATION: Exam: US , Transvaginal Exam date and time: 04/10/2025 4:08 PM Age: 39 years old Clinical indication: Lmp or gestational age (in weeks): Unknown; Other: Bleeding and cramping; Additional info: Vaginal bleeding and cramping positive preg / HX tubal ectopic LABS AND CLINICAL REPORTS: Last menstrual period start date: 03/29/2025 Gestational age (Established): 1 w 5 d Estimated due date (Established): 01/03/2026 TECHNIQUE: Imaging protocol: Real-time transvaginal obstetrical ultrasound of the maternal pelvis with image documentation. Transvaginal imaging was used for better evaluation of the fetus, adnexa, and/or cervix. COMPARISON: No relevant prior studies available. FINDINGS: Gestation: No IUP is identified. MATERNAL: Right ovary/adnexa: Right ovary measures 3.26 cm x 1.75 cm x 1.78 cm. Right ovarian volume is 5.32 mL. Vascular flow noted. 1.7 cm solid mass seen adjacent to the right ovary without hypervascularity. Left ovary/adnexa: Left ovary measures 2.56 cm x 2.48 cm x 1.24 cm. Left ovarian volume is 4.12 mL. Vascular flow noted. IMPRESSION: 1.5 cm solid mass adjacent to the right ovary without identifiable IUP. Based on this finding, an ectopic can not be excluded. Recommend correlation with quantitative beta HCG.
[2025-04-10 15:50] LABS: Microscopic, Urine URINE MICROSCOPIC (MICROSCOPIC)
[2025-04-10 15:52] LABS: Hematocrit 44.0 % (37.0-47.0); Hemoglobin 14.5 g/dL (12.2-16.2); Immature Granulocytes % 0.2 %; Mean Corpuscular HGB Conc 33.0 g/dL (31.8-35.4); Mean Corpuscular Hemoglobin 31.1 pg (27.0-31.2); Mean Corpuscular Volume 94.4 fl (81-99); Nucleated Red Blood Cells % 0 %; Platelet Count 304 K/mm3 (142-424); Red Blood Count 4.66 M/mm3 (4.20-5.40); Red Cell Distribution Width-SD 43.3 fL; White Blood Count 9.7 K/mm3 (4.8-10.8)
[2025-04-10] MEDS: 0.9 % SODIUM CHLORIDE 1000ML 1,000 ML 999 ML IV (15:54)
[2025-04-10 15:58] LABS: Glucose,Urine (UA) Negative (Negative); Ketones,Urine Negative (Negative); Leukocyte Esterase,Urine Negative (Negative); PH,Urine 7.0 (5.0-8.5); Protein,Urine 1+ (Negative); Specific Gravity, Urine 1.020 (1.005-1.030); Urobilinogen,Urine 1.0 EU/dl (0.2)
[2025-04-10 16:01] LABS: Bilirubin,Urine Negative (Negative); Color,Urine Yellow (Yellow)
[2025-04-10 16:03] LABS: Alanine Aminotransferase 21 U/L (12-78); Albumin Level 4.6 g/dl (3.5-5.0); Albumin/Globulin Ratio 1.4 (1.1-1.8); Alkaline Phosphatase 42 U/L (38-126); Anion Gap 12.7 mEq/L (5-15); Aspartate Amino Transferase 38 U/L (14-36); Bilirubin,Total 0.6 mg/dl (0.2-1.3); Blood Urea Nitrogen 12 mg/dl (7-17); Calcium 9.5 mg/dl (8.4-10.2); Carbon Dioxide 21 mmol/L (22.0-30.0); Chloride 108 mmol/L (98-107); Creatinine Clearance Estimated 134 mL/min (50-200); Creatinine,Serum 0.90 mg/dl (0.52-1.04); Estimated Glomerular Filt Rate 70 ml/min (>60); GFR (African American) 85 ML/MIN (>60); Globulin 3.4 g/dL (1.3-3.2); Glucose 95 mg/dl (74-100); Lipase 134 U/L (23-300); Magnesium 1.8 mg/dl (1.6-2.3); Potassium 3.7 mmoL/L (3.5-5.1); Sodium 138 mmol/L (136-145); Total Protein,Serum 8.0 g/dl (6.3-8.2)
[2025-04-10 16:06] LABS: Activated Partial Thrombo Time 25.5 seconds (22.8-30.6); INR 0.92 (0.9-1.1); Prothrombin Time 10.3 seconds (10.1-12.5)
--- NOTE | 2025-04-10 16:07 | ED_ITS ---
<Statement entered by Kaci Gordon DO - 04/10/25 17:38> I was consulted by the PHILLIP, and we discussed the complexity of problems being addressed. I approve the treatment and management plan for this patient's care in the emergency department, thus performing a substantial portion of the medical decision making. Kaci Gordon DO Discharge Plan Disposition Chief Complaint: Vaginal Bleeding Referrals Follow up/Referrals: Provider,Referral, MD [Primary Care Provider, Medical] - See instructions Print Language Print Language: Guinean Discharge ED Provider: Kaci Gordon General Adult HPI General Chief complaint: Vaginal Bleeding Stated complaint: abdominal pain and bleeding Time Seen by Provider: 04/10/25 15:34 Mode of Arrival: Ambulatory Source of Information: Patient Description of Symptoms (Recalled from ER Triage Doc. by RN): pt presents to ED with c/o vaginal bleeding and adominal cramping. pt was seen in [facility] ER yesterdy and diagnosed with a . pt reports that today she began to have cramping and bleeding. pt reports that it is BRB and small clots. History of Present Illness HPI narrative: 39-year-old female presents to the ED today with complaint of vaginal bleeding and cramping. She was seen in the [facility] ER and her hCG was positive. She began having cramping and bleeding today. She states that she started spotting, bleeding with urination and having some small clots. She had 2 positive urine test and a positive beta hCG yesterday. Dr. Wick is her PCP. She said on March 29 she started spotting, stopped for 3 to 4 days and it came back yesterday. She is very nervous that she had a tubal that ruptured in June 2008. Related Data Allergies Allergy/AdvReac Type Severity Reaction Status Date / Time Penicillins Allergy Hives Verified 04/10/25 17:05 [facility] Disclaimer: The information contained in this section may have been updated after the patient was seen, as this information can be updated by other users. Social History Smoking Status: Current every day smoker alcohol intake: former current occupational status: other Travel in the last 8 weeks?: None ROS Obtained: Yes Systems reviewed as appropriate & no additional complaints except as documented Constitutional Constitutional: Reports as per HPI Physical Exam General General appearance: alert Head Head exam: normocephalic Eye Eye exam: Present PERRL and EOMI ENT ENT exam: Present normal oropharynx and mucous membranes moist Neck Neck exam: Present full ROM and trachea midline Respiratory Respiratory exam: Present normal lung sounds bilaterally Cardiovascular Cardiovascular exam: Present regular rate, normal rhythm, normal heart sounds, +S1 and +S2 Abdominal Exam Abdominal exam: Present soft and normal bowel sounds Extremities Exam Extremities exam: Present full ROM and normal capillary refill Neurological Exam Neurological exam: Present alert, oriented X3 and normal gait Skin Skin exam: Present warm and dry Medical Decision Making Medical Records Screening: Per USPSTF and CDC recommendations, given the prevalence of disease in our region, it is our hospital?s policy to screen for HIV and viral Hepatitis for all patients aged 18 and over and those with ongoing risk factors. Albert Inquiry Pt receiving controlled substance: No Albert was queried for this patient: No Vital Signs: 04/10/25 15:37 04/10/25 16:36 04/10/25 17:00 Temperature 98.0 F Temperature Source Oral Pulse Rate 72 77 Pulse Rate [Left Radial] 84 Respiratory Rate 16 Blood Pressure 125/78 113/71 Blood Pressure [Right Arm] 126/78 Blood Pressure Mean [Right Arm] 94 02 Sat by Pulse Oximetry 100 100 100 Oxygen Delivery Method Room Air Lab Data Lab Results 04/10/25 15:19: Urine Color Yellow, Urine Appearance Sl cloudy, Urine pH 7.0, Ur Specific [place] 1.020, Urine Protein 1+ A, Urine Glucose (UA) Negative, Urine Ketones Negative, Urine Blood 3+ A, Urine Nitrate Negative, Urine Bilirubin Negative, Urine Urobilinogen 1.0, Ur Leukocyte Esterase Negative, Urine RBC Occasional, Urine WBC 10-20, Ur Squamous Epith Cells 20-50, Amorphous Sediment 4+, Urine Bacteria 1+ 04/10/25 15:30: WBC 9.7, RBC 4.66, Hgb 14.5, Hct 44.0, MCV 94.4, MCH 31.1, MCHC 33.0, RDW 12.5, Plt Count 304, MPV 10.1, Neut % (Auto) 60.9, Lymph % (Auto) 30.3, Centre % (Auto) 6.1, Eos % (Auto) 1.8, Baso % (Auto) 0.7, Neut # (Auto) 5.9, Lymph # (Auto) 3.0, Centre # (Auto) 0.6, Eos # (Auto) 0.2, Baso # (Auto) 0.1, PT 10.3, INR 0.92, APTT 25.5, Sodium 138, Potassium 3.7, Chloride 108 H, Carbon Dioxide 21 L, Anion Gap 12.7, BUN 12, Creatinine 0.90, Estimated Creat Clear 134, Estimated GFR 70, Est GFR ( Amer) 85, Glucose 95, Calcium 9.5, Magnesium 1.8, Total Bilirubin 0.6, AST 38 H, ALT 21, Alkaline Phosphatase 42, Total Protein 8.0, Albumin 4.6, Globulin 3.4 H, Albumin/Globulin Ratio 1.4, Lipase 134, HCG, Quant 122 H 04/10/25 16:00: Blood Type O Negative 04/10/25 15:30 04/10/25 15:30 Orders (Tests/Meds): ED MEDICATIONS Discontinued Medications Generic Name Dose Route Start Last Admin Trade Name Freq PRN Reason Stop Dose Admin Sodium Chloride 1,000 mls @ 999 mls/hr 04/10/25 15:44 04/10/25 17:05 Sod Chlor 0.9% 1000ml Bag IV 04/10/25 16:44 Infused .Q1H1M ONE Infusion ORDERS Category Date Time Status ABO/RH Type Stat BBK 04/10/25 16:00 Completed Beta HCG, Quant [HCG,Quantitative] Stat Lab 04/10/25 15:30 Completed CBC [Complete Blood Count Auto Diff] Stat Lab 04/10/25 15:30 Completed Comprehensive Metabolic Panel Stat Lab 04/10/25 15:30 Completed Lipase Stat Lab 04/10/25 15:30 Completed Magnesium Stat Lab 04/10/25 15:30 Completed PT INR [Prothrombin Time INR] Stat Lab 04/10/25 15:30 Completed PTT [Activated Partial Thrombo Time] Stat Lab 04/10/25 15:30 Completed Urinalysis and Microscopic Stat Lab 04/10/25 15:19 Completed Urine Culture Stat Micro 04/10/25 15:19 Received US OB transvaginal Stat Ultrasound 04/10/25 15:42 Completed Medical Decision Narrative: patient is a 39-year-old presenting to the emergency department for evaluation of bleeding with urination and positive test. Patient is hemodynamically stable and nontoxic-appearing upon arrival, afebrile. Differential diagnosis includes ectopic , miscarriage, UTI, among others. Workup will be conducted with hematologic labs, specific imaging, provocative tests. Initial inventions include crystalloid bolus, analgesics, antibiotics. Initial workup reviewed by me hematologic labs are remarkable for Normal white count, normal H&H, potassium and other electrolytes are all normal kidney function was normal hCG quant was 122. Urine had 3+ blood with negative leuks and 1+ bacteria. Her PRESS PIPE INSPECTOR sent cephalexin for a UTI today when she saw her. Patient's transvaginal ultrasound did show a 1.5 cm solid mass adjacent to the right ovary without identifiable IUP. I discussed this with patient and told her to follow-up with her PRESS PIPE INSPECTOR or Dr. Evans for a 48-hour blood work. I discussed this with Dr. Gordon who agrees with this plan. Patient safe for discharge Critical Care Critical Care Time Critical Care Time: No
[2025-04-10 16:14] LABS: Amorphous Sediment,Urine 4+ /lpf; Bacteria,Urine 1+ /lpf; RBC,Urine Occasional #/hpf (0-3); Squamous Epithelial Cell,Urine 20-50 #/hpf (0-5)
[2025-04-10 16:36] VITALS: BP 125/78; PULSE 72; O2SAT 100
[2025-04-10 17:00] VITALS: BP 113/71; PULSE 77; O2SAT 100
[2025-04-10 17:44] VITALS: BP 122/66; PULSE 77; RESP 18; TEMP 36.7; O2SAT 100
== END 2025-04-10 17:45 | disposition home or self-care (01) ==
PROVIDERS: Nurse Practitioner; Emergency Provider Student in an Organized Health Care Education/Training Program
DX: N93.9 Abnormal uterine and vaginal bleeding, unspecified (principal); F17.200 Nicotine dependence, unspecified, uncomplicated
CPT/HCPCS: 76817; 80053; 81001; 83690; 83735; 84702; 85025; 85610; 85730; 86900; 86901; 87086; 96365; 99285; J7030

== ENCOUNTER 2025-04-14 08:25 | Outpatient (CLI) | payer BC, SELFPAY | END 2025-04-14 23:59 | disposition home or self-care (01) | LOC: LAB 08:27 | PROVIDERS: PCP Nurse Practitioner; Visit Provider Obstetrics & Gynecology | DX: N93.9 Abnormal uterine and vaginal bleeding, unspecified (principal) | CPT/HCPCS: 36415; 84144; 84702 ==

== ENCOUNTER 2025-04-16 13:10 | Outpatient (CLI) | payer BC, SELFPAY ==
[2025-04-16 14:12] LABS: Urine Pregnancy, HCG Qual. Negative (Negative)
--- OUTSIDE RECORDS SUMMARY | 2025-04-16 14:14 | XMS_ITS | Clinical Summary ---
Author Organization [facility] Address [address] [place] [address] Care Team Providers Care Irrigation Tax Assessor Collector Name Role Phone Lm Turner APRN Primary Care Provider [phone] Allergies Active Allergy Reactions Criticality Noted Date [...] Payer ID:[id number] (NAIC) Type:PPO Address: [address] [place] [id number] Care Teams Irrigation Tax Assessor Collector Relationship Specialty Start Date End Date Lm Turner APRN [address] [place] [phone] PCP - General 03/11/24
== END 2025-04-16 23:59 | disposition home or self-care (01) ==
LOC: LAB 13:10
PROVIDERS: PCP Nurse Practitioner; Visit Provider Obstetrics & Gynecology
DX: Z34.90 Encounter for supervision of normal pregnancy, unspecified, unspecified trimester (principal); Z3A.00 Weeks of gestation of pregnancy not specified
CPT/HCPCS: 36415; 81025; 84702